=== PATIENT | female | born 1930 | race Caucasian/White ===

== ENCOUNTER 2016-10-09 13:00 | Outpatient (RCR) ==
--- NOTE | 2016-09-30 14:20 | RS.OPPTDN ---
Subjective Date of Note: 09/30/16 Visit #: 8 Date of Evaluation: 09/12/16 Payer Source: MEDICARE Treatment Diagnosis: Neck pain Current Subjective/complaints:: Patient reports continued tightness but improvement each day. States she is doing more at home and feels like she has better rotation. Pain Assessment - Pain Description Pain Location: left side of neck and base of head Current Pain Intensity: mild to moderate - Treatment Modality: Ultrasound Parameters/Method Applied: [id number] at 1.5w/cm2 to the bilateral cervical paraspinals with focus on left. Patient in sitting. Patient Position: Sitting - Heat/Cryotherapy Treatment: Hot Pack ([id number] to cervical spine prior to US and EX. Patient in supine. ) Interventions - Exercise/Activities/Manual Therapy Exercises/Activities: [id number] Assisted cervical rotation and lateral flexion stretching. Isometric cervical retraction and shoulder extension. Scapular retraction. Modified wall angels. Red theraband for scapular retraction in standing, 2s/10reps. Total minutes of Exercise: 12mins Manual Therapy: x5mins of manual therapy of DTM to address muscle tone in the upper traps and cervical paraspinals. Trigger point release at the left occiput. Patient in sitting. Total minutes of Manual Therapy: 5mins HOME EXERCISE PROGRAM: gentle stretching into lateral flexion and rotation, bilaterally. Isometric cervical retraction. Modifies wall angels. Red theraband for scapular retraction. - Objective Findings Observations,measurements,etc.: Patient demos 40-45 degrees active rotation to the left. Left lateral flexion continues to be limitied due to tightness right side. - Charges Total Direct Minutes: 29mins Total Treatment Time: 49mins Procedures billed for this date of service:: HP, US, EX Assessment: Patient progressing with postural exercise and with ability to perform daily activities at home. Patient Education: Body/Joint mechanics, Home Exercise Program, Home Safety Comments: Reveiwed patient education of posture and HEP. Patient demonstrates compliance with HEP?: Yes Short Term Goals Goal #1: Pt independent and compliant with basic HEP. Goal to be met by: 09/26/16 (100%) Progress towards Goal:: Met Goal #2: Muscle tone in bilateral upper traps decreased to minimal. Goal to be met by: 09/26/16 (50%) Progress towards Goal:: Progressing Goal #3: Neck pain at rest <3/10. Goal to be met by: 09/26/16 (75%) Progress towards Goal:: Progressing Goal #4: Left cervical rotation improved to 40-45 degrees. Goal to be met by: 09/26/16 (100%) Progress towards Goal:: Met Reporting Specialist Goals Goal #1: Pt knows to continue HEP to maintain level of function at D/C. Goal to be met by: 10/22/16 Progress towards goal: Progressing Goal #2: Pt's cervical rotation improved for patient to be able to return to driving Goal to be met by: 10/22/16 Progress towards goal: Progressing Goal #3: Pt to perform all ADL's and functional activities with minimal neck pain. Goal to be met by: 10/22/16 Progress towards goal: Progressing Goal #4: Pt able to sleep throughout the night w/o interruption from neck pain. Goal to be met by: 10/22/16 Progress towards goal: Progressing Plan PLAN OF CARE EXPIRES ON:: 10/22/16 ORDER # VISITS AND/OR THROUGH DATE: 10/22/16 PLAN: Continue Plan of Care
--- NOTE | 2016-10-02 15:15 | RS.OPPTDN ---
Subjective Date of Note: 10/02/16 Visit #: 9 Date of Evaluation: 09/12/16 Payer Source: MEDICARE Treatment Diagnosis: Neck pain Current Subjective/complaints:: Patient reports left upper cervical muscle spasm has imprved to minimal. She has had increased discomfort at the center of the upper cervical spine at the occipit. Reports reduced pain and increased ROM. Pain Assessment - Pain Description Pain Location: left side of neck and base of head Current Pain Intensity: mild to moderate - Treatment Modality: Ultrasound Parameters/Method Applied: [id number] at 1.5w/cm2 to the bilateral cervical paraspinals prior to MT. Patient in sitting. Patient Position: Sitting - Heat/Cryotherapy Treatment: Hot Pack ([id number] to the cervical spine prior to US. Patient in supine. ) Interventions - Exercise/Activities/Manual Therapy Exercises/Activities: x5mins. Assisted lateral flexion and rotation gentle stretching. Isometric cervical retraction, lateral flexion, and isometric shoulder extension. Reviewed HEP, no new additions. Total minutes of Exercise: 5mins Manual Therapy: [id number] of manual therapy of DTM to address muscle tone in the upper traps and cervical paraspinals. Trigger point release along the occiput. Patient in sitting. Total minutes of Manual Therapy: 12mins HOME EXERCISE PROGRAM: gentle stretching into lateral flexion and rotation, bilaterally. Isometric cervical retraction. Modifies wall angels. Red theraband for scapular retraction. - Charges Total Direct Minutes: 29mins Total Treatment Time: 49mins Procedures billed for this date of service:: HP, US, MT Assessment: Patient continues to report improvement in pain and ability to perform daily activities. Patient demonstrates compliance with HEP?: Yes Short Term Goals Goal #1: Pt independent and compliant with basic HEP. Goal to be met by: 09/26/16 (100%) Progress towards Goal:: Met Goal #2: Muscle tone in bilateral upper traps decreased to minimal. Goal to be met by: 09/26/16 (50%) Progress towards Goal:: Progressing Goal #3: Neck pain at rest <3/10. Goal to be met by: 09/26/16 (75%) Progress towards Goal:: Progressing Goal #4: Left cervical rotation improved to 40-45 degrees. Goal to be met by: 09/26/16 (100%) Progress towards Goal:: Met Assisted Goals Goal #1: Pt knows to continue HEP to maintain level of function at D/C. Goal to be met by: 10/22/16 Progress towards goal: Progressing Goal #2: Pt's cervical rotation improved for patient to be able to return to driving Goal to be met by: 10/22/16 Progress towards goal: Progressing Goal #3: Pt to perform all ADL's and functional activities with minimal neck pain. Goal to be met by: 10/22/16 Progress towards goal: Progressing Goal #4: Pt able to sleep throughout the night w/o interruption from neck pain. Goal to be met by: 10/22/16 Progress towards goal: Progressing Plan PLAN OF CARE EXPIRES ON:: 10/22/16 ORDER # VISITS AND/OR THROUGH DATE: 10/22/16 PLAN: Continue Plan of Care (Continue and progress postural strengthening exercises.)
--- NOTE | 2016-10-04 17:31 | RS.OPPTDN ---
Subjective Date of Note: 10/04/16 Visit #: 10 Date of Evaluation: 09/12/16 Payer Source: MEDICARE Treatment Diagnosis: Neck pain Current Subjective/complaints:: Patient reports increase in ability to do light activities at home. Patient states she lives alone and needs to be able to perform daily self care and light activities at home. Pain Assessment - Pain Description Pain Location: left side of neck and base of head Current Pain Intensity: mild to moderate - Treatment Modality: Ultrasound Parameters/Method Applied: [id number] at 1.5w/cm2 to the bilateral cervical paraspinals with focus on the left. Patient in sitting. Patient Position: Sitting - Heat/Cryotherapy Treatment: Hot Pack ([id number] ) Interventions - Exercise/Activities/Manual Therapy Exercises/Activities: x5mins. Assisted lateral flexion and rotation gentle stretching. Isometric cervical retraction, lateral flexion, and isometric shoulder extension. Reviewed HEP, no new additions. Total minutes of Exercise: 5mins Manual Therapy: [id number] of manual therapy of DTM to address muscle tone in the upper traps and cervical paraspinals. Trigger point release along the occiput. Patient in sitting. Total minutes of Manual Therapy: 12mins HOME EXERCISE PROGRAM: gentle stretching into lateral flexion and rotation, bilaterally. Isometric cervical retraction. Modifies wall angels. Red theraband for scapular retraction. - Objective Findings Observations,measurements,etc.: Patient progressed on the Neck Disability Index to 54 (was 74 on Eval) - Charges Total Direct Minutes: 29mins Total Treatment Time: 49mins Procedures billed for this date of service:: HP, US, MT Assessment: Patient progressing well and benefitting from treatment. She will benefit from progressing strengthening exercise to increase functional activity level. This is beneficial as patient lives alone. Patient Education: Home Exercise Program Patient demonstrates compliance with HEP?: Yes Short Term Goals Goal #1: Pt independent and compliant with basic HEP. Goal to be met by: 09/26/16 (100%) Progress towards Goal:: Met Goal #2: Muscle tone in bilateral upper traps decreased to minimal. Goal to be met by: 09/26/16 (50%) Progress towards Goal:: Progressing Goal #3: Neck pain at rest <3/10. Goal to be met by: 09/26/16 (75%) Progress towards Goal:: Progressing Goal #4: Left cervical rotation improved to 40-45 degrees. Goal to be met by: 09/26/16 (100%) Progress towards Goal:: Met [employer] Technical Lead Senior Developer Goals Goal #1: Pt knows to continue HEP to maintain level of function at D/C. Goal to be met by: 10/22/16 Progress towards goal: Progressing Goal #2: Pt's cervical rotation improved for patient to be able to return to driving Goal to be met by: 10/22/16 Progress towards goal: Progressing Goal #3: Pt to perform all ADL's and functional activities with minimal neck pain. Goal to be met by: 10/22/16 (70%) Progress towards goal: Progressing Goal #4: Pt able to sleep throughout the night w/o interruption from neck pain. Goal to be met by: 10/22/16 (70%) Progress towards goal: Progressing Plan PLAN OF CARE EXPIRES ON:: 10/22/16 ORDER # VISITS AND/OR THROUGH DATE: 10/22/16 PLAN: Continue Plan of Care
--- NOTE | 2016-10-07 15:14 | RS.OPPTDN ---
Subjective Date of Note: 10/07/16 Visit #: 11 Date of Evaluation: 09/12/16 Payer Source: MEDICARE Treatment Diagnosis: Neck pain Current Subjective/complaints:: Patient says her pain was elevated last night and could not sleep. Reports she had to sleep in her neck brace to get relief. She says she remains tight and tender at the L side of her neck. Pain Assessment - Pain Description Pain Location: left side of neck and base of head Current Pain Intensity: moderate - Treatment Modality: Ultrasound Parameters/Method Applied: continuous @ 1.5 w/cm2 x 10 mins to bilateral UT, but mostly to the L Patient Position: Sitting - Heat/Cryotherapy Treatment: Hot Pack (cervical x 20 mins in supine) Interventions - Exercise/Activities/Manual Therapy Exercises/Activities: x5mins. Assisted lateral flexion and rotation gentle stretching. Isometric cervical retraction, lateral flexion, and isometric shoulder extension. Reviewed HEP, no new additions. Manual Therapy: [id number] of manual therapy of DTM to address muscle tone in the upper traps and cervical paraspinals. Trigger point release along the occiput. Patient in sitting. HOME EXERCISE PROGRAM: gentle stretching into lateral flexion and rotation, bilaterally. Isometric cervical retraction. Modifies wall angels. Red theraband for scapular retraction. - Charges Total Direct Minutes: 30 Total Treatment Time: 50 Procedures billed for this date of service:: hp, MT, U/s Assessment: Patient continues to be tender and have increased muscle guarding to the L UT/rhomboids as well. She is very forward flexed and rounded at the shoulders which is limiting her cspine ROM. She feels no difficulty with UE's however in her daily tasks. Patient Education: Education of diagnosis, Body/Joint mechanics, Home Exercise Program, Home Safety, Activity Modification, Education of Plan of Care Patient demonstrates compliance with HEP?: Yes Short Term Goals Goal #1: Pt independent and compliant with basic HEP. Goal to be met by: 09/26/16 (100%) Progress towards Goal:: Met Goal #2: Muscle tone in bilateral upper traps decreased to minimal. Goal to be met by: 09/26/16 (50%) Progress towards Goal:: Progressing Goal #3: Neck pain at rest <3/10. Goal to be met by: 09/26/16 (75%) Progress towards Goal:: Progressing Goal #4: Left cervical rotation improved to 40-45 degrees. Goal to be met by: 09/26/16 (100%) Progress towards Goal:: Met Intermediate Goals Goal #1: Pt knows to continue HEP to maintain level of function at D/C. Goal to be met by: 10/22/16 Progress towards goal: Progressing Goal #2: Pt's cervical rotation improved for patient to be able to return to driving Goal to be met by: 10/22/16 Progress towards goal: Progressing Goal #3: Pt to perform all ADL's and functional activities with minimal neck pain. Goal to be met by: 10/22/16 (70%) Progress towards goal: Progressing Goal #4: Pt able to sleep throughout the night w/o interruption from neck pain. Goal to be met by: 10/22/16 (70%) Progress towards goal: Progressing Plan PLAN OF CARE EXPIRES ON:: 10/22/16 ORDER # VISITS AND/OR THROUGH DATE: 10/22/16 PLAN: Continue Plan of Care
--- NOTE | 2016-10-08 16:39 | RS.PTSUM ---
Progress Note/Summary Date of Note: 10/08/16 Date of Evaluation: 09/12/16 Number of Visits: 10 Reporting Period for this Progress Note: 09/12/16 through 10/04/16 Current Complaints/Gains: Patient reports she has been able to increase her daily activities. She is independent with all selfcare. Reports improved sleep. She is performing all her laundry and dishes herself. Objective Measurements/Presentation: Left cervical rotation ~45 degrees, She is performing postural strengthening with red theraband. She demonstrates independence with her basic HEP. G Codes: Body pos current CK. Body pos goal CJ Source of G Code Score: Neck disability Index score 54. - Short Term Goals Goal #1: Pt independent and compliant with basic HEP. Goal to be met by: 09/26/16 (100%) Progress towards Goal:: Met Goal #2: Muscle tone in bilateral upper traps decreased to minimal. Goal to be met by: 10/15/16 (50%) Progress towards Goal:: Progressing Goal #3: Neck pain at rest <3/10. Goal to be met by: 10/15/16 (75%) Progress towards Goal:: Progressing Goal #4: Left cervical rotation improved to 40-45 degrees. Goal to be met by: 09/26/16 (100%) Progress towards Goal:: Met - Ux Developer Goals Goal #1: Pt knows to continue HEP to maintain level of function at D/C. Goal to be met by: 10/22/16 Progress towards goal: Progressing Goal #2: Pt's cervical rotation improved for patient to be able to return to driving Goal to be met by: 10/22/16 Progress towards goal: Progressing Goal #3: Pt to perform all ADL's and functional activities with minimal neck pain. Goal to be met by: 10/22/16 (70%) Progress towards goal: Progressing Goal #4: Pt able to sleep throughout the night w/o interruption from neck pain. Goal to be met by: 10/22/16 (70%) Progress towards goal: Progressing - Assessment Assessment of Improvement/Progress: Patient shows improved functional ability per Neck Disability Index. Reports improved sleep and improved ability with some ADL's. She will benefit from two additional visits for progression of exercises. Summary: Patient has made progress towards goals., Patient demonstrates potential to gain increased function with therapy - Plan Plan: Continue Plan of Care PLAN OF CARE EXPIRES ON:: 10/22/16 ORDER # VISITS AND/OR THROUGH DATE: 10/22/16
--- NOTE | 2016-10-09 16:42 | RS.OPPTDN ---
Subjective Date of Note: 10/09/16 Visit #: 12 Date of Evaluation: 09/12/16 Payer Source: MEDICARE Treatment Diagnosis: Neck pain Current Subjective/complaints:: Patient reports motion with cervical rotation has improved. She reports a reduction in pain and improvement in sleeping. States she will continue HEP as instructed. Pain Assessment - Pain Description Pain Location: left side of neck and base of head Current Pain Intensity: mild - Treatment Modality: Ultrasound Parameters/Method Applied: x5mins at 1.5w/cm2 to the left upper cervical paraspinals prior to MT and EX. Patient in sitting. Patient Position: Sitting - Heat/Cryotherapy Treatment: Hot Pack ([id number] to cervical spine in supine position. ) Interventions - Exercise/Activities/Manual Therapy Exercises/Activities: [id number]. Assisted lateral flexion and rotation gentle stretching. Isometric cervical retraction, lateral flexion, and isometric shoulder extension. Red theraband for scapular retraction. Reviewed HEP. Total minutes of Exercise: 12mins Manual Therapy: [id number] of manual therapy of DTM to address muscle tone in the upper traps and cervical paraspinals. Trigger point release along the occiput. Patient in sitting. Total minutes of Manual Therapy: 15mins HOME EXERCISE PROGRAM: gentle stretching into lateral flexion and rotation, bilaterally. Isometric cervical retraction. Modifies wall angels. Red theraband for scapular retraction. - Objective Findings Observations,measurements,etc.: Neck Disability Score remains at 27 or 54% ( started at 36 or 72% on Eval) - Charges Total Direct Minutes: 32mins Total Treatment Time: 52mins Procedures billed for this date of service:: HP, MT, EX Assessment: Patient progressed well and benefitted from treatment. She reports improvement with sleeping and activities of daily living. She will continue HEP. Patient Education: Home Exercise Program, Home Safety, Activity Modification, Education of Plan of Care Patient demonstrates compliance with HEP?: Yes Short Term Goals Goal #1: Pt independent and compliant with basic HEP. Goal to be met by: 09/26/16 (100%) Progress towards Goal:: Met Goal #2: Muscle tone in bilateral upper traps decreased to minimal. Goal to be met by: 10/15/16 (100%) Progress towards Goal:: Met Goal #3: Neck pain at rest <3/10. Goal to be met by: 10/15/16 (100%) Progress towards Goal:: Met Goal #4: Left cervical rotation improved to 40-45 degrees. 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 Goal to be met by: 10/22/16 Progress towards goal: Progressing Goal #2: Pt's cervical rotation improved for patient to be able to return to driving Goal to be met by: 10/22/16 Progress towards goal: Progressing Goal #3: Pt to perform all ADL's and functional activities with minimal neck pain. Goal to be met by: 10/22/16 (70%) Progress towards goal: Progressing Goal #4: Pt able to sleep throughout the night w/o interruption from neck pain. Goal to be met by: 10/22/16 (70%) Progress towards goal: Progressing Plan PLAN OF CARE EXPIRES ON:: 10/22/16 ORDER # VISITS AND/OR THROUGH DATE: 10/22/16 PLAN: Plan for Discharge (Discharge with HEP.)
--- NOTE | 2016-10-22 11:29 | RS.OPPTDC ---
Date of Discharge: 10/22/16 Date of Evaluation: 09/12/16 Number of Visits: 12 Treatment Diagnosis: Neck pain Current Complaints/Gains: Patient reports good progress with therapy. Reports neck ROM. States she is able to perform more ADL's without increased pain. She has not returned to driving yet. She is working on her HEP as instructed. States she can perform all self-care independently. Functional Outcome Measure Neck Disability Index: 54 - G Codes & Severity Modifier G Codes & Modifier: body position goal CJ. body position D/C CK Source of G Code score: Neck disability index 54% Interventions - Exercise/Activities/Manual Therapy Exercises/Activities: NA Manual Therapy: NA HOME EXERCISE PROGRAM: gentle stretching into lateral flexion and rotation, bilaterally. Isometric cervical retraction. Modifies wall angels. Red theraband for scapular retraction. - Objective Findings Observations,measurements,etc.: Left cervical rotation to 45 degrees. She demonstrates improved postural awareness and independence with HEP. - Charges Total Direct Minutes: NA Total Treatment Time: NA Procedures billed for this date of service:: NA Assessment Assessment: Patient with reports of good progress. Reports being able to perform more activities at home. She is confident that she can continue with her exercises at home. Short Term Goals Goal #1: Pt independent and compliant with basic HEP. Goal to be met by: 09/26/16 (100%) Progress towards Goal:: Met Goal #2: Muscle tone in bilateral upper traps decreased to minimal. Goal to be met by: 10/15/16 (100%) Progress towards Goal:: Met Goal #3: Neck pain at rest <3/10. Goal to be met by: 10/15/16 (100%) Progress towards Goal:: Met Goal #4: Left cervical rotation improved to 40-45 degrees. Goal to be met by: 09/26/16 (100%) Progress towards Goal:: Met Residential Goals Goal #1: Pt knows to continue HEP to maintain level of function at D/C. Goal to be met by: 10/22/16 Progress towards goal: Met Goal #2: Pt's cervical rotation improved for patient to be able to return to driving Goal to be met by: 10/22/16 Progress towards goal: Partially Met Goal #3: Pt to perform all ADL's and functional activities with minimal neck pain. Goal to be met by: 10/22/16 (70%) Progress towards goal: Partially Met Goal #4: Pt able to sleep throughout the night w/o interruption from neck pain. Goal to be met by: 10/22/16 (70%) Progress towards goal: Partially Met Plan Reason for Discharge:: No Further Skilled Therapy Indicated
== END 2016-10-29 ==
PROVIDERS: ATTEND Neurological Surgery
DX: M47.12 Other spondylosis with myelopathy, cervical region (principal)

== ENCOUNTER 2016-11-05 11:12 | Emergency (ER) ==
[2016-11-05 11:22] VITALS: TEMP 97.4; BMI 17.7
--- NOTE | 2016-11-05 11:31 | ED.PDOC ---
General ED Provider: Dr. DENA SUMMERS JR Chief Complaint: Shortness of Air Stated Complaint: pt was at [facility]. had trigger point injections done to neck. immediately had pain down the right side. pt was taken for chest x ray. stated lung was not punctured. pt in extreme resp distress on arrival. placed in room 5 [ End ]0830 today 97.4 74 40 96% 4'10" 85#. Rain seeing? Júnior. pt was at [facility]. had trigger point injections done to neck. immediately had pain down the right side. pt was taken for chest x ray. stated lung was not punctured. pt in extreme resp distress on arrival. placed in room 5 [ End ]0830 today 97.4 74 40 96% 4'10" 85#. disc wirh dr isiah gonzalez. disc with Dr [facility] at 1143 Time Seen by Physician: 11:32 Mode of Arrival: Wheelchair Information Source: Patient, Family Exam Limitations: Clinical condition Nursing and Triage Documentation Reviewed and Agree: No Review of Systems - Review Of Systems Constitutional: Reports: Other Eyes: Reports: No symptoms Ears, Nose, Mouth, Throat: Reports: No symptoms Respiratory: Reports: Cough, Short of air, Wheezing Cardiac: Reports: Chest pain (right sided my whole right side) GI: Reports: No symptoms : Reports: No symptoms Musculoskeletal: Reports: No symptoms (kyphotic) Skin: Reports: No symptoms Neurological: Reports: Anxiety Endocrine: Reports: No symptoms Hematologic/Lymphatic: Reports: No symptoms All Other Systems: Other Past Medical History - Past Medical History Endocrine: Reports: Hypothyroid Cardiovascular: Reports: Hypertension Respiratory: Reports: Asthma, Other (bronchiectasis, 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) Hematological: Reports: None Gastrointestinal: Reports: None Genitourinary: Reports: None Neuro/Psych: Reports: None Musculoskeletal: Reports: Arthritis Cancer: Reports: None Last Menstrual Period: none - Surgical History General Surgical History: Reports: 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) - Family History Family History: Reports: Unknown - Social History Smoking Status: Never smoker Hx Substance Use: No Alcohol Screening: None Physical Exam - Physical Exam Appearance: Ill-appearing, Thin Ill-appearing: Severe Pain Distress: Severe Respiratory: Airway patent, Breath sounds diminished (on right) Cardiovascular: Tachycardia Musculoskeletal: Limited ROM, Limited strength (due to shortness of air) Skin: Warm, Dry Neurological: Sensation intact, Motor intact, Alert, Oriented Psychiatric: Anxious Interpretation - Radiology Interpretation Radiology Interpretation By: ED Physician Radiology Results: Positive Exam Interpreted: CXR (r pneumothorax 20-25% per radiologist) - EKG Interpretation Time of EKG #1: 11:25 Rate: Normal Rhythm: Sinus ST Segment: Other (ant st elevation moderate artifact present) Re-Evaluation - Re-Evaluation Time of Re-Evaluation: 12:02 ([id number]) Physician Notification - Case Discussed Physician Notified: DR LANDA/DR NICHOLE AMADOR [facility] Time of Notification: 11:43 (TRANSFER) Critical Care Note - Critical Care Note Total Time (mins): 30 Course - Course Hematology/Chemistry: 11/05/16 11:20 11/05/16 11:20 Orders, Labs, Meds: Lab Review 11/05/16 11/05/16 11:20 11:35 WBC 17.66 H RBC 3.63 L Hgb 12.1 Hct 36.6 L MCV 100.8 H MCH 33.3 H MCHC 33.1 RDW Coeff of Rosie 18.6 H Plt Count 312 Immature Gran % (Auto) 1.4 Neut % (Auto) 89.0 Lymph % (Auto) 7.4 L Wilkes % (Auto) 1.5 Eos % (Auto) 0.1 Baso % (Auto) 0.6 Immature Gran # (Auto) 0.2 Neut # 15.7 H Lymph # 1.3 Wilkes # 0.3 L Eos # 0.0 Baso # 0.1 D-Dimer 0.46 Puncture Site L radial O2 Saturation 93.0 L ABG pH 7.287 L* ABG pCO2 50.3 H ABG pO2 77.0 L ABG HCO3 24 ABG Total CO2 26 ABG Base Excess -3 L Zain Test + O2 Delivery Device Nc Oxygen Liter Flow 2.00 FiO2 % 28.0 Sodium 135 L Potassium 4.1 Chloride 97 L Carbon Dioxide 24 Anion Gap 18.1 BUN 16 Creatinine 0.72 Estimated GFR (MDRD) 77.00 BUN/Creatinine Ratio 22.22 Glucose 163 H Calcium 10.3 H Total Bilirubin 0.83 AST 38 H ALT 22 Alkaline Phosphatase 51 L Total Creatine Kinase 43 Troponin I < 0.0100 B-Natriuretic Peptide 401 H Total Protein 7.6 Albumin 4.1 Globulin 3.5 Albumin/Globulin Ratio 1.17 Orders Category Date Time Status ABG DRAW REQUEST Stat CARDIO 11/05/16 11:35 Completed EKG-(ED ONLY) Stat CARDIO 11/05/16 11:25 Completed ED APPLY O2 .ONCE EMERGENCY 11/05/16 11:25 Active ED IV/MEDIPORT/POWERPORT .ONCE EMERGENCY 11/05/16 11:25 Active ABG Stat LAB 11/05/16 11:35 Completed B-TYPE NATRIURETIC PEPTIDE Stat LAB 11/05/16 11:20 Completed CBC W/ AUTO DIFF Stat LAB 11/05/16 11:20 Completed COMPREHENSIVE METABOLIC PANEL Stat LAB 11/05/16 11:20 Completed CREATINE KINASE Stat LAB 11/05/16 11:20 Completed D-DIMER Stat LAB 11/05/16 11:20 Completed TROPONIN I Stat LAB 11/05/16 11:20 Completed 0.9 % Sodium Chloride [Saline Flush] MEDS 11/05/16 11:25 Discontinued 1 syr IVF PRN PRN CHEST, 1V AP ONLY Stat RADS 11/05/16 11:22 Completed Medications Discontinued Medications Generic Name Dose Route Start Last Admin Trade Name Freq PRN Reason Stop Dose Admin Sodium Chloride 1 syr 11/05/16 11:25 Saline Flush IVF PRN PRN To flush IV Vital Signs: Temp Pulse Resp BP Pulse Ox 11/05/16 11:13 97.4 F L 74 40 H 165/115 H 96 Departure - Departure Time of Disposition: 12:00 Disposition: TSF SHORT-TRM HOSP Discharge Problem: Pneumothorax Qualifiers: Pneumothorax type: postprocedural Qualifier Code: (J95.811) Postprocedural pneumothorax Acute myocardial infarction Qualifiers: Myocardial infarction ST status: ST elevation myocardial infarction Involved coronary artery: unspecified coronary artery Qualifier Code: (I21.3) ST elevation (STEMI) myocardial infarction of unspecified site Condition: Serious Pt referred to PMD for follow-up: Yes ([facility]) Allergies/Adverse Reactions: Allergies Sulfa (Sulfonamide Antibiotics) Adverse Reaction (Verified 11/05/16 11:27)
[2016-11-05 11:32] LABS: BASOPHILS # (AUTO) 0.1 K/uL (0-0.2); BASOPHILS % (AUTO) 0.6 % (0.0-3.0); EOSINOPHILS % (AUTO) 0.1 % (0.0-7.0); HEMATOCRIT 36.6 % (37.0-47.0); HEMOGLOBIN 12.1 g/dl (12.0-16.0); IMMATURE GRANULOCYTE % (AUTO) 1.4 % (0.0-5.0); LYMPHOCYTES # (AUTO) 1.3 K/uL (0.60-3.4); LYMPHOCYTES % (AUTO) 7.4 (10.0-50.0); MEAN CORPUSCULAR HEMOGLOBIN 33.3 pg (27.0-31.0); MEAN CORPUSCULAR HGB CONC 33.1 (31.8-35.4); MEAN CORPUSCULAR VOLUME 100.8 fl (81.0-99.0); MONOCYTES # (AUTO) 0.3 K/uL (0.4-2.0); MONOCYTES % (AUTO) 1.5 (0-10); NEUTROPHILS # (AUTO) 15.7 K/ul (2.0-6.9); PLATELET COUNT 312 10^3/uL (140-440); RED BLOOD COUNT 3.63 10^6/ul (4.20-5.40); WHITE BLOOD COUNT 17.66 K/ul (4.6-10.2)
[2016-11-05 11:37] LABS: ABG BASE EXCESS -3 (-2.0-2.0); ABG HCO3 24 (22.0-26.0); ABG PCO2 50.3 mmHg (35-45); ABG PH 7.287 (7.35-7.45); ABG TCO2 26 (22.0-28.0)
--- NOTE | 2016-11-05 11:42 | DI ---
Examination: Single portable radiographic image of the chest. Comparison: 03/10/2008. Reason for study: Shortness of breath. FINDINGS: Right-sided pneumothorax. The cardiac silhouette remains prominent in size. There is el evation of the left hemidiaphragm. Atherosclerotic disease of the aorta. Impression: 1. Unexpected finding. Right apical pneumothorax. 2. Left hemidiaphragmatic elevation and likely cardiomegaly. Findings communicated by telephone and fax to the [facility] emergency department at 1 135 hours on 11/05/2016.
[2016-11-05 11:55] VITALS: BP 165/115
[2016-11-05 12:01] LABS: ALANINE AMINOTRANSFERASE 22 U/L (12-78); ALBUMIN 4.1 g/dL (3.4-5.0); ALBUMIN/GLOBULIN RATIO 1.17; ALKALINE PHOSPHATASE 51 U/L (53-141); ANION GAP 18.1; ASPARTATE AMINO TRANSFERASE 38 U/L (15-37); BILIRUBIN,TOTAL 0.83 mg/dL (0.00-1.20); BLOOD UREA NITROGEN 16 mg/dL (7-18); BUN/CREATININE RATIO 22.22; CALCIUM 10.3 mg/dL (8.2-10.2); CARBON DIOXIDE 24 mmol/L (23-31); CHLORIDE 97 mmol/L (98-107); CREATINE KINASE 43 U/L; CREATININE 0.72 mg/dL (0.60-1.30); GLUCOSE 163 mg/dL (82-115); POTASSIUM 4.1 mmol/L (3.5-5.10); SODIUM 135 mmol/L (136-145); TOTAL PROTEIN 7.6 g/dL (5.8-8.1)
== END 2016-11-05 12:00 | disposition short-term general hospital (02) ==
LOC: ED 11:12
DX: J95.811 Postprocedural pneumothorax (principal); I21.3 ST elevation (STEMI) myocardial infarction of unspecified site; I10 Essential (primary) hypertension; E03.9 Hypothyroidism, unspecified
CPT/HCPCS: 36415; 80053; 82550; 82803; 83880; 84484; 85025; 85379; 93005; 93010; 96360; 99285

== ENCOUNTER 2016-11-05 12:01 | Outpatient (CLI) ==
[2016-11-05 11:22] VITALS: BMI 17.7
== END 2016-11-05 12:02 | disposition home or self-care (01) ==
LOC: AMBL 12:01
PROVIDERS: ATTEND Emergency Medicine
DX: J93.9 Pneumothorax, unspecified (principal); I45.4 Nonspecific intraventricular block; R94.31 Abnormal electrocardiogram [ECG] [EKG]

== ENCOUNTER 2017-11-07 16:24 | Emergency (ER) ==
[2017-11-07 16:38] VITALS: BP 155/77; TEMP 98.5; BMI 16.2
--- NOTE | 2017-11-07 17:57 | ED.PDOC ---
General ED Provider: Dr. DARRIUS MARTIN Chief Complaint: Fall Stated Complaint: FALL Time Seen by Physician: 16:30 (FALL ) Mode of Arrival: Wheelchair Information Source: Patient Exam Limitations: No limitations Primary Care Provider: MATTHEW MILLER Nursing and Triage Documentation Reviewed and Agree: Yes Reviewed sepsis parameters & appropriate labs ordered?: Yes System Inflammatory Response Syndrome: Not Applicable Sepsis Protocol: For patient's 13 years and over: Temp is 96.8 and below OR 101 and greater Pulse >90 BPM Resp >20/minute Acutely Altered Mental Status Are patient's symptoms suggestive of a new infection, such as: -Pneumonia -Skin, Soft Tissue -Endocarditis -UTI -Bone, Joint Infection -Implantable Device -Acute Abdominal Infection -Wound Infection -Meningitis -Blood Stream Catheter Infection -Unknown System Inflammatory Response Syndrome: Not Applicable Trauma/Injury Complaint Exam - Trauma Complaint/Exam Location of Pain or Injury: Reports: LLE (HIP PAIN) Mechanism of Injury: Reports: Fall Onset/Duration: TODAY ABOUT 4PM Symptoms Are: Still present Timing of Treatment: Immediate Initial Severity: Mild Current Severity: Mild Character: Reports: Aching Aggravating: Reports: Movement Alleviating: Reports: Rest Associated Signs and Symptoms: Denies: LOC, Confusion, Memory loss, Lethargy, Vomiting, Bleeding, Bruising, Swelling, Extremity disuse, Painful respiration, Hoarseness, Dysphagia, Hemoptysis, Significant blood loss Penetrating Injury Risk Factors: Reports: None Nexus Low Risk Criteria: No post-midline CS tender, No evidence of intoxicat., No Altered LOC, No focal neuro deficit, No distracting injuries Glascow Coma Scale (see protocol): 15 Trauma Findings: Present: Neck spasm. Absent: [place] eyes, Hemotympanum, Nasal deformity, Dental tenderness, Neck tenderness, SubQ Air, Crepitus, Airway obstructed, Trachea displaced, Labored respirations, Decreased breath sounds, Muffled heart sounds, Absent pulses (ABRASION RIGHT KNEE AND RIGHT FOREARM SEE PHOTOS) Differential Diagnoses: Fracture, Hematoma, Laceration, Sprain, Strain Review of Systems - Review Of Systems Constitutional: Reports: No symptoms Eyes: Reports: No symptoms Ears, Nose, Mouth, Throat: Reports: No symptoms Respiratory: Reports: No symptoms Cardiac: Reports: No symptoms GI: Reports: No symptoms : Reports: No symptoms Musculoskeletal: Reports: Back pain (LUMBAR), Joint pain (ANKLES BILATERAL ), Muscle pain, Neck pain Skin: Reports: No symptoms Neurological: Reports: No symptoms Endocrine: Reports: No symptoms Hematologic/Lymphatic: Reports: No symptoms All Other Systems: Reviewed and Negative Past Medical History - Past Medical History Endocrine: Reports: Hypothyroid Cardiovascular: Reports: Hypertension Respiratory: Reports: Asthma, Other (bronchiectasis, 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) Hematological: Reports: None Gastrointestinal: Reports: None Genitourinary: Reports: None Neuro/Psych: Reports: None Musculoskeletal: Reports: Arthritis Cancer: Reports: None Last Menstrual Period: unknown - Surgical History General Surgical History: Reports: 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) - Family History Family History: Reports: Unknown - Social History Smoking Status: Former smoker Hx Substance Use: No Alcohol Screening: None - Immunizations Tetanus Shot up to Date: Yes Physical Exam - Physical Exam Appearance: Well-appearing, No pain distress, Well-nourished Eyes: LEIGH, EOMI, Conjunctiva clear ENT: Ears normal, Nose normal, Oropharynx normal Respiratory: Airway patent, Breath sounds clear, Breath sounds equal, Respirations nonlabored Cardiovascular: RRR, Pulses normal, No rub, No murmur GI/: Soft, Nontender, No masses, Bowel sounds normal, No Organomegaly Musculoskeletal: Normal strength, ROM intact, No edema, No calf tenderness Skin: Warm, Dry (SKIN TEAR RIGHT KNEE , RIGHT FOREARM) Neurological: Sensation intact, Motor intact, Reflexes intact, Cranial nerves intact, Alert, Oriented Psychiatric: Affect appropriate, Mood appropriate Critical Care Note - Critical Care Note Total Time (mins): 0 Course - Course Orders, Labs, Meds: Orders Category Date Time Status ANKLE, LEFT MIN 3 VIEWS Stat RADS 11/07/17 17:30 Ordered ANKLE, RIGHT MIN 3 VIEWS Stat RADS 11/07/17 17:[address] CERVICAL SPINE W/O CONTRAST Stat RADS 11/07/17 17:[address] HEAD W/O CONTRAST Stat RADS 11/07/17 17:[address] LUMBAR SPINE W/O CONTRAST Stat RADS 11/07/17 17:30 Ordered KNEE, RIGHT 4 VIEWS Stat RADS 11/07/17 17:29 Ordered Vital Signs: Temp Pulse Resp BP Pulse Ox 11/07/17 16:25 98.5 F 64 20 155/77 H 94 L Departure - Departure Time of Disposition: 19:00 Disposition: HOME SELF-CARE Discharge Problem: Falls, Skin tear Head injury Qualifiers: Encounter type: initial encounter Qualified Code(s): S09.90XA - Unspecified injury of head, initial encounter Low back pain Qualifiers: Chronicity: unspecified Back pain laterality: midline Instructions: Skin Tear (ED), Low Back Strain (ED), Back Pain (ED) Condition: Good Pt referred to PMD for follow-up: Yes IPMP verified?: Yes Additional Instructions: Please call your Family Physician as soon as possible to schedule a follow-up appointment. Allergies/Adverse Reactions: Allergies Sulfa (Sulfonamide Antibiotics) Adverse Reaction (Verified 11/07/17 16:38)
--- NOTE | 2017-11-07 18:46 | CT ---
EXAM: CT head without contrast. HISTORY: Fall.. PROCEDURE: Contiguous axial CT images of the head without contrast. FINDINGS: There is diffuse cerebral atrophy. The ventricles and basal cisterns are normal in size an d configuration. No evidence of mass or midline shift. No intracranial hemorrhage or evidence of la rge vessel infarct. No extra-axial fluid collection. There are chronic small vessel ischemic changes in the white matter. There is mucosal thickening in the paranasal sinuses. The mastoid air cells ar e well-aerated and normal in appearance. No skull fracture. Impression: No intracranial hemorrhage or skull fracture. Chronic small vessel ischemic changes. Diffuse cerebral atrophy. Paranasal sinusitis.
--- NOTE | 2017-11-07 18:48 | DI ---
EXAM: Four views of the right knee. HISTORY: Fall. FINDINGS: The bones are intact with no evidence of fracture. The joint spaces are maintained. No so ft tissue abnormality. Impression: Negative right knee.
--- NOTE | 2017-11-07 18:48 | CT ---
Exam: CT scan of the cervical spine. Date: 11/07/2017. Comparison: None. HISTORY: Fell. TECHNIQUE: Helical scan of the cervical spine was performed. FINDINGS: No prevertebral soft tissue swelling is seen. There is normal alignment to the cervical s pine. There is 0.2 cm of anterolisthesis of C3 on C4. There is loss of intervertebral disc space he ight with osteophytic spurring at C6-7. The vertebral body heights appear maintained at all levels. The odontoid process is intact. Fluid is incidentally noted in the left sphenoid sinus. Vascular ca lcifications are also noted. Segmental analysis: C1-2: Degenerative changes are present at the atlantoaxial joint. C2-3: No abnormalities are seen. C3-4: No abnormalities are seen. C4-5: No abnormalities are seen. C5-6: No abnormalities are seen. C6-7: No abnormalities are seen. C7-T1: No abnormalities are seen. Impression: No acute osseous abnormalities in the cervical spine with degenerative changes at C1-2 a nd C6-7. If additional evaluation is needed then MRI would be suggested..
--- NOTE | 2017-11-07 18:49 | DI ---
Exam: Three-view left ankle. Date: 11/07/2017. Comparison: None. HISTORY: Fell. FINDINGS: The soft tissues are within normal limits. The mineralization is normal. There is a smal l calcaneal spur. The bones are intact and the joint spaces are preserved. Impression: No acute osseous abnormality in the left ankle. Small calcaneal spur.
--- NOTE | 2017-11-07 18:50 | DI ---
Exam: Three-view right ankle. Date: 11/07/2017. Comparison: None. HISTORY: Fell. FINDINGS: There is mild soft tissue swelling surrounding the lateral malleolus. The mineralization is normal. The bones are intact and the joint spaces are preserved. Impression: Soft tissue swelling over the right lateral malleolus but without acute osseous abnormal ity.
--- NOTE | 2017-11-07 18:52 | CT ---
EXAM: CT LUMBAR SPINE HISTORY: Fall, back pain TECHNIQUE: CT lumbar spine without contrast. 3-mm axial sections. Coronal and sagittal reformation s. COMPARISON: None FINDINGS: The field of view excluded most of the L1 vertebral body. There is severe demineralization. At L3, there is an acute vertebral body fracture involving the left aspect of the anterior and middle column s. There is loss of vertebral body height at this level which in part may be chronic estimated at ab out 20%. There is mild retropulsion of the inferior endplate leading to mild central canal stenosis. No paraspinal hematoma. Diffuse degenerative disc and facet disease. Incidental findings include at herosclerotic disease and left nephrolithiasis. IMPRESSION: 1. Exam limitations including most of the L1 vertebral body not included within the field of view. 2. The visualized vertebral bodies of the lumbar spine revealed an acute compression fracture at L3 with mild loss of height and mild posterior retropulsion leading to mild central canal stenosis. Pedi cles are intact. 3. Diffuse degenerative disc and facet disease of the spine.
== END 2017-11-07 19:23 | disposition home or self-care (01) ==
LOC: ED 16:24
DX: S09.90XA Unspecified injury of head, initial encounter (principal); M54.5 Low back pain; M25.552 Pain in left hip; M62.830 Muscle spasm of back; S80.211A Abrasion, right knee, initial encounter; S50.811A Abrasion of right forearm, initial encounter; M25.572 Pain in left ankle and joints of left foot; M25.571 Pain in right ankle and joints of right foot; M54.2 Cervicalgia; W19.XXXA Unspecified fall, initial encounter; I10 Essential (primary) hypertension
CPT/HCPCS: 99283

== ENCOUNTER 2017-12-10 14:02 | Inpatient (IN) ==
[2017-12-10] MEDS ORDERED: SODIUM CHLORIDE 1,000 ML IV STA (14:07)
--- NOTE | 2017-12-10 15:07 | CT ---
EXAM: CT of the head without contrast History: Altered mental status. Comparison: Head CT 11/07/2017 Technique: Multiplanar CT images through the head were obtained without the administration of IV con trast Findings: No change in the paranasal sinus mucosal thickening and fluid. Mastoid air cells are yo r in general. No acute calvarial abnormalities. Intracranially there is stable atrophy. No dominant mass or midline shift. No hydrocephalous. No a cute intracranial hemorrhage or abnormal extraaxial fluid collections. No change in the periventricu lar and subcortical white matter hypodensities. Impression: 1. No acute intracranial process. 2. Stable chronic age-related changes. 3. No change in the paranasal sinusitis.
--- NOTE | 2017-12-10 15:15 | CT ---
EXAM: CT chest without contrast. HISTORY: Cough. Altered mental status. COMPARISON: Chest radiograph 11/05/2016. TECHNIQUE: Multiple axial images of the chest were obtained without intravenous contrast. Images we re reformatted in the sagittal and coronal planes. FINDINGS: Evaluation for lymphadenopathy is limited by lack of intravenous contrast. A 3.4 cm round ed low density focus along the left lateral aspect of the esophagus in the mid thorax is noted on axi al image 17. There are nonenlarged mediastinal lymph nodes present. Heart is enlarged. Atheroscler otic calcifications present. No pericardial effusion identified. There is debris within the right greater than left lower lobe bronchus with consolidation present wit hin the lower lobes with some air bronchograms. Nodular densities present throughout the remainder o f both lungs. Tiny left pleural effusion may be present. No pneumothorax identified. Calcified granu lomatous changes are present. Limited images of the upper abdomen demonstrate left nephrolithiasis. Numerous thoracolumbar vertebral compression deformities are seen which are age indeterminate (T5, T6 , T7, T9, T11, T12 and L3). Bilateral rib fractures also present, most which are old although some a re age indeterminate. Old right clavicular fracture noted. IMPRESSION: 1. Bilateral lower lobe endobronchial debris and consolidation suggesting pneumonia. Correlate for aspiration. 2. Bilateral nodular densities throughout remainder both lungs likely due to the same process as #1 above. Follow-up CT is recommended. 3. A 3.4 cm low density mass along the left lateral aspect of the mid esophagus could represent a du plication cyst or diverticulum. Other process is not excluded. This can be reassessed on follow-up. 4. Numerous thoracolumbar compression deformities which are age indeterminate.
[2017-12-10] MEDS ORDERED: ROCEPHIN 1 GM in SODIUM CHLORIDE 50 ML IV STA (15:29)
--- NOTE | 2017-12-10 15:32 | ED.PDOC ---
General ED Provider: Dr. DARRIUS MARTIN Chief Complaint: Weakness Stated Complaint: WEAKNESS, ALTERED Time Seen by Physician: 14:09 (NO RESP DISTRESS AOX3 ) Information Source: Patient, Family, Usp, EMT Exam Limitations: No limitations [facility] Nursing and Triage Documentation Reviewed and Agree: Yes Reviewed sepsis parameters & appropriate labs ordered?: Yes System Inflammatory Response Syndrome: Not Applicable Sepsis Protocol: For patient's 13 years and over: Temp is 96.8 and below OR 101 and greater Pulse >90 BPM Resp >20/minute Acutely Altered Mental Status Are patient's symptoms suggestive of a new infection, such as: -Pneumonia -Skin, Soft Tissue -Endocarditis -UTI -Bone, Joint Infection -Implantable Device -Acute Abdominal Infection -Wound Infection -Meningitis -Blood Stream Catheter Infection -Unknown System Inflammatory Response Syndrome: Not Applicable Review of Systems - Review Of Systems Constitutional: Reports: Malaise, Weakness, Loss of appetite Eyes: Reports: No symptoms Ears, Nose, Mouth, Throat: Reports: No symptoms Respiratory: Reports: Cough Cardiac: Reports: No symptoms GI: Reports: No symptoms : Reports: No symptoms Musculoskeletal: Reports: No symptoms Skin: Reports: No symptoms Neurological: Reports: Cognitive dysfunction (BUT EASILY AROUSABLE AOX3) Endocrine: Reports: No symptoms Hematologic/Lymphatic: Reports: No symptoms All Other Systems: Reviewed and Negative Past Medical History - Past Medical History Previously Healthy: Yes Endocrine: Reports: Hypothyroid Cardiovascular: Reports: Hypertension Respiratory: Reports: Asthma, Other (bronchiectasis, 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) Hematological: Reports: None Gastrointestinal: Reports: None Genitourinary: Reports: None Neuro/Psych: Reports: None Musculoskeletal: Reports: Arthritis Cancer: Reports: None Last Menstrual Period: NA - Surgical History General Surgical History: Reports: 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) - Family History Family History: Reports: Unknown - Social History Smoking Status: Former smoker Hx Substance Use: No Alcohol Screening: None Physical Exam - Physical Exam Appearance: Ill-appearing Ill-appearing: Mild Pain Distress: Mild Eyes: LEIGH, EOMI, Conjunctiva clear ENT: Dry mucosa Respiratory: Rhonchi Cardiovascular: RRR, Pulses normal, No rub, No murmur GI/: Soft, Nontender, No masses, Bowel sounds normal, No Organomegaly Musculoskeletal: Normal strength, ROM intact, No edema, No calf tenderness Skin: Warm, Dry, Normal color Neurological: Sensation intact, Motor intact, Reflexes intact, Cranial nerves intact, Alert, Oriented, Alert to verbal Psychiatric: Affect appropriate, Mood appropriate Interpretation - Radiology Interpretation Radiology Interpretation By: Radiologist Radiology Results: Positive (BILATERAL LOWER LOBE PNEUMONIA) - Plant Health Care Technician Rate: Normal Rhythm: Sinus Ectopy: None - EKG Interpretation Rate: Normal Rhythm: Sinus Ectopy: None Thorp: Left ST Segment: Normal (LVH) Physician Notification - Case Discussed Physician Notified: PMD Time of Notification: 15:32 Admit To: Inpatient Critical Care Note - Critical Care Note Total Time (mins): 0 Course - Course Hematology/Chemistry: 12/10/17 14:20 12/10/17 14:20 Orders, Labs, Meds: Lab Review 12/10/17 12/10/17 12/10/17 14:20 14:20 14:20 WBC 10.81 H RBC 2.54 L Hgb 9.2 L Hct 27.9 L MCV 109.8 H MCH 36.2 H MCHC 33.0 RDW Coeff of Rosie 19.0 H Plt Count 277 Immature Gran % (Auto) 0.3 Neut % (Auto) 83.6 Lymph % (Auto) 4.8 L [place] % (Auto) 10.8 H Eos % (Auto) 0.3 Baso % (Auto) 0.2 Immature Gran # (Auto) 0.0 Neut # (Auto) 9.0 H Lymph # (Auto) 0.5 L [place] # (Auto) 1.2 Eos # (Auto) 0.0 Baso # (Auto) 0.0 Plt Morphology Comment Normal Anisocytosis 1+ Macrocytosis 1+ Sodium 143 Potassium 3.4 L Chloride 103 Carbon Dioxide 32 H Anion Gap 11.4 BUN 15 Creatinine 0.68 Estimated GFR (MDRD) 82.00 BUN/Creatinine Ratio 22.05 Glucose 177 H Calcium 9.2 Total Bilirubin 0.8 AST 22 ALT 17 Alkaline Phosphatase 67 Total Creatine Kinase 44 Troponin I 0.0540 Total Protein 7.0 Albumin 3.5 Globulin 3.5 Albumin/Globulin Ratio 1.00 Procalcitonin < 0.05 Influ A Molecular Assay Influ B Molecular Assay 12/10/17 14:30 WBC RBC Hgb Hct MCV MCH MCHC RDW Coeff of Rosie Plt Count Immature Gran % (Auto) Neut % (Auto) Lymph % (Auto) [place] % (Auto) Eos % (Auto) Baso % (Auto) Immature Gran # (Auto) Neut # (Auto) Lymph # (Auto) [place] # (Auto) Eos # (Auto) Baso # (Auto) Plt Morphology Comment Anisocytosis Macrocytosis Sodium Potassium Chloride Carbon Dioxide Anion Gap BUN Creatinine Estimated GFR (MDRD) BUN/Creatinine Ratio Glucose Calcium Total Bilirubin AST ALT Alkaline Phosphatase Total Creatine Kinase Troponin I Total Protein Albumin Globulin Albumin/Globulin Ratio Procalcitonin Influ A Molecular Assay Negative by naat Influ B Molecular Assay Negative by naat Orders Category Date Time Status EKG-(ED ONLY) Stat CARDIO 12/10/17 14:06 Completed ED IV/MEDIPORT/POWERPORT .ONCE EMERGENCY 12/10/17 14:06 Active BLOOD CULTURE (ED ONLY) Stat LAB 12/10/17 14:20 Received CBC W/ AUTO DIFF Stat LAB 12/10/17 14:20 Completed COMPREHENSIVE METABOLIC PANEL Stat LAB 12/10/17 14:20 Completed CREATINE KINASE Stat LAB 12/10/17 14:20 Completed FLU A/B MOLECULAR Stat LAB 12/10/17 14:30 Completed PROCALCITONIN Stat LAB 12/10/17 14:20 Completed RBC MORPHOLOGY Stat LAB 12/10/17 14:20 Completed TROPONIN I Stat LAB 12/10/17 14:20 Completed URINALYSIS C & S IF INDICATED Stat LAB 12/10/17 15:17 Ordered 0.9 % Sodium Chloride [Saline Flush] MEDS 12/10/17 14:06 Active 1 syr IVF PRN PRN Ceftriaxone Sodium [Rocephin] 1 gm MEDS 12/10/17 15:29 Ordered 0.9 % Sodium Chloride [Sodium Chloride] 50 ml IV ONCE Sodium Chloride 0.9% [Sodium Chloride] 1,000 ml MEDS 12/10/17 14:07 Active IV 100 mls/hr CT CHEST W/O CONTRAST Stat RADS 12/10/17 14:[address] HEAD W/O CONTRAST Stat RADS 12/10/17 14:08 Completed Medications Generic Name Dose Route Start Last Admin Trade Name Freq PRN Reason Stop Dose Admin Sodium Chloride 1,000 mls @ 100 mls/hr 12/10/17 14:07 Sodium Chloride IV 12/11/17 00:06 .Q10H STA Ceftriaxone Sodium 1 gm/ 50 mls @ 75 mls/hr 03/14/18 15:29 Sodium Chloride IV 12/10/17 16:08 ONCE STA Sodium Chloride 1 syr 12/10/17 14:06 Saline Flush IVF PRN PRN To flush IV Vital Signs: Temp Pulse Resp BP Pulse Ox 12/10/17 14:07 99.4 F 91 H 24 165/101 H 99 Departure - Departure Time of Disposition: 15:32 Disposition: ADMITTED INPATIENT Discharge Problem: Pneumonia Qualifiers: Pneumonia type: due to unspecified organism Laterality: bilateral Lung location : lower lobe of lung Qualified Code(s): J18.9 - Pneumonia, unspecified organism Condition: Good Pt referred to PMD for follow-up: Yes IPMP verified?: No Additional Instructions: Please call your Family Physician as soon as possible to schedule a follow-up appointment. Allergies/Adverse Reactions: Allergies hydromorphone [From Dilaudid] Adverse Reaction (Verified 12/10/17 14:28) Sulfa (Sulfonamide Antibiotics) Adverse Reaction (Verified 12/10/17 14:28) Home Medications: Ambulatory Orders Alprazolam [Xanax] 0.5 mg PO BID PRN 12/10/17 Benzonatate [Tessalon Perle] 100 mg PO Q8H PRN 12/10/17 Budesonide/Formoterol Fumarate [Symbicort 160-4.5 Mcg Inhaler] 1 puff IH BID Calcium Carb, Citrate/Vit D3 [Calcium + D3 ER Tablet] 1 each PO BID 12/10/17 Carboxymethylcellulose Sodium [Refresh Plus] 1 each OP BID 12/10/17 Cholecalciferol (Vitamin D3) [Vitamin D] 50,000 unit PO MONTHLY 12/10/17 Desloratadine [Clarinex] 5 mg PO DAILY 12/10/17 Ergocalciferol (Vitamin D2) [Drisdol] 50,000 unit PO MONTHLY 12/10/17 Fentanyl 12 Mcg/Hr [Duragesic 12 Mcg/Hr] 1 patch TD Q72HR 12/10/17 Fentanyl 25 Mcg/Hr [Duragesic 25 Mcg/Hr] 1 patch TD Q72HR 12/10/17 Fluticasone/Salmeterol 250/50 [Advair 250-50 Diskus] 1 puff IH BID 12/10/17 Furosemide [Lasix Tab] 20 mg PO QDAC 12/10/17 Guaifenesin [Mucinex] 2 tab PO BID 12/10/17 Hydrocodone/Acetaminophen [[place] 5-325 Tablet] 1 each PO Q8H PRN 12/10/17 Ipratropium [place] [Atrovent Hfa] 2 puff IH QID 12/10/17 Ipratropium/Albuterol Neb [Duoneb] 1 vial NEB RTQ4H 12/10/17 Lidocaine HCl [Alocane Emergency Burn] 1 patch TP DAILY 12/10/17 Megestrol Acetate [Megace] 20 ml PO DAILY 12/10/17 Metoprolol Succinate [Toprol Xl] 0.5 tab PO DAILY 12/10/17 Montelukast Sodium [Singulair] 10 mg PO BEDTIME 12/10/17 Multivitamin [Multiple Vitamins] 1 each PO DAILY 12/10/17 Pantoprazole Sodium [Protonix] 40 mg PO DAILY 12/10/17 Polyethylene Glycol 3350 [Miralax] 17 gm PO DAILY 12/10/17 Sucralfate [Carafate] 1 gm PO ACHS 12/10/17 Tizanidine HCl 4 mg PO Q8H PRN 12/10/17 Disposition Discussed With: Patient, Family
[2017-12-10] MEDS ORDERED: TYLENOL PO PRN (15:35)
[2017-12-10] MEDS ORDERED: ROCEPHIN ONE (15:43)
[2017-12-10] MEDS ORDERED: VANCOMYCIN 1 GM in SODIUM CHLORIDE 250 ML IV SCH (16:00)
[2017-12-10] MEDS: SODIUM CHLORIDE 1,000 ML IV SCH (18:00)
[2017-12-10] MEDS: VANCOMYCIN 500 MG in SODIUM CHLORIDE 100 ML IV SCH (18:00)
[2017-12-10 18:24] VITALS: BMI 16.5
[2017-12-10] MEDS: DUONEB NEB SCH ×2 (18:44→22:34)
[2017-12-10] MEDS ORDERED: CARBOXYMETHYLCELLULOSE SODIUM OP SCH (21:00)
[2017-12-10] MEDS: FLAGYL 500 MG/100 ML 500 MG in PREMIX 100 ML NS 1 BAG IV SCH ×2 (22:12→22:35)
[2017-12-10] MEDS: ARTIFICIAL TEARS OPTH SOL OP SCH (22:12)
[2017-12-11] MEDS: FLAGYL 500 MG/100 ML 500 MG in PREMIX 100 ML NS 1 BAG IV SCH ×3 (04:07→20:17)
[2017-12-11] MEDS: DUONEB NEB SCH ×4 (04:36→20:42)
[2017-12-11] MEDS: LASIX TAB PO SCH (06:08)
[2017-12-11] MEDS: PROTONIX PO SCH (06:08)
[2017-12-11] MEDS ORDERED: DESLORATADINE 5 MG PO SCH (09:00)
[2017-12-11] MEDS: VANCOMYCIN 500 MG in SODIUM CHLORIDE 100 ML IV SCH (09:26)
[2017-12-11] MEDS: MEGACE PO SCH (09:29)
[2017-12-11] MEDS: TOPROL XL PO SCH (09:29)
[2017-12-11] MEDS: ARTIFICIAL TEARS OPTH SOL OP SCH ×2 (09:29→20:46)
[2017-12-11] MEDS: CLARITIN PO SCH (09:30)
[2017-12-11] MEDS: SODIUM CHLORIDE 1,000 ML IV SCH ×2 (15:02→23:53)
--- NOTE | 2017-12-11 15:41 | RS.OTINEVL ---
Subjective - Patient information Date of Evaluation: 12/11/17 Admitted From:: Home Usual Living Arrangement: Residential Living Arrangement Comments: Pt lives at home and has her niece as her CG. Medical History: COPD, Diabetes Medical History Comments:: 2 liters of O2, hearing Aides, RW. Surgical History: Other (Lung lobeectomy) - Level of function Current Equipment Used at Home: hearing aides, wheelchair, oxygen, shower chair , raised toliet Pain Assessment - Pain Pain Score: 0 ADL Skills - Self Feeding Self Feeding: Min Assist - Grooming Grooming: Min Assist - Bathing Bathing UE: Min Assist Bathing LE: Min Assist - Dressing Dressing UE: Min Assist Dressing LE: Min Assist - Toilet Management Toileting Management: Min Assist Functional Mobility - Bed Mobility Rolling R/L: Independent Scooting: Independent Supine to Sit: Independent Sit to Supine: Independent - Transfers Sit to Stand: Independent, Min Assist Stand to Sit: Independent, Min Assist Stand Pivot Transfers: Independent, Min Assist - Ambulation Weight Bearing Status: FWB Assistive Device Used: Rolling Walker Assistance needed with Ambulation: Min Assist, 2 person assist - Safety Awareness Safety Awareness: Fair LUIS CARLOS INDEX SCORE: . Additional Treatment Performed - Time with patient Total treatment time: 21 Activities Patient Interests:: Reading Books/Magazines, Watching Television Patient Education Patient Education: Education of diagnosis, Home Exercise Program, Education of Plan of Care Teaching Recipient: Patient Teaching Methods: Discussion Assessment Problem List:: Decreased level of function, Requires training/education, Decreased safety/Risk of falls, Weakness Rehab Potential: Good Further Therapy Indicated?: Yes Evaluation Complexity: HISTORY: Medium, EXAM OF BODY SYSTEMS: Medium, CLINICAL DECISION MAKING: Medium Short Term Goals - Goals GOAL 1: Pt to complete sink level ADLS CGA. Goal to be met by: 12/18/17 GOAL 2: Pt to complete dynamic standing balance to Fair+.Good Goal to be met by: 12/18/17 GOAL 3: Pt to increase activity tolerance to 10 minutes. Goal to be met by: 12/18/17 Single Stroke Preformer Goals GOAL 1: Pt to complete sink level ADLS MOD-I. Goal to be met by: 12/18/17 GOAL 2: Pt to complete dynamic standing balance to Fair+.Good Goal to be met by: 12/18/17 GOAL 3: Pt to increase activity tolerance to 15 minutes. Goal to be met by: 12/18/17 Plan Plan of Care: Therapeutic EX, Neuromuscular Re-Educ, Therapeutic Activity, Self- Care/Home Management Modalities: Electrical Stimulation Frequency of Treatment: BID Duration of Treatment: 2 Weeks Anticipated Discharge Destination: Home Has the Physician been added for Co-signature?: Yes
--- NOTE | 2017-12-11 16:21 | RS.PTINEVL ---
Subjective - Patient information Date of Evaluation: 12/11/17 Date of Arrival on Unit: 12/10/17 Admitted From:: [facility] Diagnosis: pneumonia Usual Living Arrangement: [facility] Living Arrangement Comments: Pt lives at home and has her niece as her CG. Medical History: Hypertension, COPD, Diabetes, Arthritis Medical History Comments:: asthma, compression fx, hypothyroid, scoliosis, LATEX ALLERGY?: No Surgical History: Other (Lung lobectomy) Medications: see chart Subjective Information/ Patient Comments:: pt states that she is feeling "ok". pt is poor historian, oriented to person not to place or time. - Level of function Abilities prior to this admission: difficult to assess due to pt is poor historian Current Level of Function: Partially Dependent Current Equipment Used at Home: hearing aides, wheelchair, oxygen, shower chair , raised toliet Interventions - Objective Patient Orientation: Person Current Interventions: IV's, Oxygen Observation: pt on 2 liters of O2 Range of Motion - ROM Right Upper Extremity AROM: WFL's Left Upper Extremity AROM: WFL's Right Lower Extremity AROM: WFL's Left Lower Extremity AROM: WFL's Muscle Strength - Muscle Strength Right Upper Extremity Strength: Mild Weakness (BUE grossly 4-/5) Left Upper Extremity Strength: Mild Weakness (BUE grossly 4-/5) Right Lower Extremity Strength: Mild Weakness (BLE hip flex 4-/5, knee flex/ext 4/5, ankle DF/PF 4/5) Left Lower Extremity Strength: Mild Weakness (BLE hip flex 4-/5, knee flex/ext 4 /5, ankle DF/PF 4/5) Sensation - Sensation Right Upper Extremity Sensation: Intact/Normal Left Upper Extremity Sensation: Intact/Normal Right Lower Extremity Sensation: Intact/Normal Left Lower Extremity Sensation: Intact/Normal Palpation Palpation Findings: None/Normal Balance - Sitting Balance and Reactions Static Sitting Balance: Fair Dynamic Sitting Balance: Poor Sitting Equilibrium Reactions: Delayed Left, Delayed Right Sitting Protective Reactions: Delayed Left, Delayed Right - Standing Balance and Reactions Static Standing Balance: Poor Dynamic Standing Balance: Poor Standing Equilibrium Reactions: Delayed Left, Delayed Right Standing Protective Reactions: Delayed Left, Delayed Right - Comments Balance Assessment Comments: pt with significant flexed posture with increased thoracic kyphosis Functional Mobility - Bed Mobility Rolling R/L: Mod Assist, 1 person assist Supine to Sit: Mod Assist, 1 person assist - Transfers Sit to Stand: Min Assist, 1 person assist Stand to Sit: Min Assist, 1 person assist - Safety Awareness Safety Awareness: Good LUIS CARLOS INDEX SCORE: n/a Ambulation - Ambulation Assistive Device Used: Rolling Walker Orthotic/Prosthetic Device: No Distance: 100ft Assistance needed with Ambulation: Min Assist, 1 person assist Quality of Ambulation: amb with min x 1 + 1 for IV Gait Deviations: Forward posture, Short stride, Deviates from path Ambulation Comments: pt requires cues to keep close to rwx Factors Affecting Ambulation: Decreased Balance, Weakness, Decreased Safety, Cognitive Status, Limited Endurance Treatment time - Time with patient Total treatment time: 27 Patient Education - Education Patient Education: Home Exercise Program, Education of Plan of Care Teaching Recipient: Patient Teaching Methods: Discussion Comments: regarding HEP Assessment - Assessment Problem List:: Decreased level of function, Requires training/education, Decreased safety/Risk of falls, Weakness, Cognitive status limits abilities Rehab Potential: Good Further Therapy Indicated?: Yes Evaluation Complexity: HISTORY: Medium (age, HTN, OA, pneumonia), EXAM OF BODY SYSTEMS: Medium (pain, strength, posture, gait, balance), CLINICAL PRESENTATION : Medium (evolving), CLINICAL DECISION MAKING: Medium Short Term Goals GOAL #1: pt perform scooting and rolling in bed with verbal cues. Goal to be met by: 12/14/17 GOAL #2: pt tranfer sup to/from sit to/from stand min x 1 Goal to be met by: 12/14/17 GOAL #3: pt amb with rwx 120ft with CGA x 1 with no LOB Goal to be met by: 12/14/17 All Purpose Clerk Goals GOAL #1: pt transfer sup to/from sit SBA sit to/from stand CGA Goal to be met by: 12/17/17 GOAL #2: pt amb with rwx 160ft with CGA with no LOB with improved step length Goal to be met by: 12/17/17 GOAL #3: Improved strength BLE 4 to 4+/5 Goal to be met by: 12/17/17 Plan Plan of Care: Therapeutic EX, Therapeutic Activity Other:: gait training Frequency of Treatment: 1-2 X day, as tolerated Duration of Treatment: 6 days Anticipated Discharge Destination: Long-Term Care Facility Has the Physician been added for Co-signature?: Yes
[2017-12-11] MEDS: XANAX PO PRN (20:46)
[2017-12-12] MEDS: DUONEB NEB SCH ×4 (03:48→22:40)
[2017-12-12] MEDS: FLAGYL 500 MG/100 ML 500 MG in PREMIX 100 ML NS 1 BAG IV SCH ×3 (04:40→21:52)
[2017-12-12] MEDS: LASIX TAB PO SCH (06:17)
[2017-12-12] MEDS: PROTONIX PO SCH (06:17)
[2017-12-12] MEDS: TOPROL XL PO SCH (09:55)
[2017-12-12] MEDS: ARTIFICIAL TEARS OPTH SOL OP SCH ×2 (09:55→21:52)
[2017-12-12] MEDS: MEGACE PO SCH (09:55)
[2017-12-12] MEDS: CLARITIN PO SCH (09:55)
[2017-12-12] MEDS: VANCOMYCIN 500 MG in SODIUM CHLORIDE 100 ML IV SCH (10:00)
[2017-12-12] MEDS: SODIUM CHLORIDE 1,000 ML IV SCH ×2 (10:00→21:52)
--- NOTE | 2017-12-12 12:50 | HP ---
DATE OF SERVICE: 12/10/17 CHIEF COMPLAINT: Cough, congestion and fever. HISTORY OF PRESENT ILLNESS: This is an 87-year-old female who is a [facility] resident, has been more lethargic, not responding much, cough and congestion. When nurse examined her the lungs had crackly sounds. At that time, the patient's family was consulted and they advised the patient to be sent to the emergency room. She was seen by Dr. Kim in the emergency room. White count 10,000, hemoglobin 9.2. Sodium normal, potassium 3.4. Urine negative. Serology negative. CT chest was done which showed bibasilar lower lobe endotracheal debris and consolidation suggesting pneumonia, correlate for aspiration. Bilateral nodular density throughout the remainder of both lungs likely due to the same process. Followup CT scan is recommended. Esophageal diverticulum. Numerous thoracolumbar compression deformities. At that time, the patient is admitted to the hospital for IV antibiotics, breathing treatments and steroids. REVIEW OF SYSTEMS: CONSTITUTIONAL: Weakness, tiredness. No fever, no chills. HEENT: Normal. ENDOCRINE: No weight gain; no weight loss. CVS: No chest pain. No PND, no orthopnea. Shortness of breath. No PND, no orthopnea. RESPIRATORY: Cough and congestion. No hemoptysis. GI: No nausea, no vomiting. No abdominal pain. No melena. : No hematuria. No polyuria. MUSCULOSKELETAL: No joint swelling. PSYCHIATRIC: Not anxious. No depression. No suicidal thoughts. No homicidal thoughts. SKIN: Intact, no open lesions. PAST MEDICAL HISTORY: Hypertension Vitamin D deficiency Dysphagia Anemia COPD Gout Multiple wedge compression fracture thorocolumbar spine Scoliosis Osteoarthritis Former smoker PAST SURGICAL HISTORY: Left lung lobectomy right bronchiectasis Bilateral cataract extractions Left ear prosthetic Sinus surgery Cholecystectomy PERSONAL HISTORY: . Resident of [facility]. Former smoker. No alcohol use. No substance use. MEDICATIONS: Vitamin D3 Tizanidine Symbicort Tessalon Perles Protonix Multivitamins [place] Singulair Miralax Megace Lasix Duragesic patch Drisdol Duoneb Clarinex Atorvastatin Advair Toprol Mucinex Calcium ALLERGIES: SULFA, HYDROMORPHONE PHYSICAL EXAMINATION: V/S: BP 165/101, temperature 99.4, saturation 99, heart rate 91, respiratory rate 24. HEENT: Atraumatic, normocephalic. No scleral icterus. Pallor positive. Mucosa dry. NECK: Supple. No JVD, no bruit. No lymphadenopathy. No thyromegaly. HEART: S1, S2 normal. No murmur. No cyanosis or clubbing. No ascites. LUNGS: Bilateral entry, decreased with basilar crackles. ABDOMEN: Soft, nontender. Bowel sounds are active. No CVA tenderness. No rigidity or guarding. EXTREMITIES: No pedal edema. No cyanosis or clubbing MUSCULOSKELETAL: Normal joints, no swelling. NEUROLOGIC: The patient is awake, oriented to person and place. SKIN: Intact; no open lesions. LYMPHATIC: No lymph nodes palpable. LABS: White count 10.81, hemoglobin 9.2, hematocrit 27.9, platelet count 277. Sodium 143, potassium 3.4, chloride 103, bicarb 32, BUN 50, creatinine 0.68, glucose 177. ASSESSMENT: 1. BILATERAL BASILAR PNEUMONIA 2. HEALTH CARE FACILITY ACQUIRED PNEUMONIA 3. HYPOKALEMIA 4. ANEMIA 5. OSTEOARTHRITIS 6. DJD SPINE 7. MULTIPLE COMPRESSION DEFORMITIES IN THE BACK 8. CHRONIC PAIN SYNDROME 9. GERD 10. HYPERTENSION PLAN: 1. Admit the patient to the regular floor 2. CBC, CMP today and daily 3. Cardiac enzymes and troponin 4. IV fluids 5. Breathing treatment 6. Rocephin 7. Vancomycin 1 gm daily 8. Continue home medications TIME SPENT: MORE THAN 75 minutes MTDD
[2017-12-12] MEDS ORDERED: DULCOLAX RC STA (15:15)
[2017-12-12] MEDS ORDERED: DULCOLAX RC ONE (15:18)
[2017-12-12] MEDS ORDERED: DECADRON 4 MG/ML SDV IVP STA (17:10)
[2017-12-12] MEDS: DURAGESIC TD SCH ×2 (21:53→22:56)
[2017-12-12] MEDS ORDERED: DURAGESIC TD SCH (22:00)
[2017-12-12] MEDS: XANAX PO PRN (22:48)
[2017-12-13] MEDS: FLAGYL 500 MG/100 ML 500 MG in PREMIX 100 ML NS 1 BAG IV SCH ×3 (04:10→20:44)
[2017-12-13] MEDS: DUONEB NEB SCH ×4 (05:40→19:30)
[2017-12-13] MEDS: PROTONIX PO SCH (06:01)
[2017-12-13] MEDS: LASIX TAB PO SCH (06:01)
[2017-12-13] MEDS ORDERED: DURAGESIC TD SCH ×3 (07:30→09:00)
[2017-12-13] MEDS: ARTIFICIAL TEARS OPTH SOL OP SCH ×2 (10:08→20:44)
[2017-12-13] MEDS: CLARITIN PO SCH (10:09)
[2017-12-13] MEDS: MEGACE PO SCH (10:09)
[2017-12-13] MEDS: TOPROL XL PO SCH (10:10)
[2017-12-13] MEDS: VANCOMYCIN 500 MG in SODIUM CHLORIDE 100 ML IV SCH (12:11)
[2017-12-13] MEDS: XANAX PO PRN (21:36)
[2017-12-14] MEDS: SODIUM CHLORIDE 1,000 ML IV SCH ×2 (00:57→00:58)
[2017-12-14] MEDS: FLAGYL 500 MG/100 ML 500 MG in PREMIX 100 ML NS 1 BAG IV SCH ×3 (04:11→20:50)
[2017-12-14] MEDS: DUONEB NEB SCH ×4 (05:19→19:45)
[2017-12-14] MEDS: PROTONIX PO SCH (06:45)
[2017-12-14] MEDS: LASIX TAB PO SCH (06:45)
[2017-12-14] MEDS: TOPROL XL PO SCH (09:07)
[2017-12-14] MEDS: CLARITIN PO SCH (09:08)
[2017-12-14] MEDS: MEGACE PO SCH (09:09)
[2017-12-14] MEDS: ARTIFICIAL TEARS OPTH SOL OP SCH ×2 (09:09→20:50)
[2017-12-14] MEDS: VANCOMYCIN 500 MG in SODIUM CHLORIDE 100 ML IV SCH (09:10)
[2017-12-14] MEDS ORDERED: ROCEPHIN ONE (18:04)
[2017-12-14] MEDS: ROCEPHIN 1 GM in SODIUM CHLORIDE 50 ML IV SCH (18:22)
[2017-12-14] MEDS: XANAX PO PRN (20:50)
[2017-12-15] MEDS: FLAGYL 500 MG/100 ML 500 MG in PREMIX 100 ML NS 1 BAG IV SCH ×2 (04:29→13:29)
--- NOTE | 2017-12-15 04:31 | DI ---
EXAM: Chest, two views, 12/14/2017 HISTORY: Pneumonia COMPARISON: 12/10/2017 FINDINGS / IMPRESSION: The heart size appears stable. Atherosclerotic vascular disease. Dense bibasilar infiltrate likely represents a combination of atelectasis and pneumonia. There are b ilateral pleural effusions. No pneumothorax. Severe kyphotic curvature of the thoracic spine due to multiple compression fractures. These appear similar to the prior study.
[2017-12-15] MEDS: DUONEB NEB SCH ×3 (05:26→14:16)
[2017-12-15] MEDS: PROTONIX PO SCH (05:40)
[2017-12-15] MEDS: LASIX TAB PO SCH (05:40)
--- NOTE | 2017-12-15 09:25 | RS.SLPCNOT ---
Speech Case Note Date of Note: 12/15/17 Title: Speech Consultation Note: INSTRUMENT WORKER and case management discussed the patient's case hx since admission on 12/10/16. editorial manager reported as of 12/12/17, the patient's family refused a dysphagia study with x-ray. The disability case manager also reported pt is consuming a mechanical soft diet texture with thin liquids at this time. The INSTRUMENT WORKER entered the pt's room and spoke with both the patient and the patient's daughter. The patient was alert and sitting upright and had consumed approximately 75% of her breakfast meal. The INSTRUMENT WORKER addressed concerns for swallowing difficulty due to admission with pneumonia. The patient's daughter stated they did not want speech therapy involved with their case at this time. She went on to say that her mother had been eating well, had a good appetite, and did not want her diet textures or liquid consistencies to be changed. The daughter also stated the patient would not eat or drink if the diet and liquids were downgraded. The INSTRUMENT WORKER briefly educated the patient on safe swallowing precautions. The patient stated she would eat sitting up right. She was also cognizant to state she would stop eating if she was tired or coughing with her food. The patient also had 2x productive cough during the consultation. The INSTRUMENT WORKER reminded the pt and the daughter that if they wanted speech therapy to assist with their case, answer questions, or make any recommendations; to ask the nurse to page the therapy department. Both the daughter and the patient agreed they do not want speech therapy involved at this time. However the interaction was pleasant and they were ok with the limited recommendations the INSTRUMENT WORKER provided during the brief consultation.
[2017-12-15] MEDS: TOPROL XL PO SCH (09:30)
[2017-12-15] MEDS: ROCEPHIN 1 GM in SODIUM CHLORIDE 50 ML IV SCH (09:30)
[2017-12-15] MEDS: ARTIFICIAL TEARS OPTH SOL OP SCH (09:30)
[2017-12-15] MEDS: MEGACE PO SCH (09:31)
[2017-12-15] MEDS: CLARITIN PO SCH (09:31)
[2017-12-15] MEDS: VANCOMYCIN 500 MG in SODIUM CHLORIDE 100 ML IV SCH (09:32)
[2017-12-15] MEDS: SODIUM CHLORIDE 1,000 ML IV SCH (10:00)
[2017-12-15 15:19] VITALS: BP 144/73; TEMP 97
[2017-12-15] MEDS ORDERED: DURAGESIC TD SCH ×2 (21:00)
[2017-12-16] MEDS ORDERED: VANCOMYCIN 750 MG in SODIUM CHLORIDE 250 ML IV SCH (09:00)
--- NOTE | 2017-12-16 10:41 | PN ---
DATE OF SERVICE: 12/12/17 SUBJECTIVE: The patient was admitted with COPD exacerbation and aspiration pneumonia. Very frail and cachetic lady. Swallow evaluation been pending. More perky and more awake and alert. Hgb dropped from 9.2 to 7.9. Daughter never knew that the patient had any history of blood transfusion but did happen around 65 years ago after that not in recent time. REVIEW OF SYSTEMS: CONSTITUTIONAL: No fever, no chills. HEENT: Normal. ENDOCRINE: No weight gain, no weight loss. CVS: No angina symptoms. No CHF symptoms. No palpitations. No atypical chest pain for CAD. Shortness of breath. No PND, no orthopnea. RESPIRATORY: Cough and congestion, no hemoptysis. GI: No nausea, no vomiting. No abdominal pain. : No hematuria. No polyuria. MUSCULOSKELETAL: No joint swelling. PSYCHIATRIC: Not anxious. No depression. No suicidal thoughts. No homicidal thoughts. SKIN: Intact. No rash. PHYSICAL EXAMINATION: GENERAL: Cachetic lady laying in a bed. V/S: Blood pressure 104/58, respiratory rate 16, heart rate 95, temperature 98.1 and saturation 97% on 2 liters. HEENT: Normocephalic, atraumatic. Mucosa dry. Pallor positive. No icterus. Hard of hearing, uses a hearing aid. NECK: Supple. No JVD, no carotid bruit. No lymphadenopathy. LUNGS:Decreased with basilar crackles. Clear to auscultation. No rales or rhonchi. HEART: S1, S2 normal. No S3. No murmur, gallop or regurgitation. ABDOMEN: Soft, nontender. Bowel sounds active. No rigidity. No rebound or guarding. No CVA tenderness. EXTREMITIES: No pedal edema. No clubbing or cyanosis MUSCULOSKELETAL: No joint swelling. NEUROLOGIC: Awake, alert, oriented times three. No focal deficit. LYMPHATIC: No lymph nodes palpable. SKIN: Intact. LABS: Sodium 144, potassium 3.4, chloride 109, bicarb 28, BUN 15, creatinine 0.55 and glucose 102. WBC 5.26, hgb 7.9,. hct 24.2, plt count 247. ASSESSMENT: 1. COPD exacerbation secondary to the aspiration pneumonia, will do aspiration evaluation 2. Multiple compression deformities in the back 3. Anemia, rule out GI bleed 4. Osteoarthritis 5. DJD spine 6. Chronic pain syndrome 7. Cachexia 8. Weight loss PLAN: 1. Anemia profile 2. Stool for occult blood test 3. Protonix 4. Continue the Rocephin, Vancomycin and Flagyl 5. DUO NEBS TIME SPENT: More than 35 minutes MTDD
--- NOTE | 2017-12-16 12:37 | PN ---
DATE OF SERVICE: 12/14/17 SUBJECTIVE: The patient is sitting in a chair. The patient's worker is in the room. Some coughing and congestion is there. Not able to get the phlegm. REVIEW OF SYSTEMS: CONSTITUTIONAL: No fever, no chills. HEENT: Normal. ENDOCRINE: No weight gain, no weight loss. CVS: No angina symptoms. No CHF symptoms. No palpitations. No atypical chest pain for CAD. No shortness of breath. No PND, no orthopnea. RESPIRATORY: Cough, no hemoptysis. GI: No nausea, no vomiting. No abdominal pain. : No hematuria. No polyuria. MUSCULOSKELETAL: No joint swelling. Lower back pain, getting the Fentanyl patch. PSYCHIATRIC: Not anxious. No depression. No suicidal thoughts. No homicidal thoughts. SKIN: Intact. No rash. PHYSICAL EXAMINATION: V/S: Blood pressure 117/69, respiratory rate 24, heart rate 78, temperature 98.3 with saturation is 98 with 2 liters. HEENT: Normocephalic, atraumatic. Mucosa dry. Pallor positive. No icterus. NECK: Supple. No JVD, no carotid bruit. No lymphadenopathy. LUNGS: Bilateral entry is decreased and basilar crackles. Clear to auscultation. No rales or rhonchi. HEART: S1, S2 normal. No S3. No murmur, gallop or regurgitation. ABDOMEN: Soft, nontender. Bowel sounds active. No rigidity. No rebound or guarding. No CVA tenderness. EXTREMITIES: No pedal edema. No clubbing or cyanosis MUSCULOSKELETAL: No joint swelling. Scoliosis is present. NEUROLOGIC: Awake, alert, oriented times three. No focal deficit. LYMPHATIC: No lymph nodes palpable. SKIN: Intact. Dry LABS: Sodium 144, potassium 3.4, chloride 109, bicarb 28, BUN 15, creatinine 0.55, glucose 102, WBC 5.26, hgb 7.9, hct 24.2, plt count 247. ASSESSMENT: 1. COPD exacerbation secondary to the aspiration pneumonia 2. COPD oxygen dependant 3. Cachexia 4. Questionable aspiration per CAT scan 5. Anemia, iron deficiency 6. Multiple compression deformities of the back 7. Hypoglycemia which is better. PLAN: 1. Will start the patient on iron tablets 2. Continue Vancomycin and Flagyl 3. Add Rocephin 4. Get chest x-ray 5. Get CBC and CMP 6. Daily I&O's Will follow the patient in daily rounds. TIME SPENT: More than 35 minutes MTDD
--- NOTE | 2017-12-16 13:49 | PN ---
DATE OF SERVICE: 12/13/17 SUBJECTIVE: The patient was admitted with aspiration pneumonia, cough and congestion. The patient is cachetic lady laying in a bed still having some coughing and shortness of breath. She is eating better. REVIEW OF SYSTEMS: CONSTITUTIONAL: No fever, no chills. HEENT: Hard of hearing. ENDOCRINE: No weight gain, no weight loss. CVS: No angina symptoms. No CHF symptoms. No palpitations. No atypical chest pain for CAD. Shortness of breath. No PND, no orthopnea. RESPIRATORY: Cough, no hemoptysis. GI: No nausea, no vomiting. No abdominal pain. : No hematuria. No polyuria. MUSCULOSKELETAL: No joint swelling. Complains of lower back pain and the joint pains. PSYCHIATRIC: Not anxious. No depression. No suicidal thoughts. No homicidal thoughts. SKIN: Intact. No rash. PHYSICAL EXAMINATION: V/S: Blood pressure 125/68, respiratory rate 20, heart rate 86, temperature 98.3 and saturation 91 on the room air. GENERAL: Cachetic lady laying in a bed. Not in any distress. HEENT: Normocephalic, atraumatic. Mucosa dry. Pallor positive. No icterus. NECK: Supple. No JVD, no carotid bruit. No lymphadenopathy. LUNGS: Decreased and basilar crackles. Clear to auscultation. No rales or rhonchi. HEART: S1, S2 normal. No S3. No murmur, gallop or regurgitation. ABDOMEN: Soft, nontender. Bowel sounds active. No rigidity. No rebound or guarding. No CVA tenderness. EXTREMITIES: No pedal edema. No clubbing or cyanosis MUSCULOSKELETAL: No joint swelling. NEUROLOGIC: Awake, alert, oriented times three. No focal deficit. LYMPHATIC: No lymph nodes palpable. SKIN: Intact. LABS: WBC 5.26, hgb 7.9, hct 24.2, plt count 247, sodium 144, potassium 3.4, chloride 109, bicarb 28, BUN 15, creatinine 0.55 and glucose 102. ASSESSMENT: 1. COPD exacerbation secondary to the aspiration pneumonia, swallow evaluation done 2. Hypokalemia, which has been treated 3. Compression deformities of the lower back 4. Scoliosis 5. Anemia PLAN: 1. Continue the DUO NEBS 2. Flagyl 3. Vancomycin 4. IV fluids at 50ml per hour 5. Daily I&O's 6. Polypharmacy and side effects been discussed as the patient is on multiple medications for the chronic compression deformities TIME SPENT: More than 35 minutes MTDD
--- NOTE | 2017-12-16 15:06 | PN ---
DATE OF SERVICE: 12/11/17 SUBJECTIVE: The patient was admitted from the ER yesterday for bibasilar pneumonia questionable aspiration pneumonia. The patient is very cachetic and fragile. She is sitting in the bed, more active than yesterday today. Hgb dropped from the 9.2 to 8.7. Potassium is better today. Cough and congested and not able to get any phlegm out. The patient's sitter is in the room. REVIEW OF SYSTEMS: CONSTITUTIONAL: No fever, no chills. Weakness and tiredness. HEENT: Normal. ENDOCRINE: No weight gain, no weight loss. CVS: No angina symptoms. No CHF symptoms. No palpitations. No atypical chest pain for CAD. Shortness of breath. No PND, no orthopnea. RESPIRATORY: Cough and congestion, no hemoptysis. GI: No nausea, no vomiting. No abdominal pain. : No hematuria. No polyuria. MUSCULOSKELETAL: No joint swelling. PSYCHIATRIC: Not anxious. No depression. No suicidal thoughts. No homicidal thoughts. SKIN: Intact. No rash. PHYSICAL EXAMINATION: V/S: Blood pressure 120/68, respiratory rate 20, heart rate 70, temperature 98.5 and saturation 100 on 2 liters. GENERAL. Cachetic lady laying in the bed. HEENT: Normocephalic, atraumatic. Mucosa dry. Pallor positive. No icterus. NECK: Supple. No JVD, no carotid bruit. No lymphadenopathy. LUNGS: Decreased and basilar crackles. No rales or rhonchi. HEART: S1, S2 normal. No S3. No murmur, gallop or regurgitation. ABDOMEN: Soft, nontender. Bowel sounds active. No rigidity. No rebound or guarding. No CVA tenderness. EXTREMITIES: No pedal edema. No clubbing or cyanosis MUSCULOSKELETAL: No joint swelling. NEUROLOGIC: Awake, alert, oriented times three. No focal deficit. LYMPHATIC: No lymph nodes palpable. SKIN: Intact. LABS: Sodium 145, potasium 3.5, chloride 108, bicarb 31, BUN 15, creatinine 0.56 and glucose 79.WBC 6.67, hgb 8.7, hct 26.9, plt count 227. ASSESSMENT: 1. Bibasilar pneumonia 2. Questionable aspiration pneumonia per the CAT scan 3. COPD oxygen dependant 4. Hypertension 5. Recurrent pneumonia 6. Scoliosis 7. Compression deformities in the back PLAN: 1. Continue Rocephin, Vancomycin and Flagyl 2. Swallow evaluation 3. Aspiration precaution 4. IV fluids TIME SPENT: More than 35 minutes MTDD
--- NOTE | 2017-12-24 11:54 | DS ---
DATE OF SERVICE: 12/15/17 FINAL DIAGNOSIS: 1. COPD exacerbation secondary to the aspiration pneumonia and health care facility acquired pneumonia 2. Persistent pneumonia on Chest x-ray, needing antibiotics so the patient will be placed on in the transitional care unit 3. COPD 4. Cachexia 5. Multiple compression deformities in the back 6. Anemia 7. Hypertension 8. Osteoarthritis 9. Rheumatoid arthritis 10.Chronic pain syndrome 11.Hypothyroidism 12.Depression 13.Anxiety 14.Bilateral cataract surgery 15.Sinus surgery 16.Left lung lobectomy for the bronchiectasis 17.Cholecystectomy DISCHARGE INSTRUCTIONS: Discharge the patient to the Transitional Care Unit with IV Rocephin,Flagyl, Vancomycin,DUO NEBS,Steroids and pain medication. DIET INSTRUCTIONS: Cardiac and Healthy ACTIVITY: Bed rest Fall precautions Decubitus ulcer precautions. DISEASE SPECIFIC EDUCATION: COPD Pneumonia and pneumonia vaccination been discussed and verbalized understanding. HOSPITAL COURSE: Lili Boyd who is an 87 year old female came to the hospital with cough, congestion and shortness of breath. The patient is very Cachetic and malnourished. The patient has severe COPD and oxygen dependent. WBC was 10.81 with left shift, hgb 9.2, CT of the chest showed the aspiration pneumonia bibasilar pneumonia. Potassium 3.4. At that time the patient was admitted to the hospital for IV antibiotics and breathing treatments. Anemia workup, stool for occult blood test was negative and serology negative. Anemia being followed and hgb been steady. Potassium was replaced. Coughing and congestion was persistent with medication and antibiotics she was feeling better. CT chest also showed multiple compression deformities. Physical therapy evaluation was done on the patient. Up and about walking. Repeat chest x-ray showed the persistent bibasilar pneumonia. With the given age of 87 cachetic lady, COPD oxygen dependent, persistent bibasilar infiltrate the patient was put into the transitional care unit for continuation of IV antibiotics and the breathing treatments. TIME SPENT: MORE THAN 65 MINUTES MTDD
== END 2017-12-15 16:31 | disposition swing bed (61) | DRG 178 ==
LOC: ED 14:02 → MEDSURG B 15:56
PROVIDERS: ADMIT Emergency Medicine; ATTEND Emergency Medicine
DX: J69.0 Pneumonitis due to inhalation of food and vomit (principal); J44.1 Chronic obstructive pulmonary disease with (acute) exacerbation; R64 Cachexia; E46 Unspecified protein-calorie malnutrition; R41.82 Altered mental status, unspecified; J44.9 Chronic obstructive pulmonary disease, unspecified; R06.02 Shortness of breath; R53.1 Weakness; D50.9 Iron deficiency anemia, unspecified; E87.6 Hypokalemia; I10 Essential (primary) hypertension; M48.55XD Collapsed vertebra, not elsewhere classified, thoracolumbar region, subsequent encounter for fracture with routine healing; M41.55 Other secondary scoliosis, thoracolumbar region; E03.9 Hypothyroidism, unspecified; M19.90 Unspecified osteoarthritis, unspecified site; M06.9 Rheumatoid arthritis, unspecified; G89.4 Chronic pain syndrome; F41.8 Other specified anxiety disorders; E55.9 Vitamin D deficiency, unspecified; Y95 Nosocomial condition; Z79.899 Other long term (current) drug therapy; Z90.2 Acquired absence of lung [part of]; Z87.891 Personal history of nicotine dependence; Z99.81 Dependence on supplemental oxygen
CPT/HCPCS: 36415; 80053; 80202; 81001; 82272; 82550; 82607; 82728; 82746; 83540; 83550; 84145; 84466; 84484; 85007; 85008; 85025; 85045; 87040; 87081; 87502; 93005; 93010; 94640; 96365; 97802; 99284

== ENCOUNTER 2017-12-15 16:34 | Inpatient (IN) ==
[2017-12-15] MEDS ORDERED: SODIUM CHLORIDE 1,000 ML IV SCH (17:30)
[2017-12-15] MEDS: DUONEB NEB SCH (19:45)
[2017-12-15] MEDS: FLAGYL 500 MG/100 ML 500 MG in PREMIX 100 ML NS 1 BAG IV SCH (22:02)
[2017-12-15] MEDS: ARTIFICIAL TEARS OPTH SOL OP SCH (22:02)
[2017-12-15] MEDS ORDERED: TESSALON PERLES PO PRN (22:13)
[2017-12-15] MEDS ORDERED: NORCO 5-325 PO PRN (22:14)
[2017-12-15] MEDS ORDERED: CARBOXYMETHYLCELLULOSE SODIUM OP SCH (22:15)
[2017-12-15] MEDS ORDERED: CALCIUM CARB CITRATE PO SCH (22:15)
[2017-12-15] MEDS ORDERED: VIT D3 PO SCH (22:15)
[2017-12-15] MEDS ORDERED: NON-FORMULARY MEDICATION (Cholecalciferol (Vitamin D3) [Vitamin D3] 50,000 UNIT) PO SCH (22:15)
[2017-12-15] MEDS ORDERED: ZANAFLEX PO PRN (22:18)
[2017-12-15] MEDS ORDERED: SINGULAIR PO SCH (22:30)
[2017-12-15] MEDS ORDERED: ADVAIR 250-50 DISKUS IH SCH (22:30)
[2017-12-15] MEDS ORDERED: MUCINEX PO SCH (22:30)
[2017-12-15] MEDS ORDERED: DRISDOL PO SCH (22:30)
[2017-12-15] MEDS ORDERED: SYMBICORT 160-4.5 MCG INHALER IH SCH (22:30)
[2017-12-15] MEDS ORDERED: XANAX ONE (22:35)
[2017-12-15] MEDS ORDERED: SINGULAIR ONE (22:35)
[2017-12-15] MEDS ORDERED: ADVAIR 250-50 DISKUS IH ONE (22:35)
[2017-12-15] MEDS ORDERED: MUCINEX ONE (22:35)
[2017-12-15] MEDS ORDERED: SYMBICORT 160-4.5 MCG INHALER IH ONE (22:35)
[2017-12-15] MEDS: XANAX PO PRN (22:40)
[2017-12-16] MEDS: DUONEB NEB SCH ×4 (04:38→21:33)
[2017-12-16] MEDS ORDERED: CARAFATE ONE (06:08)
[2017-12-16] MEDS: LASIX TAB PO SCH (06:11)
[2017-12-16] MEDS: FLAGYL 500 MG/100 ML 500 MG in PREMIX 100 ML NS 1 BAG IV SCH ×3 (06:11→20:43)
[2017-12-16] MEDS ORDERED: CARAFATE PO SCH (06:30)
[2017-12-16] MEDS: CLARITIN PO SCH (08:41)
[2017-12-16] MEDS: PROTONIX PO SCH (08:41)
[2017-12-16] MEDS: MEGACE PO SCH (08:41)
[2017-12-16] MEDS: TOPROL XL PO SCH (08:42)
[2017-12-16] MEDS: ARTIFICIAL TEARS OPTH SOL OP SCH ×2 (08:43→20:41)
[2017-12-16] MEDS: DURAGESIC TD SCH ×2 (08:57→08:58)
[2017-12-16] MEDS: ROCEPHIN 1 GM in SODIUM CHLORIDE 50 ML IV SCH (08:59)
[2017-12-16] MEDS ORDERED: DESLORATADINE 5 MG PO SCH (09:00)
[2017-12-16] MEDS ORDERED: MIRALAX PO SCH (09:00)
[2017-12-16] MEDS ORDERED: LIDOCAINE HCL TP SCH (09:00)
[2017-12-16] MEDS ORDERED: MULTIVITAMIN TABLET PO SCH (09:00)
[2017-12-16] MEDS: VANCOMYCIN 750 MG in SODIUM CHLORIDE 250 ML IV SCH (10:13)
[2017-12-16] MEDS: MUCINEX PO SCH ×2 (10:28→20:41)
--- NOTE | 2017-12-16 14:05 | RS.PTINEVL ---
Subjective - Patient information Date of Evaluation: 12/16/17 Date of Arrival on Unit: 12/15/17 Admitted From:: In-House Transfer Diagnosis: pneumonia Usual Living Arrangement: Detention Living Arrangement Comments: pt amb with assist with rwx at snf. Home Environment: Level/No stairs Medical History: Hypertension, Arthritis Medical History Comments:: asthma, scoliosis, hypothyroid, compression fx LATEX ALLERGY?: No Surgical History: Cholecystectomy Surgical History Comments:: part of lung removed Medications: see chart Subjective Information/ Patient Comments:: pt states that she thinks she has been confused. States she "couldn't believe" when her son told her that she had been there for 3 days. - Level of function Prior to this admission, the patient could do the following:: Partially Dependent Ambulation Current Level of Function: Partially Dependent Current Equipment Used at Home: rwx Interventions - Objective Patient Orientation: Person Current Interventions: IV's, Oxygen Range of Motion - ROM Right Upper Extremity AROM: WFL's Left Upper Extremity AROM: WFL's Right Lower Extremity AROM: WFL's Left Lower Extremity AROM: WFL's Muscle Strength - Muscle Strength Right Upper Extremity Strength: Mild Weakness (shld flex 3+/5, elbow flex/ext 4- /5, decreased distillery manager strength) Left Upper Extremity Strength: Mild Weakness (shld flex 3+/5, elbow flex/ext 4-/ 5, decreased distillery manager strength) Right Lower Extremity Strength: Mild Weakness (hip flex 4-/5, knee flex/ext 4/5 , ankle DF/PF 4/5) Left Lower Extremity Strength: Mild Weakness (hip flex 4-/5, knee flex/ext 4/5, ankle DF/PF 4/5) Sensation - Sensation Right Upper Extremity Sensation: Intact/Normal Left Upper Extremity Sensation: Intact/Normal Right Lower Extremity Sensation: Intact/Normal Left Lower Extremity Sensation: Intact/Normal Palpation Palpation Findings: Tenderness Comments:: thoracic area Balance - Sitting Balance and Reactions Static Sitting Balance: Good Dynamic Sitting Balance: Fair Sitting Equilibrium Reactions: Delayed Left, Delayed Right Sitting Protective Reactions: Delayed Left, Delayed Right - Standing Balance and Reactions Static Standing Balance: Fair Dynamic Standing Balance: Poor Standing Equilibrium Reactions: Delayed Left, Delayed Right Standing Protective Reactions: Delayed Left, Delayed Right - Comments Balance Assessment Comments: pt with 1 episode of LOB when stands initially Functional Mobility - Bed Mobility Comments:: pt seen sitting up in chair - Transfers Sit to Stand: Min Assist Stand to Sit: CGA - Safety Awareness Safety Awareness: Fair LUIS CARLOS INDEX SCORE: 20 Ambulation - Ambulation Assistive Device Used: Rolling Walker Orthotic/Prosthetic Device: No Distance: 80ft Assistance needed with Ambulation: CGA, 1 person assist Quality of Ambulation: pt amb CGA x 1 + 1 for IV and O2 Gait Deviations: Forward posture, Short stride Ambulation Comments: pt amb with decreased step length, flexed posture and decreased step length Factors Affecting Ambulation: Decreased Balance, Breathing/O2 Saturation, Weakness, Decreased Safety, Cognitive Status, Limited Endurance Treatment time - Time with patient Total treatment time: 26 Patient Education - Education Patient Education: Activity Modification, Education of Plan of Care Teaching Recipient: Patient Teaching Methods: Discussion (discussion regarding POC) Assessment - Assessment Problem List:: Decreased level of function, Requires training/education, Decreased safety/Risk of falls, Weakness, Pain limits previous level of function , Cognitive status limits abilities Rehab Potential: Good Further Therapy Indicated?: Yes Evaluation Complexity: HISTORY: Medium (htn, pneumonia, oa, ), EXAM OF BODY SYSTEMS: Medium (gait, balance, strength, posture), CLINICAL PRESENTATION: Medium (evolving), CLINICAL DECISION MAKING: Medium Short Term Goals GOAL #1: pt perform scooting and rolling in bed with verbal cues. Goal to be met by: 12/21/17 GOAL #2: pt tranfer sup to/from sit to/from stand CGA Goal to be met by: 12/21/17 GOAL #3: pt amb with rwx 120ft with CGA x 1 with no LOB Goal to be met by: 12/21/17 Early Education Teacher Goals GOAL #1: pt transfer sup to/from sit/stand SBA Goal to be met by: 12/26/17 GOAL #2: pt amb with rwx 160ft with CGA with no LOB with improved step length Goal to be met by: 12/26/17 GOAL #3: Improved strength BLE 4 to 4+/5 Goal to be met by: 12/26/17 Plan Plan of Care: Therapeutic EX, Therapeutic Activity Other:: gait training Frequency of Treatment: 1-2 X day, as tolerated Duration of Treatment: 10 days Anticipated Discharge Destination: [facility] Has the Physician been added for Co-signature?: Yes
--- NOTE | 2017-12-16 17:15 | RS.OTINEVL ---
Subjective - Patient information Date of Evaluation: 12/16/17 Date of Arrival on Unit: 12/16/17 Admitted From:: [facility] Usual Living Arrangement: [facility] Living Arrangement Comments: Pt was living at [facility]. Medical History: Hypertension, Diabetes, Arthritis Medical History Comments:: asthma, scoliosis, hypothyroid, compression fx Surgical History: Cholecystectomy Surgical History Comments:: part of lung removed - Level of function Prior to this admission, the patient could do the following:: Partially Dependent Ambulation Abilities prior to this admission: Pt is Minimal assist to walk. Pt requires 2 people to transfer due to all of the cords. Current Level of Function: Partially Dependent Current Equipment Used at Home: Rolling Walker, Oxygen. Pain Assessment - Pain Pain Score: 0 Pain Alleviating Factors: Position Change, Standing Interventions - Objective Patient Orientation: Person, Place, Time Current Interventions: IV's, Oxygen Interventions - ROM Right Upper Extremity AROM: Slight limitation Left Upper Extremity AROM: Slight limitation - Strength Right Upper Extremity Strength: Mild Weakness Left Upper Extremity Strength: Mild Weakness - Sensation Right Upper Extremity Sensation: Intact/Normal Left Upper Extremity Sensation: Intact/Normal Balance - Sitting Balance Static Sitting Balance: Fair Dynamic Sitting Balance: Fair - Standing Balance Static Standing Balance: Poor Dynamic Standing Balance: Poor - Comments Balance Assessment Comments: Pt requires a rolling walker to ambulate. ADL Skills - Self Feeding Self Feeding: Independent - Grooming Grooming: Min Assist - Bathing Bathing UE: Min Assist Bathing LE: Min Assist - Dressing Dressing UE: CGA Dressing LE: Min Assist - Toilet Management Toileting Management: CGA Functional Mobility - Bed Mobility Rolling R/L: Independent Scooting: Independent Supine to Sit: Supervision Sit to Supine: Supervision - Transfers Sit to Stand: Min Assist Stand to Sit: Min Assist Stand Pivot Transfers: Min Assist - Ambulation Weight Bearing Status: FWB Assistive Device Used: Rolling Walker Assistance needed with Ambulation: Min Assist, 2 person assist LUIS CARLOS INDEX SCORE: 10/20 Additional Treatment Performed - Time with patient Total treatment time: 20 Activities Patient Interests:: Watching Television Patient Education Patient Education: Education of diagnosis, Home Exercise Program, Education of Plan of Care Teaching Recipient: Patient Teaching Methods: Discussion Assessment Problem List:: Decreased level of function Rehab Potential: Good Further Therapy Indicated?: Yes Evaluation Complexity: HISTORY: Medium, EXAM OF BODY SYSTEMS: Medium, CLINICAL DECISION MAKING: Medium Short Term Goals - Goals GOAL 1: Pt to complete sink level ADLS CGA. Goal to be met by: 12/23/17 GOAL 2: Pt to complete dynamic standing balance to Fair+.Good Goal to be met by: 12/23/17 GOAL 3: Pt to increase activity tolerance to 10 minutes. Goal to be met by: 12/23/17 Senior Living Goals GOAL 1: Pt to complete sink level ADLS MOD-I. Goal to be met by: 12/30/17 GOAL 2: Pt to complete dynamic standing balance to Fair+.Good Goal to be met by: 12/30/17 GOAL 3: Pt to increase activity tolerance to 15 minutes. Goal to be met by: 12/30/17 Plan Plan of Care: Therapeutic EX, Neuromuscular Re-Educ, Therapeutic Activity, Self- Care/Home Management Frequency of Treatment: 1-2 X day, as tolerated Duration of Treatment: 2 Weeks Anticipated Discharge Destination: [facility] Living Care Facility Has the Physician been added for Co-signature?: Yes
[2017-12-16] MEDS: XANAX PO PRN (20:41)
[2017-12-17] MEDS: DUONEB NEB SCH ×3 (04:33→14:20)
[2017-12-17] MEDS: PROTONIX PO SCH (06:04)
[2017-12-17] MEDS: FLAGYL 500 MG/100 ML 500 MG in PREMIX 100 ML NS 1 BAG IV SCH ×3 (06:04→20:14)
[2017-12-17] MEDS: LASIX TAB PO SCH (06:04)
[2017-12-17] MEDS: ROCEPHIN 1 GM in SODIUM CHLORIDE 50 ML IV SCH (08:22)
[2017-12-17] MEDS: ARTIFICIAL TEARS OPTH SOL OP SCH ×2 (08:26→20:12)
[2017-12-17] MEDS: CLARITIN PO SCH (08:29)
[2017-12-17] MEDS: TOPROL XL PO SCH (08:29)
[2017-12-17] MEDS: MUCINEX PO SCH ×2 (08:30→20:19)
[2017-12-17] MEDS: MEGACE PO SCH (08:30)
[2017-12-17] MEDS: VANCOMYCIN 750 MG in SODIUM CHLORIDE 250 ML IV SCH (09:46)
--- NOTE | 2017-12-17 14:12 | HP ---
DATE OF SERVICE: 12/15/17 CHIEF COMPLAINT: Pneumonia and needing continued antibiotics HISTORY OF PRESENT ILLNESS: This is an 87 year old female who was recently admitted to the hospital for the aspiration pneumonia, cough and congestion and found to have aspiration bibasilar pneumonia with COPD exacerbation. Repeat chest x-ray still showed the pneumonia. At that time the patient being admitted to the transitional care unit for the IV antibiotics. At this time the patient's daughter is in the room. Answered all the questions. REVIEW OF SYSTEMS: CONSTITUTIONAL: No fever, no chills. Weakness and tiredness. HEENT: Normal. ENDOCRINE: No weight gain; no weight loss. CVS: No chest pain. No PND, no orthopnea. Shortness of breath with minimal exertion. No PND, no orthopnea. RESPIRATORY: Cough, Congestion. No hemoptysis. GI: No nausea, no vomiting. No abdominal pain. No melena. : No hematuria. No polyuria. MUSCULOSKELETAL: No joint swelling. Severe lower back pain. Leg edema. PSYCHIATRIC: Not anxious. No depression. No suicidal thoughts. No homicidal thoughts. SKIN: Intact, no open lesions. PAST MEDICAL HISTORY: Hypertension Vitamin D deficiency Dysphagia Anemia COPD Gout Multiple wedge compression fracture thoracolumbar spine Scoliosis Osteoarthritis Former smoker PAST SURGICAL HISTORY: Left lung lobectomy right bronchiectasis Bilateral cataract extraction Left ear prosthetic Sinus surgery Cholecystectomy PERSONAL HISTORY: . Resident of [facility]. Former smoker. No alcohol use. No substance use. MEDICATIONS: Vitamin D3 Tizanidine Symbicort Tessalon Perles Protonix Multivitamins Bluebell Singulair Miralax Megace Lasix Duragesic patch Drisdol DUO NEBS Clarinex Atorvastatin Advair Toprol Mucinex Calcium ALLERGIES: Sulfa Hydromorphone PHYSICAL EXAMINATION: V/S: Blood pressure 148/79, respiratory rate 12, heart rate 78, temperature 98.0 with saturation 98 GENERAL: Cachetic lady with scoliosis sitting in a bed and not in any distress. HEENT: Atraumatic, normocephalic. No scleral icterus. Pallor positive. Mucosa dry. NECK: Supple. No JVD, no bruit. No lymphadenopathy. No thyromegaly. HEART: S1, S2 normal. No murmur. No cyanosis or clubbing. No ascites. LUNGS: Decreased and basilar crackles. Clear to auscultation. No rales or rhonchi. ABDOMEN: Soft, nontender. Bowel sounds are active. No CVA tenderness. No rigidity or guarding. EXTREMITIES: 1+ edema. No cyanosis or clubbing MUSCULOSKELETAL: Normal joints, no swelling. NEUROLOGIC: The patient is normal. SKIN: Intact; no open lesions. LYMPHATIC: No lymph nodes palpable. LABS: WBC 9.52, hgb 9.2, hct 27.1, plt count 234, sodium 140, potassium 3.8, chloride 106, bicarb 28, BUN 13, creatinine 0.59 and glucose is 86. ASSESSMENT: 1. Bilateral basilar pneumonia, aspiration pneumonia needing continuous IV antibiotics 2. COPD oxygen dependent 3. Hypertension 4. Compression deformities of the midthoracic back, multiple 5. Rheumatoid arthritis 6. Osteoarthritis 7. Anemia 8. Hypothyroidism PLAN: 1. Admit patient to the transitional care 2. Continue the IV antibiotic Rocephin 3. Flagyl 4. Vancomycin 5. DUO NEBS 6. Continue the Oxygen 7. Daily I&O's 8. Continue the rest of the medications 9. CBC and CMP every other day TIME SPENT: MORE THAN 65 minutes MTDD
[2017-12-17] MEDS: XANAX PO PRN (20:19)
[2017-12-17] MEDS: TYLENOL PO PRN (20:34)
[2017-12-18] MEDS: DUONEB NEB PRN ×2 (02:20→20:40)
[2017-12-18] MEDS: FLAGYL 500 MG/100 ML 500 MG in PREMIX 100 ML NS 1 BAG IV SCH ×2 (05:46→15:45)
[2017-12-18] MEDS: PROTONIX PO SCH (05:47)
[2017-12-18] MEDS: LASIX TAB PO SCH (05:47)
[2017-12-18] MEDS: ROCEPHIN 1 GM in SODIUM CHLORIDE 50 ML IV SCH (08:07)
[2017-12-18] MEDS ORDERED: LASIX IVP STA (08:30)
[2017-12-18] MEDS: ARTIFICIAL TEARS OPTH SOL OP SCH ×2 (09:02→20:04)
[2017-12-18] MEDS: MEGACE PO SCH (09:02)
[2017-12-18] MEDS: MUCINEX PO SCH ×2 (09:02→20:05)
[2017-12-18] MEDS: VANCOMYCIN 750 MG in SODIUM CHLORIDE 250 ML IV SCH (09:02)
[2017-12-18] MEDS: TOPROL XL PO SCH (09:02)
[2017-12-18] MEDS: CLARITIN PO SCH (09:02)
[2017-12-18] MEDS: FLAGYL PO SCH (20:04)
[2017-12-18] MEDS: XANAX PO PRN (20:05)
[2017-12-19] MEDS: XANAX PO PRN ×2 (04:28→20:45)
[2017-12-19] MEDS: DUONEB NEB PRN (04:45)
[2017-12-19] MEDS ORDERED: LASIX IVP STA (06:56)
[2017-12-19] MEDS ORDERED: SOLU-MEDROL 125 MG IVP STA (06:57)
[2017-12-19] MEDS ORDERED: MORPHINE 2 MG/ML SYRINGE IVP STA ×2 (07:28→11:10)
[2017-12-19] MEDS ORDERED: ATIVAN ONE (07:42)
[2017-12-19] MEDS ORDERED: ATIVAN IVP STA (07:45)
[2017-12-19] MEDS ORDERED: MORPHINE 2 MG/ML SYRINGE IVP PRN ×2 (08:54→13:01)
[2017-12-19] MEDS ORDERED: MORPHINE 2 MG/ML SYRINGE ONE (08:56)
[2017-12-19] MEDS: MEGACE PO SCH (09:41)
[2017-12-19] MEDS: PROTONIX PO SCH (09:41)
[2017-12-19] MEDS: MUCINEX PO SCH ×2 (09:41→20:46)
[2017-12-19] MEDS: CLARITIN PO SCH (09:42)
[2017-12-19] MEDS: LASIX TAB PO SCH (10:08)
[2017-12-19] MEDS: FLAGYL PO SCH ×3 (10:09→20:45)
[2017-12-19] MEDS: ARTIFICIAL TEARS OPTH SOL OP SCH ×2 (11:25→20:46)
[2017-12-19] MEDS: TOPROL XL PO SCH (12:33)
[2017-12-19] MEDS: KEFLEX PO SCH ×2 (12:38→20:46)
[2017-12-19] MEDS: DURAGESIC TD SCH ×2 (12:53→12:59)
[2017-12-19] MEDS: SOLU-MEDROL 125 MG IVP SCH ×2 (13:27→20:46)
[2017-12-20] MEDS: FLAGYL PO SCH ×3 (06:13→20:48)
[2017-12-20] MEDS: PROTONIX PO SCH (06:14)
[2017-12-20] MEDS: SOLU-MEDROL 125 MG IVP SCH ×3 (06:14→20:48)
[2017-12-20] MEDS: LASIX TAB PO SCH (06:14)
[2017-12-20] MEDS: MUCINEX PO SCH ×2 (08:31→20:47)
[2017-12-20] MEDS: KEFLEX PO SCH ×2 (08:31→20:47)
[2017-12-20] MEDS: CLARITIN PO SCH (08:31)
[2017-12-20] MEDS: TOPROL XL PO SCH (08:31)
[2017-12-20] MEDS: MEGACE PO SCH (08:31)
[2017-12-20] MEDS: ARTIFICIAL TEARS OPTH SOL OP SCH ×2 (08:31→20:49)
[2017-12-20] MEDS: DUONEB NEB PRN (20:29)
[2017-12-20] MEDS: XANAX PO PRN (20:47)
[2017-12-21] MEDS: SOLU-MEDROL 125 MG IVP SCH ×3 (06:04→22:10)
[2017-12-21] MEDS: FLAGYL PO SCH ×3 (06:04→20:48)
[2017-12-21] MEDS: LASIX TAB PO SCH (06:04)
[2017-12-21] MEDS: PROTONIX PO SCH (06:04)
[2017-12-21] MEDS: TYLENOL PO PRN (06:40)
[2017-12-21] MEDS ORDERED: VANCOMYCIN 1 GM in SODIUM CHLORIDE 250 ML IV SCH (09:00)
[2017-12-21] MEDS: MUCINEX PO SCH ×2 (09:42→20:48)
[2017-12-21] MEDS: TOPROL XL PO SCH (09:42)
[2017-12-21] MEDS: ARTIFICIAL TEARS OPTH SOL OP SCH ×2 (09:42→20:48)
[2017-12-21] MEDS: VANCOMYCIN 500 MG in SODIUM CHLORIDE 100 ML IV SCH (09:42)
[2017-12-21] MEDS: KEFLEX PO SCH ×2 (09:42→20:48)
[2017-12-21] MEDS: MEGACE PO SCH (09:42)
[2017-12-21] MEDS: CLARITIN PO SCH (09:42)
[2017-12-21] MEDS: DUONEB NEB SCH (20:38)
[2017-12-21] MEDS: XANAX PO PRN (20:56)
[2017-12-21] MEDS ORDERED: SOLU-MEDROL 125 MG IM STA (22:10)
[2017-12-22] MEDS: DUONEB NEB SCH ×4 (01:56→20:30)
[2017-12-22] MEDS: ROBITUSSIN DM SYRUP PO PRN ×2 (02:24→21:02)
[2017-12-22] MEDS ORDERED: SOLU-MEDROL 125 MG IM STA (05:52)
[2017-12-22] MEDS: SOLU-MEDROL 125 MG IVP SCH ×2 (05:53→15:28)
[2017-12-22] MEDS: LASIX TAB PO SCH (05:57)
[2017-12-22] MEDS: PROTONIX PO SCH (05:57)
[2017-12-22] MEDS: FLAGYL PO SCH ×3 (05:57→21:03)
[2017-12-22] MEDS: VANCOMYCIN 500 MG in SODIUM CHLORIDE 100 ML IV SCH ×2 (09:00→09:39)
[2017-12-22] MEDS: MEGACE PO SCH (09:39)
[2017-12-22] MEDS: ARTIFICIAL TEARS OPTH SOL OP SCH ×2 (09:39→21:03)
[2017-12-22] MEDS: TOPROL XL PO SCH (09:40)
[2017-12-22] MEDS: MUCINEX PO SCH ×2 (09:40→21:04)
[2017-12-22] MEDS: CLARITIN PO SCH (09:40)
[2017-12-22] MEDS: KEFLEX PO SCH ×2 (09:40→21:04)
[2017-12-22] MEDS: DURAGESIC TD SCH ×2 (09:41)
[2017-12-22] MEDS: PREDNISONE PO SCH (16:40)
[2017-12-22] MEDS: XANAX PO PRN (21:03)
[2017-12-23] MEDS: DUONEB NEB SCH ×4 (05:36→19:50)
[2017-12-23] MEDS: PROTONIX PO SCH (05:51)
[2017-12-23] MEDS: LASIX TAB PO SCH (05:51)
[2017-12-23] MEDS: FLAGYL PO SCH ×3 (05:51→20:44)
[2017-12-23] MEDS: KEFLEX PO SCH ×2 (08:13→20:43)
[2017-12-23] MEDS: CLARITIN PO SCH (08:14)
[2017-12-23] MEDS: MEGACE PO SCH (08:14)
[2017-12-23] MEDS: MUCINEX PO SCH ×2 (08:14→20:44)
[2017-12-23] MEDS: PREDNISONE PO SCH ×2 (08:14→16:38)
[2017-12-23] MEDS: ARTIFICIAL TEARS OPTH SOL OP SCH ×2 (08:15→20:43)
[2017-12-23] MEDS: TOPROL XL PO SCH (08:15)
--- NOTE | 2017-12-23 15:38 | PN ---
DATE OF SERVICE: 12/19/17 SUBJECTIVE: The patient had a total complete change of situation today. The patient is more short of breath asked to be Venturi Nonbreather which saturations are around 85- 90. Cough and congested. Says that she wants to and she doesn't want to live anymore. The patient's family is all present. REVIEW OF SYSTEMS: CONSTITUTIONAL: No fever, no chills. HEENT: Normal. ENDOCRINE: No weight gain, no weight loss. CVS: No angina symptoms. No CHF symptoms. No palpitations. No atypical chest pain for CAD. No shortness of breath. No PND, no orthopnea. RESPIRATORY: Cough and congestion, no hemoptysis. GI: No nausea, no vomiting. No abdominal pain. : No hematuria. No polyuria. MUSCULOSKELETAL: No joint swelling. PSYCHIATRIC: Not anxious. No depression. No suicidal thoughts. No homicidal thoughts. SKIN: Intact. No rash. PHYSICAL EXAMINATION: V/S: Blood pressure 159/84, respiratory rate 24, heart rate 92, temperature 97.3. GENERAL: Cachetic lady laying in the bed with cough and congestion on Venturi mask. HEENT: Normocephalic, atraumatic. Mucosa dry. Very hard of hearing. NECK: Supple. No JVD, no carotid bruit. No lymphadenopathy. LUNGS: Decreased and basilar crackles. Clear to auscultation. No rales or rhonchi. HEART: S1, S2 normal. No S3. No murmur, gallop or regurgitation. ABDOMEN: Soft, nontender. Bowel sounds active. No rigidity. No rebound or guarding. No CVA tenderness. EXTREMITIES: 1+ edema. No clubbing or cyanosis MUSCULOSKELETAL: No joint swelling. NEUROLOGIC: Awake, alert, oriented times three. No focal deficit. LYMPHATIC: No lymph nodes palpable. SKIN: Intact. LABS: WBC 10.92, hgb 9.8, hct 28.9, plt count 229. ABGs pH 7.395, pCO2 50.2, pO2 57. Sodium 140, potassium 3.9, chlroide 106, bicarb 28, BUN 13, creatinine 0.59. ASSESSMENT: 1. COPD exacerbation secondary to the aspiration pneumonia 2. Acute hypoxemic respiratory failure at this time 3. Cachexia 4. Multiple compression deformities 5. Osteoarthritis 6. DJD spine PLAN: 1. Continue Vancomycin, Rocephin, IV fluids, Morphine, Ativan PRN, DUO NEBS 2. Solu-Medrol 125mg Q 8 hours. TIME SPENT: More than 35 minutes MTDD
[2017-12-23] MEDS: ROBITUSSIN DM SYRUP PO PRN (20:43)
[2017-12-23] MEDS: XANAX PO PRN (20:44)
[2017-12-24] MEDS: DUONEB NEB SCH ×4 (05:25→21:20)
[2017-12-24] MEDS: LASIX TAB PO SCH (05:32)
[2017-12-24] MEDS: FLAGYL PO SCH ×3 (05:32→20:23)
[2017-12-24] MEDS: PROTONIX PO SCH (05:32)
[2017-12-24] MEDS: MEGACE PO SCH (08:53)
[2017-12-24] MEDS: ARTIFICIAL TEARS OPTH SOL OP SCH ×2 (08:53→20:22)
[2017-12-24] MEDS: TOPROL XL PO SCH (08:54)
[2017-12-24] MEDS: PREDNISONE PO SCH ×2 (08:55→17:01)
[2017-12-24] MEDS: KEFLEX PO SCH ×2 (08:55→20:23)
[2017-12-24] MEDS: MUCINEX PO SCH ×2 (08:55→20:23)
[2017-12-24] MEDS: CLARITIN PO SCH (08:56)
--- NOTE | 2017-12-24 10:51 | PN ---
DATE OF SERVICE: 12/21/17 SUBJECTIVE: The patient awake and alert. Still coughing and congestion but a lot improved. Left arm and tenderness at the IV site, been complaining. The patient IV got busted and we are going to put the new IV line. The patient's daughter in the room had a lot of questions and all been answered. REVIEW OF SYSTEMS: CONSTITUTIONAL: No fever, no chills. HEENT: Normal. ENDOCRINE: No weight gain, no weight loss. CVS: No angina symptoms. No CHF symptoms. No palpitations. No atypical chest pain for CAD. No shortness of breath. No PND, no orthopnea. RESPIRATORY: Cough able to get some phlegm, no hemoptysis. GI: No nausea, no vomiting. No abdominal pain. : No hematuria. No polyuria. MUSCULOSKELETAL: No joint swelling. PSYCHIATRIC: Not anxious. No depression. No suicidal thoughts. No homicidal thoughts. SKIN: Intact. No rash. PHYSICAL EXAMINATION: V/S: Blood pressure 120/72, respiratory rate 18, heart rate 85, temperature 97.6 , saturation 100% on 3 liters. HEENT: Normocephalic, atraumatic. Mucosa dry. Pallor positive. NECK: Supple. No JVD, no carotid bruit. No lymphadenopathy. LUNGS: Decreased with basilar crackles. Clear to auscultation. No rales or rhonchi. HEART: S1, S2 normal. No S3. No murmur, gallop or regurgitation. ABDOMEN: Soft, nontender. Bowel sounds active. No rigidity. No rebound or guarding. No CVA tenderness. EXTREMITIES: No pedal edema. No clubbing or cyanosis. Cord like sensation in the left elbow area. Tender to touch and warm to touch. MUSCULOSKELETAL: No joint swelling. Scoliosis. NEUROLOGIC: Awake, alert, oriented times three. No focal deficit. LYMPHATIC: No lymph nodes palpable. SKIN: Intact. LABS: WBC 10.92, hgb 9.8, hct 28.9, plt count 229, Sodium 140, potassium 3.8, chloride 106, bicarb 28, BUN 13, creatinine 0.59, glucose 0.86. ASSESSMENT: 1. Pneumonia 2. Hypertension 3. Dysphagia 4. COPD PLAN: 1. Will continue Vancomycin and Rocephin 2. Warm compress to the left forearm 3. Venous Doppler in the morning TIME SPENT: More than 35 minutes MTDD
--- NOTE | 2017-12-24 11:40 | PN ---
DATE OF SERVICE: 12/20/17 SUBJECTIVE: The patient is comfortable and sitting in the bed, not in any distress. Cough and congestion is improved. Shortness of breath is tremendously improved. REVIEW OF SYSTEMS: CONSTITUTIONAL: No fever, no chills. HEENT: Normal. ENDOCRINE: No weight gain, no weight loss. CVS: No angina symptoms. No CHF symptoms. No palpitations. No atypical chest pain for CAD. No shortness of breath. No PND, no orthopnea. RESPIRATORY: No cough, no hemoptysis. GI: No nausea, no vomiting. No abdominal pain. : No hematuria. No polyuria. MUSCULOSKELETAL: No joint swelling. PSYCHIATRIC: Not anxious. No depression. No suicidal thoughts. No homicidal thoughts. SKIN: Intact. No rash. PHYSICAL EXAMINATION: V/S: Blood pressure 147/82, respiratory rate 18, heart rate 79, temperature 97.8 and saturation is 99 on 3liters. GENERAL: Cachetic lady. HEENT: Normocephalic, atraumatic. Mucosa dry. Pallor positive. NECK: Supple. No JVD, no carotid bruit. No lymphadenopathy. LUNGS: Decreased and basilar crackles. Clear to auscultation. No rales or rhonchi. HEART: S1, S2 normal. No S3. No murmur, gallop or regurgitation. ABDOMEN: Soft, nontender. Bowel sounds active. No rigidity. No rebound or guarding. No CVA tenderness. EXTREMITIES: No pedal edema. No clubbing or cyanosis MUSCULOSKELETAL: No joint swelling. Scoliosis present. NEUROLOGIC: Awake, alert, oriented times three. No focal deficit. LYMPHATIC: No lymph nodes palpable. SKIN: Intact. LABS: WBC 10.92, hgb 9.8, hct 28.9, plt count 229, sodium 140, potassium 3.9, chloride 106, bicarb 28, BUN 13, creatinine 0.59 ASSESSMENT: 1. Status post respiratory distress 2. Aspiration pneumonia 3. Anemia 4. Compression deformities on the middle back 5. Cachexia PLAN: 1. Continue the antibiotic Rocephin, Vancomycin and Lasix 2. DUO NEBS 3. Morphine PRN TIME SPENT: More than 35 minutes MTDD
[2017-12-24] MEDS: XANAX PO PRN (20:23)
[2017-12-24] MEDS: ROBITUSSIN DM SYRUP PO PRN (20:28)
[2017-12-25] MEDS: DUONEB NEB SCH ×4 (04:34→21:05)
[2017-12-25] MEDS: FLAGYL PO SCH ×3 (05:38→20:17)
[2017-12-25] MEDS: LASIX TAB PO SCH (05:39)
[2017-12-25] MEDS: PROTONIX PO SCH (05:39)
[2017-12-25] MEDS ORDERED: GI COCKTAIL PO STA ×2 (08:37→09:01)
--- NOTE | 2017-12-25 09:01 | PN ---
DATE OF SERVICE: 12/24/17 SUBJECTIVE: The patient is sitting in bed not in any distress. She has cough, congestion with shortness of breath improved. No fever, no chills. REVIEW OF SYSTEMS: CONSTITUTIONAL: No fever, no chills. HEENT: Normal. ENDOCRINE: No weight gain, no weight loss. CVS: No angina symptoms. No CHF symptoms. No palpitations. No atypical chest pain for CAD. Shortness of breath, improved. No PND, no orthopnea. RESPIRATORY: Cough and congestion, improved. No hemoptysis. GI: No nausea, no vomiting. No abdominal pain. : No hematuria. No polyuria. MUSCULOSKELETAL: No joint swelling. PSYCHIATRIC: Not anxious. No depression. No suicidal thoughts. No homicidal thoughts. SKIN: Intact. No rash. PHYSICAL EXAMINATION: V/S: BP 118/73, respiratory rate 16, heart rate 92, temperature 98.2, saturation 95. GENERAL: Cachetic lady lying in bed not in any distress. HEENT: Normocephalic, atraumatic. Mucosa dry, pallor positive. NECK: Supple. No JVD, no carotid bruit. No lymphadenopathy. LUNGS: Decreased entry with basilar crackles. No rales or rhonchi. HEART: S1, S2 normal. No S3. No murmur, gallop or regurgitation. ABDOMEN: Soft, nontender. Bowel sounds active. No rigidity. No rebound or guarding. No CVA tenderness. EXTREMITIES: No pedal edema. No cyanosis or clubbing. MUSCULOSKELETAL: No joint swelling. NEUROLOGIC: The patient is awake. No focal deficit. LYMPHATIC: No lymph nodes palpable. SKIN: Intact. LABS: White count 11.95, hemoglobin 9.2, hematocrit 27.3, platelet count 180. Sodium 144, potassium 3.3, chloride 99, bicarb 33, BUN 25, creatinine 0.66, glucose 119. ASSESSMENT: 1. Status post hypoxemia 2. Respiratory failure 3. COPD, oxygen dependent 4. Aspiration pneumonia 5. Anemia 6. Multiple compression deformities in the back PLAN: 1. Continue Rocephin 2. Continue Flagyl, steroids, Duonebs, 02 3. Daily I & O's DISCUSSION: Upon discharge home, the patient will need hospital bed as well as bedside commode to help with COPD and compression deformities in the back. Face to face was had with patient concerning 02 therapy and nebs treatment. She is in agreement. Will continue 02 at home; the patient is more awake and alert. TIME SPENT: More than 35 minutes MTDD
--- NOTE | 2017-12-25 09:10 | PN ---
DATE OF SERVICE: 12/23/17 SUBJECTIVE: Cough and congestion is better. Leg edema is improved. She still has some shortness of breath. No fever, no chills. No PND, no orthopnea. The patient does not want to go to the correction, wants to go home and live by herself. Daughter is making arrangements. REVIEW OF SYSTEMS: CONSTITUTIONAL: No fever, no chills. HEENT: Normal. ENDOCRINE: No weight gain, no weight loss. CVS: No angina symptoms. No CHF symptoms. No palpitations. No atypical chest pain for CAD. Shortness of breath. No PND, no orthopnea. RESPIRATORY: No cough, no hemoptysis. GI: No nausea, no vomiting. No abdominal pain. : No hematuria. No polyuria. MUSCULOSKELETAL: No joint swelling. PSYCHIATRIC: Not anxious. No depression. No suicidal thoughts. No homicidal thoughts. SKIN: Intact. No rash. PHYSICAL EXAMINATION: V/S: BP 145/82, respiratory rate 16, heart rate 80, temperature 97.4, saturation 97. HEENT: Normocephalic, atraumatic. Mucosa dry, pallor positive. No icterus. NECK: Supple. No JVD, no carotid bruit. No lymphadenopathy. LUNGS: Bilateral mild expiratory wheezing present. Clear to auscultation. No rales or rhonchi. HEART: S1, S2 normal. No S3. No murmur, gallop or regurgitation. ABDOMEN: Soft, nontender. Bowel sounds active. No rigidity. No rebound or guarding. No CVA tenderness. EXTREMITIES: No pedal edema. No clubbing or cyanosis. MUSCULOSKELETAL: No joint swelling. NEUROLOGIC: The patient is awake, alert. No focal deficit. LYMPHATIC: No lymph nodes palpable. SKIN: Intact. LABS: White count 10.92, hemoglobin 9.8, hematocrit 28.9, platelet count 229. Sodium 144, potassium 3.8, chloride 106, bicarb 28, BUN 13, creatinine 0.59. Glucose 86. ASSESSMENT: 1. COPD EXACERBATION SECONDARY TO ASPIRATION PNEUMONIA 2. HYPOXEMIC RESPIRATORY FAILURE 3. ANEMIA 4. MULTIPLE COMPRESSION DEFORMITIES OF THE LUMBAR AND THORACIC SPINE PLAN: 1. Continue antibiotic Rocephin 2. Flagyl p.o. 3. Duonebs 4. Daily I & O's 5. Solu-Medrol TIME SPENT: More than 35 minutes MTDD
[2017-12-25] MEDS: ARTIFICIAL TEARS OPTH SOL OP SCH ×2 (10:23→20:17)
[2017-12-25] MEDS: CLARITIN PO SCH (10:24)
[2017-12-25] MEDS: MUCINEX PO SCH ×2 (10:25→20:17)
[2017-12-25] MEDS: TOPROL XL PO SCH (10:25)
[2017-12-25] MEDS: PREDNISONE PO SCH ×2 (10:25→17:24)
[2017-12-25] MEDS: KEFLEX PO SCH ×2 (10:25→20:17)
[2017-12-25] MEDS: MEGACE PO SCH (10:26)
[2017-12-25] MEDS: DURAGESIC TD SCH ×2 (10:40)
[2017-12-25] MEDS: ROBITUSSIN DM SYRUP PO PRN (20:17)
[2017-12-25] MEDS: XANAX PO PRN (20:17)
[2017-12-26] MEDS: DUONEB NEB SCH ×2 (04:29→10:14)
[2017-12-26] MEDS: LASIX TAB PO SCH (05:58)
[2017-12-26] MEDS: FLAGYL PO SCH ×2 (05:58→13:34)
[2017-12-26] MEDS: PROTONIX PO SCH (05:58)
[2017-12-26 06:07] VITALS: BP 128/72; TEMP 97.7
[2017-12-26] MEDS: PREDNISONE PO SCH (08:10)
[2017-12-26] MEDS: ARTIFICIAL TEARS OPTH SOL OP SCH (09:58)
[2017-12-26] MEDS: MEGACE PO SCH (09:59)
[2017-12-26] MEDS: CLARITIN PO SCH (10:00)
[2017-12-26] MEDS: MUCINEX PO SCH (10:00)
[2017-12-26] MEDS: KEFLEX PO SCH (10:00)
[2017-12-26] MEDS: TOPROL XL PO SCH (10:01)
--- NOTE | 2018-01-07 14:30 | PN ---
DATE OF SERVICE: 12/17/17 SUBJECTIVE: The patient is awake, alert, still with cough and congestion. Shortness of breath is stable. No fever, no chills. No PND, no orthopnea. REVIEW OF SYSTEMS: CONSTITUTIONAL: No fever, no chills. HEENT: Normal. ENDOCRINE: No weight gain, no weight loss. CVS: No angina symptoms. No CHF symptoms. No palpitations. No atypical chest pain for CAD. No shortness of breath. No PND, no orthopnea. RESPIRATORY: Cough and congestion. No hemoptysis. GI: No nausea, no vomiting. No abdominal pain. : No hematuria. No polyuria. MUSCULOSKELETAL: No joint swelling. PSYCHIATRIC: Not anxious. No depression. No suicidal thoughts. No homicidal thoughts. SKIN: Intact. No rash. PHYSICAL EXAMINATION: V/S: BP 143/80, respiratory rate 24, heart rate 74, temperature 97.5, saturation 100% on 2L. GENERAL: Cachetic lady sitting in the chair, not in any distress. HEENT: Normocephalic, atraumatic. Mucosa dry. Pallor positive. NECK: Supple. No JVD, no carotid bruit. No lymphadenopathy. LUNGS: Decreased entry. Basilar crackles. HEART: S1, S2 normal. No S3. No murmur, gallop or regurgitation. ABDOMEN: Soft, nontender. Bowel sounds active. No rigidity. No rebound or guarding. No CVA tenderness. EXTREMITIES: 1+ edema (light edema of the feet only). No clubbing or cyanosis MUSCULOSKELETAL: No joint swelling. NEUROLOGIC: Normal. LYMPHATIC: No lymph nodes palpable. SKIN: Intact. LABS: White count 9.52, hemoglobin 9.2, hematocrit 27.1, platelet count 234. Sodium 140, potassium 3.8, chloride 106, bicarb 28, BUN 13, creatinine 0.59. ASSESSMENT: 1. ASPIRATION AND COMMUNITY ACQUIRED PNEUMONIA 2. COPD, OXYGEN DEPENDENT 3. MULTIPLE COMPRESSION DEFORMITIES 4. CACHEXIA 5. SCOLIOSIS 6. ANEMIA PLAN: 1. Continue Rocephin, Flagyl and Vancomycin 2. Keep legs elevated 3. Daily I & O's TIME SPENT: More than 35 minutes MTDD
--- NOTE | 2018-01-07 15:46 | PN ---
DATE OF SERVICE: 12/25/17 SUBJECTIVE: The patient's daughter is in the room. The patient is still coughing and congested otherwise no fever or chills. The patient was able to walk some. REVIEW OF SYSTEMS: CONSTITUTIONAL: No fever, no chills. HEENT: Normal. ENDOCRINE: No weight gain, no weight loss. CVS: No angina symptoms. No CHF symptoms. No palpitations. No atypical chest pain for CAD. No shortness of breath. No PND, no orthopnea. RESPIRATORY: No cough, no hemoptysis. GI: No nausea, no vomiting. No abdominal pain. : No hematuria. No polyuria. MUSCULOSKELETAL: No joint swelling. PSYCHIATRIC: Not anxious. No depression. No suicidal thoughts. No homicidal thoughts. SKIN: Intact. No rash. PHYSICAL EXAMINATION: V/S: Blood pressure 138/79, respiratory rate 16, heart rate 90, temperature 97.7. GENERAL: Cachetic lady laying in bed not in any distress. HEENT: Normocephalic, atraumatic. Mucosa dry. NECK: Supple. No JVD, no carotid bruit. No lymphadenopathy. LUNGS: Decreased and basilar crackle and mild wheezing.No rales or rhonchi. HEART: S1, S2 normal. No S3. No murmur, gallop or regurgitation. ABDOMEN: Soft, nontender. Bowel sounds active. No rigidity. No rebound or guarding. No CVA tenderness. EXTREMITIES: No pedal edema. No clubbing or cyanosis MUSCULOSKELETAL: No joint swelling. NEUROLOGIC: Awake, alert, oriented times three. No focal deficit. LYMPHATIC: No lymph nodes palpable. SKIN: Intact. LABS: WBC 11.95, hgb 9.2, hct 27.3, plt count 180, sodium 144, potassium 3.3, chloride 99, bicarb 33, BUN 25, creatinine 0.66, glucose 119. ASSESSMENT: 1. Aspiration pneumonia 2. COPD exacerbation secondary to the aspiration pneumonia 3. Hypoxemic respiratory failure which is improved 4. Multiple compression deformities in the thoracic spine 5. Hypertension 6. Dyslipidemia 7. Cachexia 8. Scoliosis PLAN: 1. Continue the Rocephin 2. Breathing treatments 3. DUO NEBS 4. Daily I&O'S 5. Continue Flagyl PO TIME SPENT: More than 35 minutes MTDD
--- NOTE | 2018-01-08 09:46 | DS ---
DATE OF SERVICE: 12/26/17 FINAL DIAGNOSIS: 1. COPD exacerbation secondary to the aspiration pneumonia 2. Hypoxemic respiratory failure 3. Hypertension 4. Cachexia 5. Anemia 6. Multiple compression deformities in the upper back 7. COPD 8. GOUT 9. Scoliosis 10.Osteoarthritis 11.Left lobectomy 12.Right bronchiectasis 13.Bilateral cataract extraction 14.Left ear prosthesis 15.Sinus surgery 16.Cholecystectomy 17.Former smoker DISCHARGE INSTRUCTIONS: Discharge the patient to the home per the patient's wishes. Stop medication Benzonatate, Symbicort, Calcium, Vitamin D3, Vitamin D 2, Advair, Stark, Atrovent, Lidocaine, Singular, Multivitamin, Sucralfate and Tizanidine. [facility] for physical therapy and occupational therapy. Followup [facility] within 5-7 days. MEDICATIONS AT DISCHARGE: Carboxymethylcellulose Protonix Singulair Miralax Megace Lasix Duragesic Clarinex Xanax Toprol XL Mucinex NEW PRESCRIPTIONS: Keflex 500mg twice a day for 5 days Prednisone 10mg twice a day 5 days DUO NEBS Robitussin DIET INSTRUCTIONS: Cardiac and Healthy ACTIVITY: As much as tolerated. DISEASE SPECIFIC EDUCATION: COPD Risk of pneumonia been discussed. Verbalized understanding. HOSPITAL COURSE: Lili Boyd 87 year old female initially admitted to the regular floor because of the COPD exacerbation and aspiration pneumonia. The patient was needing continuation of the IV antibiotics. The patient was then admitted to the transitional care. Continued in the transitional care and IV antibiotics were given; Rocephin, Flagyl and Vancomycin. With the given treatment the patient was feeling a lot better. The patient did have episode where the patient had severe shortness of breath on last Friday. On 12/19/17 ABG were done pH 7.395. pCO2 50.2, pO2 57 with Lasix, Ativan and Morphine the patient started feeling better and gradually improved. By the next day the patient was more happy and up and about. The patient refused to go to the correction, wants to go home and live by herself. We respected her wishes. The patient was ambulator and she walked almost 60 feet in the hospital with wearing the oxygen. She has been qualified for the oxygen and been using the oxygen. She feels good when she is using the oxygen. She can be more active and up and about walking. She did not have any complications during the rest of the hospital stay. All concerns and questions of the family been answered and the patient being discharged home today on Friday. TIME SPENT: MORE THAN 65 MINUTES MTDD
== END 2017-12-26 14:48 | disposition home health service (06) | DRG 177 ==
LOC: MEDSURG B 16:34
PROVIDERS: ADMIT Emergency Medicine; ATTEND Emergency Medicine
DX: J69.0 Pneumonitis due to inhalation of food and vomit (principal); J96.91 Respiratory failure, unspecified with hypoxia; R64 Cachexia; I10 Essential (primary) hypertension; D64.9 Anemia, unspecified; J47.9 Bronchiectasis, uncomplicated; M10.9 Gout, unspecified; M41.9 Scoliosis, unspecified; M19.90 Unspecified osteoarthritis, unspecified site; E78.5 Hyperlipidemia, unspecified; R13.10 Dysphagia, unspecified; R60.0 Localized edema; M48.55XD Collapsed vertebra, not elsewhere classified, thoracolumbar region, subsequent encounter for fracture with routine healing; Z90.2 Acquired absence of lung [part of]; Z87.891 Personal history of nicotine dependence; Z79.899 Other long term (current) drug therapy
CPT/HCPCS: 36415; 80053; 82803; 85007; 85008; 85025; 94640; 94761; 97802

== ENCOUNTER 2018-01-08 19:53 | Observation (INO) ==
[2018-01-08 20:01] VITALS: BMI 15.8
[2018-01-08] MEDS ORDERED: PROTONIX IV IVP STA (20:17)
[2018-01-08] MEDS ORDERED: SODIUM CHLORIDE 1,000 ML IV STA ×2 (20:17→21:35)
[2018-01-08] MEDS ORDERED: ZOFRAN 4 MG/2 ML IVP STA ×2 (20:17→22:17)
--- NOTE | 2018-01-08 20:27 | ED.PDOC ---
General ED Provider: Dr. BRAYAN OROZCO Chief Complaint: Abdominal Pain Stated Complaint: Abdominal Pain for 3 days mostily in the Epigastric area. Time Seen by Physician: 20:25 Mode of Arrival: Wheelchair Information Source: Patient, Family Exam Limitations: No limitations Primary Care Provider: GISELLA RODRIGES-[facility] Nursing and Triage Documentation Reviewed and Agree: Yes Reviewed sepsis parameters & appropriate labs ordered?: No System Inflammatory Response Syndrome: Not Applicable Sepsis Protocol: For patient's 13 years and over: Temp is 96.8 and below OR 101 and greater Pulse >90 BPM Resp >20/minute Acutely Altered Mental Status Are patient's symptoms suggestive of a new infection, such as: -Pneumonia -Skin, Soft Tissue -Endocarditis -UTI -Bone, Joint Infection -Implantable Device -Acute Abdominal Infection -Wound Infection -Meningitis -Blood Stream Catheter Infection -Unknown System Inflammatory Response Syndrome: Not Applicable GI Complaint Exam - Abdominal Pain Complaint/Exam Onset: Gradual Duration: 3 days Symptoms Are: Still present Timing: Intermittent Initial Severity: Moderate Current Severity: Moderate Location of Pain: Epigastric Radiates To: Reports: Back (occasionally ) Character: Reports: Dull Aggravating: Reports: None Alleviating: Reports: Spontaneous resolution Associated Signs and Symptoms: Reports: Nausea, Vomiting. Denies: Blood in stool AAA Risk Factors: Reports: None Cardiac Risk Factors: Reports: None Ectopic Risk Factors: Reports: None Ovarian Torsion Risk Factors: Reports: None Surgical Obstruction Risk Factors: Reports: Prior abdominal surgery. Denies: Bilious emesis, Projectile emesis, Colicky abdominal pain Related Surgical History: Reports: Cholecystectomy. Denies: Appendectomy Patient Rh Status: Unknown Abdominal Findings: Absent: Pulsatile mass, Abdominal distention, Unequal femoral pulses, Rebound tenderness, Peritoneal signs, McBurney's Point tender, CVA Tenderness, Hernia, Inguinal swelling Rectal Exam: Present: Normal Findings, External hemorrhoids (minimal ). Absent : Internal hemorrhoids, Heme positive Differential Diagnoses: Bowel Obstruction, Constipation, Diverticulitis, Gastroenteritis, UTI Review of Systems - Review Of Systems Constitutional: Reports: No symptoms Eyes: Reports: No symptoms Ears, Nose, Mouth, Throat: Reports: No symptoms Respiratory: Reports: Cough (chronic cough ) Cardiac: Reports: No symptoms GI: Reports: Abdominal pain, Nausea, Poor appetite, Vomiting : Reports: No symptoms Musculoskeletal: Reports: No symptoms Skin: Reports: No symptoms Neurological: Reports: Anxiety Endocrine: Reports: No symptoms Hematologic/Lymphatic: Reports: No symptoms All Other Systems: Reviewed and Negative Past Medical History - Past Medical History Previously Healthy: Yes Endocrine: Reports: Hypothyroid Cardiovascular: Reports: Hypertension Respiratory: Reports: COPD (oxygen depenent on ), Asthma, Other (bronchiectasis , 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) Hematological: Reports: Anemia Gastrointestinal: Reports: None Genitourinary: Reports: None Neuro/Psych: Reports: None Musculoskeletal: Reports: Arthritis Cancer: Reports: None Last Menstrual Period: NA - Surgical History General Surgical History: Reports: 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 ) Neurological: Alert, Oriented (hard of hearing. ) Psychiatric: Anxious Interpretation - Radiology Interpretation Radiology Interpretation By: Radiologist Radiology Results: Positive (retained stool) Critical Care Note - Critical Care Note Total Time (mins): 40 Course - Course Hematology/Chemistry: 01/08/18 20:50 01/08/18 20:50 Orders, Labs, Meds: Lab Review 01/08/18 01/08/18 01/08/18 20:50 20:50 22:28 WBC 8.20 RBC 2.17 L Hgb 8.1 L Hct 23.6 L MCV 108.8 H MCH 37.3 H MCHC 34.3 RDW Coeff of Rosie 20.2 H Plt Count 179 Immature Gran % (Auto) 1.0 Neut % (Auto) 76.5 Lymph % (Auto) 17.1 [place] % (Auto) 5.1 Eos % (Auto) 0.1 Baso % (Auto) 0.2 Immature Gran # (Auto) 0.1 Neut # (Auto) 6.3 Lymph # (Auto) 1.4 [place] # (Auto) 0.4 Eos # (Auto) 0.0 Baso # (Auto) 0.0 Anisocytosis Not present Macrocytosis 1+ Sodium 139 Potassium 3.0 L Chloride 96 L Carbon Dioxide 29 Anion Gap 17.0 BUN 22 H Creatinine 0.66 Estimated GFR (MDRD) 85.00 BUN/Creatinine Ratio 33.33 Glucose 85 Calcium 8.6 Total Bilirubin 0.9 AST 22 ALT 15 Alkaline Phosphatase 80 Total Creatine Kinase 22 Troponin I 0.0270 Total Protein 6.1 Albumin 3.2 L Globulin 2.9 Albumin/Globulin Ratio 1.10 Amylase 72 Lipase 35 Stl Occult Blood (IFOB) Negative Stool Occult Blood #2 No specimen received Stool Occult Blood #3 No specimen received Orders Category Date Time Status ADMIT OBSERVATION [PLACE PATIENT OBSERVATION] .TO ADMISSION 01/08/18 23:20 Active MEDSURG (MONITORED BED) EKG-(ED ONLY) Stat CARDIO 01/08/18 20:17 Completed ACTIVITY .Early Mobilization for VTE Prevention CARE 01/08/18 23:24 Active INTAKE & OUTPUT Q8HR CARE 01/08/18 23:22 Active TELEMETRY MONITORING TELE CARE 01/08/18 23:21 Active VITAL SIGNS Q4HR CARE 01/08/18 23:24 Active REGULAR DIET DIETARY 01/08/18 Breakfast Ordered ED IV/MEDIPORT/POWERPORT .ONCE EMERGENCY 01/08/18 20:17 Active AMYLASE Stat LAB 01/08/18 20:50 Completed BASIC METABOLIC PANEL DAILY@0600 LAB 01/09/18 06:00 Ordered BASIC METABOLIC PANEL DAILY@0600 LAB 01/10/18 06:00 Ordered CBC W/ AUTO DIFF DAILY@0600 LAB 01/09/18 06:00 Ordered CBC W/ AUTO DIFF DAILY@0600 LAB 01/10/18 06:00 Ordered CBC W/ AUTO DIFF Stat LAB 01/08/18 20:50 Completed COMPREHENSIVE METABOLIC PANEL Stat LAB 01/08/18 20:50 Completed CREATINE KINASE Stat LAB 01/08/18 20:50 Completed LIPASE Stat LAB 01/08/18 20:50 Completed OCCULT BLOOD, STOOL Stat LAB 01/08/18 22:28 Completed RBC MORPHOLOGY Stat LAB 01/08/18 20:50 Completed TROPONIN I Stat LAB 01/08/18 20:50 Completed URINALYSIS C & S IF INDICATED Stat LAB 01/08/18 20:17 Uncollected 0.9 % Sodium Chloride [Saline Flush] MEDS 01/08/18 20:17 Ordered 1 syr IVF PRN PRN Acetaminophen [Tylenol] MEDS 01/08/18 23:22 Ordered 650 mg PO Q4H PRN Ondansetron HCl/Pf [Zofran 4 mg/2 ml] MEDS 01/08/18 20:17 Discontinued 4 mg IVP ONCE STA Ondansetron HCl/Pf [Zofran 4 mg/2 ml] MEDS 01/08/18 22:17 Discontinued 4 mg IVP ONCE STA Ondansetron HCl/Pf [Zofran 4 mg/2 ml] MEDS 01/08/18 23:22 Ordered 4 mg IVP Q6H PRN Pantoprazole Sodium [Protonix IV] MEDS 01/08/18 20:17 Discontinued 40 mg IVP ONCE STA Sodium Chloride 0.9% [Sodium Chloride] 1,000 ml MEDS 01/08/18 21:35 Active IV 100 mls/hr Sodium Chloride 0.9% [Sodium Chloride] 1,000 ml MEDS 01/08/18 23:30 Ordered IV 75 mls/hr RESUSCITATION STATUS Routine OTHERS 01/08/18 23:[address] ABD/PEL WO RENAL STONE PROT Stat RADS 01/08/18 20:[address] CHEST W/O CONTRAST Stat RADS 01/08/18 20:17 Completed PT CONSULT Routine THERAPIES 01/08/18 Ordered Medications Generic Name Dose Route Start Last Admin Trade Name Freq PRN Reason Stop Dose Admin Acetaminophen 650 mg 01/08/18 23:22 Tylenol PO Q4H PRN Fever > 102 Albuterol/Ipratropium 1 vial 01/09/18 00:00 01/09/18 01:30 Duoneb NEB Not Given RTQ6H TAMMI Alprazolam 0.5 mg 01/09/18 00:47 01/09/18 00:51 Xanax PO 01/09/18 00:48 0.5 mg ONCE STA Administration Calamine/Phenol 1 applic 01/09/18 00:30 01/09/18 00:52 Calmoseptine Ointment TP Not Given BID TAMMI Docusate Sodium 100 mg 01/09/18 01:22 Colace PO BID PRN Constipation Fentanyl 1 patch 01/11/18 09:00 Duragesic 12 Mcg/Hr TD Q72HR TAMMI Fentanyl 1 patch 01/11/18 09:00 Duragesic 25 Mcg/Hr TD Q72HR TAMMI Furosemide 20 mg 01/09/18 06:30 Lasix Tab PO QDAC TAMMI Guaifenesin 1,200 mg 01/09/18 09:00 Mucinex PO BID TAMMI Sodium Chloride 1,000 mls @ 100 mls/hr 01/08/18 21:35 01/08/18 21:38 Sodium Chloride IV 01/09/18 07:34 100 mls/hr .Q10H STA Administration Sodium Chloride 1,000 mls @ 75 mls/hr 01/08/18 23:30 01/09/18 00:44 Sodium Chloride IV 75 mls/hr .[id number] TAMMI Administration Metoprolol Succinate 12.5 mg 01/09/18 09:00 Toprol Xl PO DAILY TAMMI Morphine Sulfate 2 mg 01/08/18 23:45 Morphine 2 Mg/Ml Syringe IVP Q6H PRN Abdominal Pain Ondansetron HCl 4 mg 01/08/18 23:22 Zofran 4 Mg/2 Ml IVP Q6H PRN Nausea / Vomiting Pantoprazole Sodium 40 mg 01/09/18 09:00 Protonix Iv IVP DAILY [facility] Pantoprazole Sodium 40 mg 01/09/18 06:30 Protonix PO QDAC [facility] Polyethylene Glycol 17 gm 01/09/18 09:00 Miralax PO DAILY [facility] Potassium Chloride 20 meq 01/09/18 08:00 K-Dur PO DAILYWM [facility] Sodium Chloride 1 syr 01/08/18 20:17 01/08/18 21:42 Saline Flush IVF 1 syr PRN PRN Administration To flush IV Discontinued Medications Generic Name Dose Route Start Last Admin Trade Name Freq PRN Reason Stop Dose Admin Ondansetron HCl 4 mg 01/08/18 20:17 01/08/18 21:40 Zofran 4 Mg/2 Ml IVP 01/08/18 20:18 4 mg ONCE STA Administration Ondansetron HCl 4 mg 01/08/18 22:17 01/09/18 00:51 Zofran 4 Mg/2 Ml IVP 01/08/18 22:18 Not Given ONCE STA Pantoprazole Sodium 40 mg 01/08/18 20:17 01/08/18 21:43 Protonix Iv IVP 01/08/18 20:18 40 mg ONCE STA Administration Pantoprazole Sodium 40 mg 01/09/18 09:00 Protonix PO DAILY [facility] Vital Signs: Temp Pulse Resp BP Pulse Ox 01/08/18 19:54 99.7 F H 80 18 154/94 H 96 Departure - Departure Time of Disposition: 02:59 Disposition: ADMITTED INPATIENT Discharge Problem: Abdominal pain Nausea & vomiting Qualifiers: Vomiting type: unspecified Vomiting Intractability: non-intractable Qualified Code(s): R11.2 - Nausea with vomiting, unspecified Anemia Qualifiers: Anemia type: unspecified type Qualified Code(s): D64.9 - Anemia, unspecified Condition: Good Pt referred to PMD for follow-up: Yes IPMP verified?: No Allergies/Adverse Reactions: Allergies hydromorphone [From Dilaudid] Adverse Reaction (Verified 12/10/17 14:28) Sulfa (Sulfonamide Antibiotics) Adverse Reaction (Verified 12/10/17 14:28) Home Medications: Ambulatory Orders Carboxymethylcellulose Sodium [Refresh Plus] 1 each OP BID 12/10/17 Fentanyl 12 Mcg/Hr [Duragesic 12 Mcg/Hr] 1 patch TD Q72HR 12/10/17 Fentanyl 25 Mcg/Hr [Duragesic 25 Mcg/Hr] 1 patch TD Q72HR 12/10/17 Furosemide [Lasix Tab] 20 mg PO QDAC 12/10/17 Guaifenesin [Mucinex] 2 tab PO BID 12/10/17 Metoprolol Succinate [Toprol Xl] 0.5 tab PO DAILY 12/10/17 Pantoprazole Sodium [Protonix] 40 mg PO DAILY 12/10/17 Polyethylene Glycol 3350 [Miralax] 17 gm PO DAILY 12/10/17 Guaifenesin/Dextromethorphan [Guaifenesin Dm Syrup] 5 ml PO ONCE #280 cup Ipratropium/Albuterol Neb [Duoneb] 1 vial NEB RTQ6H #120 vial.neb 12/26/17 Alprazolam [Xanax] 1 mg PO BEDTIME 01/08/18
--- NOTE | 2018-01-08 21:05 | CT ---
EXAM: CT THORAX HISTORY: Lower chest pain, history of lung surgery. . TECHNIQUE: CT thorax without intravenous contrast. Multiplanar images presented. COMPARISON: 12/10/2017 FINDINGS: The patient is severely kyphotic which limits the evaluation by skewing the anatomy. Heart size is p rominent. There is moderate atherosclerotic disease. Trace bilateral pleural effusions. Chronic-ap pearing interstitial changes diffusely. Mild discoid consolidations above the hemidiaphragms bilater ally possibly related to atelectasis. Correlate clinically for any evidence of pneumonia. Bilateral bronchiectasis. No pneumothorax. Bones are severely osteopenic. There are multiple severe vertebr al body compression fractures similar to that previously seen. IMPRESSION: 1. Trace bilateral pleural effusions with mild discoid consolidations in the bases possibly related to atelectasis. Chronic lung changes. 2. Prominent heart size. 3. Moderate atherosclerotic disease. 4. Severe thoracic kyphosis with severe diffuse demineralization and stable multilevel severe verteb ral body compression fractures.
--- NOTE | 2018-01-08 21:11 | CT ---
EXAM: CT of the abdomen and pelvis without contrast. HISTORY: Mid epigastric pain. PROCEDURE: Contiguous axial CT images of the abdomen and pelvis without contrast with coronal and sa gittal reformats. FINDINGS: There is motion artifact which limits the exam. The liver is normal in appearance. The ga llbladder is surgically absent. The pancreas, spleen, right adrenal gland and right kidney are normal in appearance. There is a nonobstructive calcification in the left kidney. There is a 1.3 cm left be nign adrenal adenoma. The abdominal aorta is within normal limits in diameter. There is a small herni a along the posterior margin of the right acetabulum measuring 1.9 x 1.6 cm containing a short segmen t of small bowel with no evidence of obstruction. The appendix is not visualized. There is fecal st asis in the colon. No bowel obstruction. No free fluid or free air in the abdomen or pelvis. The b ladder is adequately filled with no abnormality identified. The uterus is unremarkable. There are ch ronic compression fractures in the thoracic spine compared with CT of 12/10/2017. There is a new L3 compression fracture with up to 80% loss of vertebral body height compared with CT of 12/10/2017. The re is buckling of the posterior cortex of the L3 vertebral body extending 5 mm into the spinal canal. No significant spinal stenosis at the L3 level. There is 6 mm anterolisthesis of L5 on S1. Impression: Fecal stasis in the colon. Small hernia along the posterior margin of the right acetabulum as described. Nonobstructive left nephrolithiasis. Cholecystectomy. L3 compression fracture as described. Chronic compression fractures in the thoracic spine as described. 6 mm anterolisthesis of L5 on S1. CT chest of 01/08/2018 dictated separately.
[2018-01-08] MEDS ORDERED: ZOFRAN 4 MG/2 ML IVP PRN (23:22)
[2018-01-08] MEDS ORDERED: TYLENOL PO PRN (23:22)
[2018-01-08] MEDS ORDERED: MORPHINE 2 MG/ML SYRINGE IVP PRN (23:45)
[2018-01-08] MEDS ORDERED: XANAX PO SCH (23:45)
--- NOTE | 2018-01-08 23:52 | PCM ---
- Chief Complaint Chief Complaint: Abdominal pain, anemia. - History of Present Illness History of Present Illness: 87 yr old female presented to ER today with abdominal pain. BRITT is Magda Michelle of [facility]. The pt was admitted to obs in room 102. She has had 3 day abdominal pain epigastric pain 5/10. No emesis, + nausea, non radiating. Last BM #2 today per sitter. Abdominal pain is feeling better now rated at 3/ 10. Denies any different foods, no sick contacts. Regular diet. She has been in the hospital multiple times over the past 1 month. She has had COPD exacerbation/pneumonia 12/10/18 admit, d/c 12/15 and readmitted on 12/16 to TCU and stayed 10 days and then d/c home on 12/26. NO diarrhea. No changes in urination, no freq, no hesitancy, no dysuria. No reports of pain. She is using fentanyl 12mg and 25mg q 3 days just placed by POA daughter this evening around 5:30. No history of constipation. She is having regular BM. No history of GERD. She is a frail 87 yr old female. Present in room with son and daughter today. No dizziness, +Falls in past few days. No LOC. Sitter with patietnd during day, got out of bed stood and fell onto knees. No LOC, no head trauma, no pain in knees, hips, ankles. She is feeling a little better since protonixand zofran. Dementia appears present. The patient daughter son and I had a good long talk. I talked with daughter about abd pain. Dia noted mother has vague complaints and states she hurts and will not let daughter leave. Has been to [place] and assisted living and doing better now that at home per daughter/son. Unable to stay alone, sitter. Daughter feels sx are attention grabbing. Unknown if real or not. Pain seems to improve after meals and not worse after meals. NO RUQ tenderness, no Emesis, no pain post meals to support mesenteric ischemia. Rectal exam performed in ER. Discussed with family repeating this and as a group we felt it was not necessary as exam was negative in Er for blood and no stool in vault. Today was first day in a week daughter left mother and patient now had these sx. She has been c/o pain in abd x 3 weeks. Patient cannot tell me day/date/month. Coffee worsens abd pain. Poorly localized to the epigastric region. Semi stable, chronic anemia. Reviewed last labs from OP chart and she has been 8.1-10.1. Was at 7.9 12/12/17. Unfortunately she cannot classify or clarify th epain, cannot give me character. Just hurts. Not positional. Better post meal. ?ulcer. No recent TSH. She has had b12 level, iron levels checked. Breathing is fine. CT chest is stable. She really wants to go home and is trying to get out of bed to go home. We will resume home meds, if abd pain better in am, and anemia no worse home with f/u with Dr. Mejia next week. Discussed with family briefly about psych related abdominal pain known as functional pain. They think this may be realistically accurate. - Review of Systems Constitutional: No: fever, chills, weakness, sweats, fatigue, loss of appetite Eyes: No: blurred vision, double-vision, discharge, itching, pain, photophobia Ears: hearing loss. No: pain, bleeding, drainage, ringing Nose: No: bleeding, congestion, discharge Throat: No: pain, swelling, voice change Mouth: No: bleeding, pain, swelling Respiratory: cough (chronic, not worse), shortness of air (chronic not worse. ) . No: wheeze, hemoptysis, pain with breathing, other Cardiovascular: No: chest pain, left arm pain, diaphoresis, PND, orthopnea, edema, palpitations, syncope Gastrointestinal: abdominal pain, nausea. No: vomiting, diarrhea, melena, hematemesis, hematochezia, dysphagia, constipation Genitourinary: No: dysuria, hematuria, frequency, incontinence, flank pain, vaginal discharge, abnormal bleeding, pelvic pain Neurological: weakness. No: headache, dizziness, seizure, numbness, speech difficulty, problems with walking, tremor, fainting Musculoskeletal: No: swelling in joints Skin: No: rash, pruritus, lacerations, wounds, bruising Immunology: No: hives, itching, frequent infections, difficulty healing Hematology: No: easy bruising, easy bleeding, swollen glands Endocrine: No: weight changes, excessive hunger Psychiatric: depression, anxiety. No: sleeplessness, hopelessness, suicidal, hallucinations - Past Medical History Past Medical History: 2 children son and daughter. Healthy. 1 brother and 1 sister. healthy per patient. COPD, cachexia, anemia, HTN, OA, Rheuma arthritis, Chronic pain, chronic opiate use, hypothyroid, depression, anxiety, bilateral cataract w/ surgery, sinus surgery. Left lung lobectomy, cholecystectomy. Kyphosis. - Past Surgical History Past Surgical History: Lobectomy lung. Cholecystectomy, sinus surgery, bilateral cataract surgery. - Allergies Allergies/Adverse Reactions: Allergies Allergy/AdvReac Type Severity Reaction Status Date / Time hydromorphone [From Dilaudid] AdvReac Verified 12/10/17 14:28 Sulfa (Sulfonamide AdvReac Verified 12/10/17 14:28 Antibiotics) - Medications Medications: Medications Generic Name Dose Route Start Last Admin Trade Name Freq PRN Reason Stop Dose Admin Acetaminophen 650 mg 01/08/18 23:22 Tylenol PO Q4H PRN Fever > 102 Albuterol/Ipratropium 1 vial 01/09/18 00:00 Duoneb NEB RTQ6H TAMMI Alprazolam 1 mg 01/08/18 23:45 Xanax PO BEDTIME TAMMI Fentanyl 1 patch 01/11/18 09:00 Duragesic 12 Mcg/Hr TD Q72HR TAMMI Fentanyl 1 patch 01/11/18 09:00 Duragesic 25 Mcg/Hr TD Q72HR TAMMI Furosemide 20 mg 01/09/18 06:30 Lasix Tab PO QDAC TAMMI Guaifenesin 1,200 mg 01/09/18 09:00 Mucinex PO BID TAMMI Sodium Chloride 1,000 mls @ 100 mls/hr 01/08/18 21:35 01/08/18 21:38 Sodium Chloride IV 01/09/18 07:34 100 mls/hr .Q10H STA Administration Sodium Chloride 1,000 mls @ 75 mls/hr 01/08/18 23:30 Sodium Chloride IV .[id number] [facility] Metoprolol Succinate 12.5 mg 01/09/18 09:00 Toprol Xl PO DAILY TAMMI Morphine Sulfate 2 mg 01/08/18 23:45 Morphine 2 Mg/Ml Syringe IVP Q6H PRN Abdominal Pain Ondansetron HCl 4 mg 01/08/18 23:22 Zofran 4 Mg/2 Ml IVP Q6H PRN Nausea / Vomiting Pantoprazole Sodium 40 mg 01/09/18 09:00 Protonix PO DAILY TAMMI Pantoprazole Sodium 40 mg 01/09/18 09:00 Protonix Iv IVP DAILY TAMMI Polyethylene Glycol 17 gm 01/09/18 09:00 Miralax PO DAILY TAMMI Sodium Chloride 1 syr 01/08/18 20:17 01/08/18 21:42 Saline Flush IVF 1 syr PRN PRN Administration To flush IV - Family History Past Family History: 2 children healthy. 2 siblings healthy. NO reported family history. - Social History Past Social History: No tobacco - Vital Signs Temperature: 99.7 F Pulse Rate: 80 Respiratory Rate: 18 Blood Pressure: 154/94 O2 Sat by Pulse Oximetry: 96 - Body Composition Height: 4 ft 10 in Weight: 76 lb Body Mass Index (BMI): 15.8 - Physical Examination HEENT: Constitutional: Appearance-No acute distress, Consistent with stated age. Orientation- Not oriented, dementia. WOuld not tell me day/date/time. Gait- Did not assess, transported from ER in . Build and Nutrition-Frail, cachectic, thin, general TM wasting. General- Patient is pleasant and cooperative with the interview and exam. She is playful and jovial, no cues of pain. She has a fentanyl patch 12 and 25mcg on her back placed 530 tonight. Integumentary: General-No concerning rashes, ulcers or lesions. Palpation- Normal skin moisture/turgor. Skin is warm to touch, appropriate. Stage 1 sacral decubitus ulcer. Head/Neck: Head- normocephalic and atraumatic. Neck- Prominent kyphosis, not tender. No bony tenderness about head/neck along frontal, occipital, temporal, parietal, mastoid, jawline, zygoma, orbit or any other location.~ NO temporal artery tenderness. No TMJ tenderness. Neck Supple. Thyroid-No thyromegaly, no nodules Eye: Bilaterally PERRLA, EOMI. No discharge. Upper and lower eyelids are normal. Sclera/conjunctiva normal without discharge. Cornea is normal and clear. Lens is normal. Eyeball appears normal. No ciliary flushing, no conjunctival injection. ENMT: Pinna- normal without tenderness or erythema. External auditory canal Left- HEARING AID, Patient did not want these removed. External auditory canal Right- HEARING AID, Patient did not want these removed. Hearing Assessment- normal to conversational speech. with hearing aids Nose and sinus- No sinus tenderness along frontal/maxillary region. External appearance normal and midline. Nares- bilateral quiet airflow, no discharge. Nasal mucosa- No bleeding noted and no ulcerations observed. [place], moist. Turbinates non boggy. Lips- normal color, moist without cracks/lesions Oral Cavity/Palate- hard/soft palate intact without lesions, oral mucosa pink and moist. Dentition assessed and discussed appropriate oral care. Tongue normal midline. Oropharynx- no pharyngeal erythema, Uvula midline. No post nasal drip. No exudate. Salivary glands- Non tender to palpation CHEST/LUNG: Inspection- symmetric chest wall no pectus deformity. Normal effort , no distress, no use of accessory muscles. Palpation- nontender sternum, ribline. No abnormal pulsations. Auscultation- Breath mostly normal sounds throughout all lung peterson. Normal tracheal sounds, Normal bronchial sounds overlying sternum, Bronchovessicular sounds coarse between scapulae posteriorly , Coarse vessicular breath sounds heard throughout periphery. Lungs are clear today. Adventitious sounds- scattered wheezes, and rhonchi. NO RALES CARDIOVASCULAR: Carotid artery- normal, no bruits or abnormal pulsations. Jugular vein- no pulsations. Palpation/Percussion- Normal PMI, no palpable thrill Auscultation- Regular rate and rhythm. No murmur noted in sitting, supine positions. Extremities- no digital clubbing, cyanosis, edema, increased warmth. ABDOMEN: Inspection- normal and no visible pulsations. Normal contour. Auscultation- Bowel sounds normal, no abdominal bruits. Palpation/Percussion- soft, non-tender, no rebound tenderness, no rigidity (guarding), no jar tenderness, no masses. Liver-no hepatomegaly, Spleen no splenomegaly, Hernias - none. Rectal not examined. This was evaluated in ER per DR. Brush and negative for stooli n vault and negative for blood. Family and I talked and did not feel it was needed to repeat rectal examination. Quiroz negative, no pain in epigastric region. Peripheral Vascular: Upper extremity Left- Normal temperature with pink nailbeds and no ulcerations. Upper extremity Right- Normal temperature with pink nailbeds and no ulcerations. Lower extremity- Normal temperature with pink nailbeds and no ulcerations. DP pulses 1+ bilaterally. Edema- No edema. Musculoskeletal: Generalized-No generalized swelling or edema of extremities, no digital clubbing or cyanosis, neurovascularly intact all four extremities. Moves all 4. Thinning generally. 4/5hip flexion, shoulders normal ROM and 4+/5 strength. Generalized weakenss. Neurological: General- Moves all 4 extremities symmetrically. Symmetrical face and body posture. Cranial nerves- individually evaluated II-XII and intact. PERRLA, Normal EOMI, visual/special senses appear intact, Face is symmetrical and normal sensation/movement, normal tongue, normal strength/posture of neck musculature. Reflexes- intact with DTR 2+ patellar, Achilles, bicep, brachial, tricep. Neuropsych: Oriented- Not oriented to place, time. Mood/affect- joking and blowing off answers. Suspect dementia. Tries to get out of bed repeatedly. Vague answers poor hsitorian. - Lab/Tests/Diagnostic Imaging Lab/Tests/Diagnostic Imaging: Reviewed previous CBC She has had Hgb 10.1 12/15/17, 12/16 9.2, 12/19 9.8, 12/24 9.2, 01/08 8.1. MCV has been 112.8, 107.1, 107.4, 107.1, 108.8. White blood cell count was 11.02, 9.52, 10.92, 11.95, 8.20 on same dates as listed above. ABG 12/19/17 PCo2 50.2, pH 7.395, O2 89. C02 32,. Laboratory Last Values WBC 8.20 K/ul (4.6-10.2) 01/08/18 20:50 RBC 2.17 10^6/ul (4.20-5.40) L 01/08/18 20:50 Hgb 8.1 g/dl (12.0-16.0) L 01/08/18 20:50 Hct 23.6 % (37.0-47.0) L 01/08/18 20:50 MCV 108.8 fl (81.0-99.0) H 01/08/18 20:50 MCH 37.3 pg (27.0-31.0) H 01/08/18 20:50 MCHC 34.3 (31.8-35.4) 01/08/18 20:50 RDW Coeff of Rosie 20.2 % (11.6-14.8) H 01/08/18 20:50 Plt Count 179 10^3/uL (140-440) 01/08/18 20:50 Immature Gran % (Auto) 1.0 % (0.0-5.0) 01/08/18 20:50 Neut % (Auto) 76.5 01/08/18 20:50 Lymph % (Auto) 17.1 (10.0-50.0) 01/08/18 20:50 [place] % (Auto) 5.1 (0-10) 01/08/18 20:50 Eos % (Auto) 0.1 % (0.0-7.0) 01/08/18 20:50 Baso % (Auto) 0.2 % (0.0-3.0) 01/08/18 20:50 Immature Gran # (Auto) 0.1 (0.0-1.0) 01/08/18 20:50 Neut # (Auto) 6.3 K/ul (2.0-6.9) 01/08/18 20:50 Lymph # (Auto) 1.4 K/uL (0.60-3.4) 01/08/18 20:50 [place] # (Auto) 0.4 K/uL (0.4-2.0) 01/08/18 20:50 Eos # (Auto) 0.0 K/ul (0.0-0.7) 01/08/18 20:50 Baso # (Auto) 0.0 K/uL (0-0.2) 01/08/18 20:50 Anisocytosis Not present (NOT PRESENT) 01/08/18 20:50 Macrocytosis 1+ (NOT PRESENT) 01/08/18 20:50 Sodium 139 mmol/L (136-145) 01/08/18 20:50 Potassium 3.0 mmol/L (3.5-5.10) L 01/08/18 20:50 Chloride 96 mmol/L (98-107) L 01/08/18 20:50 Carbon Dioxide 29 mmol/L (23-31) 01/08/18 20:50 Anion Gap 17.0 01/08/18 20:50 BUN 22 mg/dL (7-18) H 01/08/18 20:50 Creatinine 0.66 mg/dL (0.60-1.30) 01/08/18 20:50 Estimated GFR (MDRD) 85.00 mL/min 01/08/18 20:50 BUN/Creatinine Ratio 33.33 01/08/18 20:50 Glucose 85 mg/dL (82-115) 01/08/18 20:50 Calcium 8.6 mg/dL (8.2-10.2) 01/08/18 20:50 Total Bilirubin 0.9 mg/dL (0.00-1.20) 01/08/18 20:50 AST 22 U/L (15-37) 01/08/18 20:50 ALT 15 U/L (12-78) 01/08/18 20:50 Alkaline Phosphatase 80 U/L (53-141) 01/08/18 20:50 Total Creatine Kinase 22 U/L 01/08/18 20:50 Troponin I 0.0270 ng/ml (0.0000-0.4000) 01/08/18 20:50 Total Protein 6.1 g/dL (5.8-8.1) 01/08/18 20:50 Albumin 3.2 g/dL (3.4-5.0) L 01/08/18 20:50 Globulin 2.9 01/08/18 20:50 Albumin/Globulin Ratio 1.10 01/08/18 20:50 Amylase 72 U/L (25-115) 01/08/18 20:50 Lipase 35 U/L (8-78) 01/08/18 20:50 Stl Occult Blood (IFOB) Negative (NEGATIVE) 01/08/18 22:28 CT abd pelvis w/o: Fecal stais in colon, small hernia posterior acetabulum, history of hillary, nonobstructive left nephrolithaisis, L3 compression fracture, chronic compression fractures. No bowel obstruction. No free fluid or free air. New L3 compression fracture with 80% loss of height 5mm into sminal canal no significant spinal stenosis. 6mm anterolisthesis of L5 on S1. CT CHest: Trace pleural eff mild discid consolidation in bases ?atelectasis. Prominent heart size, moderate atherosclerotic dz, severe kyphosis EKG reviewed NSR rate 68 axis is normal with Up in I, II and down in III and AVF. Sinusoidal P in V1 appears to have LAE. No acute ST/ T changes to support infarct. She may have some lateral ischemia. We are monitoring her anemia. Compared this to last EKG from last admit and it is unchanged. - Assessment (1) Abdominal pain Status: Acute Code(s): R10.9 - UNSPECIFIED ABDOMINAL PAIN SNOMED Code(s): 58472651 (2) Anemia Status: Acute Code(s): D64.9 - ANEMIA, UNSPECIFIED SNOMED Code(s): 413657360 Qualifiers: Anemia type: unspecified type Qualified Code(s): D64.9 - Anemia, unspecified (3) Chronic prescription opiate use Status: Acute Code(s): Z79.891 - [employer] (CURRENT) USE OF OPIATE ANALGESIC SNOMED Code(s): 566978450 (4) Dementia Status: Acute Code(s): F03.90 - UNSPECIFIED DEMENTIA WITHOUT BEHAVIORAL DISTURBANCE SNOMED Code(s): 49789135 (5) Frailty Status: Acute Code(s): R54 - AGE-RELATED PHYSICAL DEBILITY SNOMED Code(s): 976276823 (6) Underweight Status: Acute Code(s): R63.6 - UNDERWEIGHT SNOMED Code(s): 735465265 - Plan Plan: Abdominal Pain: Vague abdominal pain appears to be a functional problem vs constipation. She has chronic anemia, remainder of labs look okay, no recent TSH that I have found. REviewed CT and physical examination and no red flags. Suspect fecal stasis/transit issues. - TSH/Free T4 in am - Repeat CBC in am. - H. Pylori stool testing. - EKG reviewed and compared to previous. Lateral ischemia Compression Fracture L3: New, on fentanyl. She has adequate pain control, no loss of control of bowel or bladder, no changes in neuro status of bilateral LE. I would watch this. Family agrees with plan. - UP with assist. Chronic opiate use: Focus on chronic Bowel Regimen: Will add colace bid as we continue her chronic opiates. We will check TSH and free t4 to make sure thyroid status is up to date and stable -COlace 100 BID. Macrocytic anemia: Unknown etiology. Multifactorial B12/folate are normal. Hypothyroidism could explain this and she has had TSH/Free T4 ordered. Aplastic process, Multiple myeloma is on ddx, copper deficiency is lower but on the list , liver disease does not seem to be problematic, does not drink much ETOH. We will consider ceruloplasmin and evaluation for copper as outpatient. In patient I will check TSH and free T4. - TSH and Free T4 - CBC in am. Diet: As tolerated. Hypokalemia: Make sure at least 20meq daily of [place]. -CMP in am Activity: Up with assist. DVT prophy: None for now, if stays >24 hours we will add SCD. Family agreed with plan. Still uncertain of abdominal pain. Total time in admitting patient to observation status was 50 minutes.
[2018-01-09] MEDS: SODIUM CHLORIDE 1,000 ML IV SCH ×3 (00:44→14:32)
[2018-01-09] MEDS ORDERED: XANAX PO STA (00:47)
[2018-01-09] MEDS: CALMOSEPTINE OINTMENT TP SCH ×2 (00:52→10:44)
[2018-01-09] MEDS ORDERED: COLACE PO PRN (01:22)
[2018-01-09] MEDS: DUONEB NEB SCH ×4 (01:30→16:30)
[2018-01-09] MEDS ORDERED: PROTONIX PO SCH ×2 (06:30→09:00)
[2018-01-09] MEDS ORDERED: LASIX TAB PO SCH (06:30)
[2018-01-09] MEDS ORDERED: K-DUR PO SCH (08:00)
[2018-01-09] MEDS ORDERED: PROTONIX IV IVP SCH (09:00)
[2018-01-09] MEDS ORDERED: TOPROL XL PO SCH (09:00)
[2018-01-09] MEDS ORDERED: MUCINEX PO SCH (09:00)
[2018-01-09] MEDS ORDERED: MIRALAX PO SCH (09:00)
--- NOTE | 2018-01-09 09:16 | PCM.PROG ---
Subjective: Admitted to obs 01/08/18 Day 2 87 yr old WF present with daughter, rounds at 7 am today. No new labs at my initial check at 7 am, returned at 7:15. CBC worsening, tele overnight with NSR , no c/o through night. Frail female 58" tall and BMI 15.8, underweight. She was asking for biscuits and gravy this am, we talked about this and I informed nursing and they sent for a tray. Labs reviewed and hgb dropped further from 8.1 to 7.2, she is stable, asymptomatic. Abdominal pain has resolved and remains resolved. Anemia worsening, hypokalemia present. ?Constipation by history. I am still waiting for the TSH to return and free T4. She still has fluids at 75ml/hr. She has had macrocytic anemia over past 1 month, K+ has dropped. FOBT negative, rectal exam in ER negative. She is on O2 and mildly tachypneic. Tele reviewed and NSR and BBB. CT chest completed in ER. Trace bilat pleural effusion, severe kyphosis and bilateral bronchiectasis. She has a new compression fracture at L3. She has fentanyl patches on, pain is 0/10. She is using 12mcg and 25mcg patch placed 5 pm last night at home. Using home meds. Home xanax last night. Abd pain x 3 days at home now resolved. She has dementia, thinks it is 1988. No c/o now wants to go home. Checked back on her at lunch today 12:00 and she noted "That is not my lunch" and pointed at tray as she said she already at hers. Daughter just shrugged. Unaware of day/date/time. She is active and alert but unaware and suffering from dementia. NO c/o wants to go home. Repeat CBC showed further decline in Hgb to 7.0. This is now at the threshhold of transfusion. She may have better SOA, better energy, less problems if we transfuse. R/B/A to this d/w daughter. Handout uptodate provided ot them today. No resp distress. She had pneumonia recently. TSH returned elevated, T4 low, K+ lower and we changed medications to correct these issues. Her admit to obs was for abd pain and this is resolved. She has a hypokalemia that I corrected this am and then this improved this afternoon. HOme w/ oral k+. She will have home stool softener and home potassium. Would recommend f/u with PCP to discuss chronic anemia, monitoring. O2 in place vitals are stable and O2 sat remains good. She is comfortable, no c/o at this time and wishes d/c home. BP was a little elevated this afternoon. All Active Problems Abdominal pain (Acute) Anemia (Acute) Chronic prescription opiate use (Acute) Dementia (Acute) Frailty (Acute) Hypothyroidism (Acute) Hypokalemia Nausea & vomiting (Acute) Underweight (Acute) Cervical spondylosis with myelopathy (Acute) Neck pain (Acute) REVIEW OF SYMPTOMS: (Positives bolded) General: weight loss, fever, chills, night sweats, fatigue, appetite loss HEENT: blurry vision, eye pain, eye discharge, dry eyes, decreased vision, sore throat tinnitus, bloody nose, hearing loss (CHRONIC), sinus pain/pressure, ear pain/pressure. Respiratory: shortness of breath (COUGH), cough (COUGH), hemoptysis, wheezing, pleurisy, Cardiovascular: chest pain, PND, palpitation, edema, orthopnea, syncope, swelling of extremities Gastro: Nausea, vomiting, diarrhea, hematemesis, abdominal pain (RESOLVED), constipation Genito: hematuria, dysuria, glycosuria, hesitancy, frequency, incontinence [place]: Arthralgia (CHRONIC, neck and back), myalgia, muscle weakness, joint swelling, NSAID use Skin: rash (BRUISING) pruritis, sores, nail changes, skin thickening, change in wart/mole, itching, rash, new lesions, pruritus, nail changes Neuro: Migraine, numbness, ataxia, tremor, vertigo, weakness, memory loss, Irritability, dizziness Endocrine: excessive thirst, polyuria, cold intolerance, heat intolerance, goiter Psychiatric: depression, anxiety, anti-depressants, alcohol abuse, drug abuse, insomnia, change in sleep pattern and mood changes Heme/lymph: easy bruising, bleeding gums, blood clots, swollen glands, lymphedema, Allergic/immune: allergic rhinitis, hay fever, asthma, hives Objective: Vital Signs - 24 hr 01/08/18 01/09/18 01/09/18 19:54 00:53 05:34 Temperature 99.7 F H 97.6 F 97.5 F L Pulse Rate 80 75 64 Respiratory 18 20 12 Rate Blood Pressure 154/94 H 118/61 O2 Sat by Pulse 96 100 Oximetry 01/09/18 01/09/18 06:57 10:00 Temperature 99.7 F H 97.9 F Pulse Rate 80 75 Respiratory 18 26 H Rate Blood Pressure 154/94 H 102/56 L O2 Sat by Pulse 96 Oximetry Constitutional: Appearance-No acute distress, Consistent with stated age. Orientation- Oriented x 1, demented 1989, alert Posture-curled up in bed. Tries to escape every now and then Underweight. Integumentary: General-No rashes, ulcers or lesions. Scattered ecchymoses bilateral forearms and right infrapatellar region. Palpation- Normal skin moisture/turgor. Skin is warm to touch, appropriate. Capillary refill is normal bilateral Upper and lower extremity. Early sacral changes, tended by nursing. Present upon admission. Head/Neck: Head- normocephalic and atraumatic. Neck- without visible/palpable lumps or pulsations. Palpation- No bony tenderness about head/neck along frontal, occipital, temporal, parietal, mastoid, jawline, zygoma, orbit or any other location.~ NO temporal artery tenderness. No TMJ tenderness. Neck Supple. Thyroid-No thyromegaly, no nodules Eye: Bilaterally PERRLA, EOMI. No discharge. Upper and lower eyelids are normal. Sclera/conjunctiva normal without discharge. Cornea is normal and clear. Lens is normal. Eyeball appears normal. No ciliary flushing, no conjunctival injection. ENMT: Hearing aids bilaterally Hearing to conversational speech. hard of hearing. Nose and sinus- No sinus tenderness along frontal/maxillary region. External appearance normal and midline. Nares- bilateral quiet airflow, no discharge. Nasal mucosa- No bleeding noted and no ulcerations observed. [place], moist. Turbinates non boggy. Lips- normal color, moist without cracks/lesions Oral Cavity/Palate- hard/soft palate intact without lesions, oral mucosa pink and moist. Dentition assessed and discussed appropriate oral care. Tongue normal midline. Oropharynx- no pharyngeal erythema, Uvula midline. No post nasal drip. No exudate. Salivary glands- Non tender to palpation CHEST/LUNG: Inspection- symmetric chest wall no pectus deformity. Normal effort , no distress, no use of accessory muscles. Palpation- nontender sternum, ribline. No abnormal pulsations. Auscultation- Breath sounds coarse, better post cough with good clearing O2 NC in place 2L. Normal tracheal sounds, Normal bronchial sounds overlying sternum, Coarse Bronchovessicular sounds between scapulae posteriorly, Normal vessicular breath sounds heard throughout periphery. Lungs coarse but stable today. Adventitious sounds- No wheezes, rales , but + rhonchi. CARDIOVASCULAR: Auscultation- Regular rate and rhythm. III/ murmur into axilla ?MS murmur. Historical pe daughter. Extremities- no digital clubbing, cyanosis, edema, increased warmth. ABDOMEN: Inspection- normal and no visible pulsations. Normal contour. Auscultation- Bowel sounds normal, no abdominal bruits. Palpation/Percussion- soft, non-tender, no rebound tenderness, no rigidity (guarding), no jar tenderness, no masses. Liver-no hepatomegaly, Spleen no splenomegaly, Hernias - none. Rectal not examined by me, declined by family. Eval in Er. Peripheral Vascular: Upper extremity Left- Normal temperature with pink nailbeds and no ulcerations. Upper extremity Right- Normal temperature with pink nailbeds and no ulcerations. Lower extremity- Normal temperature with pink nailbeds and no ulcerations. DP pulses 2+ bilaterally. Pedal hair intact. Normal capillary refill. Edema- No edema. Musculoskeletal: Generalized-No generalized swelling or edema of extremities, no digital clubbing or cyanosis, neurovascularly intact all four extremities. Grinder Tender 5/5, no tenderness bilateral lateral/medial epicondle. Normal shoulder ROM. Hip flexion resistance 4+/5. Moves all extremities. No tenderness about bony prominences today. Cervcical spine and lumbar spine are mildly tender about paraspinal muscles. Neurological: General- Moves all 4 extremities symmetrically. Symmetrical face and body posture. Cranial nerves- individually evaluated II-XII and intact. PERRLA, Normal EOMI, visual/special senses appear intact, Face is symmetrical and normal sensation/movement, normal tongue, normal strength/posture of neck musculature. Reflexes- intact with DTR 2+ patellar, Achilles, bicep, brachial, tricep. Strength- 5/5 bilateral UE and 4+/5 bilateral LE. Soft touch- intact bilateral UE and LE. Neuropsych: Oriented- Person, and hospital but could not name it, date/day/ time. Mood/affect- No depression, stable and normal and congruent. Able to articulate well. Speech-Normal speech, normal rate, normal tone,Some paranoia, Hard of hearing. Thought content- [place], trying to escape. Memory-Limited Lymphatic: Head/Neck- normal size and non tender to palpation. Axillary- normal size and non tender to palpation. Femoral and Inguinal- normal size and non tender to palpation. H/H Trends 01/08/18 01/09/18 01/09/18 Range/Units 20:50 07:15 12:00 Hgb 8.1 L 7.2 L 7.0 L (12.0-16.0) g/dl Hct 23.6 L 20.7 L 20.5 L (37.0-47.0) % Na/K Trends 01/08/18 01/09/18 01/09/18 Range/Units 20:50 07:15 12:00 Sodium 139 140 (136-145) mmol/L Potassium 3.0 L 2.8 L 3.4 L (3.5-5.10) mmol/L K+ improved from 2.8 to 3.4 with single 40mg dosing. I would recommend she continue using 20meq BID with meals. Laboratory Last Values WBC 5.71 K/ul (4.6-10.2) 01/09/18 12:00 RBC 1.89 10^6/ul (4.20-5.40) L 01/09/18 12:00 Hgb 7.0 g/dl (12.0-16.0) L 01/09/18 12:00 Hct 20.5 % (37.0-47.0) L 01/09/18 12:00 MCV 108.5 fl (81.0-99.0) H 01/09/18 12:00 MCH 37.0 pg (27.0-31.0) H 01/09/18 12:00 MCHC 34.1 (31.8-35.4) 01/09/18 12:00 RDW Coeff of Rosie 20.0 % (11.6-14.8) H 01/09/18 12:00 Plt Count 213 10^3/uL (140-440) 01/09/18 12:00 Immature Gran % (Auto) 0.7 % (0.0-5.0) 01/09/18 12:00 Neut % (Auto) 71.4 01/09/18 12:00 Lymph % (Auto) 16.3 (10.0-50.0) 01/09/18 12:00 [place] % (Auto) 10.9 (0-10) H 01/09/18 12:00 Eos % (Auto) 0.5 % (0.0-7.0) 01/09/18 12:00 Baso % (Auto) 0.2 % (0.0-3.0) 01/09/18 12:00 Immature Gran # (Auto) 0.0 (0.0-1.0) 01/09/18 12:00 Neut # (Auto) 4.1 K/ul (2.0-6.9) 01/09/18 12:00 Lymph # (Auto) 0.9 K/uL (0.60-3.4) 01/09/18 12:00 [place] # (Auto) 0.6 K/uL (0.4-2.0) 01/09/18 12:00 Eos # (Auto) 0.0 K/ul (0.0-0.7) 01/09/18 12:00 Baso # (Auto) 0.0 K/uL (0-0.2) 01/09/18 12:00 Plt Morphology Comment Normal 01/09/18 12:00 Anisocytosis 1+ (NOT PRESENT) 01/09/18 12:00 Macrocytosis 1+ (NOT PRESENT) 01/09/18 12:00 Sodium 140 mmol/L (136-145) 01/09/18 07:15 Potassium 3.4 mmol/L (3.5-5.10) L 01/09/18 12:00 Chloride 100 mmol/L (98-107) 01/09/18 07:15 Carbon Dioxide 30 mmol/L (23-31) 01/09/18 07:15 Anion Gap 12.8 01/09/18 07:15 BUN 19 mg/dL (7-18) H 01/09/18 07:15 Creatinine 0.54 mg/dL (0.60-1.30) L 01/09/18 07:15 Estimated GFR (MDRD) 107.00 mL/min 01/09/18 07:15 BUN/Creatinine Ratio 35.18 01/09/18 07:15 Glucose 79 mg/dL (82-115) L 01/09/18 07:15 Calcium 8.2 mg/dL (8.2-10.2) 01/09/18 07:15 Magnesium 1.9 mg/dL (1.7-2.2) 01/09/18 12:00 Total Bilirubin 0.9 mg/dL (0.00-1.20) 01/08/18 20:50 AST 22 U/L (15-37) 01/08/18 20:50 ALT 15 U/L (12-78) 01/08/18 20:50 Alkaline Phosphatase 80 U/L (53-141) 01/08/18 20:50 Total Creatine Kinase 22 U/L 01/08/18 20:50 Troponin I 0.0270 ng/ml (0.0000-0.4000) 01/08/18 20:50 Total Protein 6.1 g/dL (5.8-8.1) 01/08/18 20:50 Albumin 3.2 g/dL (3.4-5.0) L 01/08/18 20:50 Globulin 2.9 01/08/18 20:50 Albumin/Globulin Ratio 1.10 01/08/18 20:50 Amylase 72 U/L (25-115) 01/08/18 20:50 Lipase 35 U/L (8-78) 01/08/18 20:50 TSH 31.985 uIU/L (0.3400-4.8200) H 01/09/18 07:15 Free T4 0.43 ng/dL (0.59-1.17) L 01/09/18 07:15 Urine Color Yellow (YELLOW) 01/09/18 06:58 Urine Clarity Clear (CLEAR) 01/09/18 06:58 Urine pH 5.5 (5-9) 01/09/18 06:58 Ur Specific [place] 1.020 (1.005-1.030) 01/09/18 06:58 Urine Protein Negative (NEGATIVE) 01/09/18 06:58 Urine Glucose (UA) Negative (NEGATIVE) 01/09/18 06:58 Urine Ketones Negative (NEGATIVE) 01/09/18 06:58 Urine Blood Negative (NEGATIVE) 01/09/18 06:58 Urine Nitrite Negative (NEGATIVE) 01/09/18 06:58 Urine Bilirubin Negative (NEGATIVE) 01/09/18 06:58 Urine Urobilinogen 0.2 (0.2) 01/09/18 06:58 Ur Leukocyte Esterase Negative (NEGATIVE) 01/09/18 06:58 Stl Occult Blood (IFOB) Negative (NEGATIVE) 01/08/18 22:28 Stool Occult Blood #2 No specimen received (NEGATIVE) 01/08/18 22:28 Stool Occult Blood #3 No specimen received (NEGATIVE) 01/08/18 22:28 Blood Type A POSITIVE 01/09/18 09:30 Antibody Screen Negative 01/09/18 09:30 Crossmatch (AHG) See Detail 01/09/18 09:30 (1) Abdominal pain Status: Acute Code(s): R10.9 - UNSPECIFIED ABDOMINAL PAIN SNOMED Code(s): 39749821 (2) Anemia Status: Acute Code(s): D64.9 - ANEMIA, UNSPECIFIED SNOMED Code(s): 154838014 (3) Chronic prescription opiate use Status: Acute Code(s): Z79.891 - SOFTWARE RELEASE MANAGER (CURRENT) USE OF OPIATE ANALGESIC SNOMED Code(s): 143066670 (4) Dementia Status: Acute Code(s): F03.90 - UNSPECIFIED DEMENTIA WITHOUT BEHAVIORAL DISTURBANCE SNOMED Code(s): 16057462 (5) Frailty Status: Acute Code(s): R54 - AGE-RELATED PHYSICAL DEBILITY SNOMED Code(s): 976049752 (6) Underweight Status: Acute Code(s): R63.6 - UNDERWEIGHT SNOMED Code(s): 159156097 (7) Hypothyroid Status: Acute Code(s): E03.9 - HYPOTHYROIDISM, UNSPECIFIED SNOMED Code(s): 84521043 (8) Constipation Status: Acute Code(s): K59.00 - CONSTIPATION, UNSPECIFIED SNOMED Code(s): 24205937 (9) Hypokalemia Status: Acute Code(s): E87.6 - HYPOKALEMIA SNOMED Code(s): 98649957 Plan: Abdominal Pain: Resolved. No pain this am. Feeling better. Had 2 good BM yesterday before ER, was actually pain free when I saw her from 23:50-1:30 this am. She remains pain free, ate breakfast and snack. Ate breakfast and lunch well. Hypokalemia has worsened: I started 20meq per day. I will give her 40mg total ( 20mg more) now this can cause her K+ to raise by 1-1.5 but fall back down so we will give 20mg BID starting tomorrow. Monitor as Outpatient. Improved from 2.8 to 3.4 with 40mg KDur. Magnesium was fine. -CMP 12:00 today. -Mg 12:00 today. Anemia has worsened. CBC ordered for 12:00. Returned worse with Hgb of 7.0. This alone does not make her have to stay, we can transfuse as outpatient. They chose to get a unit prior to d/c from the obs stay. - Type and Screen x 1 unit - CBC 1200 Hypothyroidism: TSH and free T4 returned and reviewed by me at 13:04 and she has prominent hypothyroid status. I will add synthroid 25mcg daily. Goal TSH 1.0 -3.0. I do not want to increase this too quickly for risks of AFIB. - Levothyroxine 25mcg. Diet: normal diet. Activity: Bed alarm, fall precaution. Disposition: Home after transfusion: New meds: Colace 100 BID Levothyroxine 25 mcg daily first Rx of day F/U f/u with PCP about chronic anemia
[2018-01-09] MEDS ORDERED: K-DUR PO STA ×2 (09:17→09:31)
[2018-01-09] MEDS ORDERED: SYNTHROID PO SCH (13:30)
[2018-01-09 17:26] VITALS: BP 154/94; TEMP 99.7
--- NOTE | 2018-01-09 17:39 | PCM.DC ---
Final Diagnosis: All Active Problems Abdominal pain (Acute) Anemia (Acute) Constipation (Acute) Chronic prescription opiate use (Acute) Dementia (Acute) Frailty (Acute) Hypokalemia (Acute) Hypothyroid (Acute) Underweight (Acute) Cervical spondylosis with myelopathy (Acute) Compression fracture L3 (NEW) (1) Abdominal pain Status: Acute Code(s): R10.9 - UNSPECIFIED ABDOMINAL PAIN SNOMED Code(s): 12157881 (2) Anemia Status: Acute Code(s): D64.9 - ANEMIA, UNSPECIFIED SNOMED Code(s): 210804160 Qualifiers: Anemia type: unspecified type Qualified Code(s): D64.9 - Anemia, unspecified (3) Chronic prescription opiate use Status: Acute Code(s): Z79.891 - [facility] (CURRENT) USE OF OPIATE ANALGESIC SNOMED Code(s): 930957564 (4) Dementia Status: Acute Code(s): F03.90 - UNSPECIFIED DEMENTIA WITHOUT BEHAVIORAL DISTURBANCE SNOMED Code(s): 36678946 (5) Frailty Status: Acute Code(s): R54 - AGE-RELATED PHYSICAL DEBILITY SNOMED Code(s): 382792485 (6) Underweight Status: Acute Code(s): R63.6 - UNDERWEIGHT SNOMED Code(s): 597834044 (7) Compression fracture of lumbar vertebra Status: Acute Code(s): S32.000A - [facility]GE COMPRESSION FRACTURE OF UNSP LUMBAR VERTEBRA, INIT SNOMED Code(s): 899554227 Reason for Hospitalization: 1. Abdominal pain: Resolved by the time she came to floor, remained resolved. 2. Anemia worsened x 12 hours. Blood transfusion 1 PRBC after type/screen today 01/09/18. 3. Hypokalemia: 40meq given in hospital 20meq to start at home. 4. Hypothyroid: May explain macrocytic anemia. Replace with 25mcg daily. Repeat TSH in 8 weeks. 5. Underweight: Boost shake minimum once daily. 6. Multiple compression fracture: New L3. Monitor. Pain controlled. Prognosis at Discharge: She improved through her stay, pain resolved. Used fentanyl. Anemia was worse , Hypokalemia was worse and hypothyroid noted. We treated the anemia, the hypokalemia and hypothyroid and discharged from hospital today. F/U with PCP friday and then monitor labs at direction of PCP. Overall stable/Improved Condition at Discharge: Improved from abdominal pain. Anemia/hypothyroid/hypokalemia treated. Medications at Discharge: Ambulatory Orders Medication Instructions Recorded Carboxymethylcellulose Sodium 1 each OP BID 12/10/17 [Refresh Plus] Fentanyl 12 Mcg/Hr [Duragesic 12 1 patch TD Q72HR 12/10/17 Mcg/Hr] Fentanyl 25 Mcg/Hr [Duragesic 25 1 patch TD Q72HR 12/10/17 Mcg/Hr] Furosemide [Lasix Tab] 20 mg PO QDAC 12/10/17 Guaifenesin [Mucinex] 2 tab PO BID 12/10/17 Metoprolol Succinate [Toprol Xl] 0.5 tab PO DAILY 12/10/17 Pantoprazole Sodium [Protonix] 40 mg PO DAILY 12/10/17 Polyethylene Glycol 3350 [Miralax] 17 gm PO DAILY 12/10/17 Guaifenesin/Dextromethorphan 5 ml PO ONCE #280 cup 12/26/17 [Robitussin Dm Syrup] Ipratropium/Albuterol Neb [Duoneb] 1 vial NEB RTQ6H #120 vial.neb 12/26/17 Alprazolam [Xanax] 1 mg PO BEDTIME 01/08/18 Alprazolam [Xanax] 0.5 mg PO ONCE tablet 01/09/18 Docusate Sodium [Colace] 100 mg PO BID PRN 30 Days #60 01/09/18 capsule Levothyroxine Sodium [Synthroid] 25 mcg PO QDAC 30 Days #30 tablet 01/09/18 Menthol/Zinc Oxide [Calmoseptine 1 applic TP BID oint 01/09/18 Ointment] Potassium Chloride [K-Dur] 20 meq PO DAILYWM 30 Days #30 tab 01/09/18 Lab/Diagnostics: H/H Trends 01/08/18 01/09/18 01/09/18 Range/Units 20:50 07:15 12:00 Hgb 8.1 L 7.2 L 7.0 L (12.0-16.0) g/dl Hct 23.6 L 20.7 L 20.5 L (37.0-47.0) % Na/K Trends 04/12/18 04/13/18 04/13/18 Range/Units 20:50 07:15 12:00 Sodium 139 140 (136-145) mmol/L Potassium 3.0 L 2.8 L 3.4 L (3.5-5.10) mmol/L Comprehensive Lab Summary 01/08/18 01/08/18 01/08/18 Range/Units 20:50 20:50 22:28 WBC 8.20 (4.6-10.2) K/ul RBC 2.17 L (4.20-5.40) 10^6/ul Hgb 8.1 L (12.0-16.0) g/dl Hct 23.6 L (37.0-47.0) % MCV 108.8 H (81.0-99.0) fl MCH 37.3 H (27.0-31.0) pg MCHC 34.3 (31.8-35.4) RDW Coeff of Rosie 20.2 H (11.6-14.8) % Plt Count 179 (140-440) 10^3/uL Immature Gran % (Auto) 1.0 (0.0-5.0) % Neut % (Auto) 76.5 Lymph % (Auto) 17.1 (10.0-50.0) White % (Auto) 5.1 (0-10) Eos % (Auto) 0.1 (0.0-7.0) % Baso % (Auto) 0.2 (0.0-3.0) % Immature Gran # (Auto) 0.1 (0.0-1.0) Neut # (Auto) 6.3 (2.0-6.9) K/ul Lymph # (Auto) 1.4 (0.60-3.4) K/uL White # (Auto) 0.4 (0.4-2.0) K/uL Eos # (Auto) 0.0 (0.0-0.7) K/ul Baso # (Auto) 0.0 (0-0.2) K/uL Plt Morphology Comment Anisocytosis Not present (NOT PRESENT) Macrocytosis 1+ (NOT PRESENT) Sodium 139 (136-145) mmol/L Potassium 3.0 L (3.5-5.10) mmol/L Chloride 96 L (98-107) mmol/L Carbon Dioxide 29 (23-31) mmol/L Anion Gap 17.0 BUN 22 H (7-18) mg/dL Creatinine 0.66 (0.60-1.30) mg/dL Estimated GFR (MDRD) 85.00 mL/min BUN/Creatinine Ratio 33.33 Glucose 85 (82-115) mg/dL Calcium 8.6 (8.2-10.2) mg/dL Magnesium (1.7-2.2) mg/dL Total Bilirubin 0.9 (0.00-1.20) mg/dL AST 22 (15-37) U/L ALT 15 (12-78) U/L Alkaline Phosphatase 80 (53-141) U/L Total Creatine Kinase 22 U/L Troponin I 0.0270 (0.0000-0.4000) ng/ml Total Protein 6.1 (5.8-8.1) g/dL Albumin 3.2 L (3.4-5.0) g/dL Globulin 2.9 Albumin/Globulin Ratio 1.10 Amylase 72 (25-115) U/L Lipase 35 (8-78) U/L TSH (0.3400-4.8200) uIU/L Free T4 (0.59-1.17) ng/dL Urine Color (YELLOW) Urine Clarity (CLEAR) Urine pH (5-9) Ur Specific Stow (1.005-1.030) Urine Protein (NEGATIVE) Urine Glucose (UA) (NEGATIVE) Urine Ketones (NEGATIVE) Urine Blood (NEGATIVE) Urine Nitrite (NEGATIVE) Urine Bilirubin (NEGATIVE) Urine Urobilinogen (0.2) Ur Leukocyte Esterase (NEGATIVE) Stl Occult Blood (IFOB) Negative (NEGATIVE) Stool Occult Blood #2 No specimen received (NEGATIVE) Stool Occult Blood #3 No specimen received (NEGATIVE) Blood Type Antibody Screen Crossmatch (AHG) 01/09/18 01/09/18 01/09/18 Range/Units 06:58 07:15 07:15 WBC 6.24 (4.6-10.2) K/ul RBC 1.91 L (4.20-5.40) 10^6/ul Hgb 7.2 L (12.0-16.0) g/dl Hct 20.7 L (37.0-47.0) % MCV 108.4 H (81.0-99.0) fl MCH 37.7 H (27.0-31.0) pg MCHC 34.8 (31.8-35.4) RDW Coeff of Rosie 20.0 H (11.6-14.8) % Plt Count 213 (140-440) 10^3/uL Immature Gran % (Auto) 1.0 (0.0-5.0) % Neut % (Auto) 73.9 Lymph % (Auto) 15.4 (10.0-50.0) White % (Auto) 9.0 (0-10) Eos % (Auto) 0.5 (0.0-7.0) % Baso % (Auto) 0.2 (0.0-3.0) % Immature Gran # (Auto) 0.1 (0.0-1.0) Neut # (Auto) 4.6 (2.0-6.9) K/ul Lymph # (Auto) 1.0 (0.60-3.4) K/uL White # (Auto) 0.6 (0.4-2.0) K/uL Eos # (Auto) 0.0 (0.0-0.7) K/ul Baso # (Auto) 0.0 (0-0.2) K/uL Plt Morphology Comment Anisocytosis (NOT PRESENT) Macrocytosis (NOT PRESENT) Sodium 140 (136-145) mmol/L Potassium 2.8 L (3.5-5.10) mmol/L Chloride 100 (98-107) mmol/L Carbon Dioxide 30 (23-31) mmol/L Anion Gap 12.8 BUN 19 H (7-18) mg/dL Creatinine 0.54 L (0.60-1.30) mg/dL Estimated GFR (MDRD) 107.00 mL/min BUN/Creatinine Ratio 35.18 Glucose 79 L (82-115) mg/dL Calcium 8.2 (8.2-10.2) mg/dL Magnesium (1.7-2.2) mg/dL Total Bilirubin (0.00-1.20) mg/dL AST (15-37) U/L ALT (12-78) U/L Alkaline Phosphatase (53-141) U/L Total Creatine Kinase U/L Troponin I (0.0000-0.4000) ng/ml Total Protein (5.8-8.1) g/dL Albumin (3.4-5.0) g/dL Globulin Albumin/Globulin Ratio Amylase (25-115) U/L Lipase (8-78) U/L TSH 31.985 H (0.3400-4.8200) uIU/L Free T4 0.43 L (0.59-1.17) ng/dL Urine Color Yellow (YELLOW) Urine Clarity Clear (CLEAR) Urine pH 5.5 (5-9) Ur Specific Stow 1.020 (1.005-1.030) Urine Protein Negative (NEGATIVE) Urine Glucose (UA) Negative (NEGATIVE) Urine Ketones Negative (NEGATIVE) Urine Blood Negative (NEGATIVE) Urine Nitrite Negative (NEGATIVE) Urine Bilirubin Negative (NEGATIVE) Urine Urobilinogen 0.2 (0.2) Ur Leukocyte Esterase Negative (NEGATIVE) Stl Occult Blood (IFOB) (NEGATIVE) Stool Occult Blood #2 (NEGATIVE) Stool Occult Blood #3 (NEGATIVE) Blood Type Antibody Screen Crossmatch (AHG) 01/09/18 01/09/18 01/09/18 Range/Units 09:30 12:00 12:00 WBC 5.71 (4.6-10.2) K/ul RBC 1.89 L (4.20-5.40) 10^6/ul Hgb 7.0 L (12.0-16.0) g/dl Hct 20.5 L (37.0-47.0) % MCV 108.5 H (81.0-99.0) fl MCH 37.0 H (27.0-31.0) pg MCHC 34.1 (31.8-35.4) RDW Coeff of Rosie 20.0 H (11.6-14.8) % Plt Count 213 (140-440) 10^3/uL Immature Gran % (Auto) 0.7 (0.0-5.0) % Neut % (Auto) 71.4 Lymph % (Auto) 16.3 (10.0-50.0) White % (Auto) 10.9 H (0-10) Eos % (Auto) 0.5 (0.0-7.0) % Baso % (Auto) 0.2 (0.0-3.0) % Immature Gran # (Auto) 0.0 (0.0-1.0) Neut # (Auto) 4.1 (2.0-6.9) K/ul Lymph # (Auto) 0.9 (0.60-3.4) K/uL White # (Auto) 0.6 (0.4-2.0) K/uL Eos # (Auto) 0.0 (0.0-0.7) K/ul Baso # (Auto) 0.0 (0-0.2) K/uL Plt Morphology Comment Normal Anisocytosis 1+ (NOT PRESENT) Macrocytosis 1+ (NOT PRESENT) Sodium (136-145) mmol/L Potassium 3.4 L (3.5-5.10) mmol/L Chloride (98-107) mmol/L Carbon Dioxide (23-31) mmol/L Anion Gap BUN (7-18) mg/dL Creatinine (0.60-1.30) mg/dL Estimated GFR (MDRD) mL/min BUN/Creatinine Ratio Glucose (82-115) mg/dL Calcium (8.2-10.2) mg/dL Magnesium 1.9 (1.7-2.2) mg/dL Total Bilirubin (0.00-1.20) mg/dL AST (15-37) U/L ALT (12-78) U/L Alkaline Phosphatase (53-141) U/L Total Creatine Kinase U/L Troponin I (0.0000-0.4000) ng/ml Total Protein (5.8-8.1) g/dL Albumin (3.4-5.0) g/dL Globulin Albumin/Globulin Ratio Amylase (25-115) U/L Lipase (8-78) U/L TSH (0.3400-4.8200) uIU/L Free T4 (0.59-1.17) ng/dL Urine Color (YELLOW) Urine Clarity (CLEAR) Urine pH (5-9) Ur Specific Stow (1.005-1.030) Urine Protein (NEGATIVE) Urine Glucose (UA) (NEGATIVE) Urine Ketones (NEGATIVE) Urine Blood (NEGATIVE) Urine Nitrite (NEGATIVE) Urine Bilirubin (NEGATIVE) Urine Urobilinogen (0.2) Ur Leukocyte Esterase (NEGATIVE) Stl Occult Blood (IFOB) (NEGATIVE) Stool Occult Blood #2 (NEGATIVE) Stool Occult Blood #3 (NEGATIVE) Blood Type A POSITIVE Antibody Screen Negative Crossmatch (AHG) See Detail CT CHest: Trace bilateral pleural effusions with mild discoid consolidations in bases possibly relate to atelectasis chronic lung changs. Prominent heart size. Moderate atheroclerotic disease. Severe thoracic kyphosis with severe diffuse demineralization and stable multilevel severe vertebral body compression fractures. NEW compression fracture L3. CT Abd Pelvis: New L3 compression fracture 80% loss of height of vertebral body height w/ CT from 12/10/17. 6 cm anterolisthesis of L5/S1. Nephrolith on left non obstructive. Fecal stasis in colon. Education Provided to Patient and Family: 1. R/B/A to blood transfusion. Type A Positive 1 unit PRBC 2. Hypokalemia: Need to take oral potassium. Rx provided. 3. Anemia: May be secondary to hypothyroid. Treated this today with 25mcg of levothyroxine. R/B/A to this agent d/w daughter. Repeat TSH in 8 weeks. 4. Hypothyroid: Start levothyroxine 25mcg. Repeat TSH in 8 weeks. 5. Underweight: Consider Boost shake once daily with meals. 6. Compression Fracture: Monitor for now. Pain meds recommended. 7. Caution falls. 8. See Dr. Mejia next week. Repeat CBC in ~1 week and then TSH in 8 week. Disposition: HOME SELF-CARE Hospital Course: 87 yo WF brought in w/ 3 days of abd pain. 2 good BM day of admit to obs and she was pain free by am. Rounded am 01/09/18 and she had no c/o but lab abnl noted for anemia, hypokalemia. DDX for macrocytic anemia reviewed with daughter. Pain controlled with self fentanyl. She has dementia and some anxiety, controlled at home with xanax and used home meds in hospital. EKG showed some possible lateral ischemia but this was unchanged from prior EKG and patient had no chest pain, no SOA this admit. Reviewed admit from 11/2017, reviewed labs compared to this admit. She improved overall unto discharge this evening. This am anemia worse, potassium worse and she was noted to be hypothyroid. We set her up with colace BID, continue miralax for her constipation. Potassium replaced with 40meq once and she bumped higher than 3.0. Oral K+ tablets for home provided via Rx. The patient will be started on hypothyroid tx levothyroxine 25mcg daily. The main reason for admit was abdominal pain which is now resolved. SHe had no c/o SOA, recent pneumonia admission seems to not be contributory to this admission. Daughter POA on board with the plan for this stay of care and appreciative for the short tune up and then d/c home. They will f/u with PCP DR. Mejia. Family praised him for their care and I highly encouraged f/u with him early next week. New Rx: Potassium Levothyroxine Colace PRBC x 1 unit A + type. Imaging Reviewed: NEW COMPRESSION FRACTURE, pain controlled, no change in neurological findings. Plan: 1. F/U PCP early next week. 2. K+ replacement daily with 20meq potassium. Rx sent to pharmacy 3. Hypothyroid: Levothyroxine to start 25mcg repeat TSH in 8 weeks. Take daily on empty stomach, first med. 4. Anemia: May improve with hypothyroid tx. Hypothyroid can cause macrocytic anemia. Monitor. - PRBC 1 unit given 01/09/18. 5. Abdominal Pain: Resolved. Bowel regimen encouraged. New Rx Colace. 6. Chronic Opiate Use: Continue as per routine meds. 7. Caution falls 8. Underweight: Consider boost/ensure with at least one meal daily. Caution aspiration as well. >30 minutes spent in completion of this discharge from observational status.
[2018-01-10] MEDS ORDERED: K-DUR PO SCH (08:00)
[2018-01-11] MEDS ORDERED: DURAGESIC TD SCH ×2 (09:00)
== END 2018-01-09 19:00 | disposition home or self-care (01) ==
LOC: ED 19:53 → MEDSURG A 23:32
PROVIDERS: ADMIT Family Medicine; ATTEND Family Medicine
DX: R10.13 Epigastric pain (principal); R11.2 Nausea with vomiting, unspecified; K59.09 Other constipation; D64.9 Anemia, unspecified; R63.6 Underweight; L89.151 Pressure ulcer of sacral region, stage 1; F03.90 Unspecified dementia, unspecified severity, without behavioral disturbance, psychotic disturbance, mood disturbance, and anxiety; R54 Age-related physical debility; S32.000A Wedge compression fracture of unspecified lumbar vertebra, initial encounter for closed fracture; E87.6 Hypokalemia; E03.9 Hypothyroidism, unspecified; F41.9 Anxiety disorder, unspecified; M47.12 Other spondylosis with myelopathy, cervical region; Z68.1 Body mass index [BMI] 19.9 or less, adult; Z90.49 Acquired absence of other specified parts of digestive tract; Z90.2 Acquired absence of lung [part of]; Z79.899 Other long term (current) drug therapy; Z79.891 Long term (current) use of opiate analgesic
CPT/HCPCS: 36415; 36430; 74176; 80048; 80053; 81001; 82150; 82272; 82550; 83690; 83735; 84132; 84439; 84443; 84484; 85008; 85014; 85018; 85025; 86850; 86900; 86922; 93005; 93010; 94640; 96361; 96374; 96375; 99217; 99220; 99284

== ENCOUNTER 2018-01-13 10:10 | Observation (INO) ==
[2018-01-13 10:49] VITALS: BMI 16.0
[2018-01-13] MEDS ORDERED: CITRATE OF MAGNESIA PO STA (11:32)
[2018-01-13] MEDS: DUONEB NEB SCH ×3 (12:00→23:55)
[2018-01-13] MEDS ORDERED: ROBITUSSIN DM SYRUP PO SCH (12:00)
[2018-01-13] MEDS ORDERED: DUONEB NEB SCH (14:00)
--- NOTE | 2018-01-13 14:31 | DI ---
EXAM: Single view of the abdomen HISTORY: Constipation. COMPARISON: CT abdomen pelvis 01/08/2018 and multiple priors FINDINGS: There are surgical clips in the right upper abdomen. There are scattered gas and stool dis tended loops of bowel in the abdomen pelvis. There is scattered degenerative disease of the spine. A nd L3 compression deformity seen on prior exam is not well visualized. IMPRESSION: Scattered gas and debris filled loops of bowel, not significantly changed in appearance from prior CT.
[2018-01-13] MEDS ORDERED: DULCOLAX RC STA (16:07)
[2018-01-13] MEDS: ROBITUSSIN DM SYRUP PO SCH (17:47)
[2018-01-13] MEDS ORDERED: XANAX PO SCH (21:00)
[2018-01-13] MEDS: ARTIFICIAL TEARS OPTH SOL OP SCH (21:13)
[2018-01-13] MEDS ORDERED: CALMOSEPTINE OINTMENT TP ONE (21:18)
[2018-01-13] MEDS: CALMOSEPTINE OINTMENT TP SCH (21:27)
[2018-01-14] MEDS: ROBITUSSIN DM SYRUP PO SCH ×2 (01:38→05:37)
[2018-01-14] MEDS: DUONEB NEB SCH ×2 (05:10→11:17)
[2018-01-14] MEDS ORDERED: SYNTHROID PO SCH (06:30)
[2018-01-14] MEDS ORDERED: PROTONIX PO SCH (06:30)
[2018-01-14] MEDS ORDERED: LASIX TAB PO SCH (06:30)
[2018-01-14] MEDS ORDERED: K-DUR PO SCH (08:00)
[2018-01-14] MEDS ORDERED: TOPROL XL PO SCH (09:00)
[2018-01-14] MEDS ORDERED: MIRALAX PO SCH (09:00)
[2018-01-14] MEDS: CALMOSEPTINE OINTMENT TP SCH (09:31)
[2018-01-14 10:17] VITALS: BP 120/70; TEMP 98.5
[2018-01-14] MEDS: CARBOXYMETHYLCELLULOSE SODIUM OP SCH ×2 (10:22→10:26)
[2018-01-14] MEDS: ARTIFICIAL TEARS OPTH SOL OP SCH (10:23)
[2018-01-14] MEDS ORDERED: XANAX PO ONE (10:47)
[2018-01-14] MEDS ORDERED: NON-FORMULARY MEDICATION (Alprazolam [Xanax] 0.5 MG) PO PRN (11:12)
[2018-01-14] MEDS ORDERED: DURAGESIC TD SCH ×2 (21:00)
[2018-01-14] MEDS ORDERED: CALMOSEPTINE OINTMENT TP SCH (21:00)
--- NOTE | 2018-03-12 11:19 | DS ---
DATE OF SERVICE: 01/14/18 FINAL DIAGNOSIS: 1. CONSTIPATION/OBSTIPATION 2. WEAKNESS 3. COPD, OXYGEN DEPENDENT 4. HYPOTHYROIDISM 5. HYPERTENSION 6. ANEMIA, NEEDED TRANSFUSION IN THE PAST 7. OSTEOARTHRITIS 8. HISTORY OF COMPRESSION DEFORMITY IN THE BACK 9. GERD 10. LEFT EAR PROSTHESIS 11. CHOLECYSTECTOMY 12. LEFT LOBECTOMY DISCHARGE INSTRUCTIONS: Discharge the patient back home. Followup in the [facility] within 4 to 5 days. MEDICATIONS AT DISCHARGE: Miralax 17 gm p.o. daily Colace/Docusate every day twice a day Calcium Carbonate Duragesic patch Xanax Refresh eyedrops Lasix Mucinex Toprol Protonix Duonebs Potassium NEW PRESCRIPTIONS: None DIET INSTRUCTIONS: Increase fiber in diet ACTIVITY: As much as patient tolerates. Turn frequently in the bed. DISEASE SPECIFIC EDUCATION: Constipation/obstipation Anemia needing transfusion discussed with the patient, verbalized understanding HOSPITAL COURSE: This is an 87-year-old female was recently seen in the hospital by Dr. Sparks for anemia needing some blood transfusion. The patient was discharged home. At time CT scan did show that the patient was constipated and obstipated. She went home, did not have any bowel movements, came to the office and at that time , given her age and multiple medical problems, constipation and no bowel movement for 3 to 4 days, the patient was admitted to the hospital, started on Mag Citrate and Miralax. By the next day, the patient had 3 bowel movements. Hemoglobin dropped from 10.1 to 8.8. BUN and creatinine were steady. As the patient had a bowel movement, feeling good, wanted to go home. The patient was discharged home. TIME SPENT: MORE THAN 65 MINUTES MTDD
== END 2018-01-14 11:40 | disposition home or self-care (01) ==
LOC: INTOOBSV 10:10 → MEDSURG A 10:10
PROVIDERS: ADMIT Emergency Medicine; ATTEND Emergency Medicine
DX: K59.00 Constipation, unspecified (principal); R53.1 Weakness; J44.9 Chronic obstructive pulmonary disease, unspecified; R64 Cachexia; I10 Essential (primary) hypertension; D50.0 Iron deficiency anemia secondary to blood loss (chronic); E05.90 Thyrotoxicosis, unspecified without thyrotoxic crisis or storm; M19.90 Unspecified osteoarthritis, unspecified site; M48.54XA Collapsed vertebra, not elsewhere classified, thoracic region, initial encounter for fracture; Z99.81 Dependence on supplemental oxygen; K21.9 Gastro-esophageal reflux disease without esophagitis; F17.210 Nicotine dependence, cigarettes, uncomplicated; Z90.49 Acquired absence of other specified parts of digestive tract
CPT/HCPCS: 36415; 80053; 82803; 85008; 85025; 87081; 94640; 99217; 99220

== ENCOUNTER 2018-01-22 12:17 | Outpatient (CLI) | END 2018-01-22 12:18 | disposition home or self-care (01) | LOC: RHC-LAB 12:17 | PROVIDERS: ATTEND Emergency Medicine | DX: D50.0 Iron deficiency anemia secondary to blood loss (chronic) (principal) | CPT/HCPCS: 36415; 85008; 85025 ==

== ENCOUNTER 2018-03-19 15:11 | Outpatient (CLI) | END 2018-03-19 15:12 | disposition home or self-care (01) | LOC: RHC-LAB 15:11 | PROVIDERS: ATTEND Emergency Medicine | DX: D50.0 Iron deficiency anemia secondary to blood loss (chronic) (principal); E03.9 Hypothyroidism, unspecified | CPT/HCPCS: 36415; 85025 ==

== ENCOUNTER 2018-03-27 02:26 | Inpatient (IN) ==
[2018-03-27] MEDS ORDERED: XOPENEX 0.63 MG NEB STA (02:29)
[2018-03-27] MEDS ORDERED: SOLU-MEDROL 40 MG IVP STA (02:29)
--- NOTE | 2018-03-27 04:16 | CT ---
Exam: CT of the chest without contrast History: Cough and wheezing Technique: [address] of the chest FINDINGS: The lung windows show bilateral, predominantly the lower lung bronchiectasis. Chronic vol ume loss in the right. No superimposed infiltrative opacities. Atherosclerotic calcification of the aorta and coronary arteries. No pathologic lymph node enlargement mediastinum. Chronic multilevel thoracic compression deformities with normal levels T1, T2, T4, T8. Remainder of the levels. Chroni c fractures. New fracture of T10 compared 01/08/2018. There is no significant retropulsion. No acu te findings of the upper abdomen. Nonobstructing calculus in the left kidney incidentally noted. Impression: 1. Chronic bilateral lower lung bronchiectasis without superimposed infiltrate. No change from 12/28. 2. Multilevel thoracic compression fractures with remaining normal levels T1, T2, T4 and T8. New in termediate grade fracture of T10 compared with 01/08/2018.
--- NOTE | 2018-03-27 05:29 | ED.PDOC ---
General ED Provider: Dr. HANS OLIVEIRA-ER Chief Complaint: Shortness of Air Stated Complaint: she is coughing and sob Time Seen by Physician: 02:30 Mode of Arrival: Ambulance Information Source: Patient, Family, EMT Exam Limitations: No limitations [facility] Nursing and Triage Documentation Reviewed and Agree: Yes Does patient meet sepsis criteria?: No System Inflammatory Response Syndrome: Not Applicable Sepsis Protocol: For patient's 13 years and over: Temp is 96.8 and below OR 101 and greater Pulse >90 BPM Resp >20/minute Acutely Altered Mental Status Are patient's symptoms suggestive of a new infection, such as: -Pneumonia -Skin, Soft Tissue -Endocarditis -UTI -Bone, Joint Infection -Implantable Device -Acute Abdominal Infection -Wound Infection -Meningitis -Blood Stream Catheter Infection -Unknown Respiratory Complaint Exam - Respiratory Complaint/Exam Onset/Duration: 2 days Symptoms Are: Still present Timing: Constant Initial Severity: Mild Current Severity: Mild Location: Chest Character: Reports: Non-productive cough Associated Signs and Symptoms: Reports: Dyspnea, Decreased oral intake. Denies : Rapid breathing, Fever, Chills, Chest pain, Pleuritic chest pain, Wheezing, Hemoptysis, Dizziness, Calf pain, Calf swelling, Edema, URI, Nasal congestion, Hoarseness, Sinus discomfort, Vomiting, Sore throat, Weight loss, Increased thirst, Increased appetite Pseudomonas Risk Factors: Reports: Bronchiectasis, Chronic Lung Disease Tuberculosis Risk Factors: Reports: None Status Asthmaticus Risk Factors: Reports: None Home Oxygen Use: No Recent Stress Test: No Recent Echo/LV Function: No Current Antibiotic Use: No Current Asthma Medication Use: No Respiratory Distress: None Inadequate Respiratory Effort: Yes Dysphagia Present: No Stridor Present: No JVD Present: No Accessory Muscle Use: No Retractions: Not Present Diminished Breath Sounds: No Sinus Tenderness: None Grunting Respirations: No Kussmaul Respirations: No Differential Diagnoses: COPD Exacerbation Non-Traumatic Chest Pain Syncope: EKG Performed Review of Systems - Review Of Systems Constitutional: Reports: No symptoms Eyes: Reports: No symptoms Ears, Nose, Mouth, Throat: Reports: No symptoms Respiratory: Reports: Cough, Short of air Cardiac: Reports: No symptoms GI: Reports: No symptoms : Reports: No symptoms Musculoskeletal: Reports: No symptoms Skin: Reports: No symptoms Neurological: Reports: No symptoms Endocrine: Reports: No symptoms Hematologic/Lymphatic: Reports: No symptoms All Other Systems: Reviewed and Negative Past Medical History - Past Medical History Previously Healthy: Yes Endocrine: Reports: Hypothyroid Cardiovascular: Reports: Hypertension Respiratory: Reports: COPD (oxygen depenent on ), Asthma, Other (bronchiectasis , 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) Hematological: Reports: Anemia Gastrointestinal: Reports: None Genitourinary: Reports: None Neuro/Psych: Reports: None Musculoskeletal: Reports: Arthritis Cancer: Reports: None Last Menstrual Period: menopausal - Surgical History General Surgical History: Reports: 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) - Family History Family History: Reports: Unknown - Social History Smoking Status: Former smoker Hx Substance Use: No Alcohol Screening: None - Immunizations Tetanus Shot up to Date: Yes Physical Exam - Physical Exam Appearance: Well-appearing Eyes: LEIGH, EOMI, Conjunctiva clear ENT: Ears normal, Nose normal, Oropharynx normal Neck: Supple Respiratory: Crackles, Rhonchi Cardiovascular: RRR, Pulses normal, No rub, No murmur GI/: Soft, Nontender, No masses, Bowel sounds normal, No Organomegaly Musculoskeletal: Normal strength, ROM intact, No edema, No calf tenderness Skin: Warm, Dry, Normal color Neurological: Sensation intact, Motor intact, Reflexes intact, Cranial nerves intact, Alert, Oriented Psychiatric: Affect appropriate, Mood appropriate Interpretation - Radiology Interpretation Radiology Interpretation By: Radiologist Radiology Results: Positive Exam Interpreted: CT Scan - EKG Interpretation Time of EKG #1: 05:29 Rate: Normal Rhythm: Sinus Ectopy: None [place]: NL ST Segment: Normal Physician Notification - Case Discussed Physician Notified: dr gramajo Time of Notification: 05: Critical Care Note - Critical Care Note Total Time (mins): 0 Course - Course Hematology/Chemistry: 03/27/18 02:30 03/27/18 02:30 Orders, Labs, Meds: Lab Review 03/27/18 03/27/18 03/27/18 02:27 02:30 02:30 WBC 11.08 H RBC 3.28 L Hgb 10.8 L Hct 33.7 L MCV 102.7 H MCH 32.9 H MCHC 32.0 RDW Coeff of Rosie 19.4 H Plt Count 272 Immature Gran % (Auto) 1.0 Neut % (Auto) 76.1 Lymph % (Auto) 15.7 [place] % (Auto) 6.5 Eos % (Auto) 0.3 Baso % (Auto) 0.4 Immature Gran # (Auto) 0.1 Neut # (Auto) 8.4 H Lymph # (Auto) 1.7 [place] # (Auto) 0.7 Eos # (Auto) 0.0 Baso # (Auto) 0.0 D-Dimer (Manual) Puncture Site Rb O2 Saturation 84.0 L ABG pH 7.408 ABG pCO2 53.8 H ABG pO2 50.0 L* ABG HCO3 34 H ABG Total CO2 36 H ABG Base Excess 9 H Zain Test + O2 Delivery Device Bnc Oxygen Liter Flow 2.00 FiO2 % 28.0 Sodium 137 Potassium 3.7 Chloride 97 L Carbon Dioxide 33 H Anion Gap 10.7 BUN 17 Creatinine 0.51 L Estimated GFR (MDRD) 115.00 BUN/Creatinine Ratio 33.33 Glucose 118 H Calcium 9.1 Total Bilirubin 0.5 AST 15 ALT 12 Alkaline Phosphatase 68 Total Creatine Kinase Troponin I B-Natriuretic Peptide Total Protein 6.4 Albumin 3.5 Globulin 2.9 Albumin/Globulin Ratio 1.21 03/27/18 03/27/18 03/27/18 02:30 02:30 02:30 WBC RBC Hgb Hct MCV MCH MCHC RDW Coeff of Rosie Plt Count Immature Gran % (Auto) Neut % (Auto) Lymph % (Auto) [place] % (Auto) Eos % (Auto) Baso % (Auto) Immature Gran # (Auto) Neut # (Auto) Lymph # (Auto) [place] # (Auto) Eos # (Auto) Baso # (Auto) D-Dimer (Manual) 532.59 Puncture Site O2 Saturation ABG pH ABG pCO2 ABG pO2 ABG HCO3 ABG Total CO2 ABG Base Excess Zain Test O2 Delivery Device Oxygen Liter Flow FiO2 % Sodium Potassium Chloride Carbon Dioxide Anion Gap BUN Creatinine Estimated GFR (MDRD) BUN/Creatinine Ratio Glucose Calcium Total Bilirubin AST ALT Alkaline Phosphatase Total Creatine Kinase 14 Troponin I < 0.0100 B-Natriuretic Peptide 391 H Total Protein Albumin Globulin Albumin/Globulin Ratio Orders Category Date Time Status ABG DRAW REQUEST Stat CARDIO 03/27/18 02:28 Completed EKG-(ED ONLY) Stat CARDIO 03/27/18 02:28 Completed NEBULIZER TREATMENT Stat CARDIO 03/27/18 02:29 Completed IV [ED IV/MEDIPORT/POWERPORT] .ONCE EMERGENCY 03/27/18 02:28 Active ABG Stat LAB 03/27/18 02:27 Completed B-TYPE NATRIURETIC PEPTIDE Stat LAB 03/27/18 02:30 Completed CBC W/ AUTO DIFF Stat LAB 03/27/18 02:30 Completed COMPREHENSIVE METABOLIC PANEL Stat LAB 03/27/18 02:30 Completed CREATINE KINASE Stat LAB 03/27/18 02:30 Completed D-DIMER Stat LAB 03/27/18 02:30 Completed TROPONIN I Stat LAB 03/27/18 02:30 Completed 0.9 % Sodium Chloride [Saline Flush] MEDS 03/27/18 02:28 Ordered 1 syr IVF PRN PRN Levalbuterol HCl [Xopenex 0.63 mg] MEDS 03/27/18 02:29 Discontinued 1 vial NEB ONCE STA Methylprednisolone Sod Succ/Pf [Solu-Medrol 40 mg] MEDS 03/27/18 02:29 Discontinued 40 [address] IVP ONCE STA CT CHEST W/O CONTRAST Stat RADS 03/27/18 02:29 Completed Medications Generic Name Dose Route Start Last Admin Trade Name Freq PRN Reason Stop Dose Admin Sodium Chloride 1 syr 03/27/18 02:28 Saline Flush IVF PRN PRN To flush IV Discontinued Medications Generic Name Dose Route Start Last Admin Trade Name Freq PRN Reason Stop Dose Admin Levalbuterol HCl 1 vial 03/27/18 02:29 03/27/18 03:28 Xopenex 0.63 Mg NEB 03/27/18 02:30 1 vial ONCE STA Administration Methylprednisolone Sodium Succinate 40 mg 03/27/18 02:29 03/27/18 03:33 Solu-Medrol 40 Mg IVP 03/27/18 02:30 40 mg ONCE STA Administration Vital Signs: Temp Pulse Resp BP Pulse Ox 03/27/18 02:27 97.5 F L 77 28 H 148/66 H 86 L Departure - Departure Time of Disposition: 05:29 Disposition: ADMITTED INPATIENT Discharge Problem: Acute respiratory failure Qualifiers: Respiratory failure complication: hypoxia Qualified Code(s): J96.01 - Acute respiratory failure with hypoxia Bronchiectasis Qualifiers: Bronchiectasis type: with acute exacerbation Qualified Code(s): J47.1 - Bronchiectasis with (acute) exacerbation Instructions: COPD (Chronic Obstructive Pulmonary Disease) (ED) Condition: Good Pt referred to PMD for follow-up: Yes IPMP verified?: No Allergies/Adverse Reactions: Allergies hydromorphone [From Dilaudid] Adverse Reaction (Verified 12/10/17 14:28) Sulfa (Sulfonamide Antibiotics) Adverse Reaction (Verified 12/10/17 14:28) Home Medications: Ambulatory Orders Carboxymethylcellulose Sodium [Refresh Plus] 1 each OP BID 12/10/17 Fentanyl 12 Mcg/Hr [Duragesic 12 Mcg/Hr] 1 patch TD Q72HR 12/10/17 Fentanyl 25 Mcg/Hr [Duragesic 25 Mcg/Hr] 1 patch TD Q72HR 12/10/17 Furosemide [Lasix Tab] 20 mg PO QDAC 12/10/17 Guaifenesin [Mucinex] 2 tab PO BID 12/10/17 Pantoprazole Sodium [Protonix] 40 mg PO DAILY 12/10/17 Polyethylene Glycol 3350 [Miralax] 17 gm PO DAILY 12/10/17 Levothyroxine Sodium [Synthroid] 25 mcg PO QDAC 30 Days #30 tablet 01/09/18 Menthol/Zinc Oxide [Calmoseptine Ointment] 1 applic TP BID oint 01/09/18 Alprazolam [Xanax] 0.5 mg PO BEDTIME PRN 01/14/18 Docusate Sodium [Colace] 200 mg PO DAILY 03/27/18 Hydrocodone Bit/Acetaminophen [[place] 5-325] 5 - 325 mg PO Q6H PRN 03/27/18 Ipratropium/Albuterol Neb [Duoneb] 1 vial NEB TID 03/27/18 Disposition Discussed With: Patient, Family
[2018-03-27] MEDS ORDERED: XANAX PO PRN ×2 (05:35→07:17)
[2018-03-27] MEDS ORDERED: NORCO 5-325 PO PRN (05:35)
[2018-03-27] MEDS: DUONEB NEB SCH ×3 (06:03→21:15)
[2018-03-27] MEDS: LASIX TAB PO SCH (06:21)
[2018-03-27] MEDS: SYNTHROID PO SCH (06:21)
[2018-03-27 06:46] VITALS: BMI 13.8
[2018-03-27] MEDS: ARTIFICIAL TEARS OPTH SOL OP SCH ×2 (08:54→20:14)
[2018-03-27] MEDS: CALMOSEPTINE OINTMENT TP SCH ×2 (08:55→20:22)
[2018-03-27] MEDS: MIRALAX PO SCH (08:55)
[2018-03-27] MEDS: CALCIUM 500 + VIT D 200 MG TABLET PO SCH ×2 (08:55→20:15)
[2018-03-27] MEDS: K-DUR PO SCH (08:56)
[2018-03-27] MEDS: TOPROL XL PO SCH (08:56)
[2018-03-27] MEDS: MUCINEX PO SCH ×2 (08:56→20:15)
[2018-03-27] MEDS: COLACE PO SCH (08:56)
[2018-03-27] MEDS ORDERED: NON-FORMULARY MEDICATION (Calcium Carbonate/Vitamin D3 [Calcium 600-Vit D3 200 Tablet] 1 E PO SCH (09:00)
[2018-03-27] MEDS ORDERED: SOLU-MEDROL 40 MG IVP SCH ×2 (09:00)
[2018-03-27] MEDS ORDERED: DUONEB NEB SCH (09:00)
[2018-03-27] MEDS: ROCEPHIN 1 GM in SODIUM CHLORIDE 50 ML IV SCH ×2 (09:02→09:08)
[2018-03-27] MEDS: LOVENOX SUBCUT SCH (09:09)
[2018-03-27] MEDS ORDERED: XANAX ONE (09:14)
[2018-03-27] MEDS: XANAX PO SCH ×3 (09:16→20:16)
--- NOTE | 2018-03-27 13:56 | HP ---
DATE OF SERVICE: 03/27/18 CHIEF COMPLAINT: Shortness of breath. HISTORY OF PRESENT ILLNESS: This is a 87-year-old female, a COPD patient, oxygen dependent, cachetic, who came to the emergency room with cough, congestion and worsening shortness of breath. She was seen by Dr. Silva in the emergency room. White count was 11, 000. D. dimer 532. ABG showed pH 7.408, pc02 53.8, p02 50. CT of chest done, bilateral bronchiectasis, no infiltrate. Despite giving the steroids, the patient was still having shortness of breath so the patient was admitted for COPD exacerbation secondary to bronchitis, bronchiectasis, hypoxemic respiratory failure and respiratory distress. REVIEW OF SYSTEMS: CONSTITUTIONAL: Weakness, tiredness. No fever, no chills. HEENT: Normal. ENDOCRINE: No weight gain; no weight loss. CVS: No chest pain. No PND, no orthopnea. Shortness of breath. No PND, no orthopnea. RESPIRATORY: Cough and congestion. No hemoptysis. GI: No nausea, no vomiting. No abdominal pain. No melena. : No hematuria. No polyuria. MUSCULOSKELETAL: Back pain. PSYCHIATRIC: Not anxious. No depression. No suicidal thoughts. No homicidal thoughts. SKIN: Intact, no open lesions. PAST MEDICAL HISTORY: COPD, oxygen dependent Hypertension CHF Oxygen dependent COPD Compression deformities in the back Chronic pain syndrome Multiple compression deformities in the back History of nicotine use History of recurrent urinary tract infections PAST SURGICAL HISTORY: Cataract surgeries Ear surgery Tonsillectomy Cholecystectomy Left lung lobectomy PERSONAL HISTORY: The patient does live at home, partially dependent on the ADLS. Nonsmoker. No alcohol use. FAMILY HISTORY: Significant for thyroid cancer. MEDICATIONS: (HOME) Refresh eyedrops Protonix Miralax Lasix Duragesic patch Synthroid Xanax Calcium Potassium Toprol [place] Duonebs Colace ALLERGIES: HYDROMORPHONE, SULFA PHYSICAL EXAMINATION: V/S: BP 148/66, respiratory rate 28, heart rate 77, temperature 97.5, saturation 86. HEENT: Atraumatic, normocephalic. No scleral icterus. Mucosa dry. NECK: Supple. No JVD, no bruit. No lymphadenopathy. No thyromegaly. HEART: S1, S2 normal. No murmur. No cyanosis or clubbing. No ascites. LUNGS: Clear to auscultation. No rales or rhonchi. ABDOMEN: Soft, nontender. Bowel sounds are active. No CVA tenderness. No rigidity or guarding. EXTREMITIES: No pedal edema. No cyanosis or clubbing MUSCULOSKELETAL: Normal joints, no swelling. NEUROLOGIC: The patient is awake and alert. SKIN: Intact; no open lesions. LYMPHATIC: No lymph nodes palpable. ASSESSMENT: 1. HYPOXEMIC RESPIRATORY FAILURE 2. COPD EXACERBATION SECONDARY TO BRONCHITIS 3. ACUTE ON CHRONIC HEART FAILURE 4. MULTIPLE COMPRESSION DEFORMITIES IN THE BACK 5. THORACIC COMPRESSION DEFORMITIES 6. CHRONIC PAIN SYNDROME PLAN: 1. Admit patient to the regular floor. 2. CBC, CMP today and daily. 3. Cardiac enzymes and troponin 4. IV fluids 5. Solu-Medrol 80 q.12 increased from 40 q.12 6. Lovenox for DVT prophylaxis 7. Rocephin 1 gm daily 8. Daily I & O's TIME SPENT: MORE THAN 75 minutes for the admission [facility]
[2018-03-27] MEDS: SOLU-MEDROL 125 MG IVP SCH (16:51)
[2018-03-28] MEDS: DUONEB NEB SCH ×3 (04:13→20:35)
[2018-03-28] MEDS: PROTONIX PO SCH (05:51)
[2018-03-28] MEDS: SYNTHROID PO SCH (05:51)
[2018-03-28] MEDS: LASIX TAB PO SCH (05:51)
[2018-03-28] MEDS: ROCEPHIN 1 GM in SODIUM CHLORIDE 50 ML IV SCH (09:48)
[2018-03-28] MEDS: ARTIFICIAL TEARS OPTH SOL OP SCH ×2 (09:52→20:59)
[2018-03-28] MEDS: MUCINEX PO SCH ×2 (09:52→21:00)
[2018-03-28] MEDS: MIRALAX PO SCH (09:53)
[2018-03-28] MEDS: XANAX PO SCH ×2 (09:54→21:00)
[2018-03-28] MEDS: TOPROL XL PO SCH (09:54)
[2018-03-28] MEDS: COLACE PO SCH (09:55)
[2018-03-28] MEDS: CALCIUM 500 + VIT D 200 MG TABLET PO SCH ×2 (09:55→20:59)
[2018-03-28] MEDS: K-DUR PO SCH (09:55)
[2018-03-28] MEDS: SOLU-MEDROL 125 MG IVP SCH ×2 (09:56→21:18)
[2018-03-28] MEDS: LOVENOX SUBCUT SCH (09:58)
[2018-03-28] MEDS: CALMOSEPTINE OINTMENT TP SCH ×2 (10:04→21:00)
[2018-03-29] MEDS: DUONEB NEB SCH ×3 (04:36→20:22)
[2018-03-29] MEDS: LASIX TAB PO SCH (05:44)
[2018-03-29] MEDS: SYNTHROID PO SCH (05:45)
[2018-03-29] MEDS: PROTONIX PO SCH (05:45)
[2018-03-29] MEDS ORDERED: DURAGESIC TD SCH ×2 (09:00)
[2018-03-29] MEDS: ROCEPHIN 1 GM in SODIUM CHLORIDE 50 ML IV SCH (09:24)
[2018-03-29] MEDS: ARTIFICIAL TEARS OPTH SOL OP SCH ×2 (09:24→20:37)
[2018-03-29] MEDS: LOVENOX SUBCUT SCH (09:25)
[2018-03-29] MEDS: MUCINEX PO SCH ×2 (09:25→20:37)
[2018-03-29] MEDS: MIRALAX PO SCH ×2 (09:25→12:07)
[2018-03-29] MEDS: K-DUR PO SCH (09:26)
[2018-03-29] MEDS: TOPROL XL PO SCH (09:26)
[2018-03-29] MEDS: COLACE PO SCH (09:26)
[2018-03-29] MEDS: CALCIUM 500 + VIT D 200 MG TABLET PO SCH ×2 (09:26→20:37)
[2018-03-29] MEDS: SOLU-MEDROL 125 MG IVP SCH ×2 (09:27→21:25)
[2018-03-29] MEDS: XANAX PO SCH ×2 (09:47→20:37)
[2018-03-29] MEDS: CALMOSEPTINE OINTMENT TP SCH ×2 (10:00→20:38)
[2018-03-30] MEDS: DUONEB NEB SCH ×2 (04:36→14:09)
[2018-03-30] MEDS: PROTONIX PO SCH (05:42)
[2018-03-30] MEDS: LASIX TAB PO SCH (05:42)
[2018-03-30] MEDS: SYNTHROID PO SCH (05:43)
[2018-03-30] MEDS: CALMOSEPTINE OINTMENT TP SCH (09:41)
[2018-03-30] MEDS: ARTIFICIAL TEARS OPTH SOL OP SCH (09:42)
[2018-03-30] MEDS: ROCEPHIN 1 GM in SODIUM CHLORIDE 50 ML IV SCH (09:42)
[2018-03-30] MEDS: CALCIUM 500 + VIT D 200 MG TABLET PO SCH (09:43)
[2018-03-30] MEDS: XANAX PO SCH (09:43)
[2018-03-30] MEDS: SOLU-MEDROL 125 MG IVP SCH (09:43)
[2018-03-30] MEDS: MUCINEX PO SCH (09:44)
[2018-03-30] MEDS: TOPROL XL PO SCH (09:44)
[2018-03-30] MEDS: COLACE PO SCH (09:48)
[2018-03-30] MEDS: K-DUR PO SCH (09:49)
[2018-03-30] MEDS: MIRALAX PO SCH (09:50)
[2018-03-30] MEDS: LOVENOX SUBCUT SCH (09:51)
[2018-03-30 10:06] VITALS: BP 124/77; TEMP 97.7
--- NOTE | 2018-03-30 11:27 | PN ---
DATE OF SERVICE: 03/28/18 SUBJECTIVE: The patient is still having cough and congestion. Shortness of breath is better. It hurts to take a breath. Not in any distress. REVIEW OF SYSTEMS: CONSTITUTIONAL: No fever, no chills. HEENT: Normal. ENDOCRINE: No weight gain, no weight loss. CVS: No angina symptoms. No CHF symptoms. No palpitations. No atypical chest pain for CAD. Shortness of breath, less. No PND, no orthopnea. RESPIRATORY: No cough, no hemoptysis. GI: No nausea, no vomiting. No abdominal pain. : No hematuria. No polyuria. MUSCULOSKELETAL: No joint swelling. PSYCHIATRIC: Not anxious. No depression. No suicidal thoughts. No homicidal thoughts. SKIN: Intact. No rash. PHYSICAL EXAMINATION: V/S: BP 151/73, respiratory rate 20, heart rate 63, temperature 97.4, saturation 99 on 3L. GENERAL: Cachetic lady lying in bed, very thin and small built. HEENT: Normocephalic, atraumatic. Mucosa dry. Pallor positive. NECK: Supple. No JVD, no carotid bruit. No lymphadenopathy. LUNGS: Decreased with some crackles heard. No rales or rhonchi. HEART: S1, S2 normal. No S3. No murmur, gallop or regurgitation. ABDOMEN: Soft, nontender. Bowel sounds active. No rigidity. No rebound or guarding. No CVA tenderness. EXTREMITIES: No cyanosis, clubbing or pedal edema. MUSCULOSKELETAL: No joint swelling. NEUROLOGIC: Awake, alert, oriented times three. No focal deficit. LYMPHATIC: No lymph nodes palpable. SKIN: Intact. LABS: White count 11.08, hemoglobin 10.8, hematocrit 33.7, platelet count 272. Sodium 137, potassium 3.7, chloride 97, bicarb 33, BUN 17, creatinine 0.51, glucose 118. ASSESSMENT: 1. COPD EXACERBATION SECONDARY TO BRONCHITIS 2. ACUTE ON CHRONIC HEART FAILURE 3. COPD, OXYGEN DEPENDENT 4. COMPRESSION DEFORMITIES IN THE BACK 5. CHRONIC PAIN SYNDROME 6. CACHETIC PLAN: 1. Continue Rocephin 2. Solu-Medrol 3. Duonebs 4. Daily I & O's TIME SPENT: More than 35 minutes MTDD
--- NOTE | 2018-03-30 13:50 | PN ---
DATE OF SERVICE: 03/29/18 SUBJECTIVE: The patient is admitted with COPD exacerbation and bronchitis. Cough and congestion is present, not able to get any phlegm. No fever, no chills. Shortness of breath is better. REVIEW OF SYSTEMS: CONSTITUTIONAL: No fever, no chills. HEENT: Normal. ENDOCRINE: No weight gain, no weight loss. CVS: No angina symptoms. No CHF symptoms. No palpitations. No atypical chest pain for CAD. Shortness of breath is less. No PND, no orthopnea. RESPIRATORY: Cough and congestion. No hemoptysis. GI: No nausea, no vomiting. No abdominal pain. : No hematuria. No polyuria. MUSCULOSKELETAL: No joint swelling. PSYCHIATRIC: Not anxious. No depression. No suicidal thoughts. No homicidal thoughts. SKIN: Intact. No rash. PHYSICAL EXAMINATION: V/S: BP 134/69, respiratory rate 18, heart rate 70, temperature 97.9, saturation 100% on 3L. HEENT: Normocephalic, atraumatic. Cachetic lady lying in bed, not in any distress. Pallor positive. No icterus. NECK: Supple. No JVD, no carotid bruit. No lymphadenopathy. LUNGS: Kyphosis is present. Decreased entry, basilar crackles. No rales or rhonchi. HEART: S1, S2 normal. No S3. No murmur, gallop or regurgitation. ABDOMEN: Soft, nontender. Bowel sounds active. No rigidity. No rebound or guarding. No CVA tenderness. EXTREMITIES: No cyanosis, clubbing or pedal edema. MUSCULOSKELETAL: No joint swelling. NEUROLOGIC: Awake, alert, oriented times three. No focal deficit. LYMPHATIC: No lymph nodes palpable. SKIN: Intact. LABS: White count 5.82, hemoglobin 10.5, hematocrit 33.0, platelet count 207. Sodium 138, potassium 4.5, chloride 97, bicarb 33, BUN 21, creatinine 0.52, glucose 104. ASSESSMENT: 1. COPD EXACERBATION SECONDARY TO BRONCHITIS 2. ACUTE ON CHRONIC HEART FAILURE BUT CHEST X-RAY DID NOT SHOW ANY PULMONARY CONGESTION - BNP WAS ELEVATED TO 391 3. CHRONIC BACK PAIN 4. COMPRESSION DEFORMITIES IN THE BACK 5. ANXIETY DISORDER 6. ANEMIA PLAN: 1. Continue to monitor CBC, CMP and in 6 months 2. Fall precaution 3. Decubitus ulcer precaution 4. Monitor hydration and nutritional status 5. Continue Rocephin 6. Continue Solu-Medrol TIME SPENT: More than 35 minutes MTDD
--- NOTE | 2018-04-02 08:15 | DS ---
DATE OF SERVICE: 03/30/18 FINAL DIAGNOSIS: 1. Acute hypoxemic respiratory failure 2. COPD exacerbation secondary to bronchitis 3. Acute on chronic respiratory failure 4. Cachexia 5. Multiple compression deformities in the back 6. Chronic pain syndrome 7. Anemia 8. Kyphosis DISCHARGE INSTRUCTIONS: Discharge the patient home. Followup up in the [facility] within 5-7 days. Continue home medications. MEDICATIONS AT DISCHARGE: Calcium with Vitamin D Metoprolol Potassium Duragesic patch Xanax Refresh eye drops Colace Lasix Mucinex [place] DUO NEBS Pantoprazole Miralax Keflex Synthroid NEW PRESCRIPTIONS: Keflex 500mg twice a day Prednisone 10mg twice a day for 5 days DIET INSTRUCTIONS: Cardiac and healthy ACTIVITY: As much as tolerated DISEASE SPECIFIC EDUCATION: COPD Needing for the pneumonia vaccination been discussed Antibiotic use and diarrhea been discussed HOSPITAL COURSE: Lili Boyd 86 year old female came to the emergency room with cough and congestion and shortness of breath. She is already on the 2 liters nasal cannula. D-dimer 532. pH 7.408, pCo2 53.8, pO2 50. CT chest showed the bilateral basilar infiltrates. The patient was admitted to the hospital with IV Rocephin and steroids and the breathing treatments. The patient was really having a lot of difficult time to breathe but gradually got improved. Still having the cough and congestion, cough medication was given to help her. Hospital course was uneventful. With the given antibiotics and the steroids the patient was feeling good and better and was able to walk inside the room. At that time the patient being discharged home. TIME SPENT: MORE THAN 65 MINUTES MTDD
== END 2018-03-30 15:50 | disposition home or self-care (01) | DRG 191 ==
LOC: ED 02:26 → MEDSURG B 05:33
PROVIDERS: ADMIT Emergency Medicine; ATTEND Emergency Medicine
DX: J47.1 Bronchiectasis with (acute) exacerbation (principal); J44.1 Chronic obstructive pulmonary disease with (acute) exacerbation; J44.0 Chronic obstructive pulmonary disease with (acute) lower respiratory infection; R64 Cachexia; J20.9 Acute bronchitis, unspecified; R06.02 Shortness of breath; R06.00 Dyspnea, unspecified; I50.9 Heart failure, unspecified; D64.9 Anemia, unspecified; M40.209 Unspecified kyphosis, site unspecified; G89.4 Chronic pain syndrome; M43.9 Deforming dorsopathy, unspecified; M54.9 Dorsalgia, unspecified; F41.9 Anxiety disorder, unspecified; Z68.1 Body mass index [BMI] 19.9 or less, adult; Z99.81 Dependence on supplemental oxygen
CPT/HCPCS: 36415; 80053; 82550; 82803; 83880; 84484; 85025; 85379; 93005; 93010; 94640; 96372; 99285

== ENCOUNTER 2018-05-20 15:57 | Outpatient (CLI) | END 2018-05-20 15:58 | disposition home or self-care (01) | LOC: RHC-LAB 15:57 | PROVIDERS: ATTEND Emergency Medicine | DX: R35.0 Frequency of micturition (principal) | CPT/HCPCS: 81001; 87086 ==

== ENCOUNTER 2018-07-14 19:49 | Inpatient (IN) ==
[2018-07-14] MEDS ORDERED: DUONEB NEB STA (19:54)
[2018-07-14] MEDS ORDERED: SOLU-MEDROL 125 MG IM STA (19:56)
[2018-07-14] MEDS ORDERED: SOLU-MEDROL 125 MG IVP STA (19:56)
--- NOTE | 2018-07-14 19:59 | ED.PDOC ---
General ED Provider: Dr. BRAYAN OROZCO Chief Complaint: Shortness of Air Stated Complaint: started having shortness of breath 3 hours ago. On home oxygen 2.5 liters daily. symptoms started suddenly but denies any chest pain. Time Seen by Physician: 19:57 Information Source: Patient, Family Exam Limitations: Clinical condition Primary Care Provider: JOLEEN CHAPMAN Nursing and Triage Documentation Reviewed and Agree: Yes Does patient meet sepsis criteria?: Yes If yes, has appropriate treatment been initiated?: Yes System Inflammatory Response Syndrome: Resp >20/Minute Sepsis Protocol: For patient's 13 years and over: Temp is 96.8 and below OR 101 and greater Pulse >90 BPM Resp >20/minute Acutely Altered Mental Status Are patient's symptoms suggestive of a new infection, such as: -Pneumonia -Skin, Soft Tissue -Endocarditis -UTI -Bone, Joint Infection -Implantable Device -Acute Abdominal Infection -Wound Infection -Meningitis -Blood Stream Catheter Infection -Unknown Respiratory Complaint Exam - Shortness of Air Complaint/Exam Onset/Duration: 3 hours ago Timing: Constant Initial Severity: Moderate Current Severity: Severe Character: Reports: Dyspnea at rest Aggravating: Reports: None Alleviating: Reports: Bronchodilators, EMS treatment, Oxygen Associated Signs and Symptoms: Reports: Cough, Wheezing Related History: Reports: Similar episode Pseudomonas Risk Factors: Reports: Chronic Lung Disease Home Oxygen Use: Yes (2.5) Recent Stress Test: No Recent Echo/LV Function: No Respiratory Distress: Severe Stridor Present: No Tracheal Deviation: No Subcutaneous Emphysema: No Accessory Muscle Use: Yes Retractions: Supraclavicular, Intercostal, Diaphragmatic Diminished Breath Sounds: Yes Prolonged Expiratory Phase: Yes Unable to Speak Full Sentences: No Fatigue: No Leg Swelling: No Sujata's Sign Present: No Grunting Respirations: No Kussmaul Respirations: No Differential Diagnoses: COPD Exacerbation Quality Indicator For Non-Traumatic Chest Pain/Syncope: EKG Performed Review of Systems - Review Of Systems Constitutional: Reports: No symptoms Eyes: Reports: No symptoms Ears, Nose, Mouth, Throat: Reports: No symptoms Respiratory: Reports: Cough, Short of air, Wheezing Cardiac: Reports: No symptoms GI: Reports: No symptoms : Reports: No symptoms Musculoskeletal: Reports: No symptoms Skin: Reports: No symptoms Neurological: Reports: Anxiety Endocrine: Reports: No symptoms Hematologic/Lymphatic: Reports: No symptoms All Other Systems: Reviewed and Negative Past Medical History - Past Medical History Previously Healthy: Yes Endocrine: Reports: Hypothyroid Cardiovascular: Reports: Hypertension Respiratory: Reports: COPD (oxygen depenent on ), Asthma, Other (bronchiectasis , 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) Hematological: Reports: Anemia Gastrointestinal: Reports: None Genitourinary: Reports: None Neuro/Psych: Reports: None Musculoskeletal: Reports: Arthritis Cancer: Reports: None - Surgical History General Surgical History: Reports: 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) - Family History Family History: Reports: Unknown - Social History Smoking Status: Former smoker Hx Substance Use: No Alcohol Screening: None Physical Exam - Physical Exam Appearance: Ill-appearing, Thin Ill-appearing: Severe Pain Distress: None Neck: Supple Respiratory: Breath sounds diminished, Wheezes Cardiovascular: RRR, Pulses normal, No rub, No murmur Musculoskeletal: Normal strength, ROM intact, No edema, No calf tenderness Skin: Warm, Dry, Normal color Neurological: Alert, Oriented Psychiatric: Anxious Interpretation - Radiology Interpretation Radiology Interpretation By: Radiologist Radiology Results: No acute changes Exam Interpreted: Portable CXR Re-Evaluation - Re-Evaluation Time of Re-Evaluation: 22:00 (resting comfortably ) Status: Improved Vital Signs Stable: Yes Appearance: NAD Lungs: Other (Rales at the base) Physician Notification - Case Discussed Physician Notified: Dr Spakrs Time of Notification: 21:45 (ok to admit ) Critical Care Note - Critical Care Note Total Time (mins): 45 Course - Course Hematology/Chemistry: 07/14/18 20:49 07/14/18 20:49 Orders, Labs, Meds: Lab Review 07/14/18 07/14/18 07/14/18 19:54 20:49 20:49 WBC 30.80 H RBC 3.29 L Hgb 10.7 L Hct 33.8 L MCV 102.7 H MCH 32.5 H MCHC 31.7 L RDW Coeff of Rosie 17.5 H Plt Count 312 Neutrophils % (Manual) 88.0 H Lymphocytes % (Manual) 12.0 Anisocytosis Not present Puncture Site Lb O2 Saturation 99.0 ABG pH 7.284 L* ABG pCO2 67.1 H ABG pO2 187.0 H ABG HCO3 31.8 H ABG Total CO2 34 H ABG Base Excess 5 H Zain Test + O2 Delivery Device Nrb Oxygen Liter Flow 15.00 FiO2 % 100.0 Sodium Potassium Chloride Carbon Dioxide Anion Gap BUN Creatinine Estimated GFR (MDRD) BUN/Creatinine Ratio Glucose Lactic Acid 1.85 Calcium Total Bilirubin AST ALT Alkaline Phosphatase Total Creatine Kinase Troponin I Total Protein Albumin Globulin Albumin/Globulin Ratio Procalcitonin 07/14/18 07/14/18 07/14/18 20:49 20:49 20:54 WBC RBC Hgb Hct MCV MCH MCHC RDW Coeff of Rosie Plt Count Neutrophils % (Manual) Lymphocytes % (Manual) Anisocytosis Puncture Site Lb O2 Saturation 100.0 ABG pH 7.386 ABG pCO2 56.3 H ABG pO2 175.0 H ABG HCO3 33.7 H ABG Total CO2 35 H ABG Base Excess 9 H Zain Test + O2 Delivery Device Bnc Oxygen Liter Flow 4.00 FiO2 % 36.0 Sodium 136.1 L Potassium 4.50 Chloride 102.0 Carbon Dioxide 30.7 H Anion Gap 7.90 BUN 16.3 Creatinine 0.51 L Estimated GFR (MDRD) 114.00 BUN/Creatinine Ratio 31.96 Glucose 221.2 H Lactic Acid Calcium 9.16 Total Bilirubin 0.57 AST 48.6 H ALT 31.6 Alkaline Phosphatase 59.0 Total Creatine Kinase 34.6 Troponin I < 0.012 Total Protein 6.58 Albumin 4.04 Globulin 2.54 Albumin/Globulin Ratio 1.59 Procalcitonin < 0.05 Orders Category Date Time Status ABG DRAW REQUEST Routine CARDIO 07/14/18 20:54 Completed ABG DRAW REQUEST Stat CARDIO 07/14/18 19:55 Completed EKG-(ED ONLY) Stat CARDIO 07/14/18 19:55 Completed NEBULIZER TREATMENT Stat CARDIO 07/14/18 19:55 Completed ED APPLY O2 .ONCE EMERGENCY 07/14/18 19:54 Active ED US ADMINISTRATIVE LAW JUDGE APPLIED .ONCE EMERGENCY 07/14/18 19:54 Active ED IV/MEDIPORT/POWERPORT .ONCE EMERGENCY 07/14/18 19:54 Active ABG Stat LAB 07/14/18 19:54 Completed ABG Stat LAB 07/14/18 20:54 Completed BLOOD CULTURE (ED ONLY) Stat LAB 07/14/18 20:49 Received CBC W/ AUTO DIFF Stat LAB 07/14/18 20:49 Completed COMPREHENSIVE METABOLIC PANEL Stat LAB 07/14/18 20:49 Completed CREATINE KINASE Stat LAB 07/14/18 20:49 Completed LACTIC ACID Stat LAB 07/14/18 20:49 Completed MANUAL DIFFERENTIAL Stat LAB 07/14/18 20:49 Completed PROCALCITONIN Stat LAB 07/14/18 20:49 Completed TROPONIN I Stat LAB 07/14/18 20:49 Completed 0.9 % Sodium Chloride [Saline Flush] MEDS 07/14/18 19:54 Ordered 1 syr IVF PRN PRN Furosemide [Lasix] MEDS 07/14/18 20:15 Discontinued 20 mg IVP ONCE STA Ipratropium/Albuterol Neb [Duoneb] MEDS 07/14/18 19:54 Discontinued 1 vial NEB ONCE STA Lorazepam Inj [Ativan] MEDS 07/14/18 20:11 Discontinued 0.5 mg IVP ONCE STA Methylprednisolone Sod Succ/Pf [Solu-Medrol 125 mg] MEDS 07/14/18 19:56 Discontinued 125 mg IM ONCE STA Methylprednisolone Sod Succ/Pf [Solu-Medrol 125 mg] MEDS 07/14/18 19:56 Discontinued 125 mg IVP ONCE STA Morphine Sulfate [Morphine 2 mg/ml Syringe] MEDS 07/14/18 20:18 Discontinued 2 mg IVP ONCE STA Piperacillin Sodium/Tazobactam [Zosyn 3.375 gm] 3.375 MEDS 07/14/18 20:30 Discontinued gm 0.9 % Sodium Chloride [Sodium Chloride] 50 ml IV ONCE CHEST, 1V AP ONLY Stat RADS 07/14/18 19:55 Completed Medications Generic Name Dose Route Start Last Admin Trade Name Freq PRN Reason Stop Dose Admin Albuterol/Ipratropium 1 vial 07/15/18 06:00 Duoneb NEB RTQID TAMMI Albuterol/Ipratropium 1 vial 07/14/18 22:03 Duoneb NEB RTQ2H PRN Wheezing Alprazolam 0.5 mg 07/15/18 09:00 Niravam Odt (Surgery) PO BID TAMMI Docusate Sodium 200 mg 07/15/18 09:00 Colace PO DAILY TAMMI Enoxaparin Sodium 40 mg 07/15/18 09:00 Lovenox SUBCUT DAILY TAMMI Fentanyl patch 07/17/18 09:00 Duragesic 12 Mcg/Hr TD Q72HR TAMMI Fentanyl patch 07/17/18 09:00 Duragesic 25 Mcg/Hr TD Q72HR TAMMI Furosemide 20 mg 07/15/18 06:30 Lasix Tab PO QDAC [facility] Guaifenesin 1,200 mg 07/15/18 09:00 Mucinex PO BID TAMMI Piperacillin Sod/Tazobactam 50 mls @ 50 mls/hr 07/15/18 00:00 Sod 3.375 gm/ Sodium Chloride IV Q6HR TAMMI Levothyroxine Sodium 25 mcg 07/15/18 06:30 Synthroid PO QDAC [facility] Methylprednisolone Sodium Succinate 60 mg 07/15/18 05:00 Solu-Medrol 125 Mg IVP Q8HR TAMMI Morphine Sulfate 2 mg 07/14/18 22:03 Morphine 2 Mg/Ml Syringe IVP Q4H PRN Severe Pain and Air Hunger Non-Formulary Medication 1 each 07/15/18 09:00 Carboxymethylcellulose Sodium [Refresh Plus] OP BID [facility] Ondansetron HCl 4 mg 07/14/18 22:03 Zofran 4 Mg/2 Ml IVP Q6H PRN Nausea / Vomiting Pantoprazole Sodium 40 mg 07/15/18 09:00 Protonix PO DAILY [facility] Polyethylene Glycol 17 gm 07/15/18 09:00 Miralax PO DAILY [facility] Potassium Chloride 20 meq 07/15/18 08:00 K-Dur PO DAILYWM [facility] Sodium Chloride 1 syr 07/14/18 19:54 07/14/18 20:27 Saline Flush IVF 1 syr PRN PRN Administration To flush IV Discontinued Medications Generic Name Dose Route Start Last Admin Trade Name Freq PRN Reason Stop Dose Admin Albuterol/Ipratropium 1 vial 07/14/18 19:54 07/14/18 20:14 Duoneb NEB 07/14/18 19:55 1 vial ONCE STA Administration Furosemide 20 mg 07/14/18 20:15 07/14/18 20:25 Lasix IVP 07/14/18 20:16 20 mg ONCE STA Administration Piperacillin Sod/Tazobactam 50 mls @ 50 mls/hr 07/14/18 20:30 07/14/18 20:54 Sod 3.375 gm/ Sodium Chloride IV 07/14/18 21:29 50 mls/hr ONCE STA Administration Lorazepam 0.5 mg 07/14/18 20:11 07/14/18 20:19 Ativan IVP 07/14/18 20:12 0.5 mg ONCE STA Administration Methylprednisolone Sodium Succinate 125 mg 07/14/18 19:56 07/14/18 20:04 Solu-Medrol 125 Mg IVP 07/14/18 19:57 125 mg ONCE STA Administration Methylprednisolone Sodium Succinate 125 mg 07/14/18 19:56 07/14/18 20:58 Solu-Medrol 125 Mg IM 07/14/18 19:57 Not Given ONCE STA Morphine Sulfate 2 mg 07/14/18 20:18 07/14/18 20:21 Morphine 2 Mg/Ml Syringe IVP 07/14/18 20:19 2 mg ONCE STA Administration Vital Signs: Temp Pulse Resp BP Pulse Ox 07/14/18 21:39 140/89 07/14/18 20:21 90 168/124 H 07/14/18 20:07 98.3 F 73 44 H 175/93 H 99 Departure - Departure Time of Disposition: 22:01 Disposition: ADMITTED INPATIENT Discharge Problem: COPD exacerbation Pneumonia Qualifiers: Pneumonia type: due to unspecified organism Laterality: bilateral Lung location : lower lobe of lung Qualified Code(s): J18.1 - Lobar pneumonia, unspecified organism Condition: Stable Pt referred to PMD for follow-up: No IPMP verified?: No Allergies/Adverse Reactions: Allergies hydromorphone [From Dilaudid] Adverse Reaction (Verified 12/10/17 14:28) Sulfa (Sulfonamide Antibiotics) Adverse Reaction (Verified 12/10/17 14:28) Home Medications: Ambulatory Orders Carboxymethylcellulose Sodium [Refresh Plus] 1 each OP BID 12/10/17 Furosemide [Lasix Tab] 20 mg PO QDAC 12/10/17 Guaifenesin [Mucinex] 2 tab PO BID 12/10/17 Polyethylene Glycol 3350 [Miralax] 17 gm PO DAILY 12/10/17 Docusate Sodium [Colace] 200 mg PO DAILY 03/27/18 Hydrocodone Bit/Acetaminophen [[place] 5-325] 5 - 325 mg PO Q6H PRN 03/27/18 Disposition Discussed With: Patient, Family
[2018-07-14] MEDS ORDERED: ATIVAN IVP STA (20:11)
[2018-07-14 20:13] VITALS: BMI 15.3
[2018-07-14] MEDS ORDERED: LASIX IVP STA (20:15)
[2018-07-14] MEDS ORDERED: MORPHINE 2 MG/ML SYRINGE IVP STA (20:18)
--- NOTE | 2018-07-14 20:27 | DI ---
EXAM: Chest, single view 07/14/2018 HISTORY: Short of air COMPARISON: 12/14/2017 FINDINGS / IMPRESSION: Cardiomediastinal contours appear enlarged. Interstitial infiltrate within b oth lungs. This is most prominent perihilar and bibasilar. Blunting of the lateral costophrenic angles. This may relate to a combination of atelectasis, pneumo christy and possible pleural effusions. No pneumothorax.
[2018-07-14] MEDS ORDERED: ZOSYN 3.375 GM 3.375 GM in SODIUM CHLORIDE 50 ML IV STA (20:30)
[2018-07-14] MEDS ORDERED: MORPHINE 2 MG/ML SYRINGE IVP PRN (22:03)
[2018-07-14] MEDS ORDERED: DUONEB NEB PRN (22:03)
[2018-07-14] MEDS ORDERED: ZOFRAN 4 MG/2 ML IVP PRN (22:03)
--- NOTE | 2018-07-14 23:30 | PCM ---
- Chief Complaint Chief Complaint: SOA concern for pneumonia. - History of Present Illness History of Present Illness: 88 yo WF present in [facility] with son Clifford. patient asleep upon entry at 11:20 pm. He noted that she was feeling fine, actually better than she had been doing over past 2 months, up until about 5pm today. [facility]apj[facility] care noted that she was having an increased difficulty with breathing, noted O2 down to 84, gave neb, on 2.5 L regularly o2 at home. They repeated O2 eval after neb and she was 77%. Called ambulance and was brought to hospital for further eval. No N/V/D, no cough, no URI, no pain, no discomfort, did not choke, did not fall , no stroke like symptoms, no atypical issues other than she started to have difficulty breathing. She was sitting in chair watching TV. She has history of anemia. No history of DM per son. She has not had an any steroids or abx in the past 90 days. Last admit 02/2018. Dr. Brush saw her in the Er and called me this evening just after 2200. WBC markedly elevated at 30, neutrophilia predominate pattern. ABG completed pre and post neb. Primary respiratory acidosis, chronic with metabolic alkalosis. Post neb pH improved from 7.284 to 7.386, pc02 dropped from 67.1 to 56.3 and po2 187 to 175. HC03 31.8 up to 33.7. This was on 4L. Creatinine was stable at 0.51. GFR 114. She had elevated glucose of 221.2. Torponin was negative. CK was negative, procalcitonin negative, lactate was negative. Second ABG showed primary resp acid chronic w/ secondary met alk. CXR blunting of lateral costophrenic angles , May relate to combination of atelectasis, pneumonia and possible pleural effusions. NO pneumothorax, compared with cxr from 12/14/17. She had CT chest . I reviewed this and she has chronic bilateral lower lung bronchiectasis w /o superimposed infiltrate. No change from 01/08/18. Multilevel thoracic compression fractures w/ remaining normal levels T1, T2, T4, T8, new intermediate grade fracture of T10 when compared to 01/08/18. I have ordered a CT chest due to sudden acuity of her SOA. She is on tele, now with normal o2. She awoke and needed to use restroom. She and nurse ambulated well to bathroom. Gluteal region reviewed and no breakdown. No skin breakdown around the buttock, heels etc. She has no c/o now. Hearing aid bilateral ear. Not aware of day/date/time, but was aware she was not at home and wanted to return there. She is comfortable, happy to lie on right side. We discussed her wishes and she would like to go home when able. She has no c/o pain, no URI symptoms, no GI symptoms, no symptoms, no pain in joints, no SEAMAN, no neuro symptoms, no falls, no dizziness. Ambulated to bathroom and back and did not desat and she did not have any c/o. They are not interste din NH for now. Chronic anemia stable per their report. NO recent abx/steroids. Discussed findings on labs. We talked about concern for SIRS and now possible sepsis. She wanted to sleep/rest. I allowed her to do that. Reviewed last OV in [facility] and last D/C summary from [facility] - Review of Systems Constitutional: fatigue (after 5 pm today. ). No: fever, chills, weakness, sweats, loss of appetite, other Eyes: No: blurred vision, double-vision, discharge, itching, pain, redness, photophobia, other Ears: No: pain, bleeding, drainage, ringing, hearing loss, other Nose: No: bleeding, congestion, discharge, other Throat: No: pain, swelling, voice change, other Mouth: No: bleeding, pain, swelling, other Respiratory: cough, shortness of air, wheeze. No: hemoptysis, pain with breathing, other Cardiovascular: No: chest pain, left arm pain, diaphoresis, PND, orthopnea, edema, palpitations, syncope, other Gastrointestinal: No: abdominal pain, other, nausea, vomiting, diarrhea, melena , hematemesis, hematochezia, dysphagia, constipation Genitourinary: No: dysuria, hematuria, frequency, incontinence, flank pain, vaginal discharge, abnormal bleeding, pelvic pain, other Neurological: No: headache, other, dizziness, seizure, numbness, weakness, speech difficulty, problems with walking, tremor, fainting Musculoskeletal: No: pain, swelling in joints, other Skin: No: rash, pruritus, lacerations, wounds, bruising, other Immunology: No: hives, itching, frequent infections, difficulty healing, other Hematology: No: easy bruising, easy bleeding, swollen glands, other Endocrine: No: weight changes, cold intolerance, heat intolerance, excessive thirst, excessive hunger, polyuria, other Psychiatric: No: depression, anxiety, sleeplessness, hopelessness, suicidal, hallucinations, other Habits: No: tobacco use, substance use, alcohol use, other - Past Medical History Past Medical History: 2 children son and daughter. Healthy. 1 brother and 1 sister. healthy per patient. COPD, cachexia, anemia, HTN, OA, Rheuma arthritis, Chronic pain, chronic opiate use, hypothyroid, depression, anxiety, bilateral cataract w/ surgery, sinus surgery. Left lung lobectomy, cholecystectomy. Kyphosis. - Past Surgical History Past Surgical History: Lobectomy lung. Cholecystectomy, sinus surgery, bilateral cataract surgery. - Allergies Allergies/Adverse Reactions: Allergies Allergy/AdvReac Type Severity Reaction Status Date / Time hydromorphone [From Dilaudid] AdvReac Verified 12/10/17 14:28 Sulfa (Sulfonamide AdvReac Verified 12/10/17 14:28 Antibiotics) - Medications Medications: Medications Generic Name Dose Route Start Last Admin Trade Name Freq PRN Reason Stop Dose Admin Albuterol/Ipratropium 1 vial 07/15/18 06:00 Duoneb NEB RTQID TAMMI Albuterol/Ipratropium 1 vial 07/14/18 22:03 Duoneb NEB RTQ2H PRN Wheezing Alprazolam 0.5 mg 07/15/18 09:00 Niravam Odt (Surgery) PO BID TAMMI Docusate Sodium 200 mg 07/15/18 09:00 Colace PO DAILY TAMMI Enoxaparin Sodium 40 mg 07/15/18 09:00 Lovenox SUBCUT DAILY TAMMI Fentanyl patch 07/17/18 09:00 Duragesic 12 Mcg/Hr TD Q72HR TAMMI Fentanyl patch 07/17/18 09:00 Duragesic 25 Mcg/Hr TD Q72HR TAMMI Furosemide 20 mg 07/15/18 06:30 Lasix Tab PO QDAC TAMMI Guaifenesin 1,200 mg 07/15/18 09:00 Mucinex PO BID TAMMI Piperacillin Sod/Tazobactam 50 mls @ 50 mls/hr 07/15/18 00:00 Sod 3.375 gm/ Sodium Chloride IV Q6HR TAMMI Levothyroxine Sodium 25 mcg 07/15/18 06:30 Synthroid PO QDAC TAMMI Methylprednisolone Sodium Succinate 60 mg 07/15/18 05:00 Solu-Medrol 125 Mg IVP Q8HR TAMMI Morphine Sulfate 2 mg 07/14/18 22:03 Morphine 2 Mg/Ml Syringe IVP Q4H PRN Severe Pain and Air Hunger Non-Formulary Medication 1 each 07/15/18 09:00 Carboxymethylcellulose Sodium [Refresh Plus] OP BID TAMMI Ondansetron HCl 4 mg 07/14/18 22:03 Zofran 4 Mg/2 Ml IVP Q6H PRN Nausea / Vomiting Pantoprazole Sodium 40 mg 07/15/18 09:00 Protonix PO DAILY TAMMI Polyethylene Glycol 17 gm 07/15/18 09:00 Miralax PO DAILY TAMMI Potassium Chloride 20 meq 07/15/18 08:00 K-Dur [facility] Sodium Chloride 1 syr 07/14/18 19:54 07/14/18 20:27 Saline Flush IVF 1 syr PRN PRN Administration To flush IV - Family History Past Family History: 2 children healthy. 2 siblings healthy. NO reported family history. Daughter Magda POA. 24 hour home care. Father w/ CVA. - Social History Past Social History: No tobacco - Vital Signs Temperature: 98.3 F Pulse Rate: 90 Respiratory Rate: 44 Blood Pressure: 121/62 O2 Sat by Pulse Oximetry: 99 - Body Composition Height: 5 ft 2 in Weight: 83 lb 12.41 oz Body Mass Index (BMI): 15.3 - Physical Examination HEENT: Constitutional: Appearance-No acute distress, resting side lying/lateral decubitus. Frail, kyphotic, Consistent with stated age. Orientation- Not oriented, dementia. WOuld not tell me day/date/time. Aware of name. Aware that she had met me in this hospital before and that she was in hospital but wanted to be home. Gait- Kyphotic, she did have good gait walking to bathroom with assist from nursing. Build and Nutrition-Frail, cachectic, thin, general TM wasting. General- Patient is pleasant and cooperative with the interview and exam. Asleep awoken to use restroom then answered all my questions. She was jovial, no cues of pain, no grimace. We did check gluteal region. With nurses present. E/o hemorrhoid historically. No obvious skin breakdown. Mild erythema along right lateral flank from side lying. Integumentary: General-No concerning rashes, ulcers or lesions. Palpation- Normal skin moisture/turgor. Skin is warm to touch, appropriate. No skin breakdown. Head/Neck: Head- normocephalic and atraumatic. Neck- Prominent kyphosis, not tender. No bony tenderness about head/neck along frontal, occipital, temporal, parietal, mastoid, jawline, zygoma, orbit or any other location.~ NO temporal artery tenderness. No TMJ tenderness. Neck Supple. Thyroid-No thyromegaly, no nodules Eye: Bilaterally PERRLA, EOMI. No discharge. Upper and lower eyelids are normal. Sclera/conjunctiva normal without discharge. Cornea is normal and clear. Lens is normal. Eyeball appears normal. No ciliary flushing, no conjunctival injection. ENMT: Pinna- normal without tenderness or erythema. External auditory canal- HEARING AID bilaterally. Removed, mild scarring bilateral TM. Replaced personally. Tolerated well, they work well for hearing and she can maintain normal conversation. Hearing Assessment-normal to conversational speech. with hearing aids Nose and sinus- No sinus tenderness along frontal/maxillary region. External appearance normal and midline. Nares- bilateral quiet airflow, no discharge. Nasal mucosa- No bleeding noted and no ulcerations observed. [place] , moist. Turbinates non boggy. Lips- normal color, moist without cracks/lesions Oral Cavity/Palate- hard/soft palate intact without lesions, oral mucosa pink and moist. Tongue and uvula normal midline. Oropharynx- no pharyngeal erythema , Uvula midline. No post nasal drip. No exudate. Salivary glands- Non tender to palpation CHEST/LUNG: Inspection- symmetric chest wall no pectus deformity. Normal effort , no distress, no use of accessory muscles. Palpation- nontender sternum, ribline. No abnormal pulsations. Auscultation- Diminished sounds throughout, mild tachypnea. Crackles bilateral lower lobes. Wheezes scattered. Coarse tracheal sounds, bronchial sounds overlying sternum, Bronchovessicular sounds coarse between scapulae posteriorly, Coarse vessicular breath sounds heard throughout periphery. Adventitious sounds- scattered wheezes, and rhonchi. ? Rales bilateral Lower lobes. No retractions no access muscle uses Tachypneic. CARDIOVASCULAR: Carotid artery- normal, no bruits or abnormal pulsations. Jugular vein- no pulsations. Palpation/Percussion- Normal PMI, no palpable thrill Auscultation- Regular rate and rhythm. No murmur noted in sitting, supine positions. Extremities- no cyanosis, edema, increased warmth. ABDOMEN: Inspection- normal and no visible pulsations. Normal contour. Auscultation- Bowel sounds normal, no abdominal bruits. Palpation/Percussion- soft, non-tender, no rebound tenderness, no rigidity (guarding), no jar tenderness, no masses. Liver-no hepatomegaly, Spleen no splenomegaly, Hernias - none. Rectal not examined. Peripheral Vascular: Upper extremity Left- Normal temperature with pink nailbeds and no ulcerations. Upper extremity Right- Normal temperature with pink nailbeds and no ulcerations. Lower extremity- Normal temperature with pink nailbeds and no ulcerations. DP pulses 1+ bilaterally. Edema- No edema. Musculoskeletal: Generalized-No generalized swelling or edema of extremities, no digital clubbing or cyanosis, neurovascularly intact all four extremities. Moves all 4. Thinning generally. 4/5 hip flexion, 4/5 knee extension. shoulders normal ROM and 4+/5 strength. Generalized weakness. Normal stone trimmer, normal movement, normal ambulation. Neurological: General- Moves all 4 extremities symmetrically. Symmetrical face and body posture. Cranial nerves- individually evaluated II-XII and intact. PERRLA, Normal EOMI, visual/special senses appear intact, Face is symmetrical and normal sensation/movement, normal tongue, normal strength/posture of neck musculature. Reflexes- intact with DTR 2+ patellar, Achilles, bicep, brachial, tricep. Neuropsych: Oriented- Not oriented to place, time. Mood/affect- joking and blowing off answers. Suspect dementia. Tries to get out of bed repeatedly. Vague answers poor historian. - Lab/Tests/Diagnostic Imaging Lab/Tests/Diagnostic Imaging: Laboratory Last Values WBC 30.80 K/ul (4.6-10.2) H 07/14/18 20:49 RBC 3.29 10^6/ul (4.20-5.40) L 07/14/18 20:49 Hgb 10.7 g/dl (12.0-16.0) L 07/14/18 20:49 Hct 33.8 % (37.0-47.0) L 07/14/18 20:49 MCV 102.7 fl (81.0-99.0) H 07/14/18 20:49 MCH 32.5 pg (27.0-31.0) H 07/14/18 20:49 MCHC 31.7 (31.8-35.4) L 07/14/18 20:49 RDW Coeff of Rosie 17.5 % (11.6-14.8) H 07/14/18 20:49 Plt Count 312 10^3/uL (140-440) 07/14/18 20:49 Neutrophils % (Manual) 88.0 % (42.2-75.2) H 07/14/18 20:49 Lymphocytes % (Manual) 12.0 % (10.0-50.0) 07/14/18 20:49 Anisocytosis Not present (NOT PRESENT) 07/14/18 20:49 Puncture Site Lb 07/14/18 20:54 O2 Saturation 100.0 % (95-100) 07/14/18 20:54 ABG pH 7.386 (7.35-7.45) 07/14/18 20:54 ABG pCO2 56.3 mmHg (35-45) H 07/14/18 20:54 ABG pO2 175.0 mmHg (85-100) H 07/14/18 20:54 ABG HCO3 33.7 (22.0-26.0) H 07/14/18 20:54 ABG Total CO2 35 (22.0-28.0) H 07/14/18 20:54 ABG Base Excess 9 (-2.0-2.0) H 07/14/18 20:54 Zain Test + 07/14/18 20:54 O2 Delivery Device [facility] 07/14/18 20:54 Oxygen Liter Flow 4.00 07/14/18 20:54 FiO2 % 36.0 % 07/14/18 20:54 Sodium 136.1 mmol/L (137-145) L 07/14/18 20:49 Potassium 4.50 mmol/L (3.5-5.1) 07/14/18 20:49 Chloride 102.0 mmol/L (98-107) 07/14/18 20:49 Carbon Dioxide 30.7 mmol/L (22-30.0) H 07/14/18 20:49 Anion Gap 7.90 07/14/18 20:49 BUN 16.3 mg/dL (7-17) 07/14/18 20:49 Creatinine 0.51 mg/dL (0.60-1.30) L 07/14/18 20:49 Estimated GFR (MDRD) 114.00 mL/min 07/14/18 20:49 BUN/Creatinine Ratio 31.96 07/14/18 20:49 Glucose 221.2 mg/dL (74-106) H 07/14/18 20:49 Lactic Acid 1.85 mmol/L (0.7-2.1) 07/14/18 20:49 Calcium 9.16 mg/dL (8.4-10.2) 07/14/18 20:49 Total Bilirubin 0.57 mg/dL (0.2-1.3) 07/14/18 20:49 AST 48.6 U/L (14-36) H 07/14/18 20:49 ALT 31.6 U/L (0-35) 07/14/18 20:49 Alkaline Phosphatase 59.0 U/L (53-141) 07/14/18 20:49 Total Creatine Kinase 34.6 U/L (30-135) 07/14/18 20:49 Troponin I < 0.012 ng/ml (0.0000-0.120) 07/14/18 20:49 Total Protein 6.58 g/dL (6.3-8.2) 07/14/18 20:49 Albumin 4.04 g/dL (3.5-5.0) 07/14/18 20:49 Globulin 2.54 07/14/18 20:49 Albumin/Globulin Ratio 1.59 07/14/18 20:49 Procalcitonin < 0.05 ng/mL (0.09) 07/14/18 20:49 ABG chronic resp acid w/ metab alk CXR: Bilateral lower lobe findings. CXR: Blunting of lateral costophrenic angles may relate to combination of atelectais pneumonia and possible pleural eff bilat. - Assessment (1) Neutrophilia Status: Acute Code(s): D72.9 - DISORDER OF WHITE BLOOD CELLS, UNSPECIFIED SNOMED Code(s): 842226149, 125740793 (2) Hyperglycemia Status: Acute Code(s): R73.9 - HYPERGLYCEMIA, UNSPECIFIED SNOMED Code(s): 85120533 (3) COPD exacerbation Status: Acute Code(s): J44.1 - CHRONIC OBSTRUCTIVE PULMONARY DISEASE W (ACUTE ) EXACERBATION SNOMED Code(s): 881322063 (4) Pneumonia Status: Acute Code(s): J18.9 - PNEUMONIA, UNSPECIFIED ORGANISM SNOMED Code(s ): 939186445 Qualifiers: Pneumonia type: due to unspecified organism Laterality: bilateral Lung location: lower lobe of lung Qualified Code(s): J18.1 - Lobar pneumonia, unspecified organism (5) Acute respiratory failure Status: Acute Code(s): J96.00 - ACUTE RESPIRATORY FAILURE, UNSP W HYPOXIA OR HYPERCAPNIA SNOMED Code(s): 76130188 Qualifiers: Respiratory failure complication: hypoxia Qualified Code(s): J96.01 - Acute respiratory failure with hypoxia (6) Bronchiectasis Status: Acute Code(s): J47.9 - BRONCHIECTASIS, UNCOMPLICATED SNOMED Code(s) : 77635064 Qualifiers: Bronchiectasis type: with acute exacerbation Qualified Code(s): J47.1 - Bronchiectasis with (acute) exacerbation (7) Cervical spondylosis with myelopathy Status: Acute Code(s): M47.12 - OTHER SPONDYLOSIS WITH MYELOPATHY, CERVICAL REGION SNOMED Code(s): 92663700 (8) Chronic prescription opiate use Status: Acute Code(s): Z79.891 - ASSISTED (CURRENT) USE OF OPIATE ANALGESIC SNOMED Code(s): 133552509 (9) Frailty Status: Acute Code(s): R54 - AGE-RELATED PHYSICAL DEBILITY SNOMED Code(s): 473346480 (10) Underweight Status: Resolved Code(s): R63.6 - UNDERWEIGHT SNOMED Code(s): 239653569 (11) SIRS (systemic inflammatory response syndrome) Status: Acute Code(s): R65.10 - SIRS OF NON-INFECTIOUS ORIGIN W/O ACUTE ORGAN DYSFUNCTION SNOMED Code(s): 290677405 (12) Sepsis Status: Acute Code(s): A41.9 - SEPSIS, UNSPECIFIED ORGANISM SNOMED Code(s): 76601903 (13) Acquired hypothyroidism Status: Acute Code(s): E03.9 - HYPOTHYROIDISM, UNSPECIFIED SNOMED Code(s): 763506741 (14) Former smoker Status: Chronic Code(s): Z87.891 - PERSONAL HISTORY OF NICOTINE DEPENDENCE SNOMED Code(s): 8777476 - Plan Plan: SIRS w/ Sepsis w/ possible bilateral Lower lobe pneumonia: Leukocytosis with neutrophilia, elevated glucose. She presented to Er with retractions w/ improvement with bronchodilators and ems treatment/O2. Regularly using O2 at home. Was okay and sitting with 24 hour care until she became SOA. NO choking, no coughing, no gasping. She has history of bronchiectasis and this poses risk for pseudomonal process. We reviewed risk factors for both MRSA and pseudomonas. She has not had any recent ilness, she has been doing better lately than a long time. NO c/o now. She has not had any major factors for MRSA but has CT e/o bronchiectasis and now with ?pneumonia. I would like to check CT PE protocol make sure that there is no PE with sudden onset. She has had negative troponin x 1. No chest pain, no c/o SOA now. NO retractions now, afebrile. Port score of at least 146 points with risk class V 27-29.2% mortality. Hospitalization recommended. She was admitted, started on zosyn. I will add pseudomonal FQ. I will treat with levaquin 500 daily x 5 days in addition to the zosyn. No Beta lactam allergy, this is reasonable. CURB65 score of 3 points risk group 14% 30 day mortality. As noted admit for inpatient status. We will treat with IV abx, PO steroids, regular diet. Her glucose was not >249 (PORT SCORE criteria) but was elevated at 222. She had a 163 11/05/16 otherwise normal. ?Steroidal effect as she has e/o demargination. DDX bronchitis/COPD exacerbation, PE. Modified favio reviewed and PE is on ddx due to sudden acuity of SOA when feeling fine before that point. NO E/O DVT. EKG no S1Q3T3 on EKG. - Sputum culture - Continue zosyn, add levaquin. Total length of tx 5 days. - change IV steroids to PO prednisone 40mg PO daily x 5 days. - CT PE protocol. - Ipratopium QID - Albuterol q 4 hours prn. - Admit inpatient - Tele. Neutrophilia: Repeat CBC tomorrow.. -CBC 07/15/18. Hyperglycemia: Unknown etiology. Denies steroids (other than those in ER). - A1C - repeat CMP in am. Hypoglycemia: NO recent TSH. This has been ordered/evaluated as OP, but not yet completed. Last TSH was 12/2017 and elevated. We will repeat in hospital and adjust dose of levothyroxine as needed. - TSH in am. Chronic anemia: Macrocytic stable. Monitor. - Repeat CBC tomorrow. Activity: - Up with assist. Underweight: On megace. Home med cont. Diet: Regular DVT Prophy: Renal function is stable. - Lovenox 40 daily. Code Status: DNR. Disposition: Admission today >70 minutes. Discussed case with DR. Brush, discussed with nursing staff, reviewed telemetry, talked with son in room. Magda is POA, she will be back tomorrow. Son and I discussed above.
[2018-07-15] MEDS ORDERED: ALBUTEROL 0.083% NEB NEB PRN (00:07)
[2018-07-15] MEDS: ZOSYN 3.375 GM 3.375 GM in SODIUM CHLORIDE 50 ML IV SCH ×5 (01:24→23:18)
--- NOTE | 2018-07-15 01:25 | CT ---
EXAM: CT angiogram chest with intravenous contrast 07/15/2018. Multi planar reformatted images obta ined. Three-dimensional reconstructed images provided HISTORY: Acute shortness of air COMPARISON: 07/14/2018, 03/27/2018 FINDINGS: Cardiomegaly. No pericardial effusion. The thoracic aorta shows no acute abnormality. No aneurysm or dissection. There are no pulmonary arterial filling defects to suggest pulmonary embolus. Anatomic detail partial ly degraded by motion artifact. Small embolus distal to the segmental arterial level could be obscur ed. Emphysematous changes throughout both lungs. Chronic bilateral lower lobe atelectasis and bronchiecta sis. Consolidation in the right lung base has increased slightly. Trace pleural effusions. Multiple compression fractures throughout the spine appear similar in distribution as compared to the prior study. No new fracture site identified. IMPRESSION: 1. No evidence of pulmonary embolus. 2. Emphysema. 3. Chronic bilateral lower lobe atelectasis with bronchiectasis. Right basilar consolidation slight ly increased 4. Trace bilateral pleural effusions.
[2018-07-15] MEDS: DUONEB NEB SCH ×4 (04:42→20:05)
[2018-07-15] MEDS ORDERED: SOLU-MEDROL 125 MG IVP SCH (05:00)
[2018-07-15] MEDS ORDERED: LEVAQUIN 100 ML IV ONE (05:33)
[2018-07-15] MEDS: SYNTHROID PO SCH (05:53)
[2018-07-15] MEDS: LASIX TAB PO SCH (05:53)
[2018-07-15] MEDS ORDERED: ATROVENT 0.02% NEB NEB PRN (06:00)
--- NOTE | 2018-07-15 07:51 | PCM.PROG ---
Subjective: 88 yo hospital day 1 abx full day 1, w/ combo of zosyn and levaquin. Patient son Clifford present in room. She was seen by me last night around 23:00-24: 30 and we discussed health, reviewed CXR, reviewed labs. She had prominent neutrophilia, which has improved from 30.80 down to 17.34. Hgb has dropped nearly 1G, hct down from 33.8 to 30.7 which is typical of a 3 point drop per 1g hgb deficit. Plt have dropped from 312 to 226. She seems to have had a dilutional effect. Neutrophils have declined. She has a relative lymphocytopenia. I was contacted with critical CO2 this am of 40.3 Her O2 was set at 2-3L and she was at 100%. I had them back her down to 1.5 L. She has nebs ordered. Sodium stable, K_ stable, mildly down from yesterday but okay. Creatinine remains okay at 0.53, gfr 109. Sugars are much better. Sh ewas at 221 in ER and now at 120.7. It appears to be steroidal effect, but family denied any steroids prior to labs. A1C was fine at 5.05. Calcium is stable and TSH is doing well. We did check urine and this was negative. SG 1.010, neg blood, neg nit. She was awake upon entry, pleasant. She has no c/o other than mild SOA. CT PE protocol showed no PE, she has right lower lobe consolidation, bilateral bronchiectasis. I have ordered sputum culture, urine culture and blood cultures, which are all pending. Discussed case with Pérez [place] nurse. She has done okay through the night. Resp has seen her, nebs given. Discussed with him patient health this am, thankful for his help. Vitals reviewed overnight. BP is okay at <150/90 (149/82 and 148/82). O2 has been 94- 100 at up to 4L. I have asked them to turn this down a little to titrate 92-98% . She is co2 retaining. REviewed telemetry and SR. This am still w/o chest pain. Mild tachypnea, but she feels fine. Urinating well. She had 600ml output in last shift (~6 hours). ~2.8 ml/kg/hour output. She has had 2 voids. I watched her ambulate last night. She has no c/o chest pain, no rhinorrhea, no sore throat. Mild cough, mild SOA, mild tachypnea and difficulty breathing. Color looks good, no rash. She has no N/V/D, no abd pain , no urinary symptoms, no diarrhea, no constipation. She has no complaints of joint pain. Chronic kyphotic changes but nothing new. No falls, no skin breakdown. This am she states she feels good and was not sure why she had issues yesterday. HOme meds reviewed w/ patient and son. Daughter magda will be here later today (POA). we will talk about the above again. New labs reviewed with son. CT reviewed with son. Doing well and plan d/c in 1- 2 days if continues to improve. ROS: As listed above. No complaints by patient other than cough and mild SOA. Full ROS completed and she has no complaints. Objective: Vital Signs - 24 hr 07/14/18 07/14/18 07/14/18 20:07 20:21 21:39 Temperature 98.3 F Pulse Rate 73 90 Respiratory 44 H Rate Blood Pressure 175/93 H 168/124 H 140/89 O2 Sat by Pulse 99 Oximetry 07/14/18 07/14/18 07/15/18 21:53 22:59 00:41 Temperature 97.7 F 98.3 F Pulse Rate 74 90 Respiratory 24 44 H Rate Blood Pressure 121/62 121/62 O2 Sat by Pulse 95 99 Oximetry 07/15/18 07/15/18 07/15/18 01:45 04:59 06:00 Temperature 98.6 F 97.9 F Pulse Rate 70 73 Respiratory 18 18 Rate Blood Pressure 149/82 H 148/82 H O2 Sat by Pulse 100 98 94 L Oximetry Constitutional: Appearance-No acute distress, sitting in bed awake, pleasant. Dementia is present not oriented well. Aware of self, aware in hospital. Time is not known, date/day not known. Frail appearance kyphotic, Consistent with stated age. Orientation- Not oriented, dementia historically. Build and Nutrition-Frail, thin, general TM wasting. General- Patient is pleasant and cooperative with the interview and exam. Hearing aids in place. Again jovial, no cues of pain, no grimace. Integumentary: General-No concerning rashes, ulcers or lesions. Legs/arms/ abdomen/face/neck/superior chest (not breast) reviewed this am and okay. Palpation- Normal skin moisture/turgor. Skin is warm to touch, appropriate. No skin breakdown. Head/Neck: Head- normocephalic and atraumatic. Neck- Prominent kyphosis, not tender. No bony tenderness about head/neck along frontal, occipital, temporal, parietal, mastoid, jawline, zygoma, orbit or any other location.~ NO temporal artery tenderness. No TMJ tenderness. Neck Supple. Thyroid-No thyromegaly, no nodules Eye: Bilaterally PERRLA, EOMI. No discharge. Upper and lower eyelids are normal. Sclera/conjunctiva normal without discharge. Cornea is normal and clear. Lens is normal. Eyeball appears normal. No ciliary flushing, no conjunctival injection. ENMT: HEARING AID bilaterally. Removed (at admit and ears okay w/ mild scarring bilateral TM) Nares- bilateral quiet airflow, no discharge. Nasal mucosa- No bleeding noted and no ulcerations observed. [place], moist. Turbinates non boggy. Lips- normal color, moist without cracks/lesions Oral Cavity/Palate- hard/soft palate intact without lesions, oral mucosa pink and moist. Tongue and uvula normal midline. Oropharynx- no pharyngeal erythema, Uvula midline. No post nasal drip. No exudate. Salivary glands- Non tender to palpation CHEST/LUNG: Inspection- symmetric chest wall. Kyphosis is present. Talks in full sentences, mildly tachypneic, no use of accessory muscles this am. Palpation- nontender sternum, ribline. No abnormal pulsations. Auscultation- Diminished sounds throughout, mild tachypnea. Crackles bilateral lower lobes. Wheezes scattered, unchanged. Coarse tracheal sounds, bronchial sounds overlying sternum, Bronchovessicular sounds coarse between scapulae posteriorly , Coarse vessicular breath sounds heard throughout periphery. Adventitious sounds- scattered wheezes, and rhonchi. ? Rales bilateral Lower lobes. No retractions no access muscle uses Tachypneic. CARDIOVASCULAR: Carotid artery- normal, no bruits or abnormal pulsations. Jugular vein- no pulsations. Palpation/Percussion- Normal PMI, no palpable thrill Auscultation- Regular rate and rhythm. No murmur noted in sitting, supine positions. Extremities- no cyanosis, edema, increased warmth. ABDOMEN: Inspection- normal and no visible pulsations. Normal contour. Auscultation- Bowel sounds normal, no abdominal bruits. Palpation/Percussion- soft, non-tender, no rebound tenderness, no rigidity (guarding), no jar tenderness, no masses. Liver-no hepatomegaly, Spleen no splenomegaly, Hernias - none. Rectal not examined. Peripheral Vascular: Upper extremity Left- Normal temperature with pink nailbeds and no ulcerations. Upper extremity Right- Normal temperature with pink nailbeds and no ulcerations. Lower extremity- Normal temperature with pink nailbeds and no ulcerations. DP pulses 1+ bilaterally. Edema- No edema. Musculoskeletal: Generalized-No generalized swelling or edema of extremities, no digital clubbing or cyanosis, neurovascularly intact all four extremities. Moves all 4. Calves symmetrical, no e/o DVT. Thinning generally. Neurological: General- Moves all 4 extremities symmetrically. Symmetrical face and body posture. Cranial nerves- individually evaluated II-XII and intact. PERRLA, Normal EOMI, visual/special senses appear intact, Face is symmetrical and normal sensation/movement, normal tongue, normal strength/posture of neck musculature. Reflexes- intact with DTR 2+ patellar, Achilles, bicep, brachial, tricep. Neuropsych: Oriented- Not oriented to place, time. Mood/affect- joking and blowing off answers. Suspect dementia. Tries to get out of bed repeatedly. Vague answers poor historian. Laboratory Last Values WBC 17.34 K/ul (4.6-10.2) H D 07/15/18 05:30 RBC 3.03 10^6/ul (4.20-5.40) L 07/15/18 05:30 Hgb 9.8 g/dl (12.0-16.0) L 07/15/18 05:30 Hct 30.7 % (37.0-47.0) L 07/15/18 05:30 MCV 101.3 fl (81.0-99.0) H 07/15/18 05:30 MCH 32.3 pg (27.0-31.0) H 07/15/18 05:30 MCHC 31.9 (31.8-35.4) 07/15/18 05:30 RDW Coeff of Rosie 17.5 % (11.6-14.8) H 07/15/18 05:30 Plt Count 226 10^3/uL (140-440) 07/15/18 05:30 Immature Gran % (Auto) 0.7 % (0.0-5.0) 07/15/18 05:30 Neut % (Auto) 90.7 07/15/18 05:30 Lymph % (Auto) 4.3 (10.0-50.0) L 07/15/18 05:30 [place] % (Auto) 3.9 (0-10) 07/15/18 05:30 Eos % (Auto) 0.2 % (0.0-7.0) 07/15/18 05:30 Baso % (Auto) 0.2 % (0.0-3.0) 07/15/18 05:30 Immature Gran # (Auto) 0.1 (0.0-1.0) 07/15/18 05:30 Neut # (Auto) 15.7 K/ul (2.0-6.9) H 07/15/18 05:30 Lymph # (Auto) 0.7 K/uL (0.60-3.4) 07/15/18 05:30 [place] # (Auto) 0.7 K/uL (0.4-2.0) 07/15/18 05:30 Eos # (Auto) 0.0 K/ul (0.0-0.7) 07/15/18 05:30 Baso # (Auto) 0.0 K/uL (0-0.2) 07/15/18 05:30 Neutrophils % (Manual) 88.0 % (42.2-75.2) H 07/14/18 20:49 Lymphocytes % (Manual) 12.0 % (10.0-50.0) 07/14/18 20:49 Anisocytosis Not present (NOT PRESENT) 07/14/18 20:49 Puncture Site Lb 07/14/18 20:54 O2 Saturation 100.0 % (95-100) 07/14/18 20:54 ABG pH 7.386 (7.35-7.45) 07/14/18 20:54 ABG pCO2 56.3 mmHg (35-45) H 07/14/18 20:54 ABG pO2 175.0 mmHg (85-100) H 07/14/18 20:54 ABG HCO3 33.7 (22.0-26.0) H 07/14/18 20:54 ABG Total CO2 35 (22.0-28.0) H 07/14/18 20:54 ABG Base Excess 9 (-2.0-2.0) H 07/14/18 20:54 Zain Test + 07/14/18 20:54 O2 Delivery Device [facility] 07/14/18 20:54 Oxygen Liter Flow 4.00 07/14/18 20:54 FiO2 % 36.0 % 07/14/18 20:54 Sodium 137.4 mmol/L (137-145) 07/15/18 05:30 Potassium 3.93 mmol/L (3.5-5.1) 07/15/18 05:30 Chloride 96.5 mmol/L (98-107) L 07/15/18 05:30 Carbon Dioxide 40.3 mmol/L (22-30.0) H* D 07/15/18 05:30 Anion Gap 4.53 07/15/18 05:30 BUN 16.6 mg/dL (7-17) 07/15/18 05:30 Creatinine 0.53 mg/dL (0.60-1.30) L 07/15/18 05:30 Estimated GFR (MDRD) 109.00 mL/min 07/15/18 05:30 BUN/Creatinine Ratio 31.32 07/15/18 05:30 Glucose 120.7 mg/dL (74-106) H D 07/15/18 05:30 Hemoglobin A1c 5.05 (4.0-6.0) 07/15/18 05:30 Lactic Acid 1.85 mmol/L (0.7-2.1) 07/14/18 20:49 Calcium 9.23 mg/dL (8.4-10.2) 07/15/18 05:30 Total Bilirubin 0.57 mg/dL (0.2-1.3) 07/14/18 20:49 AST 48.6 U/L (14-36) H 07/14/18 20:49 ALT 31.6 U/L (0-35) 07/14/18 20:49 Alkaline Phosphatase 59.0 U/L (53-141) 07/14/18 20:49 Total Creatine Kinase 34.6 U/L (30-135) 07/14/18 20:49 Troponin I < 0.012 ng/ml (0.0000-0.120) 07/14/18 20:49 Total Protein 6.58 g/dL (6.3-8.2) 07/14/18 20:49 Albumin 4.04 g/dL (3.5-5.0) 07/14/18 20:49 Globulin 2.54 07/14/18 20:49 Albumin/Globulin Ratio 1.59 07/14/18 20:49 Procalcitonin < 0.05 ng/mL (0.09) 07/14/18 20:49 TSH 1.210 uIU/L (0.465-4.68) 07/15/18 05:30 Urine Color Yellow (YELLOW) 07/15/18 00:00 Urine Clarity Clear (CLEAR) 07/15/18 00:00 Urine pH 5.5 (5-9) 07/15/18 00:00 Ur Specific [place] 1.010 (1.005-1.030) 07/15/18 00:00 Urine Protein Negative (NEGATIVE) 07/15/18 00:00 Urine Glucose (UA) Negative (NEGATIVE) 07/15/18 00:00 Urine Ketones Negative (NEGATIVE) 07/15/18 00:00 Urine Blood Negative (NEGATIVE) 07/15/18 00:00 Urine Nitrite Negative (NEGATIVE) 07/15/18 00:00 Urine Bilirubin Negative (NEGATIVE) 07/15/18 00:00 Urine Urobilinogen 0.2 (0.2) 07/15/18 00:00 Ur Leukocyte Esterase Negative (NEGATIVE) 07/15/18 00:00 WBC Trends 07/14/18 07/15/18 Range/Units 20:49 05:30 WBC 30.80 H 17.34 H D (4.6-10.2) K/ul H/H Trends 07/14/18 07/15/18 Range/Units 20:49 05:30 Hgb 10.7 L 9.8 L (12.0-16.0) g/dl Hct 33.8 L 30.7 L (37.0-47.0) % CT PE protocol 07/15/18: NO PE. Emphysema is present, chronic bilateral lower lobe atelectaiss w/ bronchiectasis. Right basilar consolidation slightly increased. Trace bilateral pleural effusions. Compared w/ CXR 07/14/18 and imaging from 03/27/18. TELE: no concerning findings. ABX: Levaquin Day 10/03 Zosyn Day 10/03 (1) Neutrophilia Status: Acute Code(s): D72.9 - DISORDER OF WHITE BLOOD CELLS, UNSPECIFIED SNOMED Code(s): 432571368 (2) Hyperglycemia Status: Acute Code(s): R73.9 - HYPERGLYCEMIA, UNSPECIFIED SNOMED Code(s): 38640765 (3) COPD exacerbation Status: Acute Code(s): J44.1 - CHRONIC OBSTRUCTIVE PULMONARY DISEASE W (ACUTE ) EXACERBATION SNOMED Code(s): 455788545 (4) Pneumonia Status: Acute Code(s): J18.9 - PNEUMONIA, UNSPECIFIED ORGANISM SNOMED Code(s ): 373341904 (5) Acute respiratory failure Status: Acute Code(s): J96.00 - ACUTE RESPIRATORY FAILURE, UNSP W HYPOXIA OR HYPERCAPNIA SNOMED Code(s): 42958195 (6) Bronchiectasis Status: Acute Code(s): J47.9 - BRONCHIECTASIS, UNCOMPLICATED SNOMED Code(s) : 70574661 (7) Cervical spondylosis with myelopathy Status: Acute Code(s): M47.12 - OTHER SPONDYLOSIS WITH MYELOPATHY, CERVICAL REGION SNOMED Code(s): 68038004 (8) Chronic prescription opiate use Status: Acute Code(s): Z79.891 - RESEARCH RECRUITER (CURRENT) USE OF OPIATE ANALGESIC SNOMED Code(s): 848342772 (9) Frailty Status: Acute Code(s): R54 - AGE-RELATED PHYSICAL DEBILITY SNOMED Code(s): 581460862 (10) Underweight Status: Resolved Code(s): R63.6 - UNDERWEIGHT SNOMED Code(s): 750777423 (11) SIRS (systemic inflammatory response syndrome) Status: Acute Code(s): R65.10 - SIRS OF NON-INFECTIOUS ORIGIN W/O ACUTE ORGAN DYSFUNCTION SNOMED Code(s): 526454419 (12) Sepsis Status: Acute Code(s): A41.9 - SEPSIS, UNSPECIFIED ORGANISM SNOMED Code(s): 38256085 (13) Acquired hypothyroidism Status: Acute Code(s): E03.9 - HYPOTHYROIDISM, UNSPECIFIED SNOMED Code(s): 089448274 (14) Former smoker Status: Chronic Code(s): Z87.891 - PERSONAL HISTORY OF NICOTINE DEPENDENCE SNOMED Code(s): 2386550 Plan: SIRS/Sepsis/Pneumonia: CT no PE, RLL consolidation. Sputum cultures ordered. Will add Strep pneumo urine ag. Awaiting cultures for blood, sputum, urine. Labs better. WBC improved from 30 down to 17, sugar improving. Suspect some dilutional effect, suspect some ?steroidal effect. Neutrophilia is improving. She had decrease in WBC/HGB/PLT as expected. Abx should cover for CAP and should cover for pseudomonal risk factors. NO history of PCN/B lactam allergy. She is doing well, stable. Mild tachypnea. Did have some elevated CO2. I will have them monitor this today. Titrate O2 to 92-98. We will back down on O2 from 4 L to 1.5-2L. Continue neb treatments today. Plan is to continue abx to complete 5 day course. When POA arrives will talk with her. IF patient continues to feel this good we may d/c home in 1-2 days if she is doing okay. PORT/CURB65 scores have higher mortality risks and this is why she was admitted. Negative PE protocol. CT showed consolidation better. Now dx with RLL pneumonia. RR is much better, still tachypneic but better than 20-40 that she was in ER. - IV levaquin day 1/5 - IV zosyn day 1/5 - Possibly changes to Cefdinir/levaquin at d/c to complete 5 day course. - Urine ag for strep pneumonia to be ordered - Await cultures - Continue PO steroids continue this for 5 days. - Continue nebs albuterol q 4 hours and ipratropium QID. - Continue Tele Leukocytosis with neutrophilia: Improving. ?Steroidal effect. - CBC tomorrow. Hyperglycemia: Improving. Continue to monitor. A1C <6.0. No meds. not diabetic. NO accuchecks needed. - repeat CMP in am. Hypothyroid: TSH stable, continue current dose. Chronic anemia: Macrocytic stable. Down ~1G. Monitor. Dilutional likely. - Repeat CBC tomorrow. Activity: - Up with assist. Underweight: On megace. Home med cont. Diet: Regular DVT Prophy: Renal function is stable. - Lovenox 40 daily. Code Status: DNR. Disposition: Rounding today >35 minutes. talked with son, reviewed tele, reviewed labs, called about critical lab. Reviewed care with nursing staff, talked with son in room. Magda is POA, she will be back today. Would like to discuss plans with her. Goal home in 1-2 days if she continues to improve. Returned to room 1700 and talked with daughter [email or web address]. She wants mother to be in hospital when ill. I discussed patient has voiced wishes of being home. WE talked about care, talked about possible plan for d/c tomorrow and Magda agreed. Talked with son Clifford x 2 today and with daughter x 1. No interest in NH. Wants to return home.
[2018-07-15] MEDS ORDERED: NIRAVAM ODT (SURGERY) PO SCH (09:00)
[2018-07-15] MEDS: MIRALAX PO SCH (09:17)
[2018-07-15] MEDS: XANAX PO SCH ×2 (09:18→20:49)
[2018-07-15] MEDS: PREDNISONE PO SCH (09:18)
[2018-07-15] MEDS: COLACE PO SCH (09:18)
[2018-07-15] MEDS: TOPROL XL PO SCH (09:19)
[2018-07-15] MEDS: PROTONIX PO SCH (09:19)
[2018-07-15] MEDS: MUCINEX PO SCH ×2 (09:19→20:49)
[2018-07-15] MEDS: LEVAQUIN 500 MG in PREMIX 100 ML D5W 1 BAG IV SCH (09:19)
[2018-07-15] MEDS: K-DUR PO SCH (09:19)
[2018-07-15] MEDS: LOVENOX SUBCUT SCH (09:20)
[2018-07-15] MEDS: CARBOXYMETHYLCELLULOSE SODIUM OP SCH ×2 (09:20→20:50)
[2018-07-16] MEDS: ZOSYN 3.375 GM 3.375 GM in SODIUM CHLORIDE 50 ML IV SCH (05:00)
[2018-07-16] MEDS: DUONEB NEB SCH ×2 (05:00→09:55)
[2018-07-16] MEDS: PROTONIX PO SCH (05:32)
[2018-07-16] MEDS: SYNTHROID PO SCH (05:32)
[2018-07-16] MEDS: LASIX TAB PO SCH (05:32)
--- NOTE | 2018-07-16 08:08 | PCM.DC ---
Final Diagnosis: RLL Pneumonia/SIRS w/ Sepsis/Respiratory Failure (Acute) Neutrophilia (Acute, resolved) Hyperglycemis (Acute, REsolved) Acquired hypothyroidism (Chronic) COPD exacerbation (Acute) Former smoker (Chronic) Anemia (Chronic) Bronchiectasis (Chronic) Chronic prescription opiate use (Chronic) Dementia (Chronic) Frailty (Chronic) Hypokalemia (Acute on chronic) Underweight (Chronic) (1) Pneumonia Status: Acute Code(s): J18.9 - PNEUMONIA, UNSPECIFIED ORGANISM SNOMED Code(s ): 419334513 Qualifiers: Pneumonia type: due to unspecified organism Laterality: right Lung location: lower lobe of lung Qualified Code(s): J18.1 - Lobar pneumonia, unspecified organism (2) Neutrophilia Status: Resolved Code(s): D72.9 - DISORDER OF WHITE BLOOD CELLS, UNSPECIFIED SNOMED Code(s): 489704457, 845065131 (3) Hyperglycemia Status: Resolved Code(s): R73.9 - HYPERGLYCEMIA, UNSPECIFIED SNOMED Code(s) : 68379239 (4) COPD exacerbation Status: Acute Code(s): J44.1 - CHRONIC OBSTRUCTIVE PULMONARY DISEASE W (ACUTE ) EXACERBATION SNOMED Code(s): 595946002 (5) Acute respiratory failure Status: Resolved Code(s): J96.00 - ACUTE RESPIRATORY FAILURE, UNSP W HYPOXIA OR HYPERCAPNIA SNOMED Code(s): 07328390 Qualifiers: Respiratory failure complication: hypoxia Qualified Code(s): J96.01 - Acute respiratory failure with hypoxia (6) Bronchiectasis Status: Chronic Code(s): J47.9 - BRONCHIECTASIS, UNCOMPLICATED SNOMED Code(s ): 81969234 Qualifiers: Bronchiectasis type: with acute exacerbation Qualified Code(s): J47.1 - Bronchiectasis with (acute) exacerbation (7) Chronic prescription opiate use Status: Acute Code(s): Z79.891 - SHELTER (CURRENT) USE OF OPIATE ANALGESIC SNOMED Code(s): 637970522 (8) Frailty Status: Acute Code(s): R54 - AGE-RELATED PHYSICAL DEBILITY SNOMED Code(s): 196654561 (9) Underweight Status: Resolved Code(s): R63.6 - UNDERWEIGHT SNOMED Code(s): 855204479 (10) SIRS (systemic inflammatory response syndrome) Status: Resolved Code(s): R65.10 - SIRS OF NON-INFECTIOUS ORIGIN W/O ACUTE ORGAN DYSFUNCTION SNOMED Code(s): 362786820 (11) Sepsis Status: Resolved Code(s): A41.9 - SEPSIS, UNSPECIFIED ORGANISM SNOMED Code(s ): 18657030 (12) Acquired hypothyroidism Status: Chronic Code(s): E03.9 - HYPOTHYROIDISM, UNSPECIFIED SNOMED Code(s) : 763706560 (13) Former smoker Status: Chronic Code(s): Z87.891 - PERSONAL HISTORY OF NICOTINE DEPENDENCE SNOMED Code(s): 9720959 Reason for Hospitalization: Pneumonia, SIRS, Sepsis w/ respiratory distress, COPD exacerbation. Frail, underweight elderly patient. Prognosis at Discharge: Markedly improved. Vitals stable, neutrophilia resolved. We will continue levaquin for 5 day total treatment I will add cefdinir in place of zosyn. Monitor x 3-5 days, see me in office within 1 week. Condition at Discharge: Chronic dementia, breathing stable/improved. Prognosis is good. Condition is markedly improved from initial eval in ER. Medications at Discharge: Ambulatory Orders Medication Instructions Recorded Carboxymethylcellulose Sodium 1 each OP BID 12/10/17 [Refresh Plus] Furosemide [Lasix Tab] 20 mg PO QDAC 12/10/17 Guaifenesin [Mucinex] 2 tab PO BID 12/10/17 Polyethylene Glycol 3350 [Miralax] 17 gm PO DAILY 12/10/17 Docusate Sodium [Colace] 200 mg PO DAILY 03/27/18 Hydrocodone Bit/Acetaminophen 5 - 325 mg PO DAILY 03/27/18 [Yeso 5-325] Albuterol Sulfate 0.083% Neb 1 vial NEB RTQ4H PRN #100 vial.neb 07/16/18 [Albuterol 0.083% Neb] Cefdinir [Omnicef] 300 mg PO BID #6 capsule 07/16/18 Ipratropium [place] 0.02% Neb 1 vial NEB QID 30 Days #120 07/16/18 [Atrovent 0.02% Neb] vial.neb Levofloxacin [Levaquin] 500 mg PO QDAC 4 Days #3 tablet 07/16/18 Prednisone 40 mg PO DAILYWM 3 Days #6 tablet 07/16/18 Lab/Diagnostics: Laboratory Last Values WBC 7.82 K/ul (4.6-10.2) D 07/16/18 04:40 RBC 2.88 10^6/ul (4.20-5.40) L 07/16/18 04:40 Hgb 9.2 g/dl (12.0-16.0) L 07/16/18 04:40 Hct 28.8 % (37.0-47.0) L 07/16/18 04:40 MCV 100.0 fl (81.0-99.0) H 07/16/18 04:40 MCH 31.9 pg (27.0-31.0) H 07/16/18 04:40 MCHC 31.9 (31.8-35.4) 07/16/18 04:40 RDW Coeff of Rosie 17.3 % (11.6-14.8) H 07/16/18 04:40 Plt Count 225 10^3/uL (140-440) 07/16/18 04:40 Immature Gran % (Auto) 0.6 % (0.0-5.0) 07/16/18 04:40 Neut % (Auto) 62.4 07/16/18 04:40 Lymph % (Auto) 21.5 (10.0-50.0) 07/16/18 04:40 Lamar % (Auto) 14.2 (0-10) H 07/16/18 04:40 Eos % (Auto) 0.8 % (0.0-7.0) 07/16/18 04:40 Baso % (Auto) 0.5 % (0.0-3.0) 07/16/18 04:40 Immature Gran # (Auto) 0.1 (0.0-1.0) 07/16/18 04:40 Neut # (Auto) 4.9 K/ul (2.0-6.9) 07/16/18 04:40 Lymph # (Auto) 1.7 K/uL (0.60-3.4) 07/16/18 04:40 [place] # (Auto) 1.1 K/uL (0.4-2.0) 07/16/18 04:40 Eos # (Auto) 0.1 K/ul (0.0-0.7) 07/16/18 04:40 Baso # (Auto) 0.0 K/uL (0-0.2) 07/16/18 04:40 Neutrophils % (Manual) 88.0 % (42.2-75.2) H 07/14/18 20:49 Lymphocytes % (Manual) 12.0 % (10.0-50.0) 07/14/18 20:49 Anisocytosis Not present (NOT PRESENT) 07/14/18 20:49 Puncture Site Lb 07/14/18 20:54 O2 Saturation 100.0 % (95-100) 07/14/18 20:54 ABG pH 7.386 (7.35-7.45) 07/14/18 20:54 ABG pCO2 56.3 mmHg (35-45) H 07/14/18 20:54 ABG pO2 175.0 mmHg (85-100) H 07/14/18 20:54 ABG HCO3 33.7 (22.0-26.0) H 07/14/18 20:54 ABG Total CO2 35 (22.0-28.0) H 07/14/18 20:54 ABG Base Excess 9 (-2.0-2.0) H 07/14/18 20:54 Zain Test + 07/14/18 20:54 O2 Delivery Device [facility] 07/14/18 20:54 Oxygen Liter Flow 4.00 07/14/18 20:54 FiO2 % 36.0 % 07/14/18 20:54 Sodium 134.1 mmol/L (137-145) L 07/16/18 04:40 Potassium 3.45 mmol/L (3.5-5.1) L 07/16/18 04:40 Chloride 95.9 mmol/L (98-107) L 07/16/18 04:40 Carbon Dioxide 38.5 mmol/L (22-30.0) H 07/16/18 04:40 Anion Gap 3.15 07/16/18 04:40 BUN 16.7 mg/dL (7-17) 07/16/18 04:40 Creatinine 0.55 mg/dL (0.60-1.30) L 07/16/18 04:40 Estimated GFR (MDRD) 105.00 mL/min 07/16/18 04:40 BUN/Creatinine Ratio 30.36 07/16/18 04:40 Glucose 80.5 mg/dL (74-106) 07/16/18 04:40 Hemoglobin A1c 5.05 (4.0-6.0) 07/15/18 05:30 Lactic Acid 1.85 mmol/L (0.7-2.1) 07/14/18 20:49 Calcium 8.98 mg/dL (8.4-10.2) 07/16/18 04:40 Total Bilirubin 0.57 mg/dL (0.2-1.3) 07/14/18 20:49 AST 48.6 U/L (14-36) H 07/14/18 20:49 ALT 31.6 U/L (0-35) 07/14/18 20:49 Alkaline Phosphatase 59.0 U/L (53-141) 07/14/18 20:49 Total Creatine Kinase 34.6 U/L (30-135) 07/14/18 20:49 Troponin I < 0.012 ng/ml (0.0000-0.120) 07/14/18 20:49 Total Protein 6.58 g/dL (6.3-8.2) 07/14/18 20:49 Albumin 4.04 g/dL (3.5-5.0) 07/14/18 20:49 Globulin 2.54 07/14/18 20:49 Albumin/Globulin Ratio 1.59 07/14/18 20:49 Procalcitonin < 0.05 ng/mL (0.09) 07/14/18 20:49 TSH 1.210 uIU/L (0.465-4.68) 07/15/18 05:30 Urine Color Yellow (YELLOW) 07/15/18 00:00 Urine Clarity Clear (CLEAR) 07/15/18 00:00 Urine pH 5.5 (5-9) 07/15/18 00:00 Ur Specific [place] 1.010 (1.005-1.030) 07/15/18 00:00 Urine Protein Negative (NEGATIVE) 07/15/18 00:00 Urine Glucose (UA) Negative (NEGATIVE) 07/15/18 00:00 Urine Ketones Negative (NEGATIVE) 07/15/18 00:00 Urine Blood Negative (NEGATIVE) 07/15/18 00:00 Urine Nitrite Negative (NEGATIVE) 07/15/18 00:00 Urine Bilirubin Negative (NEGATIVE) 07/15/18 00:00 Urine Urobilinogen 0.2 (0.2) 07/15/18 00:00 Ur Leukocyte Esterase Negative (NEGATIVE) 07/15/18 00:00 WBC Trends 07/14/18 07/15/18 07/16/18 Range/Units 20:49 05:30 04:40 WBC 30.80 H 17.34 H D 7.82 D (4.6-10.2) K/ul H/H Trends 07/14/18 07/15/18 07/16/18 Range/Units 20:49 05:30 04:40 Hgb 10.7 L 9.8 L 9.2 L (12.0-16.0) g/dl Hct 33.8 L 30.7 L 28.8 L (37.0-47.0) % BUN/CR Trends 07/14/18 07/15/18 07/16/18 Range/Units 20:49 05:30 04:40 BUN 16.3 16.6 16.7 (7-17) mg/dL Creatinine 0.51 L 0.53 L 0.55 L (0.60-1.30) mg/dL CT PE protocol 07/15/18: NO PE. Emphysema is present, chronic bilateral lower lobe atelectaiss w/ bronchiectasis. Right basilar consolidation slightly increased. Trace bilateral pleural effusions. Compared w/ CXR 07/14/18 and imaging from 03/27/18. TELE: no concerning findings. ABX: Levaquin Day 2/5 Zosyn Day 2/5 We will complete 3 days outpatient beyond today with oral levaquin 500mg daily and zosyn Cr Cl without taking into account underweight status/height 44 Cr Cl with taking into account ideal body weight/height 58. I will continue daily 500mg levaquin based on this data. Education Provided to Patient and Family: 1. Neb treatments albuterol every 4 hours PRN 2. Neb treatments with ipratropium 4 x daily. 3. Antibiotics levaquin 1 daily x 3 days starting 07/17/18 4. Antibiotics cefdinir 1 PO BID x 3 days starting 07/17/18. 5. F/U in office with me in 1 week. Will discuss w/ family. Follow-ups: 1 Week in our clinic [phone]. Disposition: HOME SELF-CARE Hospital Course: Day of Admit: 07/14/18 88 yo WF present in [facility]U-3 with son Clifford after presenting to ER by EMS for acute respiratory distress. Dr. Brush in ER. She was doing great over preceding 2 months and around 5pm on date of admit acute SOA, resp distress. She has around -the-clock care, chronic O2. Home monitoring agency noted that she was having an increased difficulty with breathing, noted O2 down to 84, gave neb, on 2.5 L regularly o2 at home, this did not help and they called family. O2 dropped to 77 and ambulance called and she was brought to hospital for further eval. No N/ V/D, no cough, no URI, no pain, no discomfort, did not choke, did not fall, no stroke like symptoms, no atypical issues other than she started to have difficulty breathing. She was sitting in chair watching TV at the time. She has history of chronic anemia. She had not had an any steroids or abx in the past 90 days. Last admit 02/2018. In Er WBC markedly elevated at 30, neutrophilia predominate pattern. ABG completed pre and post neb. Primary respiratory acidosis, chronic with metabolic alkalosis. Post neb pH improved from 7.284 to 7.386, pc02 dropped from 67.1 to 56.3 and po2 187 to 175. HC03 31.8 up to 33.7. This was on 4L. Creatinine was stable at 0.51. GFR 114. She had elevated glucose of 221.2 without hx of diabets. Torponin was negative. CK was negative, procalcitonin negative, lactate was negative. Second ABG showed primary resp acid chronic w/ secondary met alk. CXR blunting of lateral costophrenic angles, May relate to combination of atelectasis, pneumonia and possible pleural effusions. NO pneumothorax, compared with cxr from 12/14/17. She had CT chest 03/27/18. I reviewed this and she had chronic bilateral lower lung bronchiectasis w/o superimposed infiltrate. No change from 01/08/18. Multilevel thoracic compression fractures w/ remaining normal levels T1, T2, T4, T8, new intermediate grade fracture of T10 when compared to . I ordered a CT chest PE protocol due to sudden acuity of her SOA. This was negative. She was found to have RLL pneumonia and with bronchiectasis I did place her on pseudomal precautions zosyn and levaquin. Tele negative throughout entire stay. We admitted with SIRS w/ Sepsis w/ possible Right lobe pneumonia, Leukocytosis with neutrophilia, elevated glucose, chronic anemia, frailty, underweight, COPD exacerbation. We checked sputum culture (PENDING). Blood cultures negative x 1 day, urine and urine culture negative. Nebs q 4 hours albuterol, ipratropium QID. Throughout stay she did great, she improved regarding breathing, cognition was up and down, worse on date of discharge 07/16/18 as she noted we were just trying to line our pockets and that her doctor did not approve any of this. Nurses noted she was more demented this am. Son was present before I was in room 7:20 and she was more demented to him as well, even after good night sleep. No fall. This is up and down at home per their report. She is breathing fine. She is breathing at baseline state. Hypothyroid chronically TSH ordered and normal. Continue current meds. Underweight chronically. DVT prophy throughout stay w/ lovenox. Yesterday she did great, happy, eating well, good uout and family felt she was doing great. This am vitals remain stable. Good uout, good BP. Day of discharge exam unchanged from yesterday. Talked to family yesterday about D/c today, talked about abx. So far urine ag strep pneumo pending, sputum culture pending, Blood cultures negative. Neutrophila has resolved. She has remained afebrile throughout stay. Breathing is stable. Dementia is present worse this am than over last 48 hours but within baseline status as per nursing and care management d/w son. We will plan for d/c home around 12 today when family can get back here. Home PT/OT. We will complete 3 days of abx as outpatient. F/U with remaining labs. Day of D/C physical exam: Unchanged from previous date except angry today. Constitutional: Appearance-No acute distress, sitting in bed awake, pleasant. Dementia is present not oriented well. Aware of self, aware in hospital. Time is not known, date/day not known. Frail appearance kyphotic, Consistent with stated age. Orientation- Not oriented, dementia historically. Build and Nutrition-Frail, thin, general TM wasting. General- Patient is pleasant and cooperative with the interview and exam. Hearing aids in place. Again jovial, no cues of pain, no grimace. Integumentary: General-No concerning rashes, ulcers or lesions. Legs/arms/ abdomen/face/neck/superior chest (not breast) reviewed this am and okay. Palpation- Normal skin moisture/turgor. Skin is warm to touch, appropriate. No skin breakdown. Head/Neck: Head- normocephalic and atraumatic. Neck- Prominent kyphosis, not tender. No bony tenderness about head/neck along frontal, occipital, temporal, parietal, mastoid, jawline, zygoma, orbit or any other location.~ NO temporal artery tenderness. No TMJ tenderness. Neck Supple. Thyroid-No thyromegaly, no nodules Eye: Bilaterally PERRLA, EOMI. No discharge. Upper and lower eyelids are normal. Sclera/conjunctiva normal without discharge. Cornea is normal and clear. Lens is normal. Eyeball appears normal. No ciliary flushing, no conjunctival injection. ENMT: HEARING AID bilaterally. Removed (at admit and ears okay w/ mild scarring bilateral TM) Nares- bilateral quiet airflow, no discharge. Nasal mucosa- No bleeding noted and no ulcerations observed. [place], moist. Turbinates non boggy. Lips- normal color, moist without cracks/lesions Oral Cavity/Palate- hard/soft palate intact without lesions, oral mucosa pink and moist. Tongue and uvula normal midline. Oropharynx- no pharyngeal erythema, Uvula midline. No post nasal drip. No exudate. Salivary glands- Non tender to palpation CHEST/LUNG: Inspection- symmetric chest wall. Kyphosis is present. Talks in full sentences, mildly tachypneic, no use of accessory muscles this am. Palpation- nontender sternum, ribline. No abnormal pulsations. Auscultation- Diminished sounds throughout, mild tachypnea. Crackles bilateral lower lobes. Wheezes scattered, unchanged. Coarse tracheal sounds, bronchial sounds overlying sternum, Bronchovessicular sounds coarse between scapulae posteriorly , Coarse vessicular breath sounds heard throughout periphery. Adventitious sounds- scattered wheezes, and rhonchi. ? Rales bilateral Lower lobes. No retractions no access muscle uses Tachypneic. Improving CARDIOVASCULAR: Carotid artery- normal, no bruits or abnormal pulsations. Jugular vein- no pulsations. Palpation/Percussion- Normal PMI, no palpable thrill Auscultation- Regular rate and rhythm. No murmur noted in sitting, supine positions. Extremities- no cyanosis, edema, increased warmth. ABDOMEN: Inspection- normal and no visible pulsations. Normal contour. Auscultation- Bowel sounds normal, no abdominal bruits. Palpation/Percussion- soft, non-tender, no rebound tenderness, no rigidity (guarding), no jar tenderness, no masses. Liver-no hepatomegaly, Spleen no splenomegaly, Hernias - none. Rectal not examined. Peripheral Vascular: Upper extremity Left- Normal temperature with pink nailbeds and no ulcerations. Upper extremity Right- Normal temperature with pink nailbeds and no ulcerations. Lower extremity- Normal temperature with pink nailbeds and no ulcerations. DP pulses 1+ bilaterally. Edema- No edema. Musculoskeletal: Generalized-No generalized swelling or edema of extremities, no digital clubbing or cyanosis, neurovascularly intact all four extremities. Moves all 4. Calves symmetrical, no e/o DVT. Thinning generally. Neurological: General- Moves all 4 extremities symmetrically. Symmetrical face and body posture. Cranial nerves- individually evaluated II-XII and intact. PERRLA, Normal EOMI, visual/special senses appear intact, Face is symmetrical and normal sensation/movement, normal tongue, normal strength/posture of neck musculature. Reflexes- intact with DTR 2+ patellar, Achilles, bicep, brachial, tricep. Neuropsych: Oriented- Not oriented to place, time. Mood/affect- joking and blowing off answers. Suspect dementia. Tries to get out of bed repeatedly. Vague answers poor historian. ANgry today. Plan: 1. D/C Home. 2. Finish 3 days of abx. 3. F/U in office next week. 4. D/C med rec completed. 5. Finish 3 days of steroids. 6. >30 minutes spent in discharging patient today. Called and talked with daughter [id number]. Using 1/2 tablet during lunch, 1 full table am and 1 full tab pm. They will run out but can make to appt next week. F /U as listed. Daughter was pleased. WE reviewed the reason that I gave albuterol and ipratoium separate. Minimum, mix the 2 togteher and give 4 daily. Can use albuterol alone in between if needed. SHe voiced understanding, noted mother was more angry today with her as well. Dementia is worse today but this is not uncommon.
[2018-07-16] MEDS: COLACE PO SCH (08:48)
[2018-07-16] MEDS: MUCINEX PO SCH (08:48)
[2018-07-16] MEDS: XANAX PO SCH (08:48)
[2018-07-16] MEDS: K-DUR PO SCH (08:48)
[2018-07-16] MEDS: TOPROL XL PO SCH (08:49)
[2018-07-16] MEDS: PREDNISONE PO SCH (08:49)
[2018-07-16] MEDS: LEVAQUIN 500 MG in PREMIX 100 ML D5W 1 BAG IV SCH (08:51)
[2018-07-16] MEDS: LOVENOX SUBCUT SCH (08:51)
[2018-07-16] MEDS: MIRALAX PO SCH (08:51)
[2018-07-16] MEDS: CARBOXYMETHYLCELLULOSE SODIUM OP SCH (08:52)
[2018-07-16] MEDS ORDERED: DURAGESIC TD SCH ×2 (09:00)
[2018-07-16 10:43] VITALS: BP 127/68; TEMP 97.7
[2018-07-17] MEDS ORDERED: DURAGESIC TD SCH ×2 (09:00)
== END 2018-07-16 14:25 | disposition home or self-care (01) | DRG 193 ==
LOC: ED 19:49 → SCU 21:46
PROVIDERS: ADMIT Family Medicine; ATTEND Family Medicine
DX: J18.1 Lobar pneumonia, unspecified organism (principal); J96.01 Acute respiratory failure with hypoxia; A41.9 Sepsis, unspecified organism; J44.1 Chronic obstructive pulmonary disease with (acute) exacerbation; J47.1 Bronchiectasis with (acute) exacerbation; M47.12 Other spondylosis with myelopathy, cervical region; R65.10 Systemic inflammatory response syndrome (SIRS) of non-infectious origin without acute organ dysfunction; R06.00 Dyspnea, unspecified; R05 Cough; R06.2 Wheezing; R23.0 Cyanosis; R73.9 Hyperglycemia, unspecified; R63.6 Underweight; F41.9 Anxiety disorder, unspecified; D72.9 Disorder of white blood cells, unspecified; E03.9 Hypothyroidism, unspecified; Z87.891 Personal history of nicotine dependence; Z99.81 Dependence on supplemental oxygen
CPT/HCPCS: 36415; 80048; 80053; 81001; 82550; 82803; 83036; 83605; 84145; 84443; 84484; 85007; 85025; 87040; 87081; 87086; 93005; 93010; 94640; 96365; 96375; 99284

== ENCOUNTER 2018-07-27 16:18 | Outpatient (CLI) | END 2018-07-27 16:19 | disposition home or self-care (01) | LOC: FCC-LAB 16:18 | PROVIDERS: ATTEND Family Medicine | DX: D64.9 Anemia, unspecified (principal); E87.6 Hypokalemia | CPT/HCPCS: 36415; 80053; 85025 ==

== ENCOUNTER 2018-07-28 08:55 | Outpatient (CLI) | END 2018-07-28 08:56 | disposition home or self-care (01) | LOC: FCC-LAB 08:55 | PROVIDERS: ATTEND Family Medicine | DX: E03.9 Hypothyroidism, unspecified (principal) | CPT/HCPCS: 36415; 84443 ==

== ENCOUNTER 2018-08-04 01:38 | Inpatient (IN) ==
[2018-08-04] MEDS ORDERED: ROCEPHIN 1 GM in SODIUM CHLORIDE 50 ML IV STA (01:45)
[2018-08-04] MEDS ORDERED: SOLU-MEDROL 40 MG IVP STA ×2 (01:45→02:49)
[2018-08-04] MEDS ORDERED: DUONEB NEB STA (01:46)
[2018-08-04] MEDS ORDERED: ALBUTEROL 0.083% NEB NEB ONE (02:24)
[2018-08-04] MEDS ORDERED: XOPENEX 1.25 MG NEB ONE (02:24)
[2018-08-04] MEDS ORDERED: LASIX ONE (02:42)
[2018-08-04] MEDS ORDERED: LASIX IVP STA ×2 (02:48→04:02)
--- NOTE | 2018-08-04 02:58 | ED.PDOC ---
General ED Provider: Dr. HANS OLIVEIRA-ER Chief Complaint: Shortness of Air Stated Complaint: sent from residence for sob--has hx of bronchiectasis/copd Time Seen by Physician: 01:40 Mode of Arrival: Ambulance Information Source: Patient, Family Exam Limitations: No limitations Primary Care Provider: RADHA FERREIRA Nursing and Triage Documentation Reviewed and Agree: Yes Does patient meet sepsis criteria?: No System Inflammatory Response Syndrome: Not Applicable Sepsis Protocol: For patient's 13 years and over: Temp is 96.8 and below OR 101 and greater Pulse >90 BPM Resp >20/minute Acutely Altered Mental Status Are patient's symptoms suggestive of a new infection, such as: -Pneumonia -Skin, Soft Tissue -Endocarditis -UTI -Bone, Joint Infection -Implantable Device -Acute Abdominal Infection -Wound Infection -Meningitis -Blood Stream Catheter Infection -Unknown Respiratory Complaint Exam - Shortness of Air Complaint/Exam Onset/Duration: tonight Symptoms Are: Still present Timing: Constant Initial Severity: Mild Current Severity: Moderate Character: Reports: Dyspnea at rest Alleviating: Reports: Bronchodilators, EMS treatment, Oxygen Associated Signs and Symptoms: Reports: Rapid breathing, Labored breathing History of Healthcare-Acquired Pneumonia: No Pseudomonas Risk Factors: Reports: Bronchiectasis, Chronic Lung Disease Home Oxygen Use: Yes Recent Stress Test: No Recent Echo/LV Function: No Respiratory Distress: None Stridor Present: No Tracheal Deviation: No Subcutaneous Emphysema: No Accessory Muscle Use: Yes Diminished Breath Sounds: Yes Prolonged Expiratory Phase: Yes Unable to Speak Full Sentences: Yes Fatigue: Yes Leg Swelling: No Sujata's Sign Present: No Grunting Respirations: No Kussmaul Respirations: No Differential Diagnoses: Pulmonary Edema, COPD Exacerbation, Pneumonia Quality Indicator For Non-Traumatic Chest Pain/Syncope: EKG Performed Review of Systems - Review Of Systems Constitutional: Reports: No symptoms Eyes: Reports: No symptoms Ears, Nose, Mouth, Throat: Reports: No symptoms Respiratory: Reports: Cough, Short of air Cardiac: Reports: No symptoms GI: Reports: No symptoms : Reports: No symptoms Musculoskeletal: Reports: No symptoms Skin: Reports: No symptoms Neurological: Reports: Anxiety Endocrine: Reports: No symptoms Hematologic/Lymphatic: Reports: No symptoms All Other Systems: Reviewed and Negative Past Medical History - Past Medical History Previously Healthy: Yes Endocrine: Reports: Hypothyroid Cardiovascular: Reports: Hypertension Respiratory: Reports: COPD (oxygen depenent on ), Asthma, Other (bronchiectasis , 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) Hematological: Reports: Anemia Gastrointestinal: Reports: None Genitourinary: Reports: None Neuro/Psych: Reports: None Musculoskeletal: Reports: Arthritis Cancer: Reports: None Last Menstrual Period: menopausal - Surgical History General Surgical History: Reports: 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) - Family History Family History: Reports: Unknown - Social History Smoking Status: Former smoker Hx Substance Use: No Alcohol Screening: None - Immunizations Tetanus Shot up to Date: No (unknown) Physical Exam - Physical Exam Appearance: Well-appearing, No pain distress, Well-nourished Eyes: LEIGH, EOMI, Conjunctiva clear ENT: Ears normal, Nose normal, Oropharynx normal Neck: Supple Respiratory: Crackles, Rhonchi Cardiovascular: RRR, Pulses normal, No rub, No murmur GI/: Soft, Nontender, No masses, Bowel sounds normal, No Organomegaly Musculoskeletal: Normal strength, ROM intact, No edema, No calf tenderness Skin: Warm, Dry, Normal color Neurological: Sensation intact, Motor intact, Reflexes intact, Cranial nerves intact, Alert, Oriented Psychiatric: Affect appropriate, Mood appropriate, Anxious Interpretation - Radiology Interpretation Radiology Interpretation By: Radiologist Radiology Results: Positive Exam Interpreted: CT Scan - EKG Interpretation Time of EKG #1: 03:50 Rate: Normal Rhythm: Sinus Ectopy: None Dewar: NL ST Segment: Normal Interpretation: nsr Re-Evaluation - Re-Evaluation Time of Re-Evaluation: 03:04 Status: Improved Vital Signs Stable: Yes Pain Level: 0 Appearance: NAD Lungs: Clear Skin: Warm and Dry Neuro: Alert and Oriented X3 CV: RRR Physician Notification - Case Discussed Physician Notified: dr gramajo Time of Notification: 03:56 Critical Care Note - Critical Care Note Total Time (mins): 45 Course - Course Hematology/Chemistry: 08/05/18 04:30 08/05/18 04:30 Orders, Labs, Meds: Lab Review 08/04/18 08/04/18 08/04/18 01:44 02:00 02:00 WBC 9.04 RBC 3.19 L Hgb 10.3 L Hct 32.8 L MCV 102.8 H MCH 32.3 H MCHC 31.4 L RDW Coeff of Rosie 18.0 H Plt Count 224 Immature Gran % (Auto) 0.8 Neut % (Auto) 75.0 Lymph % (Auto) 14.8 [place] % (Auto) 7.5 Eos % (Auto) 1.3 Baso % (Auto) 0.6 Immature Gran # (Auto) 0.1 Neut # (Auto) 6.8 Lymph # (Auto) 1.3 [place] # (Auto) 0.7 Eos # (Auto) 0.1 Baso # (Auto) 0.1 Puncture Site Rrad O2 Saturation 92.0 L ABG pH 7.348 L ABG pCO2 55.5 H ABG pO2 67.0 L ABG HCO3 30.5 H ABG Total CO2 32 H ABG Base Excess 5 H Zain Test + O2 Delivery Device Nc Oxygen Liter Flow 2.00 FiO2 % 28.0 Sodium 138.4 Potassium 4.21 Chloride 100.9 Carbon Dioxide 35.2 H Anion Gap 6.51 BUN 16.3 Creatinine 0.51 L Estimated GFR (MDRD) 114.00 BUN/Creatinine Ratio 31.96 Glucose 118.3 H Calcium 8.69 Total Bilirubin 0.38 AST 65.1 H ALT 45.1 H Alkaline Phosphatase 51.9 L Total Creatine Kinase Troponin I NT-Pro-B Natriuret Pep 1300.000 H Total Protein 6.42 Albumin 3.84 Globulin 2.58 Albumin/Globulin Ratio 1.48 Procalcitonin Urine Color Urine Clarity Urine pH Ur Specific [place] Urine Protein Urine Glucose (UA) Urine Ketones Urine Blood Urine Nitrite Urine Bilirubin Urine Urobilinogen Ur Leukocyte Esterase Urine Microscopic RBC Ur Squamous Epith Cells Urine Yeast Influ A Molecular Assay Influ B Molecular Assay 08/04/18 08/04/18 08/04/18 02:00 02:00 03:00 WBC RBC Hgb Hct MCV MCH MCHC RDW Coeff of Rosie Plt Count Immature Gran % (Auto) Neut % (Auto) Lymph % (Auto) [place] % (Auto) Eos % (Auto) Baso % (Auto) Immature Gran # (Auto) Neut # (Auto) Lymph # (Auto) [place] # (Auto) Eos # (Auto) Baso # (Auto) Puncture Site O2 Saturation ABG pH ABG pCO2 ABG pO2 ABG HCO3 ABG Total CO2 ABG Base Excess Zain Test O2 Delivery Device Oxygen Liter Flow FiO2 % Sodium Potassium Chloride Carbon Dioxide Anion Gap BUN Creatinine Estimated GFR (MDRD) BUN/Creatinine Ratio Glucose Calcium Total Bilirubin AST ALT Alkaline Phosphatase Total Creatine Kinase 43.7 Troponin I < 0.012 NT-Pro-B Natriuret Pep Total Protein Albumin Globulin Albumin/Globulin Ratio Procalcitonin < 0.05 Urine Color Urine Clarity Urine pH Ur Specific [place] Urine Protein Urine Glucose (UA) Urine Ketones Urine Blood Urine Nitrite Urine Bilirubin Urine Urobilinogen Ur Leukocyte Esterase Urine Microscopic RBC Ur Squamous Epith Cells Urine Yeast Influ A Molecular Assay Negative by naat Influ B Molecular Assay Negative by naat 08/04/18 03:30 WBC RBC Hgb Hct MCV MCH MCHC RDW Coeff of Rosie Plt Count Immature Gran % (Auto) Neut % (Auto) Lymph % (Auto) [place] % (Auto) Eos % (Auto) Baso % (Auto) Immature Gran # (Auto) Neut # (Auto) Lymph # (Auto) [place] # (Auto) Eos # (Auto) Baso # (Auto) Puncture Site O2 Saturation ABG pH ABG pCO2 ABG pO2 ABG HCO3 ABG Total CO2 ABG Base Excess Zain Test O2 Delivery Device Oxygen Liter Flow FiO2 % Sodium Potassium Chloride Carbon Dioxide Anion Gap BUN Creatinine Estimated GFR (MDRD) BUN/Creatinine Ratio Glucose Calcium Total Bilirubin AST ALT Alkaline Phosphatase Total Creatine Kinase Troponin I NT-Pro-B Natriuret Pep Total Protein Albumin Globulin Albumin/Globulin Ratio Procalcitonin Urine Color Yellow Urine Clarity Clear Urine pH 6.5 Ur Specific [place] 1.015 Urine Protein Negative Urine Glucose (UA) Negative Urine Ketones Negative Urine Blood Trace-intact Urine Nitrite Negative Urine Bilirubin Negative Urine Urobilinogen 0.2 Ur Leukocyte Esterase Negative Urine Microscopic RBC 0-2 Ur Squamous Epith Cells Not present Urine Yeast Trace Influ A Molecular Assay Influ B Molecular Assay Orders Category Date Time Status ADMIT PATIENT INPATIENT .TO SCU (MONITORED BED) ADMISSION 08/04/18 04:03 Active ABG DRAW REQUEST Stat CARDIO 08/04/18 01:44 Completed ECHOCARDIOGRAM 2D-M MODE Routine CARDIO 08/04/18 04:02 Completed EKG-(ED ONLY) Stat CARDIO 08/04/18 01:44 Completed NEBULIZER TREATMENT Routine CARDIO 08/04/18 04:01 Active NEBULIZER TREATMENT Stat CARDIO 08/04/18 01:46 Completed OXYGEN Routine CARDIO 08/04/18 03:59 Active ACTIVITY .BR with BRP CARE 08/04/18 03:59 Active INTAKE & OUTPUT Q8HR CARE 08/04/18 03:59 Active TELEMETRY MONITORING TELE CARE 08/04/18 04:03 Active VITAL SIGNS Q4HR CARE 08/04/18 03:59 Active REGULAR DIET DIETARY 08/04/18 Breakfast Ordered Wire Coiner [ED CREAM MAKER APPLIED] .ONCE EMERGENCY 08/04/18 01:45 Active IV [ED IV/MEDIPORT/POWERPORT] .ONCE EMERGENCY 08/04/18 01:45 Active ABG Stat LAB 08/04/18 01:44 Completed BLOOD CULTURE (ED ONLY) Stat LAB 08/04/18 02:00 Results CBC W/ AUTO DIFF DAILY@0600 LAB 08/05/18 04:30 Completed CBC W/ AUTO DIFF Stat LAB 08/04/18 02:00 Completed COMPREHENSIVE METABOLIC PANEL DAILY@0600 LAB 08/05/18 04:30 Completed COMPREHENSIVE METABOLIC PANEL Stat LAB 08/04/18 02:00 Completed CREATINE KINASE Stat LAB 08/04/18 02:00 Completed FLU A/B MOLECULAR Stat LAB 08/04/18 02:00 Completed NT-PROBNP Stat LAB 08/04/18 02:00 Completed TROPONIN I Stat LAB 08/04/18 02:00 Completed URINALYSIS C & S IF INDICATED Stat LAB 08/04/18 03:30 Completed 0.9 % Sodium Chloride [Saline Flush] MEDS 08/04/18 01:45 Discontinued 1 syr IVF PRN PRN Albuterol Sulfate 0.083% Neb [Albuterol 0.083% Neb] MEDS 08/04/18 02:24 Discontinued 1 vial NEB .STK-MED ONE Ceftriaxone Sodium [Rocephin] 1 gm MEDS 08/04/18 01:45 Discontinued 0.9 % Sodium Chloride [Sodium Chloride] 50 ml IV ONCE Docusate Sodium [Colace] MEDS 08/04/18 09:00 Active 200 mg PO DAILY Doxycycline Hyclate Inj [Doxy-100] 100 mg MEDS 08/04/18 09:00 Active 0.9 % Sodium Chloride [Sodium Chloride] 100 ml IV Q12HR Enoxaparin Sodium [Lovenox] MEDS 08/04/18 09:00 Active 30 mg SUBCUT DAILY Fentanyl 12 Mcg/Hr [Duragesic 12 Mcg/Hr] MEDS 08/05/18 09:00 Active 1 patch TD Q72HR Fentanyl 25 Mcg/Hr [Duragesic 25 Mcg/Hr] MEDS 08/05/18 09:00 Active 1 patch TD Q72HR Furosemide [Lasix] MEDS 08/04/18 04:02 Discontinued 20 mg IVP ONCE STA Furosemide [Lasix] MEDS 08/04/18 02:42 Discontinued 40 mg .ROUTE .STK-MED ONE Furosemide [Lasix] MEDS 08/04/18 02:48 Discontinued 40 mg IVP ONCE STA Guaifenesin [Mucinex] MEDS 08/04/18 09:00 Active 1,200 mg PO BID Ipratropium/Albuterol Neb [Duoneb] MEDS 08/04/18 01:46 Discontinued 1 vial NEB ONCE STA Ipratropium/Albuterol Neb [Duoneb] MEDS 08/04/18 06:00 Active 1 vial NEB RTQ6H Levalbuterol HCl [Xopenex 1.25 mg] MEDS 08/04/18 02:24 Discontinued 1 vial NEB .STK-MED ONE Methylprednisolone Sod Succ/Pf [Solu-Medrol 40 mg] MEDS 08/04/18 03:12 Discontinued 40 mg IM ONCE STA Methylprednisolone Sod Succ/Pf [Solu-Medrol 40 mg] MEDS 08/04/18 02:49 Discontinued 80 mg IVP ONCE STA Metoprolol Succinate [Toprol Xl] MEDS 08/04/18 09:00 Active 12.5 mg PO DAILY Pantoprazole Sodium [Protonix] MEDS 08/04/18 09:00 Discontinued 40 mg PO QDAC Piperacillin Sodium/Tazobactam [Zosyn 3.375 gm] 3.375 MEDS 08/04/18 06:00 Active gm 0.9 % Sodium Chloride [Sodium Chloride] 50 ml IV Q6HR Potassium Chloride [K-Dur] MEDS 08/04/18 08:00 Active 20 meq PO DAILYWM RESUSCITATION STATUS Routine OTHERS 08/04/18 03:59 Ordered CHEST, 1V AP ONLY Stat RADS 08/04/18 02:[address] CHEST W/O CONTRAST Stat RADS 08/04/18 01:46 Completed Medications Generic Name Dose Route Start Last Admin Trade Name Freq PRN Reason Stop Dose Admin Albuterol/Ipratropium 1 vial 08/04/18 06:00 08/05/18 17:21 Duoneb NEB 1 vial RTQ6H TAMMI Administration Alprazolam 0.5 mg 08/04/18 09:00 08/05/18 09:39 Xanax PO 0.5 mg BID TAMMI Administration Docusate Sodium 200 mg 08/04/18 09:00 08/05/18 09:38 Colace PO 200 mg DAILY TAMMI Administration Enoxaparin Sodium 30 mg 08/04/18 09:00 08/05/18 09:37 Lovenox SUBCUT 30 mg DAILY TAMMI Administration Fentanyl 1 patch 08/05/18 09:00 08/05/18 09:38 Duragesic 12 Mcg/Hr TD 1 patch Q72HR TAMMI Administration Fentanyl 1 patch 08/05/18 09:00 08/05/18 09:37 Duragesic 25 Mcg/Hr TD 1 patch Q72HR TAMMI Administration Guaifenesin 1,200 mg 08/04/18 09:00 08/05/18 09:38 Mucinex PO 1,200 mg BID TAMMI Administration Doxycycline Hyclate 100 mg/ 100 mls @ 50 mls/hr 08/04/18 09:00 08/05/18 09:39 Sodium Chloride IV 50 mls/hr Q12HR TAMMI Administration Piperacillin Sod/Tazobactam 50 mls @ 50 mls/hr 08/04/18 06:00 08/05/18 17:17 Sod 3.375 gm/ Sodium Chloride IV 50 mls/hr Q6HR TAMMI Administration Megestrol Acetate 800 mg 08/04/18 09:00 08/05/18 09:38 Megace PO 800 mg BID TAMMI Administration Metoprolol Succinate 12.5 mg 08/04/18 09:00 08/05/18 09:38 Toprol Xl PO 12.5 mg DAILY TAMMI Administration Potassium Chloride 20 meq 08/04/18 08:00 08/05/18 09:38 K-Dur PO 20 meq DAILYWM TAMMI Administration Sodium Chloride 1 syr 08/05/18 05:00 08/05/18 12:09 Saline Flush IVF 1 syr Q8HR TAMMI Administration Discontinued Medications Generic Name Dose Route Start Last Admin Trade Name Freq PRN Reason Stop Dose Admin Albuterol/Ipratropium 1 vial 08/04/18 01:46 08/04/18 02:10 Duoneb NEB 08/04/18 01:47 1 vial ONCE STA Administration Furosemide 40 mg 08/04/18 02:48 08/04/18 02:45 Lasix IVP 08/04/18 02:49 Not Given ONCE STA Furosemide 20 mg 08/04/18 04:02 08/04/18 05:44 Lasix IVP 08/04/18 04:03 20 mg ONCE STA Administration Ceftriaxone Sodium 1 gm/ 50 mls @ 75 mls/hr 08/04/18 01:45 08/04/18 04:27 Sodium Chloride IV 08/04/18 02:24 75 mls/hr ONCE STA Administration Methylprednisolone Sodium Succinate 80 mg 08/04/18 02:49 08/04/18 02:50 Solu-Medrol 40 Mg IVP 08/04/18 02:50 80 mg ONCE STA Administration Methylprednisolone Sodium Succinate 40 mg 08/04/18 03:12 08/04/18 03:14 Solu-Medrol 40 Mg IM 08/04/18 03:13 40 mg ONCE STA Administration Pantoprazole Sodium 40 mg 08/04/18 09:00 08/04/18 08:29 Protonix PO 40 mg QDAC TAMMI Administration Sodium Chloride 1 syr 08/04/18 01:45 08/04/18 12:25 Saline Flush IVF 1 syr PRN PRN Administration To flush IV Vital Signs: Temp Pulse Resp BP Pulse Ox 08/04/18 03:45 170/80 H 08/04/18 01:39 97.2 F L 68 28 H 160/60 H 92 L Departure - Departure Time of Disposition: 03:56 Disposition: ADMITTED INPATIENT Discharge Problem: Acute respiratory failure Qualifiers: Respiratory failure complication: hypoxia Qualified Code(s): J96.01 - Acute respiratory failure with hypoxia Pneumonia Qualifiers: Pneumonia type: aspiration pneumonia Aspiration pneumonia type: unspecified Laterality: unspecified laterality Lung location: unspecified part of lung Qualified Code(s): J69.0 - Pneumonitis due to inhalation of food and vomit Condition: Poor Pt referred to PMD for follow-up: Yes IPMP verified?: No Allergies/Adverse Reactions: Allergies hydromorphone [From Dilaudid] Adverse Reaction (Verified 08/04/18 01:56) Sulfa (Sulfonamide Antibiotics) Adverse Reaction (Verified 08/04/18 01:56) Home Medications: Ambulatory Orders Carboxymethylcellulose Sodium [Refresh Plus] 1 each OP BID 12/10/17 Guaifenesin [Mucinex] 2 tab PO BID 12/10/17 Docusate Sodium [Colace] 200 mg PO DAILY 03/27/18 Albuterol Sulfate 0.083% Neb [Albuterol 0.083% Neb] 1 vial NEB RTQ4H PRN #100 vial.neb 07/16/18 Alprazolam [Xanax] 0.25 mg PO DIRECTED 08/04/18 Disposition Discussed With: Patient, Family
[2018-08-04] MEDS ORDERED: SOLU-CORTEF 100 MG IM STA (03:05)
[2018-08-04] MEDS ORDERED: SOLU-MEDROL 125 MG IM STA (03:07)
[2018-08-04] MEDS ORDERED: SOLU-MEDROL 40 MG IM STA (03:12)
--- NOTE | 2018-08-04 03:22 | ED.PDOC ---
Procedures - IV/Art Line Insertion Location: lt forearm Type of Line: Peripheral IV Invasive Line/IV Catheter Gauge: 22 Number of Attempts: 2 Blood Return Positive: Yes Invasive Line/IV Flushes Without Difficulty: Yes Conscious Sedation - Pre-op Assessment Weight: 92 lb 13.034 oz Surgical History: LEFT LUNG LOBECTOMY 57 years ago - Medical History Past Medical History: Hypertension, Thyroid, COPD, Anxiety Other History: dementia - Physical Exam Heart Rate/Rhythm: Regular Rhythm
--- NOTE | 2018-08-04 03:33 | DI ---
EXAM: Chest, single view, 08/04/2018 HISTORY: Shortness of a air COMPARISON: 07/14/2018 FINDINGS / IMPRESSION: Cardiomediastinal contours appear enlarged. Interstitial infiltrate extends throughout both lungs. This is most severe within the lower aspect of both lungs. This likely repres ents a combination of atelectasis, edema and/or pneumonia. Small pleural effusions are not excluded. No pneumothorax.
--- NOTE | 2018-08-04 03:42 | CT ---
EXAM: CT chest without intravenous contrast 08/04/2018. Sagittal and coronal reformatted images obt ained HISTORY: Chronic obstructive pulmonary disease. Cough COMPARISON: 07/15/2018 FINDINGS: Stable moderate cardiomegaly. No pericardial effusion. Mitral annulus calcifications. Anatomic detail degraded by motion. There are small pleural effusions. Multifocal atelectasis. Grou nd-glass infiltrate within the right upper and right middle lobe. Bibasilar consolidation. These fi ndings may relate to a combination of atelectasis and pneumonia. Superimposed pulmonary edema is not excluded. Severe kyphotic curvature of the spine. Multiple compression fractures of the thoracic and lumbar sp ine appear similar in distribution as compared to the prior study. Subtle fracture could be obscured due to the severity of motion artifact. IMPRESSION: 1. Limited examination due to severe motion artifact. 2. Small bilateral pleural effusions. 3. Multifocal linear and ground-glass infiltrate. Bibasilar consolidation, right greater than left. These findings likely represent a combination of multifocal atelectasis and/or pneumonia. Superimp osed pulmonary edema is not excluded. 4. Additional findings as above.
[2018-08-04] MEDS ORDERED: TYLENOL PO PRN (03:59)
[2018-08-04] MEDS ORDERED: ROCEPHIN ONE (04:22)
[2018-08-04 05:06] VITALS: BMI 14.9
[2018-08-04] MEDS: DUONEB NEB SCH ×4 (06:00→23:25)
[2018-08-04] MEDS: DOXY-100 100 MG in SODIUM CHLORIDE 100 ML IV SCH ×2 (08:25→21:28)
[2018-08-04] MEDS: MEGACE PO SCH ×2 (08:27→21:29)
[2018-08-04] MEDS: XANAX PO SCH ×2 (08:28→21:29)
[2018-08-04] MEDS: TOPROL XL PO SCH (08:28)
[2018-08-04] MEDS: COLACE PO SCH (08:28)
[2018-08-04] MEDS: MUCINEX PO SCH ×2 (08:29→21:29)
[2018-08-04] MEDS: K-DUR PO SCH (08:29)
[2018-08-04] MEDS: LOVENOX SUBCUT SCH (08:30)
[2018-08-04] MEDS ORDERED: NIRAVAM ODT (SURGERY) PO SCH (09:00)
[2018-08-04] MEDS ORDERED: MEGESTROL ACETATE 625 MG PO SCH (09:00)
[2018-08-04] MEDS ORDERED: PROTONIX PO SCH (09:00)
--- NOTE | 2018-08-04 12:00 | ECHO2D ---
Date of Exam: 08/04/18 Ordering Physician: DR. GERARDO HIDALGO Room # : SCU2 Reason for Echo: CHF, RESPIRATORY FAILURE, MITRAL REGURGITATION Murmurs: SYSTOLIC M-Mode Normal Adult Results LV Dimensions Normal Adult Results AoV Opening excursions >1.6 >1.6 LVEDD-base- 3.5-5.8 4.6 Ao root dimensions 2.0-3.7 3.4 LVESD-base- 3.1-4.6 L. Atrium dimensions 1.9-3.8 5.6 Post. Wall thickness 0.8-1.1 1.0 IV septum (thickness) 0.7-1.2 1.0 Post. Wall excursion 0.72-1.3 NORMAL Septal motion NORMAL Systolic motion R. Ventricular cavity 1.5-2.0 NORMAL LVEF 60% 57% Paradoxical septal wall motion NORMAL 2-D : 2-D M Mode Echocardiogram was performed using apical four chamber and left parasternal long and short axis views. Mitral, tricuspid and aortic valves appear to be normal. Contractility of the left ventricle seems to be normal, so is the cavity size. Left atrial cavity size and aortic root appear to be normal. There is no pericardial effusion. There is no thrombus noted in the left ventricular or left aortic cavity. No mitral valve prolapse noted. COLOR FLOW: MODERATE AORTIC REGURGITATION AND MITRAL REGURGITATION M-MODE: MV: CALCIFIC ANNULUS AV: CALCIFIC AORTIC VALVES TV: NORMAL PV: CHAMBER SIZE: ENLARGED LEFT ATRIAL CAVITY WALL MOTION: NORMAL PERICARDIUM: NORMAL INTERPRETATION: 1. MARKEDLY ENLARGED LEFT ATRIAL SIZE 2. NORMAL LEFT VENTRICULAR EJECTION FRACTION/ NORMAL LEFT VENTRICLE SIZE 3. MODERATE AORTIC REGURGITATION AND MITRAL REGURGITATION 4. CALCIFIC AORTIC LEAFLET/ MITRAL VALVE ANNULUS CALCIFICATION 5. DIFFICULT ECHO--BODY HABITUS MTDD
[2018-08-04] MEDS: ZOSYN 3.375 GM 3.375 GM in SODIUM CHLORIDE 50 ML IV SCH ×4 (12:24→23:08)
[2018-08-05] MEDS: DUONEB NEB SCH ×4 (05:55→23:07)
[2018-08-05] MEDS: ZOSYN 3.375 GM 3.375 GM in SODIUM CHLORIDE 50 ML IV SCH ×4 (06:15→23:40)
[2018-08-05] MEDS ORDERED: DURAGESIC TD SCH ×2 (09:00)
[2018-08-05] MEDS: LOVENOX SUBCUT SCH (09:37)
[2018-08-05] MEDS: TOPROL XL PO SCH (09:38)
[2018-08-05] MEDS: COLACE PO SCH (09:38)
[2018-08-05] MEDS: MEGACE PO SCH (09:38)
[2018-08-05] MEDS: K-DUR PO SCH (09:38)
[2018-08-05] MEDS: MUCINEX PO SCH ×2 (09:38→21:00)
[2018-08-05] MEDS: DOXY-100 100 MG in SODIUM CHLORIDE 100 ML IV SCH ×2 (09:39→20:59)
[2018-08-05] MEDS: XANAX PO SCH ×2 (09:39→21:00)
[2018-08-05] MEDS: VITAMIN B-12 IM SCH (21:12)
[2018-08-05] MEDS: THIAMINE IM SCH (21:12)
[2018-08-06] MEDS: DUONEB NEB SCH ×4 (05:03→22:45)
[2018-08-06] MEDS: ZOSYN 3.375 GM 3.375 GM in SODIUM CHLORIDE 50 ML IV SCH ×4 (05:38→23:15)
[2018-08-06] MEDS: MUCINEX PO SCH ×2 (09:02→21:13)
[2018-08-06] MEDS: COLACE PO SCH (09:03)
[2018-08-06] MEDS: K-DUR PO SCH (09:03)
[2018-08-06] MEDS: XANAX PO SCH ×2 (09:03→21:14)
[2018-08-06] MEDS: TOPROL XL PO SCH (09:03)
[2018-08-06] MEDS: LOVENOX SUBCUT SCH (09:03)
[2018-08-06] MEDS: DOXY-100 100 MG in SODIUM CHLORIDE 100 ML IV SCH ×2 (09:03→21:13)
[2018-08-06] MEDS: VITAMIN B-12 IM SCH (09:04)
[2018-08-06] MEDS: THIAMINE IM SCH (09:04)
--- NOTE | 2018-08-06 11:09 | PN ---
DATE OF SERVICE: 08/05/18 The patient is alert and responsive. She did recognize me. She was sitting in a chair when I examined her. VITAL SIGNS: At 5:53 p.m. showed a temperature of 97.8, pulse 69, blood pressure 146/77, respiratory rate 18, oxygen saturation 100 at 3 liters. This oxygen has to be reduced at least to two. HEART: Normal sinus rhythm. LUNGS: Right still has rales, but much less. The left is clear. The patient's IV site is in foot or ankle on the right. I wanted it moved to the upper extremity. It invites some venous thrombosis in this area and probably not a good thing. The Megace is discontinued because of the adverse affects, more so with thromboembolism or thrombophlebitis. The patient is on Lovenox 30 mg subcutaneously daily. The patient seems to have improved. The patient would not leave the telemetry alone, so the patient is not on telemetry. MTDD
--- NOTE | 2018-08-06 14:21 | CT ---
EXAM: CT of the chest without contrast History: Follow-up pneumonia Comparison: Chest radiograph 08/04/2018, chest CT 08/04/2018 Technique: Multiplanar CT images through the thorax were obtained without the administration of IV c ontrast Findings: Heart is enlarged. Persistent but significantly improved bilateral lung infiltrates. Chr onic bibasilar atelectasis or aspiration pneumonitis with air bronchograms. No pneumothorax. No herson nge in the left lower lobe micronodules which most likely infectious or inflammatory etiology. No pn eumothorax. Nearly resolved bilateral pleural effusions. No pathologically enlarged thoracic lymph nodes. There is some body wall edema. Coronary calcifications. No thoracic aortic aneurysm. Within the visualized upper abdomen, status post cholecystectomy. 5 mm calcification within the left kidney. Fluid is seen distending the stomach. The visualized osseous structures are unchanged with several chronic compression deformities again seen within the thoracic spine and upper lumbar spine. Impression: 1. Cardiomegaly with significantly improved pulmonary edema. 2. No change in the chronic lower lobe atelectasis versus chronic aspiration pneumonitis. 3. No change in the left lower lobe micronodules most likely infectious or inflammatory etiology.
[2018-08-07] MEDS: DUONEB NEB SCH ×2 (04:30→11:24)
[2018-08-07] MEDS: ZOSYN 3.375 GM 3.375 GM in SODIUM CHLORIDE 50 ML IV SCH (05:03)
[2018-08-07] MEDS: VITAMIN B-12 IM SCH (09:32)
[2018-08-07] MEDS: MUCINEX PO SCH (09:33)
[2018-08-07] MEDS: K-DUR PO SCH (09:33)
[2018-08-07] MEDS: TOPROL XL PO SCH (09:33)
[2018-08-07] MEDS: THIAMINE IM SCH (09:33)
[2018-08-07] MEDS: XANAX PO SCH (09:34)
[2018-08-07] MEDS: LOVENOX SUBCUT SCH (09:34)
[2018-08-07] MEDS: COLACE PO SCH (09:34)
[2018-08-07] MEDS: DOXY-100 100 MG in SODIUM CHLORIDE 100 ML IV SCH (09:34)
--- NOTE | 2018-08-07 11:06 | PN ---
DATE OF SERVICE: 08/06/18 SUBJECTIVE: The patient is alert and responsive. She has movement of all extremities. Breath sounds are still diminished, rales on the right side. Heart is audible with good tones. The labs done yesterday showed EGFR 117, creatinine 0.5. These probably are not reliable since the patient is markedly thin. The creatinine is probably low even if her kidneys are not functioning as well. The patient's congestive heart failure is improved. The atelectasis/pneumonitis probably aspiration pneumonia is persistent. I talked to the daughter earlier with regards to the aspiration. This patient has atelectasis but I do believe that the aspiration pneumonitis is probably the problem. This patient should be fed slowly. She should have a dysphagia study tomorrow if possible. PPI will discontinued. Blood culture is still negative. The patient is no longer receiving PPI. The patient does not have any symptoms of epigastric pain or substernal burning or heartburn. This was provided by the daughter, who takes care of her most of the time. CT scan was done today instead of tomorrow. The CT scan does indicate increased pulmonary edema. The patient's echocardiogram showed preserved ejection fraction. This patient could very well have a pulmonary hypertension but that could not be documented without a right heart catheterization. The patient is also forgetful. This patient had been treated with antibiotics alternating with one kind for 10 days to another kind. It is probably because of the history of bronchiectasis. Prognosis of this patient is poor. MTDD
--- NOTE | 2018-08-07 11:48 | HP ---
DATE OF SERVICE: 08/04/18 CHIEF COMPLAINT/HISTORY OF PRESENT ILLNESS: Increasing shortness of breath and decreasing oxygen saturation down to 78. The patient has chronic obstructive lung disease with chronic respiratory failure now on home oxygen. The patient's condition however suddenly turned for the worse since about two hours prior to presentation. She was seen by Dr. Silva in the emergency room and was noted to have rales in both lung peterson but no wheezing. CT chest without contrast showed bilateral small pleural effusion, fine basilar consolidation, right greater than left, probably pneumonia plus atelectasis, superimposed pulmonary edema. Calcification of the mitral valve and multiple compression fractures of the thoracic and lumbar spine. The patient was then admitted to the hospital with a diagnosis of pneumonitis, bilateral right more than left side, exacerbated respiratory failure, chronic obstructive lung disease and history of bronchiectasis. PAST PERSONAL HISTORY: Left lobectomy years ago. Surgery for the lung was for bronchiectasis. History of compression fractures of the thoracic and lumbar spine with scoliosis, hypothyroidism. Surgical history: Cataracts, ear surgery, tonsillectomy and cholecystectomy. Last colonoscopy was 2013. She was admitted 12/10/17 for pneumonia; 01/08/18 admitted for anemia and abdominal pain; 01/13/18 for weakness , constipation, COPD exacerbation; admission 03/27/18 acute respiratory failure, bronchiectasis; 07/14/18 pneumonia, COPD with exacerbation. FAMILY HISTORY: Brother of myocardial infarction. Paternal history positive for heart disease and thyroid problems. Maternal history positive for malignancy. SOCIAL HISTORY: The patient is a and lives in her house with 24 hour caregiver. She stopped smoking several years ago. MEDICATIONS: (HOME) Refresh one drop to both eyes twice a day Miralax 17 gm dissolved in water or juice daily Lasix 20 mg daily Mucinex 1200 mg twice a day Calcium Plus D one tablet twice a day Toprol XL 25 mg 1/2 tablet daily Bellflower 5/325 mg one tablet a day as needed Colace 100 mg capsule two capsules daily Alprazolam 1/2 mg twice a day Potassium Chloride 20 mEq tablet daily Protonix 40 mg daily Megace ES 625 mg twice a day Fentanyl different doses applied every 72 hours Levothyroxine 25 mcg daily Ipratropium/Albuterol one vial/nebulization three times a day ALLERGIES: HYDROMORPHINE, SULFA, HYDROCODONE METABOLITE REVIEW OF SYSTEMS: CONSTITUTIONAL: No fever, no chills. Extremely tired because of the increasing shortness of breath though sudden occurrence. This patient is known to have COPD with chronic respiratory problems on oxygen. The respiratory difficulty has intensified in the last two hours prior to the emergency room. 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 She did recognize me. No history of seizures and no syncopal episode. VISUAL: Denies any double vision, blurred vision or loss of vision. AUDITORY: The patient has some decreased hearing acuity, denies any ringing of the ears, pain or drainage. RESPIRATORY: The patient is dyspneic and tachypneic with cough, productive, gurgling. No history of hemoptysis. The patient has history of bronchiectasis resulting to left lower lobectomy. CARDIOVASCULAR: Denies any chest tightness or chest pain. GASTROINTESTINAL: Appetite is decreased. The patient does not have any heartburn or burning sensation in the stomach according to the daughter. The patient is constipated and sometimes has a bowel movement in slinger sequins and the abdominal discomfort has resolved. This has been ongoing since she was young according to the daughter. GENITOURINARY: The patient has urinary incontinence as well as some urgency but no burning. MUSCULOSKELETAL: The patient's muscles have deteriorated significantly. She has multiple fractures of the thoracic and lumbar spine, compression. She has movement of all extremities. INTEGUMENT: Skin is dry, wrinkled and thin. There is no ecchymosis. ENDOCRINE: Negative. HEMATOLOGIC: No history of prolonged bleeding or spontaneous bleeding. PSYCHIATRIC: The patient's shortterm memory recollection is poor and affect appears to be normal. Responses are appropriate. PHYSICAL EXAMINATION: GENERAL: 88-year-old female admitted to the hospital via the emergency room because of acute increasing shortness of breath, two hours duration prior to presentation. This patient is known to have chronic obstructive lung disease with chronic respiratory failure on oxygen. The patient on presentation was markedly hypoxic with hypercarbia. Arterial blood gases were done. FI02 28, oxygen saturation 92 and pH 7.348, pc02 55.5, p02 67. CBC showed moderate anemia, elevated MCV and MCH. WBC and platelet count normal. Chest CT bibasilar infilrate, right more than left side. GENERAL APPEARANCE: Emaciated but has movement of all extremities. HEAD: Unremarkable. Scalp: No active dermatitis. Face is symmetrical and equal with no facial weakness. No redness, no significant tenderness to palpation and/ or pressure in the frontomaxillary sinus areas. EYES: Pupils equal/round/reactive to light. Conjunctivae pale. Sclerae not icteric. EARS: External unremarkable. MOUTH: Unremarkable. THROAT: No inflammation, no exudate. NECK: No masses. No bruit. No adenopathies. CHEST: Essentially symmetrical, equal and kyphotic. LUNGS: Breath sounds are diminished on both sides with rales in both lung peterson , more on the right side. HEART: Audible and regular with good tones. ABDOMEN: Scaphoid, soft with no remarkable tenderness, no guarding. Bowel sounds active. No masses palpable. EXTERNAL GENITALIA: Not examined. RECTAL/PELVIC: Not done. LOWER EXTREMITIES: Symmetrical and equal with no significant edema. Pedal pulses are present. UPPER EXTREMITIES: Symmetrical and equal. ASSESSMENT: 1. BILATERAL PNEUMONITIS, RIGHT MORE THAN LEFT. 2. ACUTE PULMONARY EDEMA. 3. CONGESTIVE HEART FAILURE. WILL AWAIT FOR ECHOCARDIOGRAM FOR CLASSIFICATION. 4. COPD, SEVERE. 5. CHRONIC RESPIRATORY FAILURE WITH ACUTE EXACERBATION. 6. MODERATE SEVERE ANEMIA. 7. HISTORY OF MULTIPLE COMPRESSION FRACTURE, THORACIC AND LUMBAR SPINE. 8. EMACIATED - MALNOURISHED. PROGNOSIS: Poor. TIME SPENT: GREATER THAN 65 MINUTES MTDD
[2018-08-07] MEDS ORDERED: AVELOX PO STA (13:05)
[2018-08-07] MEDS ORDERED: ALDACTONE PO STA (13:05)
[2018-08-07 13:52] VITALS: BP 118/59; TEMP 98.2
--- NOTE | 2018-08-14 10:04 | DS ---
DATE OF SERVICE: 08/07/18 PATIENT IDENTIFICATION: 88 year old female admitted to the hospital by the emergency room because of a sudden acute exacerbation of dyspnea. The patient is known to have respiratory failure on oxygen. However the patient was doing well according to the daughter until about two hours prior to presentation when she was increasing getting short of breath. HOSPITAL COURSE: The patient at the emergency room was noted to have rales in both lung peterson with no wheezing. The chest CT without contrast showed bilateral small plural effusion bibasilar consolidation right greater than left probably pneumonitis and super imposed pulmonary edema. The patient persisted to have rales in both lung peterson more on the right. The rales were decreasing. HEART: Audible with good tones. The patient remained afebrile during her hospital stay. Blood pressures were also normal except on admission where it was recorded at 160/60. The rest of the blood pressure were close to normal or normal except for another episode of 170 after admission. The patient's labs showed moderately severe anemia with Hgb ranging from 9.9 to 10.6 and MCV ranging from 99.1 to 102.8 MCH 32 to 32.3. The RDW is elevated between 18 to 18.6. WBC and plt count were normal. Repeat arterial blood gasses a day before discharge at 28 FiO2 showed a marked improvement, oxygen saturation 99, pH 7.360, pCO2 45.5, pO2 155.0, HCO3 25.7, total CO2 27. The CBC on 08/07/18 essentially unchanged from the previous and the chemistry normal electrolytes, renal panel normal, creatinine is low because of the patient being markedly thin, blood sugar is normal, liver panel normal, NT Pro-BNP was 1,300 initially and did go up to 1, 920. The clinical condition of the patient is improved including the X-ray. The patient's TSH is 7.750. Blood culture was negative after 4 days. Appetite is variable anywhere between 10-50% of the meals. Had discussed the patient's condition with the daughter who is taking care of her most of the time. The patient now stays at home at her house with 24 hour help. The patient's echocardiogram showed calcific annulus as well as the aortic valve but not surprising since she is 88 years of age. Her left ventricular ejection fraction is 7%. Markedly enlarged atrial size normal left ventricular ejection fraction moderate aortic regurgitation as well as mitral difficult echocardiogram per lead pastor. Chest CT done 08/06/18 showed cardiomegaly which significant improved pulmonary edema, no change in the chronic lower lobe atelectasis versus aspiration pneumonitis. No change in the left lower lobe micronodule most likely infectious or inflammatory. The patient had a dysphagia study bed side only and I do not see the report. The patient however was advised to eat upright and avoid using a straw. The patient at discharge was alert with movement of all extremities, oriented and not dyspneic or tachypneic and no cyanosis. HEART: Normal sinus rhythm LUNGS: Breath sounds are diminished on both sides with bilateral rales but much less The patient is to resume her previous medications and new medications added consisting of Avelox to be taken for the next 6 days, Torsemide 20mg by mouth first thing in the morning on an empty stomach and Aldactone 25mg daily. The patient is to continue the oxygen at home. Move as often as possible with the help of the career development specialist. Continue B12 and B1 no prescription given. The patient at the time of discharge had the following vital signs at 1:51pm; Temperature 98.2, pulse 58, blood pressure 118/59, respiratory rate 16, oxygen saturation 98 at 2 liters of oxygen. Medications already mentioned. She has an appointment with Dr. Sparks on the of this month and the patient was encouraged as well as the daughter to keep the appointment. FINAL DIAGNOSES: 1. Acute pulmonary edema, improved 2. COPD with chronic respiratory failure on oxygen 3. Bibasilar atelectasis versus pneumonia 4. Hypercarbia 5. Severe hypoxemia 6. Anemia, moderate to severe PROGNOSIS: Poor TIME SPENT: GREATER THAN 30 MINUTES MTDD
== END 2018-08-07 15:28 | disposition home health service (06) | DRG 189 ==
LOC: ED 01:38 → SCU 04:11
PROVIDERS: ADMIT General Practice; ATTEND General Practice
DX: J81.0 Acute pulmonary edema (principal); J96.01 Acute respiratory failure with hypoxia; J69.0 Pneumonitis due to inhalation of food and vomit; E46 Unspecified protein-calorie malnutrition; J44.9 Chronic obstructive pulmonary disease, unspecified; F41.9 Anxiety disorder, unspecified; R06.00 Dyspnea, unspecified; R06.89 Other abnormalities of breathing; R09.02 Hypoxemia; D64.9 Anemia, unspecified; I50.9 Heart failure, unspecified; Z99.81 Dependence on supplemental oxygen
CPT/HCPCS: 36415; 80053; 81001; 82306; 82550; 82803; 83880; 84145; 84443; 84484; 85025; 87040; 87081; 87502; 93005; 93010; 94640; 96365; 96366; 96372; 96375; 96376; 97802; 99284; 99285

== ENCOUNTER 2021-10-02 09:09 | Inpatient (IN) ==
[2021-10-02 09:53] LABS: BASOPHILS # (AUTO) 0.1 K/uL (0-0.2); BASOPHILS % (AUTO) 0.8 % (0.0-3.0); EOSINOPHILS # (AUTO) 0.1 K/ul (0.0-0.7); EOSINOPHILS % (AUTO) 0.6 % (0.0-7.0); HEMATOCRIT 30.4 % (37.0-47.0); HEMOGLOBIN 9.8 g/dl (12.0-16.0); IMMATURE GRANULOCYTE % (AUTO) 0.5 % (0.0-5.0); LYMPHOCYTES % (AUTO) 12.1 (10.0-50.0); MEAN CORPUSCULAR HEMOGLOBIN 34.5 pg (27.0-31.0); MEAN CORPUSCULAR HGB CONC 32.2 (31.8-35.4); MONOCYTES # (AUTO) 0.6 K/uL (0.4-2.0); MONOCYTES % (AUTO) 7.5 (0-10); NEUTROPHILS # (AUTO) 6.5 K/ul (2.0-6.9); NEUTROPHILS % (AUTO) 78.5 % (42.2-75.2); PLATELET COUNT 299 10^3/uL (140-440); RDW COEFFICIENT OF VARIATION 15.1 % (11.6-14.8); RED BLOOD COUNT 2.84 10^6/ul (4.20-5.40); WHITE BLOOD COUNT 8.32 K/ul (4.6-10.2)
[2021-10-02 10:10] LABS: ALANINE AMINOTRANSFERASE 15.4 U/L (0-35); ALBUMIN 4.14 g/dL (3.5-5.0); ALKALINE PHOSPHATASE 67.5 U/L (53-141); ASPARTATE AMINO TRANSFERASE 28.4 U/L (14-36); BILIRUBIN,TOTAL 0.56 mg/dL (0.2-1.3); BLOOD UREA NITROGEN 17.3 mg/dL (7-17); CALCIUM 10.13 mg/dL (8.4-10.2); CHLORIDE 90.6 mmol/L (98-107); CREATININE 0.77 mg/dL (0.60-1.30); GLUCOSE 93.2 mg/dL (74-106); POTASSIUM 3.46 mmol/L (3.5-5.1); SODIUM 137.1 mmol/L (134.5-145); TOTAL PROTEIN 7.02 g/dL (6.3-8.2)
[2021-10-02 10:11] LABS: BILIRUBIN,URINE Negative (NEGATIVE); CLARITY,URINE Clear (CLEAR); COLOR,URINE Yellow (YELLOW); GLUCOSE, URINE (UA) Negative (NEGATIVE); KETONES,URINE Negative (NEGATIVE); LEUKOCYTE ESTERASE ,URINE 1+ (NEGATIVE); NITRITE,URINE Negative (NEGATIVE); PH,URINE 6.5 (5-9); PROTEIN,URINE Trace (NEGATIVE); URINE, BLOOD 1+ (NEGATIVE); UROBILINOGEN,URINE 0.2 (0.2)
[2021-10-02 10:17] LABS: SQUAMOUS EPITHELIAL CELL,UR NOT PRESENT (0-5)
[2021-10-02 10:19] LABS: URINE WBC, MICROSCOPIC 30-50 (0-2)
[2021-10-02 10:21] LABS: CARBON DIOXIDE 43.1 mmol/L (22-30.0)
--- NOTE | 2021-10-02 11:12 | DI ---
EXAM: Frontal view of the chest. HISTORY: Weakness, urinary tract infection. Pneumonia. COMPARISON: Chest radiograph 09/30/2021. FINDINGS: Diffuse osseous demineralization. Deformities of right lower lateral ribs concerning for nondisplaced fractures. Normal heart size. Calcific atherosclerosis. Band-like opacities at the right lung base. Scattered calcified granulomas. No visible effusion or pneumothorax. No acute osseous abnormality. IMPRESSION: 1. Bibasilar opacities likely due to atelectasis. Pneumonia is also possible the proper setting. 2. Right lower rib deformities, concerning for fractures. Diffuse osseous demineralization.
--- NOTE | 2021-10-02 11:47 | ED.PDOC ---
General ED Provider: Dr. HANS SNIDER Chief Complaint: Weakness Stated Complaint: 89 year old female who has a history of recent ER eval and tx 2 days ago, Started on Cipro for treatment. apparently has hx of Bronchiectasis and alternates CIPRO and cefdinir, (Just started Cipro 500mg Yesterday) who was noted to be weak per daughter at home. She is otherwise very independent Daughter brought her back to ER today as condition has not improved Time Seen by Provider: 10/02/21 14:00 Mode of Arrival: Ambulance Information Source: Patient and EMT Exam Limitations: Dementia and Altered mental status Primary Care Provider: MATTHEW MILLER Seen Within Last 72 Hours for Same Complaint By: ED Nursing and Triage Documentation Reviewed and Agree: Yes Does patient meet sepsis criteria?: No System Inflammatory Response Syndrome: Not Applicable Sepsis Protocol: For patient's 13 years and over: Temp is 96.8 and below OR 101 and greater Pulse >90 BPM Resp >20/minute Acutely Altered Mental Status Are patient's symptoms suggestive of a new infection, such as: -Pneumonia -Skin, Soft Tissue -Endocarditis -UTI -Bone, Joint Infection -Implantable Device -Acute Abdominal Infection -Wound Infection -Meningitis -Blood Stream Catheter Infection -Unknown Review of Systems Review Of Systems Constitutional: Reports Chills, Fever, Malaise, Weakness and Loss of appetite All Other Systems: Reviewed and Negative [facility] Medical History (Updated 10/04/21 @ 00:53 by MYRIAM FLORES MD) Arthritis Asthma Cervical spondylosis with myelopathy CHF (congestive heart failure) Chronic anemia Chronic obstructive pulmonary disease Compression fracture of lumbar vertebra Dementia Former smoker Hypertension Hyperthyroidism Kyphosis Neutrophilia Family History FATHER Cerebrovascular accident Mother Cancer Social History (Updated 10/02/21 @ 19:27 by SHIREEN TOWNSEND RN) Smoking and tobacco status: Former smoker Alcohol intake: unknown History of recent travel: No Surgical History (Updated 10/03/21 @ 09:47 by ISIS DOMÍNGUEZ, RN) History of cholecystectomy History of ear, nose, and throat (ENT) surgery History of lobectomy of lung History of tonsillectomy and adenoidectomy Female Reproductive History Menstrual Hx Hysterectomy: No Hx Tubal Ligation: No Physical Exam Physical Exam Appearance: Reports Ill-appearing Ill-appearing: Moderate Pain Distress: Not Applicable Eyes: Reports LEIGH, EOMI and Conjunctiva clear ENT: Reports Ears normal, Nose normal and Oropharynx normal Neck: Supple Respiratory: Reports Airway patent and Breath sounds clear Cardiovascular: Reports RRR, Pulses normal, No rub and No murmur GI/: Reports Soft, Nontender and No masses Musculoskeletal: Reports Normal strength, ROM intact and No edema Skin: Reports Warm, Dry, Normal color and Pale Neurological: Reports Sensation intact, Motor intact, Reflexes intact, Cranial nerves intact, Alert and Oriented Psychiatric: Reports Affect appropriate, Mood appropriate and Anxious Interpretation Radiology Interpretation Exam Interpreted: Portable CXR (Atelectasis/pneumonia) and Other (TERPRETATION: 1. MARKEDLY ENLARGED LEFT ATRIAL SIZE 2. NORMAL LEFT VENTRICULAR EJECTION FRACTION/ NORMAL LEFT VENTRICLE SIZE 3. MODERATE AORTIC REGURGITATION AND MITRAL REGURGITATION 4. CALCIFIC AORTIC LEAFLET/ MITRAL VALVE ANNULUS CALCIFICATION) Critical Care Note Critical Care Note Total Critical Care Time (mins): 30 Course Course Hematology/Chemistry: 10/04/21 05:10 10/04/21 05:00 Orders, Labs, Meds: Lab Review 10/02/21 10/02/21 10/02/21 09:49 09:49 10:00 WBC 8.32 RBC 2.84 L Hgb 9.8 L Hct 30.4 L MCV 107.0 H MCH 34.5 H MCHC 32.2 RDW Coeff of Rosie 15.1 H Plt Count 299 Immature Gran % (Auto) 0.5 Neut % (Auto) 78.5 H Lymph % (Auto) 12.1 Summers % (Auto) 7.5 Eos % (Auto) 0.6 Baso % (Auto) 0.8 Neut # (Auto) 6.5 Lymph # (Auto) 1.0 Summers # (Auto) 0.6 Eos # (Auto) 0.1 Baso # (Auto) 0.1 Immature Gran # (Auto) 0.0 Sodium 137.1 Potassium 3.46 L Chloride 90.6 L Carbon Dioxide 43.1 H* Anion Gap 6.86 BUN 17.3 H Creatinine 0.77 Estimated GFR (MDRD) 71.00 BUN/Creatinine Ratio 22.46 Glucose 93.2 Calcium 10.13 Total Bilirubin 0.56 AST 28.4 ALT 15.4 Alkaline Phosphatase 67.5 Total Protein 7.02 Albumin 4.14 Globulin 2.88 Albumin/Globulin Ratio 1.43 Urine Color Yellow Urine Clarity Clear Urine pH 6.5 Ur Specific Preston 1.020 Urine Protein Trace H Urine Glucose (UA) Negative Urine Ketones Negative Urine Blood 1+ H Urine Nitrite Negative Urine Bilirubin Negative Urine Urobilinogen 0.2 Ur Leukocyte Esterase 1+ H Urine Microscopic RBC 2-5 Urine Microscopic WBC 30-50 Ur Squamous Epith Cells Not present SARS CoV-2 RNA Rapid ABRAM 10/02/21 11:05 WBC RBC Hgb Hct MCV MCH MCHC RDW Coeff of Rosie Plt Count Immature Gran % (Auto) Neut % (Auto) Lymph % (Auto) Summers % (Auto) Eos % (Auto) Baso % (Auto) Neut # (Auto) Lymph # (Auto) Summers # (Auto) Eos # (Auto) Baso # (Auto) Immature Gran # (Auto) Sodium Potassium Chloride Carbon Dioxide Anion Gap BUN Creatinine Estimated GFR (MDRD) BUN/Creatinine Ratio Glucose Calcium Total Bilirubin AST ALT Alkaline Phosphatase Total Protein Albumin Globulin Albumin/Globulin Ratio Urine Color Urine Clarity Urine pH Ur Specific Preston Urine Protein Urine Glucose (UA) Urine Ketones Urine Blood Urine Nitrite Urine Bilirubin Urine Urobilinogen Ur Leukocyte Esterase Urine Microscopic RBC Urine Microscopic WBC Ur Squamous Epith Cells SARS CoV-2 RNA Rapid ABRAM Negative Orders Category Date Time Status CBC W/ AUTO DIFF Stat LAB 10/02/21 09:49 Completed CMP [COMPREHENSIVE METABOLIC PANEL] Stat LAB 10/02/21 09:49 Completed COVID [SARS COV-2 RNA RAPID ABRAM] Stat LAB 10/02/21 11:05 Completed UA [URINALYSIS C & S IF INDICATED] Stat LAB 10/02/21 10:00 Completed URINE CULTURE Stat LAB 10/02/21 10:00 Completed CHEST, 1V AP ONLY Stat RADS 10/02/21 09:57 Completed Medications Generic Name Dose Route Start Last Admin Trade Name Freq PRN Reason Stop Dose Admin Acetaminophen 650 mg 10/02/21 14:26 Acetaminophen 325 Mg Tablet PO Q4H PRN Fever >101 Albuterol/Ipratropium 3 ml 10/02/21 20:00 10/04/21 04:30 Ipratropium/Albuterol Vial.Neb NEB 3 ml RTQID TAMMI Administration Alprazolam 0.5 mg 10/02/21 21:00 10/03/21 21:28 Alprazolam 0.5 Mg Tablet PO 0.5 mg BID TAMMI Administration Alprazolam 0.5 mg 10/03/21 13:30 10/03/21 13:20 Alprazolam 0.5 Mg Tablet PO Not Given 1200 TAMMI Calcium/Vitamin D 1 each 10/02/21 21:00 10/03/21 21:28 Calcium Carbonate/Vitamin D3 500 Mg/5 Mcg(200iu) 1 Each Tablet PO 1 each BID TAMMI Administration Docusate Sodium 200 mg 10/03/21 09:00 10/03/21 09:04 Docusate Sodium 100 Mg Capsule PO 200 mg DAILY TAMMI Administration Enoxaparin Sodium 30 mg 10/03/21 09:00 10/03/21 09:36 Enoxaparin Sodium 30 Mg/0.3 Ml Syr SUBCUT Not Given DAILY TAMMI Fentanyl 1 patch 10/02/21 16:30 10/02/21 19:44 Fentanyl 12 Mcg/Hr Patch.Td72 TD 1 patch Q72HR TAMMI Administration Guaifenesin 1,200 mg 10/03/21 09:00 10/03/21 09:07 Guaifenesin 600 Mg Tablet.Er PO 1,200 mg DAILY TAMMI Administration Sodium Chloride 1,000 mls @ 75 mls/hr 10/02/21 14:30 10/04/21 06:06 Sodium Chloride IV 75 mls/hr .[id number] TAMMI Administration CEFTRIAXONE/D5W 1 GM PREMIX 1 gm in 50 mls @ 75 mls/hr 10/02/21 14:30 10/03/21 09:15 Rocephin 1 Gm/50 Ml D5w IV 10/04/21 12:00 75 mls/hr DAILY TAMMI Administration Ceftriaxone Sodium 1 gm/ 100 mls @ 150 mls/hr 10/05/21 09:00 Sodium Chloride IV 10/06/21 10:00 DAILY TAMMI Levothyroxine Sodium 50 mcg 10/03/21 06:30 10/04/21 06:05 Levothyroxine Sodium 50 Mcg Tablet PO 50 mcg QDAC TAMMI Administration Metoprolol Succinate 12.5 mg 10/03/21 09:00 10/03/21 09:05 Metoprolol Succinate 25 Mg Tab.Er.24h PO 12.5 mg DAILY TAMMI Administration Multivitamins 1 tab 10/03/21 09:00 10/03/21 09:04 Multivitamin 1 Tab PO 1 tab DAILY TAMMI Administration Ondansetron HCl 4 mg 10/02/21 14:26 Ondansetron Hcl/Pf 4 Mg/2 Ml Sdv IVP Q6H PRN Nausea / Vomiting Pantoprazole Sodium 40 mg 10/03/21 06:30 10/04/21 06:05 Pantoprazole Sodium 40 Mg Tablet.Dr PO 40 mg QDAC TAMMI Administration Spironolactone 12.5 mg 10/03/21 09:00 10/03/21 09:07 Spironolactone 25 Mg Tablet PO 12.5 mg DAILY TAMMI Administration Torsemide 20 mg 10/03/21 06:30 10/04/21 06:05 Torsemide 20 Mg Tablet PO 20 mg QDAC TAMMI Administration Discontinued Medications Generic Name Dose Route Start Last Admin Trade Name Freq PRN Reason Stop Dose Admin Alprazolam 0.25 mg 10/03/21 12:00 10/03/21 12:03 Alprazolam 0.25 Mg Tablet PO 0.25 mg 1200 TAMMI Administration Alprazolam 0.25 mg 10/03/21 13:30 10/03/21 13:38 Alprazolam 0.25 Mg Tablet PO 10/03/21 13:31 0.25 mg ONCE ONE Administration Azithromycin 500 mg 10/02/21 14:26 10/02/21 14:57 Azithromycin 250 Mg Tablet PO 10/02/21 14:27 500 mg ONCE STA Administration Haloperidol Lactate 1 mg 10/02/21 23:32 10/02/21 23:47 Haloperidol Lactate 5 Mg/Ml Vial IM 10/02/21 23:33 1 mg ONCE ONE Administration Methylprednisolone Sodium Succinate 60 mg 10/02/21 14:30 10/03/21 08:29 Methylprednisolone Sod Succ/Pf 125 Mg/2 Ml Vial IVP 60 mg Q12HR TAMMI Administration Trazodone HCl 25 mg 10/02/21 22:16 10/02/21 22:30 Trazodone Hcl 50 Mg Tablet PO 10/02/21 22:17 25 mg ONCE ONE Administration Vital Signs: Temp Pulse Resp BP Pulse Ox 10/02/21 09:10 97.5 F L 60 18 145/67 H 100 Discharge Plan Discharge Patient Disposition: ADMITTED INPATIENT Discharge Problem: Pneumonia, Urinary tract infection ED Provider: HANS SNIDER Condition: Good Physician Progress Note: []
[2021-10-02] MEDS ORDERED: ZOFRAN 4 MG/2 ML IVP PRN (14:26)
[2021-10-02] MEDS ORDERED: ZITHROMAX PO STA (14:26)
[2021-10-02] MEDS ORDERED: TYLENOL PO PRN (14:26)
[2021-10-02] MEDS: SOLU-MEDROL 125 MG IVP SCH ×2 (14:57→20:59)
[2021-10-02] MEDS: ROCEPHIN 1 GM/50 ML D5W 1 GM/50 ML BAG IV SCH (15:00)
[2021-10-02 15:47] VITALS: BMI 14.8
[2021-10-02] MEDS ORDERED: ALBUTEROL 0.083% NEB NEB PRN (16:14)
[2021-10-02] MEDS ORDERED: XANAX PO SCH (16:30)
[2021-10-02] MEDS: DURAGESIC TD SCH (19:44)
[2021-10-02] MEDS: SODIUM CHLORIDE 1,000 ML IV SCH (19:50)
[2021-10-02] MEDS ORDERED: ATROVENT 0.02% NEB NEB SCH (20:00)
[2021-10-02] MEDS: DUONEB NEB SCH (20:15)
[2021-10-02] MEDS: XANAX PO SCH (20:58)
[2021-10-02] MEDS: CALCIUM 500 + VIT D 5 MCG (200 IU) TABLET PO SCH (20:59)
[2021-10-02] MEDS ORDERED: CIPRO PO SCH (21:00)
[2021-10-02] MEDS ORDERED: NON-FORMULARY MEDICATION (Calcium Carbonate-Vitamin D3 1 EACH tablet) PO SCH (21:00)
[2021-10-02] MEDS ORDERED: ATROVENT HFA INHALER (SINGLE PATIENT USE) IH SCH (21:00)
[2021-10-02] MEDS ORDERED: DESYREL PO ONE (22:16)
[2021-10-02] MEDS ORDERED: HALDOL IM ONE (23:32)
[2021-10-03] MEDS: DUONEB NEB SCH ×4 (04:35→19:45)
[2021-10-03 05:15] LABS: BASOPHILS % (AUTO) 0.3 % (0.0-3.0); HEMATOCRIT 29.3 % (37.0-47.0); HEMOGLOBIN 9.6 g/dl (12.0-16.0); IMMATURE GRANULOCYTE # (AUTO) 0.1 (0.0-1.0); IMMATURE GRANULOCYTE % (AUTO) 1.3 % (0.0-5.0); LYMPHOCYTES # (AUTO) 0.4 K/uL (0.60-3.4); MEAN CORPUSCULAR HEMOGLOBIN 34.8 pg (27.0-31.0); MEAN CORPUSCULAR HGB CONC 32.8 (31.8-35.4); MEAN CORPUSCULAR VOLUME 106.2 fl (81.0-99.0); MONOCYTES # (AUTO) 0.5 K/uL (0.4-2.0); NEUTROPHILS # (AUTO) 9.2 K/ul (2.0-6.9); NEUTROPHILS % (AUTO) 89.4 % (42.2-75.2); PLATELET COUNT 315 10^3/uL (140-440); RDW COEFFICIENT OF VARIATION 15.1 % (11.6-14.8); RED BLOOD COUNT 2.76 10^6/ul (4.20-5.40); WHITE BLOOD COUNT 10.25 K/ul (4.6-10.2)
[2021-10-03] MEDS: PROTONIX PO SCH (05:35)
[2021-10-03] MEDS: DEMADEX PO SCH (05:35)
[2021-10-03] MEDS: SYNTHROID PO SCH (05:35)
[2021-10-03 05:41] LABS: ALANINE AMINOTRANSFERASE 23.4 U/L (0-35); ALBUMIN 4.38 g/dL (3.5-5.0); ALKALINE PHOSPHATASE 70.1 U/L (53-141); BILIRUBIN,TOTAL 0.65 mg/dL (0.2-1.3); BLOOD UREA NITROGEN 21.7 mg/dL (7-17); CALCIUM 10.42 mg/dL (8.4-10.2); CHLORIDE 94.5 mmol/L (98-107); CREATININE 0.66 mg/dL (0.60-1.30); GLUCOSE 112.5 mg/dL (74-106); POTASSIUM 3.4 mmol/L (3.5-5.1); SODIUM 140.6 mmol/L (134.5-145); TOTAL PROTEIN 7.23 g/dL (6.3-8.2)
[2021-10-03 06:02] LABS: CARBON DIOXIDE 36.9 mmol/L (22-30.0)
[2021-10-03] MEDS: SOLU-MEDROL 125 MG IVP SCH (08:29)
[2021-10-03] MEDS ORDERED: NON-FORMULARY MEDICATION (Multivitamin Tablet) PO SCH (09:00)
[2021-10-03] MEDS: COLACE PO SCH (09:04)
[2021-10-03] MEDS: MULTIVITAMIN TABLET PO SCH (09:04)
[2021-10-03] MEDS: XANAX PO SCH ×3 (09:05→21:28)
[2021-10-03] MEDS: TOPROL XL PO SCH (09:05)
[2021-10-03] MEDS: CALCIUM 500 + VIT D 5 MCG (200 IU) TABLET PO SCH ×2 (09:06→21:28)
[2021-10-03] MEDS: ALDACTONE PO SCH (09:07)
[2021-10-03] MEDS: MUCINEX PO SCH (09:07)
[2021-10-03] MEDS: LOVENOX SUBCUT SCH ×2 (09:08→09:36)
[2021-10-03] MEDS: ROCEPHIN 1 GM/50 ML D5W 1 GM/50 ML BAG IV SCH (09:15)
[2021-10-03] MEDS ORDERED: XANAX PO SCH ×2 (12:00→13:30)
[2021-10-03] MEDS ORDERED: XANAX PO ONE (13:30)
[2021-10-03] MEDS: SODIUM CHLORIDE 1,000 ML IV SCH (15:32)
--- NOTE | 2021-10-03 15:42 | RS.PTINEVL ---
Subjective - Patient information Date of Evaluation: 10/03/21 Date of Arrival on Unit: 10/02/21 Admitted From:: Emergency Dept Diagnosis: UTI Usual Living Arrangement: 21/04 caregivers Home Environment: House, Level/No stairs Medical History: Hypertension, COPD, Dementia, CHF, Arthritis Medical History Comments:: anemia, asthma, hyperthyroidism, kyphosis Surgical History: Cholecystectomy, Tonsillectomy Medications: see chart Subjective Information/ Patient Comments:: pt states "I want to see what is going on out there." - Level of function Prior to this admission, the patient could do the following:: Partially Dependent Ambulation Abilities prior to this admission: sitter reports pt amb with rwx at home with supervision and had supervision to min assist with ADL's Current Equipment Used at Home: rolling walker Interventions - Objective Patient Orientation: Person Current Interventions: IV's, Oxygen, Telemetry Observation: pt with significant thoracic kyphosis Range of Motion - ROM Right Upper Extremity AROM: WFL's Left Upper Extremity AROM: WFL's Right Lower Extremity AROM: WFL's Left Lower Extremity AROM: WFL's Muscle Strength - Muscle Strength Right Upper Extremity Strength: Mild Weakness (grossly 3+ to 4-/5) Left Upper Extremity Strength: Mild Weakness (grossly 3+ to 4-/5) Right Lower Extremity Strength: Mild Weakness (hip flex 4-/5, knee flex/ext 4/5, ankle DF/PF 4/5) Left Lower Extremity Strength: Mild Weakness (hip flex 4-/5, knee flex/ext 4/5, ankle DF/PF 4/5) Sensation - Sensation Right Upper Extremity Sensation: Intact/Normal Left Upper Extremity Sensation: Intact/Normal Right Lower Extremity Sensation: Intact/Normal Left Lower Extremity Sensation: Intact/Normal Palpation Palpation Findings: Tenderness Balance - Sitting Balance and Reactions Static Sitting Balance: Good Dynamic Sitting Balance: Fair - Standing Balance and Reactions Static Standing Balance: Poor Dynamic Standing Balance: Poor Standing Equilibrium Reactions: Delayed Left, Delayed Right Standing Protective Reactions: Delayed Left, Delayed Right Functional Mobility - Transfers Sit to Stand: Supervision, CGA Stand to Sit: CGA - Safety Awareness Safety Awareness: Poor LUIS CARLOS INDEX SCORE: n/a Ambulation - Ambulation Orthotic/Prosthetic Device: No Distance: 35ft with DOGGER Assistance needed with Ambulation: CGA, Min Assist Gait Deviations: Wide Based gait, Forward posture, Short stride, Deviates from path Factors Affecting Ambulation: Decreased Balance, Breathing/O2 Saturation, Weakness, Decreased Safety, Cognitive Status, Limited Endurance Treatment time - Time with patient Length of Evaluation: 19 Total treatment time: 28 Patient Education - Education Patient Education: Activity Modification, Education of Plan of Care Teaching Recipient: Patient, Primary Caregiver Teaching Methods: Discussion (discussion regarding POC) Assessment - Assessment Problem List:: Decreased level of function, Requires training/education, Decreased safety/Risk of falls, Weakness, Cognitive status limits abilities Rehab Potential: Fair Further Therapy Indicated?: Yes Candidate for Swing Bed for Therapy Services?: Feel pt will not be a candidate for swing bed due to pt is close to prior level of function Evaluation Complexity: HISTORY: Medium, EXAM OF BODY SYSTEMS: Medium, CLINICAL PRESENTATION: Medium, CLINICAL DECISION MAKING: Medium Patient's Goal(s): pt unable to express goals. Caregiver goals are for pt to return home with 24hour caregiver. Short Term Goals GOAL #1: pt perform scooting and rolling in bed with verbal cues. Goal to be met by: 10/05/21 GOAL #2: pt tranfer sup to/from sit to/from stand SBA to CGA Goal to be met by: 10/05/21 GOAL #3: pt amb with rwx 75ft with CGA x 1 with no LOB Goal to be met by: 10/05/21 GOAL #4: Improve LE strength 4/5 Goal to be met by: 10/05/21 Usp Goals GOAL #1: pt transfer sup to/from sit/stand SBA Goal to be met by: 10/07/21 GOAL #2: pt amb with rwx 100ft with CGA with no LOB with improved step length Goal to be met by: 10/07/21 Progress towards goal: Not Met GOAL #3: Improve dyn stand balance fair Goal to be met by: 10/07/21 Progress towards goal: Partially Met Plan Plan of Care: Therapeutic EX, Therapeutic Activity Other:: gait training Frequency of Treatment: 1-2 X day, as tolerated Duration of Treatment: 4 days Anticipated Discharge Destination: Home Treatment Diagnosis (ICD 10 Codes): impaired balance R 26.81. difficulty walking R 26.2. weakness M62.81 Has the Physician been added for Co-signature?: Yes
--- NOTE | 2021-10-03 16:04 | RS.OTINEVL ---
Subjective - Patient information Date of Evaluation: 12/16/17 Date of Arrival on Unit: 10/02/21 Admitted From:: Emergency Dept Diagnosis: Pneumonia, UTI PRECAUTIONS: Confused, unsteady on feet, and weakness Usual Living Arrangement: has sitters Living Arrangement Comments: has 21/04 caregivers Home Environment: House, Level/No stairs Medical History: Hypertension, COPD, Dementia, CHF, Arthritis Medical History Comments:: anemia, asthma, hyperthyroidism, kyphosis LATEX ALLERGY?: No Surgical History: Cholecystectomy, Tonsillectomy Surgical History Comments:: part of lung removed Medications: see chart Subjective Information/ Patient Comments:: Pt reports she needs to get going. - Level of function Prior to this admission, the patient could do the following:: Independent Selfcare, Partially Dependent Ambulation Abilities prior to this admission: Sitter reports that patient was independent with grooming, brushing her teeth and hair. Pt required a little assist with ambulation with RW. Current Level of Function: Partially Dependent Comments: Pt is confused and requires assist with ADLs and transfers. Current Equipment Used at Home: rolling walker Interventions - Objective Patient Orientation: Person, Place Current Interventions: IV's, Oxygen Observation: Pt standing in her pajamas with IV pole in her room and the sitter was trying to get the patient to sit down. Pt is Min A for functional mobility. Pt requires a RW. Pt is weak and confused. Interventions - ROM Right Upper Extremity AROM: Slight limitation Left Upper Extremity AROM: Slight limitation - Strength Right Upper Extremity Strength: Mild Weakness Left Upper Extremity Strength: Mild Weakness - Sensation Right Upper Extremity Sensation: Intact/Normal Left Upper Extremity Sensation: Intact/Normal Balance - Sitting Balance Static Sitting Balance: Good Dynamic Sitting Balance: Good - Standing Balance Static Standing Balance: Poor Dynamic Standing Balance: Poor ADL Skills - Self Feeding Self Feeding: Independent - Grooming Grooming: Min Assist Grooming Set-up: Standing - Dressing Dressing UE: Min Assist Dressing LE: Min Assist - Toilet Management Toilet Hygiene: Independent Toilet Clothing Management: Independent Functional Mobility - Transfers Sit to Stand: CGA Stand to Sit: CGA Stand Pivot Transfers: Min Assist - Ambulation Weight Bearing Status: FWB Assistive Device Used: Rolling Walker Assistance needed with Ambulation: Min Assist - Safety Awareness Safety Awareness: Poor LUIS CARLOS INDEX SCORE: . Additional Treatment Performed - Time with patient Length of Evaluation: 18 Total treatment time: 18 Activities Would you be interested in leaving your room for activities?: Yes Would you enjoy group activities?: Yes Do you have difficulty with your vision?: No Patient Interests:: Watching Television Patient Education Patient Education: Education of diagnosis, Home Safety, Education of Plan of Care Teaching Recipient: Patient Teaching Methods: Teach Back Method Used, Discussion Assessment Problem List:: Decreased level of function, Decreased safety/Risk of falls, Weakness, Cognitive status limits abilities Rehab Potential: Fair Further Therapy Indicated?: Yes Evaluation Complexity: HISTORY: Medium, EXAM OF BODY SYSTEMS: Medium, CLINICAL DECISION MAKING: Medium Patient's Goal(s): To get out of here. Short Term Goals - Goals GOAL 1: Pt to complete sink level ADLS CGA. Goal to be met by: 10/08/21 GOAL 2: Pt to complete dynamic standing balance to Fair+. Goal to be met by: 10/08/21 GOAL 3: Pt to increase activity tolerance to 10 minutes. Goal to be met by: 10/08/21 Cable Tender Goals GOAL 1: Pt to be CGA for ADLS. Goal to be met by: 10/11/21 GOAL 2: To increase dyn. std. bal. to G-. Goal to be met by: 10/11/21 GOAL 3: To increase activity tolerance to 15 minutes to increase indep. of ADLS. Goal to be met by: 10/11/21 Plan Plan of Care: Therapeutic EX, Neuromuscular Re-Educ, Therapeutic Activity, Self- Care/Home Management Frequency of Treatment: 1-2 X day, as tolerated Duration of Treatment: 1 Week Anticipated Discharge Destination: Home Treatment Diagnosis (ICD 10 Codes): M62.81 Weakness, Z74.1 Need for assistance with personal care. Has the Physician been added for Co-signature?: Yes
--- NOTE | 2021-10-04 00:51 | PCM.PROG ---
Date Seen by Provider: 10/03/21 Time Seen by Provider: 09:00 Subjective: Date of admit - Admit dx 1. Pneumonia. 2. UTI She says she wants to go home. Feels fine. HPI - Elderly female admit with pneumonia, recurrent UTI, weakness. Objective: Vitals: T=98.0 F, P=65, R=18, YK=968/62, SPO2=98 HEENT: [WNL] Neck: [supple] Lungs: rhonchi, no wheeze[] CVS: RRR] Abdomen: [soft] Extremities: [intact] Neurological: []No acute change, some dementia Skin: [No acute change] Lab/Tests/Diagnostic Imaging: CBC - chronic anemia, HB 8-9 range with increased MCV, chem stable[] (1) Urinary tract infection: Status: Acute Code(s): N39.0 - Urinary tract infection, site not specified SNOMED Code(s): 77268022 Assessment: Mod. UTI, culture pending, on rocephin. (2) Pneumonia: Status: Acute Code(s): J18.9 - Pneumonia, unspecified organism SNOMED Code(s): 022119379 Assessment: Minimal evidence of pneumonia on the CXR. No resp. distress or O2 need. (3) Anemia: Status: Acute Code(s): D64.9 - Anemia, unspecified SNOMED Code(s): 035205080 Assessment: Likely chronic, Hb 8 range, but elev. MCV suggests B12 def. (4) Dementia: Status: Acute Code(s): F03.90 - Unspecified dementia without behavioral disturbance SNOMED Code(s): 10135218 Assessment: She has been more confused than at home. Sundowning last night. Some of the issue may be the steroids. Plan: 1. Continue rocephin pending culture. 2. Continue rocephin, minor pneumonitis. 3. Order B12. 4. Stop steroids, discussed d/c- daughter says "no"
--- NOTE | 2021-10-04 02:20 | PCM.PROG ---
Date Seen by Provider: 10/03/21 Time Seen by Provider: 09:00 Subjective: ADmit - 10/02/21 with Dx 1. Mild pneumonia. 2. UTI 3. Chronic anemia. 4. Confusion Patient states she feels fine and wants d/c home. HPI - elderly female, some illness, presented to ER after eval. Objective: Vitals: T=98.0 F, P=65, R=18, WS=252/62, SPO2=98 HEENT: [WMNL] Neck: [supple] Lungs: [clear] CVS: [rrr] Abdomen: []soft Extremities: [itnact] Neurological: no acute change, mild confusion, possible dementia[] Skin: []wnl Lab/Tests/Diagnostic Imaging: [HB 8-9 range, chem OK, urine culture pend] (1) Urinary tract infection: Status: Acute Code(s): N39.0 - Urinary tract infection, site not specified SNOMED Code(s): 87009567 Assessment: On rocephin, cultue poending (2) Pneumonia: Status: Acute Code(s): J18.9 - Pneumonia, unspecified organism SNOMED Code(s): 027201007 Assessment: minor, see CXRE report, on rocephon, sat good on RA (3) Anemia: Status: Acute Code(s): D64.9 - Anemia, unspecified SNOMED Code(s): 439817706 Assessment: apparent chornic, Hb 8-9 range, MCV high (4) Dementia: Status: Acute Code(s): F03.90 - Unspecified dementia without behavioral disturbance SNOMED Code(s): 39580989 Assessment: Dementia and/oir situyational confuson Plan: 1. UTI continuje roceophm 2. Pneuonia contiue rocephin 3. Anemai, order B12 level, stool hemocuclt 4. Dementia/confusiuon - best thing wouold be d/c home, daughter does not want her d/c form hosp.
[2021-10-04] MEDS: DUONEB NEB SCH ×4 (04:30→19:50)
[2021-10-04 05:51] LABS: BASOPHILS # (AUTO) 0.1 K/uL (0-0.2); BASOPHILS % (AUTO) 0.8 % (0.0-3.0); EOSINOPHILS # (AUTO) 0.1 K/ul (0.0-0.7); EOSINOPHILS % (AUTO) 1.6 % (0.0-7.0); HEMATOCRIT 28.2 % (37.0-47.0); HEMOGLOBIN 9.1 g/dl (12.0-16.0); IMMATURE GRANULOCYTE # (AUTO) 0.2 (0.0-1.0); IMMATURE GRANULOCYTE % (AUTO) 2.5 % (0.0-5.0); LYMPHOCYTES # (AUTO) 1.3 K/uL (0.60-3.4); LYMPHOCYTES % (AUTO) 16.9 (10.0-50.0); MEAN CORPUSCULAR HEMOGLOBIN 34.3 pg (27.0-31.0); MEAN CORPUSCULAR HGB CONC 32.3 (31.8-35.4); MEAN CORPUSCULAR VOLUME 106.4 fl (81.0-99.0); MONOCYTES # (AUTO) 0.9 K/uL (0.4-2.0); MONOCYTES % (AUTO) 11.3 (0-10); NEUTROPHILS # (AUTO) 5.2 K/ul (2.0-6.9); NEUTROPHILS % (AUTO) 66.9 % (42.2-75.2); PLATELET COUNT 294 10^3/uL (140-440); RDW COEFFICIENT OF VARIATION 15.6 % (11.6-14.8); RED BLOOD COUNT 2.65 10^6/ul (4.20-5.40)
[2021-10-04] MEDS: DEMADEX PO SCH (06:05)
[2021-10-04] MEDS: PROTONIX PO SCH (06:05)
[2021-10-04] MEDS: SYNTHROID PO SCH (06:05)
[2021-10-04] MEDS: SODIUM CHLORIDE 1,000 ML IV SCH ×2 (06:06→18:35)
[2021-10-04 06:11] LABS: ALANINE AMINOTRANSFERASE 22.8 U/L (0-35); ALBUMIN 3.77 g/dL (3.5-5.0); ALKALINE PHOSPHATASE 54.6 U/L (53-141); ASPARTATE AMINO TRANSFERASE 77.5 U/L (14-36); BILIRUBIN,TOTAL 0.4 mg/dL (0.2-1.3); BLOOD UREA NITROGEN 21.4 mg/dL (7-17); CALCIUM 9.59 mg/dL (8.4-10.2); CHLORIDE 94.7 mmol/L (98-107); CREATININE 0.7 mg/dL (0.60-1.30); GLUCOSE 92.2 mg/dL (74-106); POTASSIUM 2.86 mmol/L (3.5-5.1); SODIUM 138.1 mmol/L (134.5-145); TOTAL PROTEIN 6.4 g/dL (6.3-8.2)
[2021-10-04 06:18] LABS: CARBON DIOXIDE 36.2 mmol/L (22-30.0)
[2021-10-04] MEDS: LOVENOX SUBCUT SCH (10:03)
[2021-10-04] MEDS: CALCIUM 500 + VIT D 5 MCG (200 IU) TABLET PO SCH ×2 (10:04→21:43)
[2021-10-04] MEDS: MUCINEX PO SCH (10:04)
[2021-10-04] MEDS: TOPROL XL PO SCH (10:05)
[2021-10-04] MEDS: ROCEPHIN 1 GM/50 ML D5W 1 GM/50 ML BAG IV SCH (10:05)
[2021-10-04] MEDS: ALDACTONE PO SCH (10:05)
[2021-10-04] MEDS: XANAX PO SCH ×3 (10:05→21:43)
[2021-10-04] MEDS: MULTIVITAMIN TABLET PO SCH (10:05)
[2021-10-04] MEDS: COLACE PO SCH (10:05)
--- NOTE | 2021-10-04 13:49 | PCM.PROG ---
Date Seen by Provider: 10/04/21 Time Seen by Provider: 08:00 Subjective: Patient sitting up in bed , eating breakfast ,visiting with daughter and youth care worker, coversing and alert , pleasantly confused disorientd to time place an circumstances Objective: Vitals: T=98.6 F, P=65, R=16, GY=927/74, SPO2=97 HEENT:Clear Neck: No JVD Lungs: CTA CVS: HRRR Abdomen: Soft non tender Extremities: neg edema or deformiits Neurological: No focal deficits Skin: [] Lab/Tests/Diagnostic Imaging: [] (1) Urinary tract infection: Status: Acute Code(s): N39.0 - Urinary tract infection, site not specified SNOMED Code(s): 64740856 (2) Pneumonia: Status: Acute Code(s): J18.9 - Pneumonia, unspecified organism SNOMED Code(s): 167522158 (3) Anemia: Status: Acute Code(s): D64.9 - Anemia, unspecified SNOMED Code(s): 410973259 (4) Dementia: Status: Acute Code(s): F03.90 - Unspecified dementia without behavioral disturbance SNOMED Code(s): 05185214
[2021-10-04] MEDS ORDERED: K-DUR PO STA (16:41)
[2021-10-05] MEDS: DUONEB NEB SCH ×2 (04:15→09:53)
[2021-10-05] MEDS: PROTONIX PO SCH (05:33)
[2021-10-05] MEDS: DEMADEX PO SCH (05:34)
[2021-10-05 05:39] VITALS: BP 142/72; TEMP 97.6
[2021-10-05 05:58] LABS: BASOPHILS # (AUTO) 0.1 K/uL (0-0.2); BASOPHILS % (AUTO) 1.1 % (0.0-3.0); EOSINOPHILS # (AUTO) 0.2 K/ul (0.0-0.7); EOSINOPHILS % (AUTO) 2.3 % (0.0-7.0); HEMOGLOBIN 9.5 g/dl (12.0-16.0); IMMATURE GRANULOCYTE # (AUTO) 0.1 (0.0-1.0); IMMATURE GRANULOCYTE % (AUTO) 1.5 % (0.0-5.0); LYMPHOCYTES # (AUTO) 1.3 K/uL (0.60-3.4); LYMPHOCYTES % (AUTO) 16.6 (10.0-50.0); MEAN CORPUSCULAR HEMOGLOBIN 34.4 pg (27.0-31.0); MEAN CORPUSCULAR HGB CONC 32.8 (31.8-35.4); MEAN CORPUSCULAR VOLUME 105.1 fl (81.0-99.0); MONOCYTES # (AUTO) 0.9 K/uL (0.4-2.0); MONOCYTES % (AUTO) 11.6 (0-10); NEUTROPHILS # (AUTO) 5.2 K/ul (2.0-6.9); NEUTROPHILS % (AUTO) 66.9 % (42.2-75.2); PLATELET COUNT 213 10^3/uL (140-440); RDW COEFFICIENT OF VARIATION 15.5 % (11.6-14.8); RED BLOOD COUNT 2.76 10^6/ul (4.20-5.40); WHITE BLOOD COUNT 7.84 K/ul (4.6-10.2)
[2021-10-05 06:15] LABS: ALANINE AMINOTRANSFERASE 26.5 U/L (0-35); ALBUMIN 3.91 g/dL (3.5-5.0); ALKALINE PHOSPHATASE 51.2 U/L (53-141); ASPARTATE AMINO TRANSFERASE 73.7 U/L (14-36); BILIRUBIN,TOTAL 0.44 mg/dL (0.2-1.3); BLOOD UREA NITROGEN 16.2 mg/dL (7-17); CALCIUM 8.98 mg/dL (8.4-10.2); CHLORIDE 94.9 mmol/L (98-107); CREATININE 0.62 mg/dL (0.60-1.30); GLUCOSE 90.6 mg/dL (74-106); POTASSIUM 3.06 mmol/L (3.5-5.1); SODIUM 137.6 mmol/L (134.5-145); TOTAL PROTEIN 6.49 g/dL (6.3-8.2)
[2021-10-05 06:21] LABS: CARBON DIOXIDE 38.8 mmol/L (22-30.0)
[2021-10-05] MEDS: SYNTHROID PO SCH (07:43)
[2021-10-05] MEDS ORDERED: KEFLEX PO ONE (08:41)
[2021-10-05] MEDS ORDERED: K-DUR PO ONE (08:41)
[2021-10-05] MEDS ORDERED: ROCEPHIN 1 GM VIAL 1 GM in SODIUM CHLORIDE 100ML 100 ML IV SCH (09:00)
[2021-10-05] MEDS: TOPROL XL PO SCH (09:15)
[2021-10-05] MEDS: ALDACTONE PO SCH (09:16)
[2021-10-05] MEDS: CALCIUM 500 + VIT D 5 MCG (200 IU) TABLET PO SCH (09:16)
[2021-10-05] MEDS: COLACE PO SCH (09:16)
[2021-10-05] MEDS: MULTIVITAMIN TABLET PO SCH (09:16)
[2021-10-05] MEDS: DURAGESIC TD SCH (09:17)
[2021-10-05] MEDS: MUCINEX PO SCH (09:17)
[2021-10-05] MEDS: XANAX PO SCH (09:17)
--- NOTE | 2021-10-05 10:17 | PCM.DC ---
Final Diagnosis: 1. UTI - resolved. 2. Pneumonia - resolved. 3. Anemia - chronic, stable. 4. HTN - controlled, with diuretic induced hypokalemia Admitting diagnosis: 1. UTI 2. Pneumonia HPI : 89 y/o female from home with mild pneumonia and mild UTI with underlying weakness due to age. (1) Urinary tract infection: Status: Acute Code(s): N39.0 - Urinary tract infection, site not specified SNOMED Code(s): 46180926 (2) Pneumonia: Status: Acute Code(s): J18.9 - Pneumonia, unspecified organism SNOMED Code(s): 202344519 (3) Anemia: Status: Acute Code(s): D64.9 - Anemia, unspecified SNOMED Code(s): 131241009 (4) Hypertension: Status: Acute Code(s): I10 - Essential (primary) hypertension SNOMED Code(s): 26105569 Reason for Hospitalization: Admitted through ER with mild pneumonia and mild UTI. [place] to need IV abx. COVID neg. DNR. Physical Exam: Alert, NAD, elderly, somewhat frail. VSS, afeb. HEENT-WNL, Neck supple, Heart RRR, no m. Lungs clear for age, abd soft, ext. intact, neuro intact, skin WNL. Prognosis/Condition at Discharge: Stable Medications at Discharge: Ambulatory Orders Medication Instructions Recorded docusate sodium 100 mg capsule 200 mg PO DAILY 03/27/18 calcium carbonate 600 mg-vitamin 1 ea PO BID #60 tab-cap 11/05/18 D3 5 mcg (200 unit) tablet metoprolol succinate 25 mg 0.5 tab PO DAILY #30 tab-cap 11/05/18 tablet,extended release 24 hr (Toprol XL) pantoprazole 40 mg tablet,delayed 40 mg PO DAILY #90 tab-cap 11/05/18 release (Protonix) torsemide 20 mg tablet 20 mg PO QDAC 30 Days #30 tab 11/05/18 fentanyl 12 mcg/hr transdermal 25 mg TRANSDERMAL Q72HR 30 Days 11/12/18 patch #10 patch ipratropium bromide 17 12.9 g INHALATION BID 30 Days #1 11/16/18 mcg/actuation HFA aerosol inhaler inha (Atrovent HFA) albuterol sulfate 1 vial NEB RTQ4H PRN 30 Days #200 12/03/18 vial.neb ipratropium bromide 0.02 % 1 vial NEB QID 30 Days #120 02/05/19 solution for inhalation vial.neb levothyroxine 50 mcg tablet 50 mcg PO DAILY 07/16/21 spironolactone 25 mg tablet 12.5 mg PO DAILY 07/16/21 (Aldactone) multivitamin 1 tab PO DAILY 10/02/21 alprazolam 0.25 mg tablet 0.25 mg PO 1200 #15 tab 10/05/21 alprazolam 0.5 mg tablet 0.5 mg PO BID #15 tab 10/05/21 cephalexin 500 mg capsule 500 mg PO BID #14 cap 10/05/21 potassium chloride 10 mEq 10 meq PO BID #30 tab 10/05/21 tablet,extended release Lab/Diagnostics: Laboratory Tests 10/02/21 10/02/21 10/02/21 09:49 09:49 10:00 WBC 8.32 RBC 2.84 L Hgb 9.8 L Hct 30.4 L MCV 107.0 H MCH 34.5 H MCHC 32.2 RDW Coeff of Rosie 15.1 H Plt Count 299 Immature Gran % (Auto) 0.5 Neut % (Auto) 78.5 H Lymph % (Auto) 12.1 [place] % (Auto) 7.5 Eos % (Auto) 0.6 Baso % (Auto) 0.8 Neut # (Auto) 6.5 Lymph # (Auto) 1.0 [place] # (Auto) 0.6 Eos # (Auto) 0.1 Baso # (Auto) 0.1 Immature Gran # (Auto) 0.0 Sodium 137.1 Potassium 3.46 L Chloride 90.6 L Carbon Dioxide 43.1 H* Anion Gap 6.86 BUN 17.3 H Creatinine 0.77 Estimated GFR (MDRD) 71.00 BUN/Creatinine Ratio 22.46 Glucose 93.2 Calcium 10.13 Magnesium Total Bilirubin 0.56 AST 28.4 ALT 15.4 Alkaline Phosphatase 67.5 Total Protein 7.02 Albumin 4.14 Globulin 2.88 Albumin/Globulin Ratio 1.43 Vitamin B12 Urine Color Yellow Urine Clarity Clear Urine pH 6.5 Ur Specific [place] 1.020 Urine Protein Trace H Urine Glucose (UA) Negative Urine Ketones Negative Urine Blood 1+ H Urine Nitrite Negative Urine Bilirubin Negative Urine Urobilinogen 0.2 Ur Leukocyte Esterase 1+ H Urine Microscopic RBC 2-5 Urine Microscopic WBC 30-50 Ur Squamous Epith Cells Not present SARS CoV-2 RNA Rapid ABRAM 10/02/21 10/03/21 10/03/21 11:05 04:45 04:45 WBC 10.25 H RBC 2.76 L Hgb 9.6 L Hct 29.3 L MCV 106.2 H MCH 34.8 H MCHC 32.8 RDW Coeff of Rosie 15.1 H Plt Count 315 Immature Gran % (Auto) 1.3 Neut % (Auto) 89.4 H Lymph % (Auto) 4.0 L [place] % (Auto) 5.0 Eos % (Auto) 0.0 Baso % (Auto) 0.3 Neut # (Auto) 9.2 H Lymph # (Auto) 0.4 L [place] # (Auto) 0.5 Eos # (Auto) 0.0 Baso # (Auto) 0.0 Immature Gran # (Auto) 0.1 Sodium 140.6 Potassium 3.40 L Chloride 94.5 L Carbon Dioxide 36.9 H Anion Gap 12.60 BUN 21.7 H Creatinine 0.66 Estimated GFR (MDRD) 84.00 BUN/Creatinine Ratio 32.87 Glucose 112.5 H Calcium 10.42 H Magnesium Total Bilirubin 0.65 AST 56.0 H D ALT 23.4 Alkaline Phosphatase 70.1 Total Protein 7.23 Albumin 4.38 Globulin 2.85 Albumin/Globulin Ratio 1.53 Vitamin B12 Urine Color Urine Clarity Urine pH Ur Specific [place] Urine Protein Urine Glucose (UA) Urine Ketones Urine Blood Urine Nitrite Urine Bilirubin Urine Urobilinogen Ur Leukocyte Esterase Urine Microscopic RBC Urine Microscopic WBC Ur Squamous Epith Cells SARS CoV-2 RNA Rapid ABRAM Negative 10/04/21 10/04/21 10/04/21 05:00 05:10 05:30 WBC 7.70 RBC 2.65 L Hgb 9.1 L Hct 28.2 L MCV 106.4 H MCH 34.3 H MCHC 32.3 RDW Coeff of Rosie 15.6 H Plt Count 294 Immature Gran % (Auto) 2.5 Neut % (Auto) 66.9 Lymph % (Auto) 16.9 [place] % (Auto) 11.3 H Eos % (Auto) 1.6 Baso % (Auto) 0.8 Neut # (Auto) 5.2 Lymph # (Auto) 1.3 [place] # (Auto) 0.9 Eos # (Auto) 0.1 Baso # (Auto) 0.1 Immature Gran # (Auto) 0.2 Sodium 138.1 Potassium 2.86 L Chloride 94.7 L Carbon Dioxide 36.2 H Anion Gap 10.06 BUN 21.4 H Creatinine 0.70 Estimated GFR (MDRD) 79.00 BUN/Creatinine Ratio 30.57 Glucose 92.2 Calcium 9.59 Magnesium Total Bilirubin 0.40 AST 77.5 H ALT 22.8 Alkaline Phosphatase 54.6 Total Protein 6.40 Albumin 3.77 Globulin 2.63 Albumin/Globulin Ratio 1.43 Vitamin B12 > 1000 H Urine Color Urine Clarity Urine pH Ur Specific [place] Urine Protein Urine Glucose (UA) Urine Ketones Urine Blood Urine Nitrite Urine Bilirubin Urine Urobilinogen Ur Leukocyte Esterase Urine Microscopic RBC Urine Microscopic WBC Ur Squamous Epith Cells SARS CoV-2 RNA Rapid ABRAM 10/04/21 10/05/21 10/05/21 17:03 05:00 05:00 WBC 7.84 RBC 2.76 L Hgb 9.5 L Hct 29.0 L MCV 105.1 H MCH 34.4 H MCHC 32.8 RDW Coeff of Rosie 15.5 H Plt Count 213 Immature Gran % (Auto) 1.5 Neut % (Auto) 66.9 Lymph % (Auto) 16.6 [place] % (Auto) 11.6 H Eos % (Auto) 2.3 Baso % (Auto) 1.1 Neut # (Auto) 5.2 Lymph # (Auto) 1.3 [place] # (Auto) 0.9 Eos # (Auto) 0.2 Baso # (Auto) 0.1 Immature Gran # (Auto) 0.1 Sodium 137.6 Potassium 3.06 L Chloride 94.9 L Carbon Dioxide 38.8 H Anion Gap 6.96 BUN 16.2 Creatinine 0.62 Estimated GFR (MDRD) 91.00 BUN/Creatinine Ratio 26.12 Glucose 90.6 Calcium 8.98 Magnesium 1.51 L Total Bilirubin 0.44 AST 73.7 H ALT 26.5 Alkaline Phosphatase 51.2 L Total Protein 6.49 Albumin 3.91 Globulin 2.58 Albumin/Globulin Ratio 1.51 Vitamin B12 Urine Color Urine Clarity Urine pH Ur Specific [place] Urine Protein Urine Glucose (UA) Urine Ketones Urine Blood Urine Nitrite Urine Bilirubin Urine Urobilinogen Ur Leukocyte Esterase Urine Microscopic RBC Urine Microscopic WBC Ur Squamous Epith Cells SARS CoV-2 RNA Rapid ABRAM cc: HANS SNIDER DO; MATTHEW MILLER EXAM: Frontal view of the chest. HISTORY: Weakness, urinary tract infection. Pneumonia. COMPARISON: Chest radiograph 09/30/2021. FINDINGS: Diffuse osseous demineralization. Deformities of right lower lateral ribs concerning for nondisplaced fractures. Normal heart size. Calcific atherosclerosis. Band-like opacities at the right lung base. Scattered calcified granulomas. No visible effusion or pneumothorax. No acute osseous abnormality. IMPRESSION: 1. Bibasilar opacities likely due to atelectasis. Pneumonia is also possible the proper setting. 2. Right lower rib deformities, concerning for fractures. Diffuse osseous demineralization. Education Provided to Patient and Family: Pneumonia. UTI. Follow-ups: See PCP in 7-10 days. Needs recheck on potassium level (new Rx) and other issue. Discharge Disposition: Home Hospital Course: Admitted to receive IV rocephin for a borderline pneumonia (vs. atelectasis gilbert) and mild UTI. She had no respiratory problems in the hospital and a urine culture was "no growth". The patient has a chronic anemia, B12 level normal. Hb in 9-10 range at discharge. HTN controlled, she is on a diuretic (demadex) which lowered her potassium, treated, will need to be on oral potassium due to the diuretic use. Patient needs a recheck in a week or so on K level. Plan: D/C home .Two new med. Keflex for a week. KCl 10 mEq bid pending recheck. Continue home med. She has family or caregivers that stay with her 21/04. Resume normal diet with activity as tolerated. The discharge was performed on a [id number] exam and 40 minutes devoted to the d/c process.
[2021-10-05] MEDS: LOVENOX SUBCUT SCH (10:19)
== END 2021-10-05 10:45 | disposition home or self-care (01) | DRG 194 ==
LOC: ED 09:09 → MEDSURG A 14:02
PROVIDERS: ADMIT Emergency Medicine; ATTEND Emergency Medicine
DX: Z20.822 Contact with and (suspected) exposure to COVID-19; I10 Essential (primary) hypertension; D64.9 Anemia, unspecified; J98.11 Atelectasis; N39.0 Urinary tract infection, site not specified; F03.90 Unspecified dementia, unspecified severity, without behavioral disturbance, psychotic disturbance, mood disturbance, and anxiety; E87.6 Hypokalemia; R53.1 Weakness; J18.9 Pneumonia, unspecified organism